=== PATIENT | male | born 1960 | race Caucasian/White ===

== ENCOUNTER 2016-11-26 17:05 | Emergency (ER) | payer OTHER ==
[~2016-11-26] VITALS: Ht 172.7 cm; Wt 71.6 kg
[~2016-11-26 17:05] MED LIST: AMLO-114 PO; CLON2TAB3 PO; FLUO40CA8 PO; LISI40TA PO; ZOLP5TAB PO; [UNRECOGNIZED DRUG - CODE]
[2016-11-26 17:16] VITALS: TEMP 36.7; Ht 172.7 cm; Wt 71.6 kg
[2016-11-26] MEDS ORDERED: LORAZEPAM 1 MG TAB PO STA (17:40)
[2016-11-26] MEDS ORDERED: THIAMINE HCL 100 MG TAB PO STA (17:40)
--- NOTE | 2016-11-26 17:44 | EMERGENCY ROOM VISIT NOTE ---
History Report prepared by Dalton: Lori Vega Under the Supervision of: Dr. Carlos Hitchcock M.D. First contact with patient: 17:21 Chief Complaint: MENTAL HEALTH EVALUATION Stated Complaint: VOLUNTARY ADMISSION History of Present Illness The patient is a 56 year old male who presents to the Emergency Room for a mental health evaluation after an episode of homicidal ideation beginning just COIL PLACER. Per police, the patient is 302 and threatened to hurt his mother today after she got rid of their dog because he was biting people. They report that he stated that he wants his mother to and he does not want to live anymore. The patient states that he is upset that his dog has to be put down as it is the only living creature that he loved. He notes that he drank 3/4 of a pint of Everclear today and he is more drunk than he thought. He notes that he quit drinking 1990 but started drinking again over the last couple of years and has been drinking every day throughout the last week. The patient reports that he is on Prozac, Seroquel, and Clozapine. Source of History: patient Onset: just COIL PLACER Position: other (mental health) Timing: other (episode) Modifying Factors (Worsening): other (dog gone) Note: Pt admits to suicidal and homicidal ideation. Review of Systems See HPI for pertinent positives & negatives. A total of 10 systems reviewed and were otherwise negative. Past Medical & Surgical Medical Problems: (1) Hypertension Family History No pertinent family history stated. Social History Smoking Status: Current Every Day Smoker Marital Status: single Housing Status: lives with family Occupation Status: disabled Current/Historical Medications Scheduled Amlodipine (Norvasc), 10 MG PO DAILY Clonazepam (Klonopin), 2 MG PO BID Fluoxetine (Prozac), 40 MG PO DAILY Lisinopril (Zestril), 40 MG PO DAILY Quetiapine Fumarate (Seroquel), 300 MG PO DAILY Zolpidem Tartrate (Ambien), 5 MG PO HS Miscellaneous Medications Acetaminophen (Bulk) (Acetaminophen) Allergies Coded Allergies: No Known Allergies (Verified , 11/26/16) Physical Exam Vital Signs Date Time Temp Pulse Resp B/P Pulse Ox O2 Delivery O2 Flow Rate FiO2 11/27/16 09:31 82 20 140/103 95 11/27/16 02:57 85 18 139/81 94 Room Air 11/26/16 18:59 88 18 134/76 92 Room Air 11/26/16 17:16 36.7 108 18 108/75 95 Room Air Physical Exam GENERAL: Patient is a healthy-appearing well-nourished, clinically intoxicated, strong odor of alcohol. HEAD: Normocephalic atraumatic EYES: Ocular movements intact pupils equal and react to light OROPHARYNX mucous membranes are moist no exudates present no erythema or edema present NECK: Supple no nuchal rigidity CHEST: Good equal expansion LUNGS: Clear and equal to auscultation CARDIAC: Normal S1 and S2 ABDOMEN: Soft nontender no guarding BACK: No CVA tenderness EXTREMITIES: No pain upon palpation normal muscle strength in all groups no clubbing cyanosis or edema NEURO: Patient is following commands is answering questions appropriately. Alert and oriented x3 Cranial Nerves 2-12 grossly intact Medical Decision & Procedures Laboratory Results 11/26/16 18:01 Red Blood Count 4.64, Mean Corpuscular Volume 87.1, Mean Corpuscular Hemoglobin 30.4, Mean Corpuscular Hemoglobin Concent 34.9, Mean Platelet Volume 8.6, Neutrophils (%) (Auto) 57.9, Lymphocytes (%) (Auto) 30.2, Monocytes (%) (Auto) 5.9, Eosinophils (%) (Auto) 4.5, Basophils (%) (Auto) 1.3, Neutrophils # (Auto) 3.45, Lymphocytes # (Auto) 1.80, Monocytes # (Auto) 0.35, Eosinophils # (Auto) 0.27, Basophils # (Auto) 0.08 11/26/16 18:01 Test 11/26/16 17:40 11/26/16 17:50 11/26/16 18:01 11/26/16 23:30 Urine Color YELLOW Urine Appearance CLEAR (CLEAR) Urine pH 8.0 (4.5-7.5) Urine Specific [place] 1.010 (1.000-1.030) Urine Protein NEG (NEG) Urine Glucose (UA) NEG (NEG) Urine Ketones NEG (NEG) Urine Occult Blood NEG (NEG) Urine Nitrite NEG (NEG) Urine Bilirubin NEG (NEG) Urine Urobilinogen NEG (NEG) Urine Leukocyte Esterase SMALL (NEG) Urine RBC 0-4 /hpf (0-4) Urine WBC 10-30 /hpf (0-5) Urine Epithelial Cells 10-20 /lpf (0-5) Urine Bacteria 1+ (NEG) Urine Hyaline Casts 1-5 /lpf (0-5) Urine Opiates Screen NEG (NEG) Urine Methadone, Qualitative NEG (NEG) Urine Barbiturates NEG (NEG) Urine Phencyclidine (PCP) Level NEG (NEG) Ur Amphetamine/Methamphetamine NEG (NEG) MDMA (Ecstasy) Screen NEG (NEG) Urine Benzodiazepines Screen NEG (NEG) Urine Cocaine Metabolite NEG (NEG) Urine Marijuana (THC) NEG (NEG) Bedside Glucose 105 mg/dl (70-99) White Blood Count 5.96 K/uL (4.8-10.8) Red Blood Count 4.64 M/uL (4.7-6.1) Hemoglobin 14.1 g/dL (14.0-18.0) Hematocrit 40.4 % (42-52) Mean Corpuscular Volume 87.1 fL (80-100) Mean Corpuscular Hemoglobin 30.4 pg (25-34) Mean Corpuscular Hemoglobin Concent 34.9 g/dl (32-36) Platelet Count 336 K/uL (130-400) Mean Platelet Volume 8.6 fL (7.4-10.4) Neutrophils (%) (Auto) 57.9 % Lymphocytes (%) (Auto) 30.2 % Monocytes (%) (Auto) 5.9 % Eosinophils (%) (Auto) 4.5 % Basophils (%) (Auto) 1.3 % Neutrophils # (Auto) 3.45 K/uL (1.4-6.5) Lymphocytes # (Auto) 1.80 K/uL (1.2-3.4) Monocytes # (Auto) 0.35 K/uL (0.11-0.59) Eosinophils # (Auto) 0.27 K/uL (0-0.5) Basophils # (Auto) 0.08 K/uL (0-0.2) RDW Standard Deviation 45.2 fL (36.4-46.3) RDW Coefficient of Variation 14.2 % (11.5-14.5) Immature Granulocyte % (Auto) 0.2 % Immature Granulocyte # (Auto) 0.01 K/uL (0.00-0.02) Anion Gap 9.0 mmol/L (3-11) Est Creatinine Clear Calc Drug Dose 82.2 ml/min Estimated GFR () 100.7 Estimated GFR (Non- 86.9 BUN/Creatinine Ratio 13.0 (10-20) Calcium Level 8.0 mg/dl (8.5-10.1) Total Bilirubin 0.2 mg/dl (0.2-1) Direct Bilirubin < 0.1 mg/dl (0-0.2) Aspartate Amino Transf (AST/SGOT) 25 U/L (15-37) Alanine Aminotransferase (ALT/SGPT) 32 U/L (12-78) Alkaline Phosphatase 55 U/L (45-117) Total Protein 6.9 gm/dl (6.4-8.2) Albumin 3.8 gm/dl (3.4-5.0) Thyroid Stimulating Hormone (TSH) 0.615 uIu/ml (0.300-4.500) Ethyl Alcohol mg/dL 84.0 mg/dl (0-3) Labs reviewed by ED physician. Medications Administered Medications (Trade) Dose Ordered Sig/Hoa Route Start Time Stop Time Status Last Admin Dose Admin Lorazepam (Ativan Tab) 1 mg NOW STAT PO 11/26/16 17:40 11/26/16 17:42 DC 11/26/16 18:21 1 MG Folic Acid (Folvite Tab) 1 mg NOW STAT PO 11/26/16 17:40 11/26/16 17:42 DC 11/26/16 18:21 1 MG Thiamine HCl (Vitamin B-1 Tab) 100 mg NOW STAT PO 11/26/16 17:40 11/26/16 17:42 DC 11/26/16 18:21 100 MG Clonazepam (Klonopin Tab) 2 mg BID PO 11/26/16 21:00 11/27/16 10:20 DC 11/26/16 21:00 2 MG Amlodipine Besylate (Norvasc Tab) 10 mg QAM PO 11/27/16 09:00 11/27/16 10:20 DC 11/27/16 08:51 10 MG Lisinopril (Zestril Tab) 40 mg QAM PO 11/27/16 09:00 11/27/16 10:20 DC 11/27/16 08:51 40 MG Fluoxetine HCl (Prozac Cap) 40 mg NOW ONCE PO 11/26/16 18:45 11/26/16 18:48 DC 11/26/16 18:59 40 MG Ibuprofen (Motrin Tab) 800 mg NOW STAT PO 11/27/16 02:42 11/27/16 02:43 DC 11/27/16 02:42 800 MG Lorazepam (Ativan Tab) 1 mg NOW STAT SL 11/27/16 05:39 11/27/16 05:40 DC 11/27/16 05:45 1 MG Clonazepam (Klonopin Tab) 2 mg STK-MED ONCE .ROUTE 11/27/16 08:47 11/27/16 08:48 DC 11/27/16 08:47 2 MG Quetiapine Fumarate (seroQUEL TAB) 300 mg ONE ONCE PO 11/27/16 09:30 11/27/16 09:31 DC 11/27/16 09:28 300 MG ED Course 172: Past medical records reviewed. The patient was evaluated in room A6. A complete history and physical examination was performed. 1740: Thiamine HCl 100mg PO, Folic Acid 1mg PO, Ativan Tab 1mg PO. 2030: The patient was signed out to Dr. Bennett. Medical Decision Differential diagnosis: Etiologies such as mood disorder, infection, hypoglycemia, electrolyte abnormalities, cardiac sources, intracerebral event, toxicologic, neurologic, as well as others were entertained. This is a 56-year-old male who presents emergency department complaining of arriving to the emergency department under a 302. Because of this laboratory work was obtained. The patient is intoxicated. They will take several hours for his alcohol level to clear. The meantime the patient had his medications ordered he was given thiamine as well as folic acid as well as Ativan. Repeat examination revealed much improvement patient's symptoms. The patient was signed out to Dr. Bennett at change of shift pending alcohol clearance. Impression Primary Impression: Mood disorder Scribe Attestation The scribe's documentation has been prepared under my direction and personally reviewed by me in its entirety. I confirm that the note above accurately reflects all work, treatment, procedures, and medical decision making performed by me. Departure Information Dispostion Still a Patient Referrals No Doctor, Assigned (PCP) Patient Instructions My [facility]
[2016-11-26] MEDS ORDERED: QUET1TAB37 PO (18:16)
[2016-11-26 18:17] LABS: BASO % 1.3 %; BASO ABS # 0.08 K/uL (0-0.2); COMPLETE YES; EOS % 4.5 %; HEMATOCRIT 40.4 % (42-52); IG% 0.2 %; LYMPH % 30.2 %; MEAN CELL VOLUME 87.1 fL (80-100); MEAN CORPUSCULAR HEMOGLOBIN 30.4 pg (25-34); MEAN CORPUSCULAR HGB CONC 34.9 g/dl (32-36); MEAN PLATELET VOLUME 8.6 fL (7.4-10.4); MONO % 5.9 %; NEUT % 57.9 %; PLATELET COUNT 336 K/uL (130-400); RED BLOOD COUNT 4.64 M/uL (4.7-6.1); WHITE BLOOD COUNT 5.96 K/uL (4.8-10.8)
[2016-11-26 18:38] LABS: ALT/SGPT 32 U/L (12-78); AST/SGOT 25 U/L (15-37); BLOOD UREA NITROGEN 13 mg/dl (7-18); CARBON DIOXIDE 27 mmol/L (21-32); CHLORIDE 106 mmol/L (98-107); CREATININE 0.97 mg/dl (0.60-1.40); GLUCOSE 105 mg/dl (70-99); POTASSIUM 4.3 mmol/L (3.5-5.1); SODIUM 142 mmol/L (136-145)
[2016-11-26] MEDS ORDERED: ZOLPIDEM TARTRATE 5 MG TAB PO PRN (18:45)
[2016-11-26] MEDS ORDERED: FLUOXETINE HCL 20 MG CAP PO ONE (18:45)
[2016-11-26 18:48] LABS: ALKALINE PHOSPHATASE 55 U/L (45-117); THYROID STIMULATING HORMONE 0.615 uIu/ml (0.300-4.500)
[2016-11-26 18:58] LABS: URINE APPEARANCE CLEAR (CLEAR); URINE BILIRUBIN NEG (NEG); URINE COLOR YELLOW; URINE NITRITE NEG (NEG); UROBILINOGEN NEG (NEG)
[2016-11-26 19:03] LABS: MANUAL MICROSCOPIC REQUIRED? YES; REVIEW REQ? NO
[2016-11-26 19:17] LABS: URINE RBC 0-4 /hpf (0-4)
[2016-11-26 19:18] LABS: URINE BACTERIA 1+ (NEG)
[2016-11-26 19:33] LABS: BENZODIAZEPINE, URINE NEG (NEG); COCAINE,URINE NEG (NEG); PHENCYCLIDINE, URINE NEG (NEG)
[2016-11-26] MEDS ORDERED: CLONAZEPAM 1 MG TAB PO SCH (21:00)
[2016-11-26] MEDS ORDERED: CLONAZEPAM 0.5 MG TAB ONE (21:40)
--- NOTE | 2016-11-27 01:41 | EMERGENCY ROOM VISIT NOTE ---
ED Visit Note First contact with patient: 17:21 I assumed care at the change of shift, the patient had presented homicidal and suicidal. He was intoxicated with alcohol. He was upset over issues with his dog. The patient has a 302 petition against him, as his alcohol was elevated at nearly 200, a repeat alcohol was to be drawn at around 11:00. The patient's alcohol level returned at under 100, he was felt sober enough to be seen by the psychiatry services. [facility] been [facility] for an evaluation. At this point, the case is being assumed by Dr. Lockwood, please see his notes. The patient's disposition is pending.
[2016-11-27] MEDS ORDERED: IBUPROFEN 800 MG TAB PO STA (02:42)
[2016-11-27] MEDS ORDERED: LORAZEPAM 1 MG TAB SL STA (05:39)
--- NOTE | 2016-11-27 07:28 | EMERGENCY ROOM VISIT NOTE ---
ED Visit Note First contact with patient: 01:42 56 yr old male signed out to me by Dr Bennett awaiting mental health evaluation. Increased life stressors with increased depression. Admits suicidal thoughts. Made homicidal threats earlier while intoxicated. Spiraling at home and at high risk suicide attempt. [facility] evaluated patient and accepted to [facility] for further evaluation/treatment.
[2016-11-27] MEDS ORDERED: CLONAZEPAM 0.5 MG TAB ONE (08:47)
[2016-11-27] MEDS ORDERED: AMLODIPINE BESYLATE 5 MG TAB PO SCH (09:00)
[2016-11-27] MEDS ORDERED: LISINOPRIL 40 MG TAB PO SCH (09:00)
[2016-11-27] MEDS ORDERED: QUETIAPINE FUMARATE 300 MG TAB PO ONE (09:30)
[2016-11-27 09:31] VITALS: BP 140/103; PULSE 82; O2SAT 95
[2017-01-30] MEDS ORDERED: QUET-115 PO (11:20)
[2017-03-24] MEDS ORDERED: AZIT-57 PO (11:18)
[2017-03-24] MEDS ORDERED: PRED20TA PO (11:18)
[2017-03-24] MEDS ORDERED: IPRASOL4 INH (11:18)
[2017-03-24] MEDS ORDERED: AMOX875T PO (11:18)
[2017-03-24] MEDS ORDERED: GFNSR600 PO (11:18)
== END 2016-11-27 09:32 ==
LOC: C.EDB 17:08 → C.EDA 11-27 09:32
DX: F39 Unspecified mood [affective] disorder (principal); I10 Essential (primary) hypertension; F17.200 Nicotine dependence, unspecified, uncomplicated; Z79.899 Other long term (current) drug therapy; F43.9 Reaction to severe stress, unspecified; F32.9 Major depressive disorder, single episode, unspecified; F10.129 Alcohol abuse with intoxication, unspecified; Y90.7 Blood alcohol level of 200-239 mg/100 ml; Y90.5 Blood alcohol level of 100-119 mg/100 ml

== ENCOUNTER 2017-01-22 18:21 | Inpatient (IN) | payer OTHER ==
[~2017-01-22] VITALS: Ht 172.7 cm; Wt 70.0 kg
[~2017-01-22 18:21] MED LIST changes: +QUET1TAB37 PO
[2017-01-22 18:26] VITALS: O2SAT 97
[2017-01-22] MEDS ORDERED: MULTI-VITAMIN INFUSION INJ 10 ML, THIAMINE HCL INJ 100 MG, FoLIC ACID INJ 1 MG in SODIU... IV ONE (18:45)
[2017-01-22 19:04] LABS: BASO % 1.8 %; BASO ABS # 0.11 K/uL (0-0.2); COMPLETE YES; EOS % 6.6 %; HEMATOCRIT 36.5 % (42-52); IG% 0.5 %; LYMPH % 25.5 %; LYMPH ABS # 1.59 K/uL (1.2-3.4); MEAN CELL VOLUME 87.5 fL (80-100); MEAN CORPUSCULAR HGB CONC 34.2 g/dl (32-36); MEAN PLATELET VOLUME 8.1 fL (7.4-10.4); NEUT % 57.6 %; PLATELET COUNT 390 K/uL (130-400); RED BLOOD COUNT 4.17 M/uL (4.7-6.1); WHITE BLOOD COUNT 6.24 K/uL (4.8-10.8)
[2017-01-22 19:05] LABS: URINE APPEARANCE CLOUDY (CLEAR); URINE BILIRUBIN NEG (NEG); URINE COLOR YELLOW; URINE EPITHELIAL CELL AUTO 0-5 /lpf (0-5); URINE NITRITE NEG (NEG); URINE PH 6.5 (4.5-7.5); UROBILINOGEN NEG (NEG)
[2017-01-22] MEDS ORDERED: ATR25 PO (19:05)
[2017-01-22 19:18] LABS: MANUAL MICROSCOPIC REQUIRED? NO; REVIEW REQ? NO
[2017-01-22 19:29] LABS: BLOOD UREA NITROGEN 16 mg/dl (7-18); BUN/CREATININE RATIO 15.6 (10-20); CARBON DIOXIDE 24 mmol/L (21-32); CHLORIDE 108 mmol/L (98-107); GLUCOSE 100 mg/dl (70-99); POTASSIUM 4.2 mmol/L (3.5-5.1); SODIUM 139 mmol/L (136-145)
[2017-01-22 20:17] LABS: PROTHROMBIN TIME (PATIENT) 11.1 SECONDS (9.0-12.0)
[2017-01-22 20:21] LABS: ALKALINE PHOSPHATASE 69 U/L (45-117); ALT/SGPT 21 U/L (12-78); AST/SGOT 15 U/L (15-37)
[2017-01-22] MEDS ORDERED: ALUMINUM/MAGNESIUM SUSP 30 ML UDC PO PRN (21:15)
[2017-01-22] MEDS ORDERED: LORAZEPAM 1 MG TAB PO PRN (21:15)
[2017-01-22] MEDS ORDERED: BISMUTH SUBSALICYLATE PER ML OMNICELL CHARGE PO PRN (21:15)
[2017-01-22] MEDS ORDERED: SODIUM CHLORIDE 0.65% NA SOLN 45 ML (OCEAN) PRN (21:15)
[2017-01-22 21:18] LABS: BENZODIAZEPINE, URINE NEG (NEG); COCAINE,URINE NEG (NEG); PHENCYCLIDINE, URINE NEG (NEG)
[2017-01-22] MEDS ORDERED: THIAMINE HCL 100 MG TAB PO STA (21:21)
[2017-01-22] MEDS: hydrOXYzine HCL 25 MG TAB PO PRN ×2 (21:26→22:26)
[2017-01-22 21:42] VITALS: O2SAT 94
[2017-01-22] MEDS ORDERED: NURSING VERBAL MED ORDER ONE (22:00)
[2017-01-22 22:04] VITALS: BP 106/76; PULSE 70; TEMP 36.9; Ht 172.7 cm; Wt 70.0 kg
[2017-01-22] MEDS: NICOTINE 21 MG/24 HR TDSY TD SCH (22:26)
--- NOTE | 2017-01-23 00:39 | EMERGENCY ROOM VISIT NOTE ---
History Report prepared by Dalton: Ambar Frances Under the Supervision of: Dr. Mendez Bhakta M.D. First contact with patient: 18:38 Chief Complaint: ALCOHOL OVERDOSE Stated Complaint: ETOH Nursing Triage Summary: "pushing up sensation" upper abdomen denies n/v/d History of Present Illness The patient is a 56 year old male who presents to the Emergency Room for mental health evaluation. The patient states that he came by ambulance because [facility] called them. He report he doesn't know why they called, but thinks it might be because his eyes were rolling to the back of his head. The patient states that he can't stop drinking because he is tense. He reports that his head is spinning and he anxious, but doesn't want to talk about why. He states talking about his anxiety will make him feel worse. He reports that he does drink on a regular basis. The patient denies the use of drugs, suicidal ideation , falling, chest pain, abdominal pain, and shortness of breath. He notes that he was just discharged a week ago from a psychiatric hospital. He notes a rash on his side, but denies it being itchy. Source of History: patient Onset: prior to arrival Position: other (global) Quality: other (global) Timing: other (episode) Associated Symptoms: + rash (chronic secondary to eczema), No chest pain, No SOB, No abdominal pain Note: The patient complains of being anxious. The patient denies the use of drugs, suicidal ideation, falling, and his rash being itchy. Review of Systems See HPI for pertinent positives & negatives. A total of 10 systems reviewed and were otherwise negative. Past Medical & Surgical Medical Problems: (1) Depression (2) Hypertension (3) Suicidal ideation Family History No pertinent family history Social History Smoking Status: Unknown if Ever Smoked Alcohol Use: heavy Drug Use: none Marital Status: single Housing Status: lives with family Occupation Status: disabled Current/Historical Medications Scheduled Amlodipine (Norvasc), 10 MG PO DAILY Fluoxetine (Prozac), 40 MG PO DAILY Lisinopril (Zestril), 40 MG PO DAILY Quetiapine Fumarate (Seroquel), 300 MG PO BID Scheduled PRN Hydroxyzine HCl (Hydroxyzine HCl), 25 MG PO TID PRN for Anxiety Allergies Coded Allergies: No Known Allergies (Verified , 01/22/17) Physical Exam Vital Signs Date Time Temp Pulse Resp B/P (MAP) Pulse Ox O2 Delivery O2 Flow Rate FiO2 01/22/17 21:00 36.9 70 12 106/76 97 Room Air 01/22/17 19:26 78 01/22/17 19:09 75 16 97 Room Air 01/22/17 18:26 36.9 86 18 118/68 97 Room Air 01/22/17 18:26 97 Room Air Physical Exam Constitutional: Vital signs reviewed. Eyes: Pupils are equal round reactive to light. Conjunctiva are noninjected. ENT: Pharynx is clear without erythema or exudate. Mucous membranes are moist. Neck supple without meningeal signs. Respiratory: Clear to auscultation bilaterally. Breath sounds are equal bilaterally. Cardiovascular: Regular rate and rhythm. No rubs or gallops. GI: Soft, nondistended and nontender. Bowel sounds are present. Musculoskeletal: No peripheral edema. No lower extremity tenderness. Integumentary: No cyanosis. Coalesced easily blanchable, urticarial type rash to the right flank. Neurological: The patient is awake and alert. No focal deficits. Psychiatric: Anxious affect. Medical Decision & Procedures Laboratory Results 01/22/17 18:53 Red Blood Count 4.17, Mean Corpuscular Volume 87.5, Mean Corpuscular Hemoglobin 30.0, Mean Corpuscular Hemoglobin Concent 34.2, Mean Platelet Volume 8.1, Neutrophils (%) (Auto) 57.6, Lymphocytes (%) (Auto) 25.5, Monocytes (%) (Auto) 8.0, Eosinophils (%) (Auto) 6.6, Basophils (%) (Auto) 1.8, Neutrophils # (Auto) 3.60, Lymphocytes # (Auto) 1.59, Monocytes # (Auto) 0.50, Eosinophils # (Auto) 0.41, Basophils # (Auto) 0.11 01/22/17 18:48 Test 01/22/17 16:50 01/22/17 18:33 01/22/17 18:48 01/22/17 18:53 Urine Color YELLOW Urine Appearance CLOUDY (CLEAR) Urine pH 6.5 (4.5-7.5) Urine Specific [place] 1.020 (1.000-1.030) Urine Protein NEG (NEG) Urine Glucose (UA) NEG (NEG) Urine Ketones NEG (NEG) Urine Occult Blood NEG (NEG) Urine Nitrite NEG (NEG) Urine Bilirubin NEG (NEG) Urine Urobilinogen NEG (NEG) Urine Leukocyte Esterase NEG (NEG) Urine WBC (Auto) 1-5 /hpf (0-5) Urine RBC (Auto) 0-4 /hpf (0-4) Urine Hyaline Casts (Auto) 0 /lpf (0-5) Urine Epithelial Cells (Auto) 0-5 /lpf (0-5) Urine Bacteria (Auto) NEG (NEG) Urine Opiates Screen NEG (NEG) Urine Methadone, Qualitative NEG (NEG) Urine Barbiturates NEG (NEG) Urine Phencyclidine (PCP) Level NEG (NEG) Ur Amphetamine/Methamphetamine NEG (NEG) MDMA (Ecstasy) Screen NEG (NEG) Urine Benzodiazepines Screen NEG (NEG) Urine Cocaine Metabolite NEG (NEG) Urine Marijuana (THC) NEG (NEG) Prothrombin Time 11.1 SECONDS (9.0-12.0) Prothromb Time International Ratio 1.0 (0.9-1.1) Activated Partial Thromboplast Time 27.1 SECONDS (21.0-31.0) Partial Thromboplastin Ratio 1.0 Anion Gap 7.0 mmol/L (3-11) Est Creatinine Clear Calc Drug Dose 79.8 ml/min Estimated GFR () 97.1 Estimated GFR (Non- 83.8 BUN/Creatinine Ratio 15.6 (10-20) Calcium Level 9.0 mg/dl (8.5-10.1) Total Bilirubin 0.1 mg/dl (0.2-1) Direct Bilirubin < 0.1 mg/dl (0-0.2) Aspartate Amino Transf (AST/SGOT) 15 U/L (15-37) Alanine Aminotransferase (ALT/SGPT) 21 U/L (12-78) Alkaline Phosphatase 69 U/L (45-117) Total Protein 7.1 gm/dl (6.4-8.2) Albumin 3.4 gm/dl (3.4-5.0) Thyroid Stimulating Hormone (TSH) 1.520 uIu/ml (0.300-4.500) Free Thyroxine 1.04 ng/dl (0.80-1.60) Ethyl Alcohol mg/dL 65.0 mg/dl (0-3) White Blood Count 6.24 K/uL (4.8-10.8) Red Blood Count 4.17 M/uL (4.7-6.1) Hemoglobin 12.5 g/dL (14.0-18.0) Hematocrit 36.5 % (42-52) Mean Corpuscular Volume 87.5 fL (80-100) Mean Corpuscular Hemoglobin 30.0 pg (25-34) Mean Corpuscular Hemoglobin Concent 34.2 g/dl (32-36) Platelet Count 390 K/uL (130-400) Mean Platelet Volume 8.1 fL (7.4-10.4) Neutrophils (%) (Auto) 57.6 % Lymphocytes (%) (Auto) 25.5 % Monocytes (%) (Auto) 8.0 % Eosinophils (%) (Auto) 6.6 % Basophils (%) (Auto) 1.8 % Neutrophils # (Auto) 3.60 K/uL (1.4-6.5) Lymphocytes # (Auto) 1.59 K/uL (1.2-3.4) Monocytes # (Auto) 0.50 K/uL (0.11-0.59) Eosinophils # (Auto) 0.41 K/uL (0-0.5) Basophils # (Auto) 0.11 K/uL (0-0.2) RDW Standard Deviation 46.9 fL (36.4-46.3) RDW Coefficient of Variation 14.6 % (11.5-14.5) Immature Granulocyte % (Auto) 0.5 % Immature Granulocyte # (Auto) 0.03 K/uL (0.00-0.02) Laboratory results as reviewed by me. Medications Administered Medications (Trade) Dose Ordered Sig/Hoa Route Start Time Stop Time Status Last Admin Dose Admin Multivitamins 10 ml/Thiamine HCl 100 mg/Folic Acid 1 mg/Sodium Chloride 1,011.2 ml @ 500 mls/ hr Q2H2M ONCE IV 01/22/17 18:45 01/22/17 20:46 DC 01/22/17 19:12 500 MLS/HR ECG Indication: other (dizziness) Rate (beats per minute): 81 Rhythm: normal sinus Findings: no acute ischemic change, no ectopy ED Course 1839: The patient was evaluated in room B11. A complete history and physical exam was performed. 1844: ordered Multivitamins 10ml/ Thiamine HCl 100 mg/ folic Acid 1 mg/ Sodium Chloride 1011.2 ml @ 500 mls/hr IV. 2248: The patient admitted to suicidal ideation and is willing to come in voluntarily. Medical Decision This is a 56-year-old male who was sent here for mental health evaluation by [facility]. I did perform a limited focused review of portions of the patient's old chart on the electronic medical record. The patient was in the ED in November and was admitted to the [facility] for suicidal thoughts. Medication Reconciliation: I attest that I have personally reviewed the patient' s current medication list. Blood Pressure Screening: Patient was found to have normal blood pressure on screening and does not require follow-up. I did evaluate the patient as noted above. I did order and personally review the patient's 12-lead EKG as described above. I did order and review the patient's blood work as noted in the electronic medical record. I did medically clear the patient. He was evaluated by the mental health rn field case manager. They spoke to [facility] who stated that he had made suicidal statements. Recommendation was for inpatient psychiatric care which patient agreed to. He was admitted to 3 S. behavioral unit. Impression Primary Impression: Mood disorder Additional Impressions: Suicidal ideation Anxiety Scribe Attestation The scribe's documentation has been prepared under my direct and personally reviewed by me in its entirety. I confirm that the note above accurately reflects all work, treatment, procedures, and medical decision making performed by me. Departure Information Dispostion Being Evaluated By Hospitalist Referrals ,Carlito Machado M.D. (PCP) Forms HOME CARE DOCUMENTATION FORM, IMPORTANT VISIT INFORMATION Patient Instructions My [facility] Problem Qualifiers
[2017-01-23 06:19] VITALS: BP 153/99; PULSE 86; TEMP 36.5
[2017-01-23 08:22] VITALS: BP 135/90; PULSE 75; TEMP 36.7
[2017-01-23] MEDS ORDERED: GABAPENTIN 800 MG TAB PO SCH (08:30)
[2017-01-23] MEDS ORDERED: LORAZEPAM 1 MG TAB PO PRN (08:30)
[2017-01-23] MEDS: AMLODIPINE BESYLATE 5 MG TAB PO SCH (08:39)
[2017-01-23] MEDS: QUETIAPINE FUMARATE 300 MG TAB PO SCH ×2 (08:39→21:13)
[2017-01-23] MEDS: THIAMINE HCL 100 MG TAB PO SCH (08:40)
[2017-01-23] MEDS: NICOTINE 21 MG/24 HR TDSY TD SCH (08:40)
[2017-01-23] MEDS: LISINOPRIL 40 MG TAB PO SCH (08:40)
[2017-01-23] MEDS ORDERED: CLONAZEPAM 1 MG TAB PO SCH (09:00)
[2017-01-23] MEDS ORDERED: FLUOXETINE HCL 20 MG CAP PO SCH (09:00)
[2017-01-23] MEDS ORDERED: GABAPENTIN 800MG LOADING DOSE PO ONE (09:45)
[2017-01-23] MEDS ORDERED: POLYETHYLENE (MIRALAX) 17 GM PACK PO ONE (10:04)
[2017-01-23] MEDS ORDERED: FLUOXETINE HCL 20 MG CAP PO ONE (10:04)
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
[2017-01-23 10:49] VITALS: BP 127/85; PULSE 76; TEMP 36.6
[2017-01-23 12:35] VITALS: BP 146/96; PULSE 73; TEMP 36.6
[2017-01-23 15:48] VITALS: BP 113/76; PULSE 74; TEMP 36.3
[2017-01-23] MEDS: GABAPENTIN 400MG Q6H DOSE PO SCH ×2 (15:51→21:14)
[2017-01-23] MEDS: NICOTINE POLACRILEX 2 MG GUM MT PRN (18:19)
[2017-01-23 20:38] VITALS: BP 131/89; PULSE 66; TEMP 36.3
[2017-01-24] MEDS: hydrOXYzine HCL 25 MG TAB PO PRN (02:31)
[2017-01-24] MEDS ORDERED: GABAPENTIN 400MG Q8H DOSE PO SCH (06:00)
[2017-01-24 06:58] VITALS: BP_SYST 117; BP_SYST 120; BP_DIAS 75; BP_DIAS 80; PULSE 76; TEMP 36.5
[2017-01-24 09:02] VITALS: BP 138/85; PULSE 94; TEMP 36.9
[2017-01-24] MEDS: POLYETHYLENE (MIRALAX) 17 GM PACK PO SCH (09:24)
[2017-01-24] MEDS: QUETIAPINE FUMARATE 300 MG TAB PO SCH ×2 (09:25→21:29)
[2017-01-24] MEDS: LISINOPRIL 40 MG TAB PO SCH (09:25)
[2017-01-24] MEDS: AMLODIPINE BESYLATE 5 MG TAB PO SCH (09:25)
[2017-01-24] MEDS: THIAMINE HCL 100 MG TAB PO SCH (09:26)
[2017-01-24] MEDS: FLUOXETINE HCL 20 MG CAP PO SCH (09:26)
[2017-01-24] MEDS: NICOTINE 21 MG/24 HR TDSY TD SCH (09:26)
[2017-01-24] MEDS: QUETIAPINE FUMARATE 25 MG TAB PO PRN ×2 (10:36→18:21)
[2017-01-24 12:42] VITALS: BP 124/85; PULSE 75; TEMP 36.3
[2017-01-24] MEDS: ACETAMINOPHEN 325 MG TAB PO PRN (12:46)
--- NOTE | 2017-01-24 13:09 | Psychiatric Progress Notes ---
Progress Note Date of Service Jan 24, 2017. Interval History Jorge Luis Barrera is a 56-year-old male currently residing in [facility], who presents to the emergency room with severe anxiety feeling unable to function outside of a structured environment as well as alcohol abuse. Information is gathered from the patient, the electronic medical record, and considered to be reliable. Chief Complaint "I'm anxious but not freaking out". Subjective Patient was seen & assessed interval progress reviewed with Treatment Team. Per staff, patient scored 0 on TANYA S last night but had been scoring previously. Fasting labs had to be postponed this morning as patient was drinking soda. He has complained of constipation that is not a resolved. He reports this is not unusual for him. He denies feeling in any pain or discomfort regarding his abdomen. On interview he states "I can feel anxiety simmering." He does indicate that his anxiety is much improved since he's been on the Neurontin in combination with the Vistaril. He denies feeling in withdrawal presently. He complains that his anxiety has recently been so high that it has caused him "constant torment." Review of Systems Constitutional: + fatigue Cardiovascular: No chest pain Abdomen: + constipation, No pain Sleep Information Total Hours of Sleep: 6.25 Meal Information Percent of Breakfast Consumed: 100 Percent of Lunch Consumed: 100 Percent of Dinner Consumed: 100 Mental Status Exam During interview pt is: alert and oriented, cooperative Appearance: appropriately dressed, appropriately groomed Eye contact is: good Motor behavior is: psychomotor agitation (mild) Speech: normal in rate, rhythm & volume Affect: blunted, anxious Mood is: depressed, anxious Thought process: goal directed Thought content: reality based without delusions Suicidal thought are: denied Homicidal thoughts are: denied Hallucinations: denies auditory, denies visual Cognition: attention grossly intact, language grossly intact Intelligence estimated to be: average Insight: impaired Judgement: impaired Impression 56-year-old gentleman admitted with severe depression, anxiety, and alcohol abuse. He has recently had a string of hospitalizations in rehabilitation and feels no improvement to his conditions. We will continue him on the TANYA S protocol due to drinking several pints of gr alcohol daily. He will likely need rehabilitation but will not be able to tolerate this until anxiety is stabilized. We will increase Prozac to 60 mg daily and likely to 80 mg over time to target his anxiety and we will continue Seroquel 300 mg twice a day but add a when necessary of 50 mg 4 times daily when necessary for anxiety. Although the patient is not clearly psychotic, his anxiety is of psychotic proportions. If a maximum dose of Seroquel is ineffective, consider alternate atypicals. We will request a fasting lipid panel and fasting glucose in view of atypical antipsychotics. We will need to establish aftercare up appointments with therapist and Dr. Espino. His constipation problems that he is accurately portraying that he has not had a bowel movement in 2 weeks. Will encourage walking, hot liquids, prune juice and milk of magnesia as well as ordering Joaquina lacks daily. If this is ineffective, will obtain a plain film of the abdomen before proceeding further. He will be placed on recovery protocol. At this time, the patient requires inpatient mental health treatment due to severe anxiety and depression making it impossible for him to function outside of a structured environment. Plan (1) Major depressive disorder, recurrent severe without psychotic features 01/23 -Increase Prozac to 60 mg daily and titrate as tolerated -Continue Seroquel 300 mg twice a day and add 50 mg 4 times daily when necessary -If no success with maximum doses of Seroquel, consider switching to another atypical -Every 15 minute checks for safety -Encourage participation in group and individual counseling -Coordinate with current providers and refer for therapy -Family meeting if indicated (2) Panic disorder 01/23 -Medications as above -Assist the patient to learn and utilize healthy coping strategies -The patient will be receiving gabapentin as part of the TANYA S protocol which will also benefit his anxiety 01/24 - Patient perceives anxiety is improved with the gabapentin on board. will halt the taper at 400mg TID to maintain benefit (3) Alcohol dependence 01/23 -Recommend abstinence -Recovery protocol - AWSS protocol -Need to stabilize anxiety before making any referrals for ongoing substance use treatment (4) Tobacco use disorder 01/23 -Nicotinic patch 21 mg daily for neck and withdrawal -Will also order Nicorette gum 2 mg every hour when necessary T in withdrawal -Recommend quitting (5) Constipation 01/23 -Encourage physical activity especially walking -Encourage daily use of prune juice, hot liquids and milk of magnesia -Will order Miralax daily but if no results in 2 days, will proceed with a plain film of the abdomen (6) Hypertension 01/23 -Continue home doses of Norvasc -Monitor BP Has been reviewed with Dr. Rima meléndez Discharge / Aftercare Planning Primary Care Physician: Name: Dr Rothman Visit Code E&M Code: 43070 Inventory Assets Strengths: Desire to get well, has a living situation and an outpatient provider Needs: To abstain from alcohol Risk Factors Assessment /single/: Yes Higher / Fall in social status: No Health problems: Yes Mental Health Diagnoses: Yes Substance use disorders: Yes Previous attempt: Yes Family history of suicide: No Previous psychiatric stay: Yes Smoker: Yes Protective Factors Assessment Christian beliefs: No : No Responsible for young children: No Employed: No Stable relationships: No Good rapport with provider: Yes Data Vital Signs Last 24 Hrs: Date Time Temp Pulse Resp B/P (MAP) Pulse Ox O2 Delivery O2 Flow Rate FiO2 01/24/17 12:42 36.3 75 18 124/85 01/24/17 09:02 36.9 94 18 138/85 01/24/17 06:58 36.5 76 16 117/80 76 120/75 01/23/17 20:38 36.3 66 18 131/89 01/23/17 15:48 36.3 74 18 113/76 Meds Administered Last 24 Hrs: Meds Administered (Past 24Hrs) Medications (Trade) Dose Ordered Sig/Hoa Route Start Time Stop Time Status Last Admin Dose Admin Multivitamins 10 ml/Thiamine HCl 100 mg/Folic Acid 1 mg/Sodium Chloride 1,011.2 ml @ 500 mls/ hr Q2H2M ONCE IV 01/22/17 18:45 01/22/17 20:46 DC 01/22/17 19:12 500 MLS/HR Acetaminophen (Tylenol Tab) 650 mg Q4H PRN PO 01/22/17 21:15 02/21/17 21:14 01/24/17 12:46 650 MG Hydroxyzine HCl (Vistaril Tab) 50 mg HSZ PRN PO 01/22/17 21:15 02/21/17 21:14 01/24/17 02:31 50 MG Hydroxyzine HCl (Vistaril Tab) 25 mg Q4H PRN PO 01/22/17 21:15 02/21/17 21:14 01/22/17 21:26 25 MG Thiamine HCl (Vitamin B-1 Tab) 100 mg DAILY PO 01/23/17 09:00 02/22/17 08:59 01/24/17 09:26 100 MG Lorazepam (Ativan Tab) 1 mg ONE PRN PO 01/22/17 21:15 01/23/17 05:56 DC 01/23/17 05:56 1 MG Amlodipine Besylate (Norvasc Tab) 10 mg DAILY PO 01/23/17 09:00 02/22/17 08:59 01/24/17 09:25 10 MG Fluoxetine HCl (Prozac Cap) 40 mg DAILY PO 01/23/17 09:00 01/23/17 10:08 DC 01/23/17 08:39 40 MG Lisinopril (Zestril Tab) 40 mg DAILY PO 01/23/17 09:00 02/22/17 08:59 01/24/17 09:25 40 MG Quetiapine Fumarate (seroQUEL TAB) 300 mg BID PO 01/23/17 09:00 02/22/17 08:59 01/24/17 09:25 300 MG Thiamine HCl (Vitamin B-1 Tab) 100 mg NOW STAT PO 01/22/17 21:21 01/22/17 21:22 DC 01/22/17 22:24 100 MG Nicotine (Nicoderm Cq 21MG Patch) 1 patch QAM TD 01/22/17 22:03 02/21/17 22:02 01/24/17 09:26 1 PATCH Lorazepam (Ativan Tab) PRN Dosing -Active Protocol UD PRN PO 01/23/17 08:30 02/22/17 08:29 01/23/17 09:40 1 MG Gabapentin (Neurontin Cap) 800 mg NOW ONCE PO 01/23/17 09:45 01/23/17 09:46 DC 01/23/17 09:39 800 MG Gabapentin (Neurontin Cap) 400 mg Q6H PO 01/23/17 16:00 01/23/17 22:01 DC 01/23/17 21:14 400 MG Gabapentin (Neurontin Cap) 400 mg Q8H PO 01/24/17 06:00 01/24/17 22:01 01/24/17 06:19 400 MG Fluoxetine HCl (Prozac Cap) 60 mg QAM PO 01/24/17 09:00 02/23/17 08:59 01/24/17 09:26 60 MG Fluoxetine HCl (Prozac Cap) 20 mg 1004 ONCE PO 01/23/17 10:04 01/23/17 10:10 DC 01/23/17 10:45 20 MG Quetiapine Fumarate (seroQUEL TAB) 50 mg QID PRN PO 01/23/17 10:15 02/22/17 10:14 01/24/17 10:36 50 MG Polyethylene (Miralax Powder Packet) 17 gm DAILY PO 01/24/17 09:00 02/23/17 08:59 01/24/17 09:24 17 GM Polyethylene (Miralax Powder Packet) 17 gm 1004 ONCE PO 01/23/17 10:04 01/23/17 10:11 DC 01/23/17 10:44 17 GM Nicotine Polacrilex (Nicorette 2MG Gum) 1 piece Q1H PRN MT 01/23/17 10:15 02/22/17 10:14 01/23/17 18:19 1 PIECE Problem Qualifiers (1) Alcohol dependence: Substance use status: uncomplicated Qualified Codes: F10.20 - Alcohol dependence, uncomplicated (2) Hypertension: Hypertension type: unspecified Qualified Codes: I10 - Essential (primary) hypertension
[2017-01-24] MEDS: GABAPENTIN 400 MG CAP PO SCH ×2 (13:58→21:30)
[2017-01-24 16:16] VITALS: BP 116/76; PULSE 76; TEMP 36.3
[2017-01-24] MEDS: MAGNESIUM HYDROXIDE SUSP 30 ML UDC PO PRN (17:40)
[2017-01-24 20:10] VITALS: BP 112/75; PULSE 68; TEMP 36.8
[2017-01-25 06:45] VITALS: BP_SYST 124; BP_SYST 142; BP_DIAS 103; BP_DIAS 85; PULSE 80; PULSE 89; TEMP 36.4
[2017-01-25 07:35] LABS: CHOLESTEROL/HDL RATIO 3.8
[2017-01-25 09:06] VITALS: BP 111/81; PULSE 74; TEMP 36.6
[2017-01-25] MEDS: POLYETHYLENE (MIRALAX) 17 GM PACK PO SCH (09:21)
[2017-01-25] MEDS: FLUOXETINE HCL 20 MG CAP PO SCH (09:22)
[2017-01-25] MEDS: THIAMINE HCL 100 MG TAB PO SCH (09:22)
[2017-01-25] MEDS: AMLODIPINE BESYLATE 5 MG TAB PO SCH (09:22)
[2017-01-25] MEDS: QUETIAPINE FUMARATE 300 MG TAB PO SCH ×2 (09:22→21:16)
[2017-01-25] MEDS: GABAPENTIN 400 MG CAP PO SCH ×3 (09:22→21:15)
[2017-01-25] MEDS: NICOTINE 21 MG/24 HR TDSY TD SCH (09:23)
[2017-01-25] MEDS: LISINOPRIL 40 MG TAB PO SCH (09:23)
[2017-01-25] MEDS ORDERED: GABAPENTIN 400MG Q12H DOSE PO SCH (10:00)
[2017-01-25] MEDS: QUETIAPINE FUMARATE 25 MG TAB PO PRN ×2 (10:53→15:45)
[2017-01-25] MEDS ORDERED: DOCUSATE SODIUM 100 MG CAP PO ONE (11:02)
--- NOTE | 2017-01-25 11:05 | Psychiatric Progress Notes ---
Progress Note Date of Service Jan 25, 2017. Interval History Jorge Luis Barrera is a 56-year-old male currently residing in [facility], who presents to the emergency room with severe anxiety feeling unable to function outside of a structured environment as well as alcohol abuse. Information is gathered from the patient, the electronic medical record, and considered to be reliable. Chief Complaint "I seem to be having suicidal ideations this morning". Subjective Patient was seen & assessed interval progress reviewed with Treatment Team. Patient continues to demonstrate some mild tremor he scored 1 on AWSS last evening. Fasting labs drawn this a.m. still no bowel movement. Patient seems a little inconsistent in his history today. He he asks for a sedative but later tells me that he is essentially absent of acute anxiety today so far. "I really don't have anxiety anymore, it's more depression." He states that he was having some suicidal thinking this morning which was passive in nature and denies intent or plan for self-harm on the unit and able to contract for safety. He indicates that his suicidal ideation was triggered by thoughts about having nothing to live for in the future. Review of Systems Abdomen: + constipation, No pain, No nausea Psychiatric: + depression symptoms Sleep Information Total Hours of Sleep: 10.00 Meal Information Percent of Breakfast Consumed: 100 Percent of Lunch Consumed: 100 Percent of Dinner Consumed: 100 Mental Status Exam During interview pt is: alert and oriented, cooperative Appearance: appropriately dressed, appropriately groomed Eye contact is: good Motor behavior is: steady gait & station, tremor Speech: normal in rate, rhythm & volume Affect: other (calm) Mood is: depressed Thought process: goal directed Thought content: reality based without delusions Suicidal thought are: present, Plan: denied, Intent: denied Homicidal thoughts are: denied Hallucinations: denies auditory, denies visual Cognition: attention grossly intact, language grossly intact Intelligence estimated to be: average Insight: impaired Judgement: impaired Impression 56-year-old gentleman admitted with severe depression, anxiety, and alcohol abuse. He has recently had a string of hospitalizations in rehabilitation and feels no improvement to his conditions. We will continue him on the TANYA S protocol due to drinking several pints of gr alcohol daily. He will likely need rehabilitation but will not be able to tolerate this until anxiety is stabilized. We will increase Prozac to 60 mg daily and likely to 80 mg over time to target his anxiety and we will continue Seroquel 300 mg twice a day but add a when necessary of 50 mg 4 times daily when necessary for anxiety. Although the patient is not clearly psychotic, his anxiety is of psychotic proportions. If a maximum dose of Seroquel is ineffective, consider alternate atypicals. We will request a fasting lipid panel and fasting glucose in view of atypical antipsychotics. We will need to establish aftercare up appointments with therapist and Dr. Espino. His constipation problems that he is accurately portraying that he has not had a bowel movement in 2 weeks. Will encourage walking, hot liquids, prune juice and milk of magnesia as well as ordering Joaquina lacks daily. If this is ineffective, will obtain a plain film of the abdomen before proceeding further. He will be placed on recovery protocol. At this time, the patient requires inpatient mental health treatment due to severe anxiety and depression making it impossible for him to function outside of a structured environment. Plan (1) Major depressive disorder, recurrent severe without psychotic features 01/23 -Increase Prozac to 60 mg daily and titrate as tolerated -Continue Seroquel 300 mg twice a day and add 50 mg 4 times daily when necessary -If no success with maximum doses of Seroquel, consider switching to another atypical -Every 15 minute checks for safety -Encourage participation in group and individual counseling -Coordinate with current providers and refer for therapy -Family meeting if indicated 01/25 - Mood a little more down and feeling little more hopeless this morning. Passive SI endorse today. (2) Panic disorder 01/23 -Medications as above -Assist the patient to learn and utilize healthy coping strategies -The patient will be receiving gabapentin as part of the [facility] protocol which will also benefit his anxiety 01/24 - Patient perceives anxiety is improved with the gabapentin on board. will halt the taper at 400mg TID to maintain benefit 01/25 - Anxiety appears much improved today. Continue gabapentin as above. - His request for a sedative was denied. Psychoeducation provided regarding relapse risk (3) Alcohol dependence 01/23 -Recommend abstinence -Recovery protocol - AWSS protocol -Need to stabilize anxiety before making any referrals for ongoing substance use treatment (4) Tobacco use disorder 01/23 -Nicotinic patch 21 mg daily for neck and withdrawal -Will also order Nicorette gum 2 mg every hour when necessary T in withdrawal -Recommend quitting (5) Constipation 01/23 -Encourage physical activity especially walking -Encourage daily use of prune juice, hot liquids and milk of magnesia -Will order Miralax daily but if no results in 2 days, will proceed with a plain film of the abdomen 01/25 - denies abd pain - start docusate 100mg bid - dulcolax supp x1 (6) Hypertension 01/23 -Continue home doses of Norvasc -Monitor BP Has been reviewed with Dr. Abarca good Discharge / Aftercare Planning Primary Care Physician: Name: Dr Rothman Visit Code E&M Code: 75299 Inventory Assets Strengths: Desire to get well, has a living situation and an outpatient provider Needs: To abstain from alcohol Risk Factors Assessment /single/: Yes Higher / Fall in social status: No Health problems: Yes Mental Health Diagnoses: Yes Substance use disorders: Yes Previous attempt: Yes Family history of suicide: No Previous psychiatric stay: Yes Smoker: Yes Protective Factors Assessment Restorationist beliefs: No : No Responsible for young children: No Employed: No Stable relationships: No Good rapport with provider: Yes Data Vital Signs Last 24 Hrs: Date Time Temp Pulse Resp B/P (MAP) Pulse Ox O2 Delivery O2 Flow Rate FiO2 01/25/17 09:06 36.6 74 16 111/81 01/25/17 06:45 36.4 80 16 142/103 89 124/85 01/24/17 20:10 36.8 68 14 112/75 01/24/17 16:16 36.3 76 12 116/76 01/24/17 12:42 36.3 75 18 124/85 Meds Administered Last 24 Hrs: Meds Administered (Past 24Hrs) Medications (Trade) Dose Ordered Sig/Hoa Route Start Time Stop Time Status Last Admin Dose Admin Gabapentin (Neurontin Cap) 400 mg Q6H PO 01/23/17 16:00 01/23/17 22:01 DC 01/23/17 21:14 400 MG Gabapentin (Neurontin Cap) 400 mg Q8H PO 01/24/17 06:00 01/24/17 13:13 DC 01/24/17 06:19 400 MG Fluoxetine HCl (Prozac Cap) 60 mg QAM PO 01/24/17 09:00 02/23/17 08:59 01/25/17 09:22 60 MG Polyethylene (Miralax Powder Packet) 17 gm DAILY PO 01/24/17 09:00 02/23/17 08:59 01/25/17 09:21 17 GM Gabapentin (Neurontin Cap) 400 mg TID PO 01/24/17 14:00 02/23/17 13:59 01/25/17 09:22 400 MG Lab Results Last 24 Hrs: Last 24 Hours Test 01/25/17 06:47 Fasting Glucose 98 mg/dl Triglycerides Level 94 mg/dl Cholesterol Level 185 mg/dl HDL Cholesterol 49 mg/dl LDL Cholesterol, Calculated 117 mg/dl VLDL Cholesterol, Calculated 19 mg/dl Cholesterol/HDL Ratio 3.8 Problem Qualifiers (1) Alcohol dependence: Substance use status: uncomplicated Qualified Codes: F10.20 - Alcohol dependence, uncomplicated (2) Hypertension: Hypertension type: unspecified Qualified Codes: I10 - Essential (primary) hypertension
[2017-01-25] MEDS ORDERED: BISACODYL 10 MG SUPP PR STA (11:08)
[2017-01-25 12:40] VITALS: BP 105/74; PULSE 87
[2017-01-25 16:16] VITALS: BP 102/71; PULSE 70; TEMP 36.3
[2017-01-25] MEDS ORDERED: NURSING VERBAL MED ORDER ONE (21:15)
[2017-01-25] MEDS ORDERED: COUGH DROP (SUGAR FREE) LOZ 24 LOZ/1 BOX PO PRN (21:15)
[2017-01-25] MEDS: DOCUSATE SODIUM 100 MG CAP PO SCH (21:15)
[2017-01-25 21:31] VITALS: BP 110/71; PULSE 79; TEMP 36.7
[2017-01-26] MEDS: hydrOXYzine HCL 25 MG TAB PO PRN ×2 (06:45→15:02)
[2017-01-26 07:01] VITALS: BP_SYST 115; BP_SYST 118; BP_DIAS 76; BP_DIAS 77; PULSE 78; PULSE 81; TEMP 36.9
[2017-01-26] MEDS: QUETIAPINE FUMARATE 25 MG TAB PO PRN ×3 (07:07→17:05)
[2017-01-26] MEDS: POLYETHYLENE (MIRALAX) 17 GM PACK PO SCH (08:23)
[2017-01-26] MEDS: DOCUSATE SODIUM 100 MG CAP PO SCH ×2 (08:23→21:24)
[2017-01-26] MEDS: GABAPENTIN 400 MG CAP PO SCH (08:23)
[2017-01-26] MEDS: THIAMINE HCL 100 MG TAB PO SCH (08:24)
[2017-01-26] MEDS: LISINOPRIL 40 MG TAB PO SCH (08:24)
[2017-01-26] MEDS: QUETIAPINE FUMARATE 300 MG TAB PO SCH ×2 (08:24→21:24)
[2017-01-26] MEDS: AMLODIPINE BESYLATE 5 MG TAB PO SCH (08:24)
[2017-01-26] MEDS: FLUOXETINE HCL 20 MG CAP PO SCH (08:24)
[2017-01-26] MEDS: NICOTINE 21 MG/24 HR TDSY TD SCH (08:25)
[2017-01-26] MEDS ORDERED: QUETIAPINE FUMARATE 100 MG TAB PO ONE (12:10)
--- NOTE | 2017-01-26 12:10 | Psychiatric Progress Notes ---
Progress Note Date of Service Jan 26, 2017. Interval History Jorge Luis Barrera is a 56-year-old male currently residing in [facility], who presents to the emergency room with severe anxiety feeling unable to function outside of a structured environment as well as alcohol abuse. Information is gathered from the patient, the electronic medical record, and considered to be reliable. Chief Complaint "Unrelenting anxiety.". Subjective Patient was seen & assessed interval progress reviewed with Treatment Team. The patient continues to report high levels of anxiety. He had a meeting with his brother in law Keron Oh, who told him that there is a possibility that he may not return to his mother's home or condo. During that meeting they called [facility], who currently have an opening. His SARA is focused on Doug's diagnosis as a means of determining how much support to offer , worrying that Doug has been given a schizoaffective disorder diagnosis when at [facility] SARA also told Doug that he would not be allowed access to his mother's car. All of this information was overwhelming to the patient. He says he is having trouble thinking and finding it hard to focus. He says that being without a car, possibly a home and without alcohol was too much to think about. He continues to report passive thoughts of suicide, more as an eventuality, rather than a current choice. He denies plan/intent. Staff report that he did not attend groups yesterday due to his anxiety. When asked what he is doing behaviorally to combat his anxiety he says "Nothing really.". He is worried that the meds aren't enough but can admit that his anxiety is a little bit better since admission. He still demonstrates a mild tremor to outstretched hands, L>R, but denies other alcohol withdrawal symptoms or cravings. He is not triggering the AWSS protocol. Staff report that he was able to move his bowels yesterday. Review of Systems Constitutional: + fatigue ENT: No hearing loss, No unusual epistaxis, No nasal symptoms, No sore throat, No tinnitus, No dental problems, No trouble swallowing, No problem reported Respiratory: No cough, No sputum, No wheezing, No shortness of breath, No dyspnea on exertion, No dyspnea at rest, No hemoptysis, No problem reported Cardiovascular: No chest pain, No orthopnea, No PND, No edema, No claudication , No palpitations, No problem reported Abdomen: No pain, No nausea, No vomiting, No diarrhea, No constipation, No GI bleeding, No problem reported Musculoskeletal: No joint pain, No muscle pain, No swelling, No calf pain, No problem reported Neurologic: No memory loss, No paralysis, No weakness, No numbness/tingling, No vertigo, No balance problems, No problem reported Psychiatric: + anxiety Integumentary: No rash, No itch, No new/changing skin lesions, No color change , No bleeding, No problem reported Sleep Information Total Hours of Sleep: 9.25 Meal Information Percent of Breakfast Consumed: 100 Percent of Lunch Consumed: 100 Percent of Dinner Consumed: 100 Mental Status Exam During interview pt is: alert and oriented, cooperative Appearance: appropriately dressed, appropriately groomed Eye contact is: good Motor behavior is: steady gait & station, tremor Speech: normal in rate, rhythm & volume Affect: other (calm) Mood is: depressed, anxious Thought process: goal directed, other (distractible) Thought content: reality based without delusions Suicidal thought are: present, Plan: denied, Intent: denied Homicidal thoughts are: denied Hallucinations: denies auditory, denies visual Cognition: attention grossly intact, language grossly intact Intelligence estimated to be: average Insight: impaired Judgement: impaired Impression The patient remains anxious and is focused on medications as the solution. He has not been attending groups and cannot independently think of anything to do that might mediate his anxiety. Family meeting held with his brother in law Keron, who initially told Doug that he would not have access to a car and not allowed to return to either of his mother's properties. I joined to meeting to answer Keron's questions about diagnosis, meds and treatment. It appears that few limits have been set with Doug over the years, and he has not been required to to be very functional, with mother providing housing, food, and allowing the patient to take no responsibility for his life. The patient will need some time to process this new information, feeling overwhelmed. I have encouraged him to be more active in his treatment: attend groups, exercise, meditate, and journal about his anxiety to try to identify any patterns. We will continue to titrate neurontin to 600 mg TID and add a midday dose of seroquel 100 mg. Plan (1) Major depressive disorder, recurrent severe without psychotic features 01/23 -Increase Prozac to 60 mg daily and titrate as tolerated -Continue Seroquel 300 mg twice a day and add 50 mg 4 times daily when necessary -If no success with maximum doses of Seroquel, consider switching to another atypical -Every 15 minute checks for safety -Encourage participation in group and individual counseling -Coordinate with current providers and refer for therapy -Family meeting if indicated 01/25 - Mood a little more down and feeling little more hopeless this morning. Passive SI endorse today. 01/26 - FAmily meeting held with brother in law Cabrales, who said Doug would not be allowed access to a car or to live in mother's properties. -Assist the patient to participate more in his own treatment by encouraging group attendance, exercise, relaxation - Increase neurontin to 600 mg. TID - Increase Seroquel to include 100 mg. at noon (2) Panic disorder 01/23 -Medications as above -Assist the patient to learn and utilize healthy coping strategies -The patient will be receiving gabapentin as part of the TANYA S protocol which will also benefit his anxiety 01/24 - Patient perceives anxiety is improved with the gabapentin on board. will halt the taper at 400mg TID to maintain benefit 01/25 - Anxiety appears much improved today. Continue gabapentin as above. - His request for a sedative was denied. Psychoeducation provided regarding relapse risk (3) Alcohol dependence 01/23 -Recommend abstinence -Recovery protocol - AWSS protocol -Need to stabilize anxiety before making any referrals for ongoing substance use treatment 01/26 - Will DC AWSS since not triggering (4) Tobacco use disorder 01/23 -Nicotinic patch 21 mg daily for neck and withdrawal -Will also order Nicorette gum 2 mg every hour when necessary T in withdrawal -Recommend quitting (5) Constipation 01/23 -Encourage physical activity especially walking -Encourage daily use of prune juice, hot liquids and milk of magnesia -Will order Miralax daily but if no results in 2 days, will proceed with a plain film of the abdomen 01/25 - denies abd pain - start docusate 100mg bid - dulcolax supp x1 (6) Hypertension 01/23 -Continue home doses of Norvasc -Monitor BP Has been reviewed with Dr. Rima meléndez Discharge / Aftercare Planning Primary Care Physician: Name: Dr Rothman Visit Code E&M Code: 92212 Inventory Assets Strengths: Desire to get well, has a living situation and an outpatient provider Needs: To abstain from alcohol Risk Factors Assessment /single/: Yes Higher / Fall in social status: No Health problems: Yes Mental Health Diagnoses: Yes Substance use disorders: Yes Previous attempt: Yes Family history of suicide: No Previous psychiatric stay: Yes Smoker: Yes Protective Factors Assessment Yarsanism beliefs: No : No Responsible for young children: No Employed: No Stable relationships: No Good rapport with provider: Yes Data Vital Signs Last 24 Hrs: Date Time Temp Pulse Resp B/P (MAP) Pulse Ox O2 Delivery O2 Flow Rate FiO2 01/26/17 07:01 36.9 78 16 118/76 81 115/77 01/25/17 21:31 36.7 79 16 110/71 01/25/17 16:16 36.3 70 16 102/71 01/25/17 12:40 87 18 105/74 Meds Administered Last 24 Hrs: Meds Administered (Past 24Hrs) Medications (Trade) Dose Ordered Sig/Hoa Route Start Time Stop Time Status Last Admin Dose Admin Gabapentin (Neurontin Cap) 400 mg TID PO 01/24/17 14:00 02/23/17 13:59 01/26/17 08:23 400 MG Bisacodyl (Dulcolax Supp) 10 mg NOW STAT NH 01/25/17 11:08 01/25/17 11:09 DC 01/25/17 15:45 10 MG Docusate Sodium (coLACE CAP) 100 mg BID PO 01/25/17 22:00 02/24/17 21:59 01/26/17 08:23 100 MG Docusate Sodium (coLACE CAP) 100 mg 1102 ONCE PO 01/25/17 11:02 01/25/17 11:09 DC 01/25/17 12:43 100 MG Lab Results Last 24 Hrs: 01/22/17 18:53 Red Blood Count 4.17, Mean Corpuscular Volume 87.5, Mean Corpuscular Hemoglobin 30.0, Mean Corpuscular Hemoglobin Concent 34.2, Mean Platelet Volume 8.1, Neutrophils (%) (Auto) 57.6, Lymphocytes (%) (Auto) 25.5, Monocytes (%) (Auto) 8.0, Eosinophils (%) (Auto) 6.6, Basophils (%) (Auto) 1.8, Neutrophils # (Auto) 3.60, Lymphocytes # (Auto) 1.59, Monocytes # (Auto) 0.50, Eosinophils # (Auto) 0.41, Basophils # (Auto) 0.11 01/22/17 18:48 Test 01/22/17 16:50 01/22/17 18:33 01/22/17 18:48 01/22/17 18:53 Urine Color YELLOW Urine Appearance CLOUDY (CLEAR) Urine pH 6.5 (4.5-7.5) Urine Specific Fletcher 1.020 (1.000-1.030) Urine Protein NEG (NEG) Urine Glucose (UA) NEG (NEG) Urine Ketones NEG (NEG) Urine Occult Blood NEG (NEG) Urine Nitrite NEG (NEG) Urine Bilirubin NEG (NEG) Urine Urobilinogen NEG (NEG) Urine Leukocyte Esterase NEG (NEG) Urine WBC (Auto) 1-5 /hpf (0-5) Urine RBC (Auto) 0-4 /hpf (0-4) Urine Hyaline Casts (Auto) 0 /lpf (0-5) Urine Epithelial Cells (Auto) 0-5 /lpf (0-5) Urine Bacteria (Auto) NEG (NEG) Urine Opiates Screen NEG (NEG) Urine Methadone, Qualitative NEG (NEG) Urine Barbiturates NEG (NEG) Urine Phencyclidine (PCP) Level NEG (NEG) Ur Amphetamine/Methamphetamine NEG (NEG) MDMA (Ecstasy) Screen NEG (NEG) Urine Benzodiazepines Screen NEG (NEG) Urine Cocaine Metabolite NEG (NEG) Urine Marijuana (THC) NEG (NEG) Prothrombin Time 11.1 SECONDS (9.0-12.0) Prothromb Time International Ratio 1.0 (0.9-1.1) Activated Partial Thromboplast Time 27.1 SECONDS (21.0-31.0) Partial Thromboplastin Ratio 1.0 Anion Gap 7.0 mmol/L (3-11) Est Creatinine Clear Calc Drug Dose 79.8 ml/min Estimated GFR () 97.1 Estimated GFR (Non- 83.8 BUN/Creatinine Ratio 15.6 (10-20) Calcium Level 9.0 mg/dl (8.5-10.1) Total Bilirubin 0.1 mg/dl (0.2-1) Direct Bilirubin < 0.1 mg/dl (0-0.2) Aspartate Amino Transf (AST/SGOT) 15 U/L (15-37) Alanine Aminotransferase (ALT/SGPT) 21 U/L (12-78) Alkaline Phosphatase 69 U/L (45-117) Total Protein 7.1 gm/dl (6.4-8.2) Albumin 3.4 gm/dl (3.4-5.0) Thyroid Stimulating Hormone (TSH) 1.520 uIu/ml (0.300-4.500) Free Thyroxine 1.04 ng/dl (0.80-1.60) Ethyl Alcohol mg/dL 65.0 mg/dl (0-3) White Blood Count 6.24 K/uL (4.8-10.8) Red Blood Count 4.17 M/uL (4.7-6.1) Hemoglobin 12.5 g/dL (14.0-18.0) Hematocrit 36.5 % (42-52) Mean Corpuscular Volume 87.5 fL (80-100) Mean Corpuscular Hemoglobin 30.0 pg (25-34) Mean Corpuscular Hemoglobin Concent 34.2 g/dl (32-36) Platelet Count 390 K/uL (130-400) Mean Platelet Volume 8.1 fL (7.4-10.4) Neutrophils (%) (Auto) 57.6 % Lymphocytes (%) (Auto) 25.5 % Monocytes (%) (Auto) 8.0 % Eosinophils (%) (Auto) 6.6 % Basophils (%) (Auto) 1.8 % Neutrophils # (Auto) 3.60 K/uL (1.4-6.5) Lymphocytes # (Auto) 1.59 K/uL (1.2-3.4) Monocytes # (Auto) 0.50 K/uL (0.11-0.59) Eosinophils # (Auto) 0.41 K/uL (0-0.5) Basophils # (Auto) 0.11 K/uL (0-0.2) RDW Standard Deviation 46.9 fL (36.4-46.3) RDW Coefficient of Variation 14.6 % (11.5-14.5) Immature Granulocyte % (Auto) 0.5 % Immature Granulocyte # (Auto) 0.03 K/uL (0.00-0.02) Test 01/22/17 19:09 01/25/17 06:47 Bedside Troponin I < 0.030 ng/ml (0-0.045) Fasting Glucose 98 mg/dl (70-99) Triglycerides Level 94 mg/dl (0-150) Cholesterol Level 185 mg/dl (0-200) HDL Cholesterol 49 mg/dl LDL Cholesterol, Calculated 117 mg/dl VLDL Cholesterol, Calculated 19 mg/dl Cholesterol/HDL Ratio 3.8 Problem Qualifiers (1) Alcohol dependence: Substance use status: uncomplicated Qualified Codes: F10.20 - Alcohol dependence, uncomplicated (2) Constipation: Constipation type: unspecified constipation type Qualified Codes: K59.00 - Constipation, unspecified (3) Hypertension: Hypertension type: unspecified Qualified Codes: I10 - Essential (primary) hypertension
[2017-01-26] MEDS: GABAPENTIN 600 MG TAB PO SCH ×2 (14:01→21:24)
[2017-01-26] MEDS ORDERED: GABAPENTIN 400MG X1 DOSE PO SCH (22:00)
[2017-01-27] MEDS: QUETIAPINE FUMARATE 25 MG TAB PO PRN (06:19)
[2017-01-27 07:05] VITALS: BP_SYST 110; BP_SYST 119; BP_DIAS 75; BP_DIAS 87; PULSE 72; PULSE 78; TEMP 36.6
[2017-01-27] MEDS: DOCUSATE SODIUM 100 MG CAP PO SCH ×2 (08:25→21:15)
[2017-01-27] MEDS: POLYETHYLENE (MIRALAX) 17 GM PACK PO SCH (08:25)
[2017-01-27] MEDS: AMLODIPINE BESYLATE 5 MG TAB PO SCH (08:25)
[2017-01-27] MEDS: GABAPENTIN 600 MG TAB PO SCH ×3 (08:25→21:15)
[2017-01-27] MEDS: FLUOXETINE HCL 20 MG CAP PO SCH (08:25)
[2017-01-27] MEDS: QUETIAPINE FUMARATE 300 MG TAB PO SCH ×2 (08:26→21:16)
[2017-01-27] MEDS: LISINOPRIL 40 MG TAB PO SCH (08:26)
[2017-01-27] MEDS: THIAMINE HCL 100 MG TAB PO SCH (08:26)
[2017-01-27] MEDS: NICOTINE 21 MG/24 HR TDSY TD SCH (08:30)
[2017-01-27] MEDS: NICOTINE POLACRILEX 2 MG GUM MT PRN (08:32)
--- NOTE | 2017-01-27 09:24 | Psychiatric Progress Notes ---
Progress Note Date of Service Jan 27, 2017. Interval History Jorge Luis Barrera is a 56-year-old male currently residing in [facility], who presents to the emergency room with severe anxiety feeling unable to function outside of a structured environment as well as alcohol abuse. Information is gathered from the patient, the electronic medical record, and considered to be reliable. Chief Complaint "Terrible, terrible, terrible". Subjective Patient was seen & assessed interval progress reviewed with Treatment Team. Staff report he refused most groups yesterday, and when he did attend, his participation was negative and abrasive, stating "everything in my life has gone down the garbage disposal," and "nothing helps me now." He requested frequent when necessary medications for anxiety, and last evening was asking staff to give him a shot of medication, but was able to process with staff and work on behavioral techniques for coping. He admits that he typically turns to substances to remove negative emotions, and was willing to try alternative coping skills instead. He had a family meeting with his obzsrfc-ki-pbb yesterday, and both agreed that it had not been working well for him to live in his mother's home in [place], and his gangepm-qe-oue told him he was not able to return there at discharge. His mother is apparently willing to help pay for an apartment, and there was discussion about [facility], which has apartments available. He also discussed the possibility of [facility], or the option of a homeless senior living. Melissa Pavillion joined the meeting to discuss diagnosis and medication options, as the patient and his owwwrkp-kk-jex were focused on him needing more medication to treat anxiety. Today, the patient states he is doing "terrible" and says he "needs something for the anxiety. These meds aren't doing anything, and the things they're telling me to do are for kids or simple people." He is upset that his family is "not letting me drive, my brother said I can't use my parents' car anymore..." He repeatedly asks for more medication to remove the anxiety he is feeling, saying that he is too anxious to use coping skills, and they don't work for him anyway. He says he has tried riding the exercise bike but "it's not doing anything." When asked what other coping skills he has tried, he states he doesn 't know because he is too anxious to think straight. 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 He repeatedly swears and says he'll "probably just go to another psych [facility]" when he is discharged. He says his suicidal thoughts "are increasing, it just seems the inevitable conclusion of this...it's hopeless." He denies a plan, and says "it's probably just passive suicidal plans." Reflected back to him that there appear to be many other options, but he has not yet explored these options. We again reviewed the options discussed that his family meeting, and he had objections to each. Again reviewed recommendations for inpatient rehabilitation, which he initially states he would consider, and then begins to list all the reasons that he doesn't like rehabilitation. He continued to request additional medications for anxiety, and specifically asked about buspirone, which he states he's been on in the past with good response. Sleep Information Total Hours of Sleep: 5.00 Meal Information Percent of Breakfast Consumed: 100 Percent of Lunch Consumed: 100 Percent of Dinner Consumed: 100 Mental Status Exam During interview pt is: alert and oriented, cooperative Appearance: appropriately dressed Eye contact is: good Motor behavior is: steady gait & station, no abnormal motor movements, tremor Speech: normal in rate, rhythm & volume, other (frequent swearing) Affect: irritable, anxious, constricted Mood is: other ("terrible") Thought process: goal directed, other (distractible) Thought content: reality based without delusions, hopelessness, other (negative ) Suicidal thought are: present, Plan: denied, Intent: denied Homicidal thoughts are: denied Hallucinations: denies auditory, denies visual Cognition: attention grossly intact, language grossly intact Intelligence estimated to be: average Insight: impaired Judgement: impaired Impression The patient remains anxious and is focused on medications as the solution, wanting IMs so that he does not have to feel any anxiety. He has has only had minimal group attendance, and participation has been poor. Family meeting held with his brother in law Keron, who initially told Doug that he would not have access to a car and not allowed to return to either of his mother's properties. There are multiple options for housing, but the patient has not followed through on exploring these. It appears that few limits have been set with Doug over the years, and he has not been required to to be very functional, with mother providing housing, food, and allowing the patient to take no responsibility for his life. The patient will need some time to process this new information, feeling overwhelmed. He has been encouraged to be more active in his treatment: attend groups, exercise, try to practice new healthy coping skills, and journal about his anxiety to try to identify any patterns, he is very resistant to this and is dismissive of the suggestions. Multiple medications have been increased; neurontin to 600 mg TID and quetiapine to a total of 700 mg daily plus when necessary's. Today he is requesting a trial of buspirone, which he states was helpful for anxiety in the past. Plan (1) Major depressive disorder, recurrent severe without psychotic features 01/23 -Increase Prozac to 60 mg daily and titrate as tolerated -Continue Seroquel 300 mg twice a day and add 50 mg 4 times daily when necessary -If no success with maximum doses of Seroquel, consider switching to another atypical -Every 15 minute checks for safety -Encourage participation in group and individual counseling -Coordinate with current providers and refer for therapy -Family meeting if indicated 01/25 - Mood a little more down and feeling little more hopeless this morning. Passive SI endorse today. 01/26 - Family meeting held with brother in law Cabrales, who said Doug would not be allowed access to a car or to live in mother's properties. - Assist the patient to participate more in his own treatment by encouraging group attendance, exercise, relaxation - Increase neurontin to 600 mg. TID - Increase Seroquel to 300 mg twice a day and 100 mg. at noon. 01/27 - Patient strongly encouraged to engage in treatment, including attending and participating in groups, working on his discharge planning, and working on healthy coping skills here. - Reviewed his repeated requests for IM medications for anxiety, and that this is inappropriate. Encouraged him to practice coping skills for behavioral management of anxiety. Agreed to a trial of buspirone, which he reports a previous good response to. Reviewed risks, benefits, and side effects, including dizziness and serotonin syndrome. Provided the patient with an up-to- date patient handout on the medication. Start 7.5 mg twice a day, and titrate as tolerated. - Reviewed housing options as discussed in his family meeting yesterday: Hotel, family residence, [address], senior living, inpatient rehabilitation. Strongly encourage the patient to consider inpatient rehabilitation, as he is stating he doesn't feel comfortable leaving the hospital and going into an unstructured setting. He had multiple objections to this, but agreed to consider it. Also advised the patient of the importance of working on his discharge plan now, as he will likely be discharged later this week and it may take several days to get a good plan in place. He remains resistant to engaging in this process, and there appears to be an element of manipulation and attempts to get others to complete tasks for him. (2) Panic disorder 01/23 -Medications as above -Assist the patient to learn and utilize healthy coping strategies -The patient will be receiving gabapentin as part of the TANYA S protocol which will also benefit his anxiety 01/24 - Patient perceives anxiety is improved with the gabapentin on board. will halt the taper at 400mg TID to maintain benefit 01/25 - Anxiety appears much improved today. Continue gabapentin as above. - His request for a sedative was denied. Psychoeducation provided regarding relapse risk (3) Alcohol dependence 01/23 -Recommend abstinence -Recovery protocol - AWSS protocol -Need to stabilize anxiety before making any referrals for ongoing substance use treatment 01/26 - Will DC AWSS since not triggering (4) Tobacco use disorder 01/23 -Nicotinic patch 21 mg daily for neck and withdrawal -Will also order Nicorette gum 2 mg every hour when necessary T in withdrawal -Recommend quitting (5) Constipation 01/23 -Encourage physical activity especially walking -Encourage daily use of prune juice, hot liquids and milk of magnesia -Will order Miralax daily but if no results in 2 days, will proceed with a plain film of the abdomen 01/25 - denies abd pain - start docusate 100mg bid - dulcolax supp x1 (6) Hypertension 01/23 -Continue home doses of Norvasc -Monitor BP Has been reviewed with Dr. Rima meléndez Discharge / Aftercare Planning Primary Care Physician: Name: Dr Rothman Varitype Operator: Name: Sabrina [facility] Unit Date of Appointment: Feb 05, 2017 Time of Appointment: 2:00pm Visit Code E&M Code: 84025 Inventory Assets Strengths: Desire to get well, has a living situation and an outpatient provider Needs: To abstain from alcohol Risk Factors Assessment Male: Yes : Yes /single/: Yes Higher / Fall in social status: No Access to guns: No Health problems: Yes Mental Health Diagnoses: Yes Substance use disorders: Yes Previous attempt: Yes Family history of suicide: No Previous psychiatric stay: Yes Hopelessness: Yes Smoker: Yes Protective Factors Assessment Gnosticist beliefs: No : No Responsible for young children: No Employed: No Stable relationships: No Supportive family: Yes Good rapport with provider: Yes Data Vital Signs Last 24 Hrs: Date Time Temp Pulse Resp B/P (MAP) Pulse Ox O2 Delivery O2 Flow Rate FiO2 01/27/17 07:05 36.6 72 16 119/87 78 110/75 Meds Administered Last 24 Hrs: Meds Administered (Past 24Hrs) Medications (Trade) Dose Ordered Sig/Hao Route Start Time Stop Time Status Last Admin Dose Admin Bisacodyl (Dulcolax Supp) 10 mg NOW STAT NE 01/25/17 11:08 01/25/17 11:09 DC 01/25/17 15:45 10 MG Docusate Sodium (coLACE CAP) 100 mg BID PO 01/25/17 22:00 02/24/17 21:59 01/27/17 08:25 100 MG Docusate Sodium (coLACE CAP) 100 mg 1102 ONCE PO 01/25/17 11:02 01/25/17 11:09 DC 01/25/17 12:43 100 MG Gabapentin (Neurontin Tab) 600 mg TID PO 01/26/17 14:00 02/25/17 13:59 01/27/17 08:25 600 MG Quetiapine Fumarate (seroQUEL TAB) 100 mg 1210 ONCE PO 01/26/17 12:10 01/26/17 12:14 DC 01/26/17 12:27 100 MG Problem Qualifiers (1) Alcohol dependence: Substance use status: uncomplicated Qualified Codes: F10.20 - Alcohol dependence, uncomplicated (2) Constipation: Constipation type: unspecified constipation type Qualified Codes: K59.00 - Constipation, unspecified (3) Hypertension: Hypertension type: unspecified Qualified Codes: I10 - Essential (primary) hypertension
[2017-01-27] MEDS: QUETIAPINE FUMARATE 100 MG TAB PO SCH (11:35)
[2017-01-27] MEDS: ACETAMINOPHEN 325 MG TAB PO PRN (13:27)
[2017-01-27] MEDS: MAGNESIUM HYDROXIDE SUSP 30 ML UDC PO PRN (21:18)
[2017-01-28] MEDS: QUETIAPINE FUMARATE 25 MG TAB PO PRN ×2 (05:35→16:00)
[2017-01-28] MEDS: hydrOXYzine HCL 25 MG TAB PO PRN ×2 (07:02→15:30)
[2017-01-28 07:10] VITALS: BP_SYST 108; BP_SYST 119; BP_DIAS 72; BP_DIAS 80; PULSE 80; PULSE 84; TEMP 36.6
[2017-01-28] MEDS: DOCUSATE SODIUM 100 MG CAP PO SCH ×2 (08:47→21:13)
[2017-01-28] MEDS: AMLODIPINE BESYLATE 5 MG TAB PO SCH (08:47)
[2017-01-28] MEDS: GABAPENTIN 600 MG TAB PO SCH ×3 (08:47→21:14)
[2017-01-28] MEDS: POLYETHYLENE (MIRALAX) 17 GM PACK PO SCH (08:47)
[2017-01-28] MEDS: QUETIAPINE FUMARATE 300 MG TAB PO SCH ×2 (08:47→21:14)
[2017-01-28] MEDS: FLUOXETINE HCL 20 MG CAP PO SCH (08:47)
[2017-01-28] MEDS: THIAMINE HCL 100 MG TAB PO SCH (08:48)
[2017-01-28] MEDS: LISINOPRIL 40 MG TAB PO SCH (08:48)
[2017-01-28] MEDS: NICOTINE 21 MG/24 HR TDSY TD SCH (08:52)
--- NOTE | 2017-01-28 09:07 | Psychiatric Progress Notes ---
Progress Note Date of Service Jan 28, 2017. Interval History Jorge Luis Barrera is a 56-year-old male currently residing in [facility], who presents to the emergency room with severe anxiety feeling unable to function outside of a structured environment as well as alcohol abuse. Information is gathered from the patient, the electronic medical record, and considered to be reliable. Chief Complaint "Horrible". Subjective Patient was seen & assessed interval progress reviewed with Treatment Team. Staff report he is poorly motivated, says he has "no goals," and is med focused , wanting benzodiazepines. His family was contacted about housing after discharge, and they are exploring local apartments, which his mother will pay for. He isolates and walks around the unit with a blanket over his head. He goes to 50% of groups, and participates sometimes, but other times is unengaged. 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 He last did this about a week and a half prior to presentation, and states he has numerous guitars and recording equipment. He states that he is upset after reviewing his treatment plan and estimated length of stay, stating "they're telling me either going to boot me out here, and I don't think I'm ready." He was advised that he still has 3 days to work on his symptoms and discharge plan , and when asked what he is doing to address his concerns about discharge, he says "not much I guess." Reflected all of the positives information that has come in recently, including that his family is going to be pain for apartment for him and are going to allow him to use their car, and encouraged him to engage fully in treatment and make the most of his time here. Sleep Information Total Hours of Sleep: 7.00 Meal Information Percent of Breakfast Consumed: 100 Percent of Lunch Consumed: 100 Percent of Dinner Consumed: 100 Mental Status Exam During interview pt is: alert and oriented, cooperative Appearance: appropriately dressed Eye contact is: good Motor behavior is: steady gait & station, no abnormal motor movements, tremor Speech: normal in rate, rhythm & volume, other (frequent swearing) Affect: irritable, anxious, constricted Mood is: other ("terrible") Thought process: goal directed, other (distractible) Thought content: reality based without delusions, hopelessness, other (negative ) Suicidal thought are: present, Plan: denied, Intent: denied Homicidal thoughts are: denied Hallucinations: denies auditory, denies visual Cognition: attention grossly intact, language grossly intact Intelligence estimated to be: average Insight: impaired Judgement: impaired Impression The patient remains anxious and is focused on medications as the solution, wanting IMs so that he does not have to feel any anxiety. He has has only had minimal group attendance, and participation has been poor. Family meeting held with his brother in law Keron, who initially told Doug that he would not have access to a car and not allowed to return to either of his mother's properties. There are multiple options for housing, but the patient has not followed through on exploring these. It appears that few limits have been set with Doug over the years, and he has not been required to to be very functional, with mother providing housing, food, and allowing the patient to take no responsibility for his life. The patient will need some time to process this new information, feeling overwhelmed. He has been encouraged to be more active in his treatment: attend groups, exercise, try to practice new healthy coping skills, and journal about his anxiety to try to identify any patterns, he is very resistant to this and is dismissive of the suggestions. Multiple medications have been increased; neurontin to 600 mg TID and quetiapine to a total of 700 mg daily plus when necessary's. Today he is requesting a trial of buspirone, which he states was helpful for anxiety in the past. Plan (1) Major depressive disorder, recurrent severe without psychotic features 01/23 -Increase Prozac to 60 mg daily and titrate as tolerated -Continue Seroquel 300 mg twice a day and add 50 mg 4 times daily when necessary -If no success with maximum doses of Seroquel, consider switching to another atypical -Every 15 minute checks for safety -Encourage participation in group and individual counseling -Coordinate with current providers and refer for therapy -Family meeting if indicated 01/25 - Mood a little more down and feeling little more hopeless this morning. Passive SI endorse today. 01/26 - Family meeting held with brother in law Keron, who said Doug would not be allowed access to a car or to live in mother's properties. - Assist the patient to participate more in his own treatment by encouraging group attendance, exercise, relaxation - Increase neurontin to 600 mg. TID - Increase Seroquel to 300 mg twice a day and 100 mg. at noon. 01/27 - Patient strongly encouraged to engage in treatment, including attending and participating in groups, working on his discharge planning, and working on healthy coping skills here. - Reviewed his repeated requests for IM medications for anxiety, and that this is inappropriate. Encouraged him to practice coping skills for behavioral management of anxiety. Agreed to a trial of buspirone, which he reports a previous good response to. Reviewed risks, benefits, and side effects, including dizziness and serotonin syndrome. Provided the patient with an up-to- date patient handout on the medication. Start 7.5 mg twice a day, and titrate as tolerated. - Reviewed housing options as discussed in his family meeting yesterday: Hotel, family residence, [address], jail, inpatient rehabilitation. Strongly encourage the patient to consider inpatient rehabilitation, as he is stating he doesn't feel comfortable leaving the hospital and going into an unstructured setting. He had multiple objections to this, but agreed to consider it. Also advised the patient of the importance of working on his discharge plan now, as he will likely be discharged later this week and it may take several days to get a good plan in place. He remains resistant to engaging in this process, and there appears to be an element of manipulation and attempts to get others to complete tasks for him. 01/28 - Continues to endorse high anxiety and requesting the dose be increased. Increase to 10mg tid. Again reviewed side effects. Continue other meds. - Again encouraged patient to work with staff on discharge planning and coping skills. (2) Panic disorder 01/23 -Medications as above -Assist the patient to learn and utilize healthy coping strategies -The patient will be receiving gabapentin as part of the TANYA S protocol which will also benefit his anxiety 01/24 - Patient perceives anxiety is improved with the gabapentin on board. will halt the taper at 400mg TID to maintain benefit 01/25 - Anxiety appears much improved today. Continue gabapentin as above. - His request for a sedative was denied. Psychoeducation provided regarding relapse risk (3) Alcohol dependence 01/23 -Recommend abstinence -Recovery protocol - AWSS protocol -Need to stabilize anxiety before making any referrals for ongoing substance use treatment 01/26 - Will DC AWSS since not triggering (4) Tobacco use disorder 01/23 -Nicotinic patch 21 mg daily for neck and withdrawal -Will also order Nicorette gum 2 mg every hour when necessary T in withdrawal -Recommend quitting (5) Constipation 01/23 -Encourage physical activity especially walking -Encourage daily use of prune juice, hot liquids and milk of magnesia -Will order Miralax daily but if no results in 2 days, will proceed with a plain film of the abdomen 01/25 - denies abd pain - start docusate 100mg bid - dulcolax supp x1 (6) Hypertension 01/23 -Continue home doses of Norvasc -Monitor BP Discharge / Aftercare Planning Primary Care Physician: Name: Dr Rothman Date of Appointment: Feb 09, 2017 Time of Appointment: 4:00pm Psychiatrist: Name: Dr Bagley Therapist: Name: Pancho Eisenberg Date of Appointment: Feb 13, 2017 Time of Appointment: 10:30am Account Information Clerk: Name: [facility] Date of Appointment: Feb 05, 2017 Time of Appointment: 2:00pm Visit Code E&M Code: 69671 Inventory Assets Strengths: Desire to get well, has a living situation and an outpatient provider Needs: To abstain from alcohol Risk Factors Assessment Male: Yes : Yes /single/: Yes Higher / Fall in social status: No Access to guns: No Health problems: Yes Mental Health Diagnoses: Yes Substance use disorders: Yes Previous attempt: Yes Family history of suicide: No Previous psychiatric stay: Yes Hopelessness: Yes Smoker: Yes Protective Factors Assessment Catholic beliefs: No : No Responsible for young children: No Employed: No Stable relationships: No Supportive family: Yes Good rapport with provider: Yes Data Vital Signs Last 24 Hrs: Date Time Temp Pulse Resp B/P (MAP) Pulse Ox O2 Delivery O2 Flow Rate FiO2 01/28/17 07:10 36.6 80 16 119/80 84 108/72 Meds Administered Last 24 Hrs: Meds Administered (Past 24Hrs) Medications (Trade) Dose Ordered Sig/Hoa Route Start Time Stop Time Status Last Admin Dose Admin Gabapentin (Neurontin Tab) 600 mg TID PO 01/26/17 14:00 02/25/17 13:59 01/28/17 08:47 600 MG Quetiapine Fumarate (seroQUEL TAB) 100 mg DAILY@1200 PO 01/27/17 12:00 02/26/17 11:59 01/27/17 11:35 100 MG Quetiapine Fumarate (seroQUEL TAB) 100 mg 1210 ONCE PO 01/26/17 12:10 01/26/17 12:14 DC 01/26/17 12:27 100 MG Buspirone HCl (Buspar Tab) 7.5 mg BID PO 01/27/17 09:30 02/26/17 09:29 01/28/17 08:46 7.5 MG Problem Qualifiers (1) Alcohol dependence: Substance use status: uncomplicated Qualified Codes: F10.20 - Alcohol dependence, uncomplicated (2) Constipation: Constipation type: unspecified constipation type Qualified Codes: K59.00 - Constipation, unspecified (3) Hypertension: Hypertension type: unspecified Qualified Codes: I10 - Essential (primary) hypertension
[2017-01-28] MEDS: NICOTINE POLACRILEX 2 MG GUM MT PRN (09:28)
[2017-01-28] MEDS: QUETIAPINE FUMARATE 100 MG TAB PO SCH (12:38)
[2017-01-28] MEDS: ACETAMINOPHEN 325 MG TAB PO PRN (14:01)
[2017-01-28] MEDS: MAGNESIUM HYDROXIDE SUSP 30 ML UDC PO PRN (21:17)
[2017-01-29] MEDS: hydrOXYzine HCL 25 MG TAB PO PRN ×4 (00:38→18:29)
[2017-01-29] MEDS: QUETIAPINE FUMARATE 25 MG TAB PO PRN ×2 (04:11→15:10)
[2017-01-29 07:01] VITALS: BP_SYST 115; BP_SYST 116; BP_DIAS 73; BP_DIAS 75; PULSE 85; TEMP 36.9
[2017-01-29] MEDS: DOCUSATE SODIUM 100 MG CAP PO SCH ×2 (08:00→21:12)
[2017-01-29] MEDS: FLUOXETINE HCL 20 MG CAP PO SCH (08:01)
[2017-01-29] MEDS: GABAPENTIN 600 MG TAB PO SCH ×3 (08:01→21:12)
[2017-01-29] MEDS: QUETIAPINE FUMARATE 300 MG TAB PO SCH ×2 (08:01→21:12)
[2017-01-29] MEDS: AMLODIPINE BESYLATE 5 MG TAB PO SCH (08:01)
[2017-01-29] MEDS: POLYETHYLENE (MIRALAX) 17 GM PACK PO SCH (08:01)
[2017-01-29] MEDS: THIAMINE HCL 100 MG TAB PO SCH (08:02)
[2017-01-29] MEDS: LISINOPRIL 40 MG TAB PO SCH (08:02)
[2017-01-29] MEDS: NICOTINE 21 MG/24 HR TDSY TD SCH (08:40)
[2017-01-29] MEDS: NICOTINE POLACRILEX 2 MG GUM MT PRN (10:38)
[2017-01-29] MEDS: QUETIAPINE FUMARATE 100 MG TAB PO SCH (12:10)
[2017-01-29] MEDS: ACETAMINOPHEN 325 MG TAB PO PRN (13:31)
--- NOTE | 2017-01-29 14:23 | Psychiatric Progress Notes ---
Progress Note Date of Service Jan 29, 2017. Interval History Jorge Luis Barrera is a 56-year-old male currently residing in [facility], who presents to the emergency room with severe anxiety feeling unable to function outside of a structured environment as well as alcohol abuse. Information is gathered from the patient, the electronic medical record, and considered to be reliable. Chief Complaint "I don't like this.". Subjective Patient was seen & assessed interval progress reviewed with Treatment Team. The patient is very upset, and yelling today because he does not want to be discharged tomorrow. He is not happy to go live with his sister because there is a roommate that has not yet moved out, who he describes as "an asshole", and does not want to be around him. He describes his sister as controlling as well. He wants to stay in the hospital longer, but when asked what a few more days would do, he says "I don't know". He is still asking for more meds to deal with his feeling, while at the same time, acknowledging that this is an addict behavior, reaching for pills or alcohol to deal with negative emotions. We attempt to discuss coping strategies for his anger and frustration while acknowledging how real and painful they are, but he repeatedly responds with "whatever". he admits that he is not using his recovery workbook, and was not in group when retrieved for the interview. His choice is to lay in his bed in a dark room hoping that a different disposition will appear. His mood is "terrible. I don't know how I'm going to get through the night, let alone tomorrow!". Review of Systems Constitutional: + fatigue ENT: No hearing loss, No unusual epistaxis, No nasal symptoms, No sore throat, No tinnitus, No dental problems, No trouble swallowing, No problem reported Respiratory: No cough, No sputum, No wheezing, No shortness of breath, No dyspnea on exertion, No dyspnea at rest, No hemoptysis, No problem reported Cardiovascular: No chest pain, No orthopnea, No PND, No edema, No claudication , No palpitations, No problem reported Abdomen: No pain, No nausea, No vomiting, No diarrhea, No constipation, No GI bleeding, No problem reported Musculoskeletal: No joint pain, No muscle pain, No swelling, No calf pain, No problem reported Neurologic: No memory loss, No paralysis, No weakness, No numbness/tingling, No vertigo, No balance problems, No problem reported Psychiatric: + depression symptoms, + problem reported (frustration) Integumentary: No rash, No itch, No new/changing skin lesions, No color change , No bleeding, No problem reported Sleep Information Total Hours of Sleep: 7.75 Meal Information Percent of Breakfast Consumed: 100 Percent of Lunch Consumed: 100 Percent of Dinner Consumed: 100 Mental Status Exam During interview pt is: alert and oriented, cooperative (poorly) Appearance: appropriately dressed, disheveled Eye contact is: fair Motor behavior is: steady gait & station, no abnormal motor movements, psychomotor agitation, tremor Speech: normal in rate, rhythm & volume, loud, other (frequent swearing and yelling) Affect: angry, anxious Mood is: angry, other ("terrible") Thought process: goal directed, perseveration (on living with sister), other ( distractible) Thought content: reality based without delusions, hopelessness, other (negative ) Suicidal thought are: present (conditional), Plan: denied, Intent: denied Homicidal thoughts are: denied Hallucinations: denies auditory, denies visual Cognition: attention grossly intact, language grossly intact Intelligence estimated to be: average Insight: limited Judgement: limited Impression The patient remains anxious and is focused on medications as the solution. He is not attending groups and seeking meds to numb his negative feelings. He is feeling frustrated and angry over the lack of control he has in this situation including no place to stay other than with his sister. He admits that when he was sober for 26 years its was because he had low stress and everything was taken care of for him by his mother. he has a lot of fear about what life will look like without that. Unfortunately, he has not been willing to embrace the inpatient program or work toward his sobriety through the recovery workbook and so there is little we have to offer him at this point. We have recommended rehab, which he is unwilling to consider at this point either. There are no further risk factors to be mitigated by a short term inpatient hospitalization. His sister will be coming in for a meeting tomorrow at 1000 and we are hopeful that he can be discharged with her at that time. Plan (1) Major depressive disorder, recurrent severe without psychotic features 01/23 -Increase Prozac to 60 mg daily and titrate as tolerated -Continue Seroquel 300 mg twice a day and add 50 mg 4 times daily when necessary -If no success with maximum doses of Seroquel, consider switching to another atypical -Every 15 minute checks for safety -Encourage participation in group and individual counseling -Coordinate with current providers and refer for therapy -Family meeting if indicated 01/25 - Mood a little more down and feeling little more hopeless this morning. Passive SI endorse today. 01/26 - Family meeting held with brother in law Cabrales, who said Doug would not be allowed access to a car or to live in mother's properties. - Assist the patient to participate more in his own treatment by encouraging group attendance, exercise, relaxation - Increase neurontin to 600 mg. TID - Increase Seroquel to 300 mg twice a day and 100 mg. at noon. 01/27 - Patient strongly encouraged to engage in treatment, including attending and participating in groups, working on his discharge planning, and working on healthy coping skills here. - Reviewed his repeated requests for IM medications for anxiety, and that this is inappropriate. Encouraged him to practice coping skills for behavioral management of anxiety. Agreed to a trial of buspirone, which he reports a previous good response to. Reviewed risks, benefits, and side effects, including dizziness and serotonin syndrome. Provided the patient with an up-to- date patient handout on the medication. Start 7.5 mg twice a day, and titrate as tolerated. - Reviewed housing options as discussed in his family meeting yesterday: Hotel, family residence, [address], [place] [facility], inpatient rehabilitation. Strongly encourage the patient to consider inpatient rehabilitation, as he is stating he doesn't feel comfortable leaving the hospital and going into an unstructured setting. He had multiple objections to this, but agreed to consider it. Also advised the patient of the importance of working on his discharge plan now, as he will likely be discharged later this week and it may take several days to get a good plan in place. He remains resistant to engaging in this process, and there appears to be an element of manipulation and attempts to get others to complete tasks for him. 01/28 - Continues to endorse high anxiety and requesting the dose be increased. Increase to 10mg tid. Again reviewed side effects. Continue other meds. - Again encouraged patient to work with staff on discharge planning and coping skills. 01/29 - Continues to refuse the inpatient program, but wants to numb himself with meds. - Discussed multiple coping strategies available to him at this time - Meeting with sister tomorrow AM (2) Panic disorder 01/23 -Medications as above -Assist the patient to learn and utilize healthy coping strategies -The patient will be receiving gabapentin as part of the TANYA S protocol which will also benefit his anxiety 01/24 - Patient perceives anxiety is improved with the gabapentin on board. will halt the taper at 400mg TID to maintain benefit 01/25 - Anxiety appears much improved today. Continue gabapentin as above. - His request for a sedative was denied. Psychoeducation provided regarding relapse risk (3) Alcohol dependence 01/23 -Recommend abstinence -Recovery protocol - AWSS protocol -Need to stabilize anxiety before making any referrals for ongoing substance use treatment 01/26 - Will DC AWSS since not triggering (4) Tobacco use disorder 01/23 -Nicotinic patch 21 mg daily for neck and withdrawal -Will also order Nicorette gum 2 mg every hour when necessary T in withdrawal -Recommend quitting (5) Constipation 01/23 -Encourage physical activity especially walking -Encourage daily use of prune juice, hot liquids and milk of magnesia -Will order Miralax daily but if no results in 2 days, will proceed with a plain film of the abdomen 01/25 - denies abd pain - start docusate 100mg bid - dulcolax supp x1 (6) Hypertension 01/23 -Continue home doses of Norvasc -Monitor BP Discharge / Aftercare Planning Primary Care Physician: Name: Dr Rothman Date of Appointment: Feb 09, 2017 Time of Appointment: 4:00pm Psychiatrist: Name: Dr Bagley Date of Appointment: Feb 02, 2017 Time of Appointment: 8:45am Therapist: Name: Pancho Eisenberg Date of Appointment: Feb 13, 2017 Time of Appointment: 10:30am Founder Ceo & President: Name: [facility] Date of Appointment: Feb 05, 2017 Time of Appointment: 2:00pm Visit Code E&M Code: 10023 Inventory Assets Strengths: Desire to get well, has a living situation and an outpatient provider Needs: To abstain from alcohol Risk Factors Assessment Male: Yes : Yes /single/: Yes Higher / Fall in social status: No Access to guns: No Health problems: Yes Mental Health Diagnoses: Yes Substance use disorders: Yes Previous attempt: Yes Family history of suicide: No Previous psychiatric stay: Yes Hopelessness: Yes Smoker: Yes Protective Factors Assessment Caodaism beliefs: No : No Responsible for young children: No Employed: No Stable relationships: No Supportive family: Yes Good rapport with provider: Yes Data Vital Signs Last 24 Hrs: Date Time Temp Pulse Resp B/P (MAP) Pulse Ox O2 Delivery O2 Flow Rate FiO2 01/29/17 07:01 36.9 85 16 115/75 85 116/73 Meds Administered Last 24 Hrs: Meds Administered (Past 24Hrs) Medications (Trade) Dose Ordered Sig/Hoa Route Start Time Stop Time Status Last Admin Dose Admin Buspirone HCl (Buspar Tab) 10 mg TID PO 01/28/17 14:00 02/27/17 13:59 01/29/17 13:31 10 MG Lab Results Last 24 Hrs: 01/22/17 18:53 Red Blood Count 4.17, Mean Corpuscular Volume 87.5, Mean Corpuscular Hemoglobin 30.0, Mean Corpuscular Hemoglobin Concent 34.2, Mean Platelet Volume 8.1, Neutrophils (%) (Auto) 57.6, Lymphocytes (%) (Auto) 25.5, Monocytes (%) (Auto) 8.0, Eosinophils (%) (Auto) 6.6, Basophils (%) (Auto) 1.8, Neutrophils # (Auto) 3.60, Lymphocytes # (Auto) 1.59, Monocytes # (Auto) 0.50, Eosinophils # (Auto) 0.41, Basophils # (Auto) 0.11 01/22/17 18:48 Test 01/22/17 16:50 01/22/17 18:33 01/22/17 18:48 01/22/17 18:53 Urine Color YELLOW Urine Appearance CLOUDY (CLEAR) Urine pH 6.5 (4.5-7.5) Urine Specific [place] 1.020 (1.000-1.030) Urine Protein NEG (NEG) Urine Glucose (UA) NEG (NEG) Urine Ketones NEG (NEG) Urine Occult Blood NEG (NEG) Urine Nitrite NEG (NEG) Urine Bilirubin NEG (NEG) Urine Urobilinogen NEG (NEG) Urine Leukocyte Esterase NEG (NEG) Urine WBC (Auto) 1-5 /hpf (0-5) Urine RBC (Auto) 0-4 /hpf (0-4) Urine Hyaline Casts (Auto) 0 /lpf (0-5) Urine Epithelial Cells (Auto) 0-5 /lpf (0-5) Urine Bacteria (Auto) NEG (NEG) Urine Opiates Screen NEG (NEG) Urine Methadone, Qualitative NEG (NEG) Urine Barbiturates NEG (NEG) Urine Phencyclidine (PCP) Level NEG (NEG) Ur Amphetamine/Methamphetamine NEG (NEG) MDMA (Ecstasy) Screen NEG (NEG) Urine Benzodiazepines Screen NEG (NEG) Urine Cocaine Metabolite NEG (NEG) Urine Marijuana (THC) NEG (NEG) Prothrombin Time 11.1 SECONDS (9.0-12.0) Prothromb Time International Ratio 1.0 (0.9-1.1) Activated Partial Thromboplast Time 27.1 SECONDS (21.0-31.0) Partial Thromboplastin Ratio 1.0 Anion Gap 7.0 mmol/L (3-11) Est Creatinine Clear Calc Drug Dose 79.8 ml/min Estimated GFR () 97.1 Estimated GFR (Non- 83.8 BUN/Creatinine Ratio 15.6 (10-20) Calcium Level 9.0 mg/dl (8.5-10.1) Total Bilirubin 0.1 mg/dl (0.2-1) Direct Bilirubin < 0.1 mg/dl (0-0.2) Aspartate Amino Transf (AST/SGOT) 15 U/L (15-37) Alanine Aminotransferase (ALT/SGPT) 21 U/L (12-78) Alkaline Phosphatase 69 U/L (45-117) Total Protein 7.1 gm/dl (6.4-8.2) Albumin 3.4 gm/dl (3.4-5.0) Thyroid Stimulating Hormone (TSH) 1.520 uIu/ml (0.300-4.500) Free Thyroxine 1.04 ng/dl (0.80-1.60) Ethyl Alcohol mg/dL 65.0 mg/dl (0-3) White Blood Count 6.24 K/uL (4.8-10.8) Red Blood Count 4.17 M/uL (4.7-6.1) Hemoglobin 12.5 g/dL (14.0-18.0) Hematocrit 36.5 % (42-52) Mean Corpuscular Volume 87.5 fL (80-100) Mean Corpuscular Hemoglobin 30.0 pg (25-34) Mean Corpuscular Hemoglobin Concent 34.2 g/dl (32-36) Platelet Count 390 K/uL (130-400) Mean Platelet Volume 8.1 fL (7.4-10.4) Neutrophils (%) (Auto) 57.6 % Lymphocytes (%) (Auto) 25.5 % Monocytes (%) (Auto) 8.0 % Eosinophils (%) (Auto) 6.6 % Basophils (%) (Auto) 1.8 % Neutrophils # (Auto) 3.60 K/uL (1.4-6.5) Lymphocytes # (Auto) 1.59 K/uL (1.2-3.4) Monocytes # (Auto) 0.50 K/uL (0.11-0.59) Eosinophils # (Auto) 0.41 K/uL (0-0.5) Basophils # (Auto) 0.11 K/uL (0-0.2) RDW Standard Deviation 46.9 fL (36.4-46.3) RDW Coefficient of Variation 14.6 % (11.5-14.5) Immature Granulocyte % (Auto) 0.5 % Immature Granulocyte # (Auto) 0.03 K/uL (0.00-0.02) Test 01/22/17 19:09 01/25/17 06:47 Bedside Troponin I < 0.030 ng/ml (0-0.045) Fasting Glucose 98 mg/dl (70-99) Triglycerides Level 94 mg/dl (0-150) Cholesterol Level 185 mg/dl (0-200) HDL Cholesterol 49 mg/dl LDL Cholesterol, Calculated 117 mg/dl VLDL Cholesterol, Calculated 19 mg/dl Cholesterol/HDL Ratio 3.8 Problem Qualifiers (1) Alcohol dependence: Substance use status: uncomplicated Qualified Codes: F10.20 - Alcohol dependence, uncomplicated (2) Constipation: Constipation type: unspecified constipation type Qualified Codes: K59.00 - Constipation, unspecified (3) Hypertension: Hypertension type: unspecified Qualified Codes: I10 - Essential (primary) hypertension
[2017-01-30] MEDS: hydrOXYzine HCL 25 MG TAB PO PRN ×2 (06:30→10:47)
[2017-01-30 07:05] VITALS: BP_SYST 117; BP_SYST 123; BP_DIAS 78; BP_DIAS 86; PULSE 84; PULSE 93; TEMP 36.6
[2017-01-30] MEDS: NICOTINE 21 MG/24 HR TDSY TD SCH (09:00)
[2017-01-30] MEDS: POLYETHYLENE (MIRALAX) 17 GM PACK PO SCH (09:03)
[2017-01-30] MEDS: DOCUSATE SODIUM 100 MG CAP PO SCH ×2 (09:03→21:03)
[2017-01-30] MEDS: FLUOXETINE HCL 20 MG CAP PO SCH (09:04)
[2017-01-30] MEDS: GABAPENTIN 600 MG TAB PO SCH ×3 (09:04→21:03)
[2017-01-30] MEDS: QUETIAPINE FUMARATE 300 MG TAB PO SCH ×2 (09:04→21:03)
[2017-01-30] MEDS: AMLODIPINE BESYLATE 5 MG TAB PO SCH (09:04)
[2017-01-30] MEDS: LISINOPRIL 40 MG TAB PO SCH (09:05)
[2017-01-30] MEDS: THIAMINE HCL 100 MG TAB PO SCH (09:05)
[2017-01-30] MEDS: NICOTINE POLACRILEX 2 MG GUM MT PRN (09:11)
[2017-01-30] MEDS: ACETAMINOPHEN 325 MG TAB PO PRN (10:49)
[2017-01-30] MEDS ORDERED: BSP5 PO (11:20)
[2017-01-30] MEDS ORDERED: NRN600 PO (11:20)
[2017-01-30] MEDS ORDERED: SRQ100 PO (11:20)
[2017-01-30] MEDS ORDERED: QUET1TAB37 PO (11:20)
[2017-01-30] MEDS ORDERED: QUET5TAB PO (11:20)
[2017-01-30] MEDS ORDERED: FLUO27.5 PO (11:20)
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
[2017-01-30] MEDS: QUETIAPINE FUMARATE 100 MG TAB PO SCH (12:00)
--- NOTE | 2017-01-30 13:29 | Psychiatric Progress Notes ---
Psychiatric Progress Note Date of Service Jan 30, 2017. Notes Family held with sister. Patient provided Medicare information regarding discharge and he is exercising his option to appeal the discharge. Dr. Castillo aware. Appropriate notification will be made to Medicare. Addendum: MSE and daily progress are outlined in psychiatric discharge summary dated 01/30/17.
[2017-01-30] MEDS: QUETIAPINE FUMARATE 25 MG TAB PO PRN (16:34)
[2017-01-31] MEDS: QUETIAPINE FUMARATE 25 MG TAB PO PRN (03:43)
[2017-01-31] MEDS: hydrOXYzine HCL 25 MG TAB PO PRN ×2 (07:13→14:48)
[2017-01-31] MEDS: DOCUSATE SODIUM 100 MG CAP PO SCH ×2 (08:28→21:36)
[2017-01-31] MEDS: POLYETHYLENE (MIRALAX) 17 GM PACK PO SCH (08:28)
[2017-01-31] MEDS: AMLODIPINE BESYLATE 5 MG TAB PO SCH (08:28)
[2017-01-31] MEDS: GABAPENTIN 600 MG TAB PO SCH ×3 (08:28→21:36)
[2017-01-31] MEDS: THIAMINE HCL 100 MG TAB PO SCH (08:29)
[2017-01-31] MEDS: LISINOPRIL 40 MG TAB PO SCH (08:29)
[2017-01-31] MEDS: FLUOXETINE HCL 20 MG CAP PO SCH (08:29)
[2017-01-31] MEDS: NICOTINE 21 MG/24 HR TDSY TD SCH (08:29)
[2017-01-31] MEDS: QUETIAPINE FUMARATE 300 MG TAB PO SCH ×2 (08:29→21:37)
--- NOTE | 2017-01-31 09:33 | Psychiatric Progress Notes ---
Progress Note Date of Service Jan 31, 2017. Interval History Jorge Luis Barrera is a 56-year-old male currently residing in [facility], who presents to the emergency room with severe anxiety feeling unable to function outside of a structured environment as well as alcohol abuse. Chief Complaint "I'm anxious, depressed and angry". Subjective Patient was seen & assessed interval progress reviewed with Nursing. Received Seroquel and Vistaril prns last afternoon/evening. Some sleep disruption related to roommates snoring. Mr. Barrera states "the only reason I appealed was because I have no where to go" . Reviewed that this is not a reality based statement as family has agreed that he can live with younger sister. He then admitted that he doesn't trust her roommate due to his ethnicity and that he doesn't believe that the roommate will be leaving for 2 more weeks. He doesn't like family stipulations on his use of the car or limiting access to mother's home (alcohol is being removed). He continues to focus on medications as sole focus of treatment but did attend 2 groups last pm with minimal participation. He blames others at the rehab at [place] for making him feel uncomfortable and states he won't go back to rehab. He is not able to describe specific symptoms of anxiety or low mood just stating that when he isn't angry he doesn't feel well. He mentioned a "psychotic break" while at [facility] but then denied any hallucinations or paranoid thinking. Records from previous hospitalizations outline minimal engagement in therapies and main focus on housing. Today he reports anxiety that he will lose disability if his checking account goes over $2000 and was annoyed that I did not know regulations re: this. He swore multiple times throughout our discussion but later apologized. Review of Systems Psych: denies symptoms other than stated above Constitutional: denied Cardiovascular: denied GI: denied Neurologic: denied Remainder of 10 body systems also reviewed and denied other than noted above. Sleep Information Total Hours of Sleep: 5.75 Meal Information Percent of Breakfast Consumed: 100 Percent of Lunch Consumed: 60 Percent of Dinner Consumed: 100 Mental Status Exam During interview pt is: alert and oriented Appearance: disheveled Eye contact is: fair Motor behavior is: steady gait & station (with some psychomotor restlessness), tremor Speech: normal in rate, rhythm & volume, loud, other (frequent swearing and yelling) Affect: irritable Mood is: depressed, angry Thought process: clear, coherent, concrete Thought content: reality based without delusions Suicidal thought are: denied, Plan: denied, Intent: denied Homicidal thoughts are: denied Hallucinations: denies auditory, denies visual Cognition: attention grossly intact, language grossly intact Intelligence estimated to be: average Insight: limited Judgement: limited Impression Mr. Barrera is a 56 yo male with a prior diagnosis of schizoaffective disorder who presents (all be it already on Seroquel) with primarily irritability and ETOH dependence. He has been difficult to engage in treatment due to his underlying personality structure and is refusing most appropriate level of care which is D&A rehab. He admits that he is not actively suicidal but desires to stay in the hospital for social concerns around housing and avoiding family obligations. He remains focussed on medications more than other therapies. Goals of his inpatient hospitalization have been met and he is appropriate for discharge to outpatient level of care. Risk factors that can be mitigated have been addressed with extensive involvement of his family who have agreed to provide for his housing and transportation will be monitored through use of a breathalyzer. He hasn't made use of recovery materials on the unit and has repeatedly declined additional intervention. His residual symptoms are chronic in nature and best addressed with exterminator outpatient psych treatment. Plan (1) Major depressive disorder, recurrent severe without psychotic features 01/23 -Increase Prozac to 60 mg daily and titrate as tolerated -Continue Seroquel 300 mg twice a day and add 50 mg 4 times daily when necessary -If no success with maximum doses of Seroquel, consider switching to another atypical -Every 15 minute checks for safety -Encourage participation in group and individual counseling -Coordinate with current providers and refer for therapy -Family meeting if indicated 01/25 - Mood a little more down and feeling little more hopeless this morning. Passive SI endorse today. 01/26 - Family meeting held with brother in law Keron, who said Duog would not be allowed access to a car or to live in mother's properties. - Assist the patient to participate more in his own treatment by encouraging group attendance, exercise, relaxation - Increase neurontin to 600 mg. TID - Increase Seroquel to 300 mg twice a day and 100 mg. at noon. 01/27 - Patient strongly encouraged to engage in treatment, including attending and participating in groups, working on his discharge planning, and working on healthy coping skills here. - Reviewed his repeated requests for IM medications for anxiety, and that this is inappropriate. Encouraged him to practice coping skills for behavioral management of anxiety. Agreed to a trial of buspirone, which he reports a previous good response to. Reviewed risks, benefits, and side effects, including dizziness and serotonin syndrome. Provided the patient with an up-to- date patient handout on the medication. Start 7.5 mg twice a day, and titrate as tolerated. - Reviewed housing options as discussed in his family meeting yesterday: Hotel, family residence, [address], retirement, inpatient rehabilitation. Strongly encourage the patient to consider inpatient rehabilitation, as he is stating he doesn't feel comfortable leaving the hospital and going into an unstructured setting. He had multiple objections to this, but agreed to consider it. Also advised the patient of the importance of working on his discharge plan now, as he will likely be discharged later this week and it may take several days to get a good plan in place. He remains resistant to engaging in this process, and there appears to be an element of manipulation and attempts to get others to complete tasks for him. 01/28 - Continues to endorse high anxiety and requesting the dose be increased. Increase to 10mg tid. Again reviewed side effects. Continue other meds. - Again encouraged patient to work with staff on discharge planning and coping skills. 01/29 - Continues to refuse the inpatient program, but wants to numb himself with meds. - Discussed multiple coping strategies available to him at this time - Meeting with sister tomorrow AM 01/31 --see above, remains appropriate for discharge, awaiting determination on Medicare appeal. (2) Panic disorder 01/23 -Medications as above -Assist the patient to learn and utilize healthy coping strategies -The patient will be receiving gabapentin as part of the TANYA S protocol which will also benefit his anxiety 01/24 - Patient perceives anxiety is improved with the gabapentin on board. will halt the taper at 400mg TID to maintain benefit 01/25 - Anxiety appears much improved today. Continue gabapentin as above. - His request for a sedative was denied. Psychoeducation provided regarding relapse risk (3) Alcohol dependence 01/23 -Recommend abstinence -Recovery protocol - AWSS protocol -Need to stabilize anxiety before making any referrals for ongoing substance use treatment 01/26 - Will DC AWSS since not triggering (4) Tobacco use disorder 01/23 -Nicotinic patch 21 mg daily for neck and withdrawal -Will also order Nicorette gum 2 mg every hour when necessary T in withdrawal -Recommend quitting (5) Constipation 01/23 -Encourage physical activity especially walking -Encourage daily use of prune juice, hot liquids and milk of magnesia -Will order Miralax daily but if no results in 2 days, will proceed with a plain film of the abdomen 01/25 - denies abd pain - start docusate 100mg bid - dulcolax supp x1 (6) Hypertension 01/23 -Continue home doses of Norvasc -Monitor BP Discharge / Aftercare Planning Primary Care Physician: Name: Dr Rothman Date of Appointment: Feb 09, 2017 Time of Appointment: 4:00pm Psychiatrist: Name: Dr Bagley Date of Appointment: Feb 06, 2017 Time of Appointment: 10:30 Therapist: Name: Pancho Eisenberg Date of Appointment: Feb 13, 2017 Time of Appointment: 10:30am Lining Cementer: Name: [facility], [address] [place] [address], [address] Date of Appointment: Feb 05, 2017 Time of Appointment: 2:00pm Visit Code E&M Code: 78138 Inventory Assets Strengths: Desire to get well, has a living situation and an outpatient provider Needs: To abstain from alcohol Risk Factors Assessment Male: Yes : Yes /single/: Yes Higher / Fall in social status: No Access to guns: No Health problems: Yes Mental Health Diagnoses: Yes Substance use disorders: Yes Previous attempt: Yes Family history of suicide: No Previous psychiatric stay: Yes Hopelessness: Yes Smoker: Yes Protective Factors Assessment Uatsdin beliefs: No : No Responsible for young children: No Employed: No Stable relationships: No Supportive family: Yes Good rapport with provider: Yes Problem Qualifiers (1) Alcohol dependence: Substance use status: uncomplicated Qualified Codes: F10.20 - Alcohol dependence, uncomplicated (2) Constipation: Constipation type: unspecified constipation type Qualified Codes: K59.00 - Constipation, unspecified (3) Hypertension: Hypertension type: unspecified Qualified Codes: I10 - Essential (primary) hypertension
[2017-01-31] MEDS: QUETIAPINE FUMARATE 100 MG TAB PO SCH (12:06)
[2017-01-31] MEDS: BusPIRone 15 MG TAB PO SCH ×2 (14:02→21:36)
[2017-01-31 14:11] VITALS: BP_SYST 116; BP_SYST 122; BP_DIAS 72; BP_DIAS 76; PULSE 83; PULSE 96; TEMP 37.1
[2017-01-31] MEDS: NICOTINE POLACRILEX 2 MG GUM MT PRN (15:34)
[2017-01-31] MEDS: MAGNESIUM HYDROXIDE SUSP 30 ML UDC PO PRN (21:39)
[2017-02-01] MEDS: hydrOXYzine HCL 25 MG TAB PO PRN (05:54)
[2017-02-01 06:07] VITALS: BP_SYST 118; BP_SYST 127; BP_DIAS 84; BP_DIAS 90; PULSE 81; PULSE 94; TEMP 36.8
[2017-02-01] MEDS: THIAMINE HCL 100 MG TAB PO SCH (08:56)
[2017-02-01] MEDS: QUETIAPINE FUMARATE 300 MG TAB PO SCH ×2 (08:56→21:22)
[2017-02-01] MEDS: BusPIRone 15 MG TAB PO SCH ×3 (08:56→21:21)
[2017-02-01] MEDS: LISINOPRIL 40 MG TAB PO SCH (08:56)
[2017-02-01] MEDS: DOCUSATE SODIUM 100 MG CAP PO SCH ×2 (08:56→21:22)
[2017-02-01] MEDS: GABAPENTIN 600 MG TAB PO SCH ×3 (08:56→21:22)
[2017-02-01] MEDS: POLYETHYLENE (MIRALAX) 17 GM PACK PO SCH (08:58)
[2017-02-01] MEDS: FLUOXETINE HCL 20 MG CAP PO SCH (08:58)
[2017-02-01] MEDS: AMLODIPINE BESYLATE 5 MG TAB PO SCH (08:58)
[2017-02-01] MEDS: NICOTINE 21 MG/24 HR TDSY TD SCH (09:07)
[2017-02-01] MEDS: QUETIAPINE FUMARATE 100 MG TAB PO SCH (12:06)
--- NOTE | 2017-02-01 13:37 | Psychiatric Progress Notes ---
Progress Note Date of Service Feb 01, 2017. Interval History Jorge Luis Barrera is a 56-year-old male currently residing in [facility], who presents to the emergency room with severe anxiety feeling unable to function outside of a structured environment as well as alcohol abuse. Chief Complaint "I am anxious and depressed". Subjective Patient was seen & assessed interval progress reviewed with nursing Patient overnight slept in the group room to avoid his roommates snoring, and slept well per observation 5.75+ hours (still sleeping at shift change). He remains irritable with staff when they attempt to engage him. Met with patient who states "I am anxious and depressed....I don't know what I am going to do." He denies overt suicidality at this time, but states he is not certain what he will do if discharged. On further questioning he denies having active SI, intention or plan but rather "I may drink again and that never helps me" When asked if he is willing for resources such as rehab or outpatient D&A he declines. He states he is willing to go to AA meetings but then states but the meetings are so "erratic" when provider points out that the meetings are consistently held all over the area at a variety of times and we could help him consider a schedule to attend he says "no thanks, I can figure it out." He states he is taking his meds stating he is constipated but when asking about his stool he is having soft BM's about 2 times/week which allbeit slower than his pre-medication frequency he is not straining nor having inability to defecate. DIscussed his anxiety and when asked what he is working on today he makes a scoffing sound and states "coping skills don't help" DIscussed the role of medicationand behavioral skills and working on outpatient stressors and supports as our primary tools in behavioral health. SPent time going through breathing and patient seems notably offput by the exercise, as well as attempts to set tid practice schedule. He states "I'll just do it and I'll just remember " DIscussed pairing and the need to practice it when otherwise not panicking for days to weeks then he can use it when panicking to lower his stress level. Discussed his depression and he is not willing to go through an ABC model to discuss his current "negative mood" stating "I know I have all or nothing thinking" but again seems to be off put and discount the role of CBT interventions. FInally discussed his outpatient stressors and options, and he initially says "there are no options." When asked what he talked about with social work he said "nothing" WHen provider reflected on the discussions in the notes and what was passed to provider in report he states "I guess I do have people that care and are trying to help." But still seems to indicate that he has no options. "I just asked to stay here because I did not have a car." Review of Systems ROS: complains of slow bowels, but reports soft movements q3-4days but small amounts with no straining, not hard denies other physical concerns than mentioned above Sleep Information Total Hours of Sleep: 5.75 Meal Information Percent of Breakfast Consumed: 100 Percent of Lunch Consumed: 100 Percent of Dinner Consumed: 100 Mental Status Exam During interview pt is: alert and oriented Appearance: disheveled Eye contact is: fair Motor behavior is: steady gait & station (with some psychomotor restlessness picking up his book when referenced putting it down), tremor Speech: normal in rate, rhythm & volume, loud, other (no swearing, no yelling) Affect: irritable Mood is: depressed, other (seems exasperated by efforts to engage in CBT or problem solving) Thought process: clear, coherent, concrete Thought content: reality based without delusions Suicidal thought are: denied, Plan: denied, Intent: denied Homicidal thoughts are: denied Hallucinations: denies auditory, denies visual Cognition: attention grossly intact, language grossly intact Intelligence estimated to be: average Insight: limited Judgement: limited Impression Mr. Barrera is a 56 yo male with a prior diagnosis of schizoaffective disorder who presents (all be it already on Seroquel) with primarily irritability and ETOH dependence. He has been difficult to engage in treatment due to his underlying personality structure and is refusing most appropriate level of care which is D&A rehab. He admits that he is not actively suicidal but desires to stay in the hospital for social concerns around housing and avoiding family obligations. He remains focussed on medications more than other therapies. Goals of his inpatient hospitalization have been met and he is appropriate for discharge to outpatient level of care. Risk factors that can be mitigated have been addressed with extensive involvement of his family who have agreed to provide for his housing and transportation will be monitored through use of a breathalyzer. He hasn't made use of recovery materials on the unit and has repeatedly declined additional intervention. His residual symptoms are chronic in nature and best addressed with watermaster outpatient psych treatment Furthermore his residual distress seems to be rooted in externalizing nature, e.g. "I don't have options" when in fact he has been given support and options but rather they are not his preferred options, and his unwillingness to take an active role in his treatment eg. "breathing does not work, coping skills don't work" when he demonstrates unwillingness to practice and try. Although we are making efforts to engage patient here, these types of changes/goals will take consistent therapy to establish rapport and accountability and time to begin to help him see the worth and practicality of these efforts. Plan (1) Major depressive disorder, recurrent severe without psychotic features 01/23 -Increase Prozac to 60 mg daily and titrate as tolerated -Continue Seroquel 300 mg twice a day and add 50 mg 4 times daily when necessary -If no success with maximum doses of Seroquel, consider switching to another atypical -Every 15 minute checks for safety -Encourage participation in group and individual counseling -Coordinate with current providers and refer for therapy -Family meeting if indicated 01/25 - Mood a little more down and feeling little more hopeless this morning. Passive SI endorse today. 01/26 - Family meeting held with brother in law Cabrales, who said Doug would not be allowed access to a car or to live in mother's properties. - Assist the patient to participate more in his own treatment by encouraging group attendance, exercise, relaxation - Increase neurontin to 600 mg. TID - Increase Seroquel to 300 mg twice a day and 100 mg. at noon. 01/27 - Patient strongly encouraged to engage in treatment, including attending and participating in groups, working on his discharge planning, and working on healthy coping skills here. - Reviewed his repeated requests for IM medications for anxiety, and that this is inappropriate. Encouraged him to practice coping skills for behavioral management of anxiety. Agreed to a trial of buspirone, which he reports a previous good response to. Reviewed risks, benefits, and side effects, including dizziness and serotonin syndrome. Provided the patient with an up-to- date patient handout on the medication. Start 7.5 mg twice a day, and titrate as tolerated. - Reviewed housing options as discussed in his family meeting yesterday: Hotel, family residence, [address] apartment, long term, inpatient rehabilitation. Strongly encourage the patient to consider inpatient rehabilitation, as he is stating he doesn't feel comfortable leaving the hospital and going into an unstructured setting. He had multiple objections to this, but agreed to consider it. Also advised the patient of the importance of working on his discharge plan now, as he will likely be discharged later this week and it may take several days to get a good plan in place. He remains resistant to engaging in this process, and there appears to be an element of manipulation and attempts to get others to complete tasks for him. 01/28 - Continues to endorse high anxiety and requesting the dose be increased. Increase to 10mg tid. Again reviewed side effects. Continue other meds. - Again encouraged patient to work with staff on discharge planning and coping skills. 01/29 - Continues to refuse the inpatient program, but wants to numb himself with meds. - Discussed multiple coping strategies available to him at this time - Meeting with sister tomorrow AM 01/31 and 02/01 --see above, remains appropriate for discharge, awaiting determination on Medicare appeal. (2) Panic disorder 01/23 -Medications as above -Assist the patient to learn and utilize healthy coping strategies -The patient will be receiving gabapentin as part of the TANYA S protocol which will also benefit his anxiety 01/24 - Patient perceives anxiety is improved with the gabapentin on board. will halt the taper at 400mg TID to maintain benefit 01/25 - Anxiety appears much improved today. Continue gabapentin as above. - His request for a sedative was denied. Psychoeducation provided regarding relapse risk 02/01 -patient complains of anxiety today, encouraged him to practice with this provider and on a schedule for relaxation breathing, he shows exasperation but verbally agrees to do so (3) Alcohol dependence 01/23 -Recommend abstinence -Recovery protocol - AWSS protocol -Need to stabilize anxiety before making any referrals for ongoing substance use treatment 01/26 - Will DC AWSS since not triggering (4) Tobacco use disorder 01/23 -Nicotinic patch 21 mg daily for neck and withdrawal -Will also order Nicorette gum 2 mg every hour when necessary T in withdrawal -Recommend quitting (5) Constipation 01/23 -Encourage physical activity especially walking -Encourage daily use of prune juice, hot liquids and milk of magnesia -Will order Miralax daily but if no results in 2 days, will proceed with a plain film of the abdomen 01/25 - denies abd pain - start docusate 100mg bid - dulcolax supp x1 02/01/17 - having soft small movements about q4days, encouraged increased fiber (6) Hypertension 01/23 -Continue home doses of Norvasc -Monitor BP Discharge / Aftercare Planning Primary Care Physician: Name: Dr Rothman Date of Appointment: Feb 09, 2017 Time of Appointment: 4:00pm Psychiatrist: Name: Dr Bagley Date of Appointment: Feb 06, 2017 Time of Appointment: 10:30 Therapist: Name: Pancho Eisenberg Date of Appointment: Feb 13, 2017 Time of Appointment: 10:30am Society Editor: Name: [facility], [address] [place] [address], [address] Date of Appointment: Feb 05, 2017 Time of Appointment: 2:00pm Visit Code E&M Code: 46205 Inventory Assets Strengths: Desire to get well, has a living situation and an outpatient provider Needs: To abstain from alcohol Risk Factors Assessment Male: Yes : Yes /single/: Yes Higher / Fall in social status: No Access to guns: No Health problems: Yes Mental Health Diagnoses: Yes Substance use disorders: Yes Previous attempt: Yes Family history of suicide: No Previous psychiatric stay: Yes Hopelessness: Yes Smoker: Yes Protective Factors Assessment Mosque beliefs: No : No Responsible for young children: No Employed: No Stable relationships: No Supportive family: Yes Good rapport with provider: Yes Data Vital Signs Last 24 Hrs: Date Time Temp Pulse Resp B/P (MAP) Pulse Ox O2 Delivery O2 Flow Rate FiO2 02/01/17 06:07 36.8 81 18 127/90 94 118/84 01/31/17 14:11 37.1 83 14 122/72 96 116/76 Meds Administered Last 24 Hrs: Meds Administered (Past 24Hrs) Medications (Trade) Dose Ordered Sig/Hoa Route Start Time Stop Time Status Last Admin Dose Admin Buspirone HCl (BusPAR TAB) 15 mg TID PO 01/31/17 14:00 02/27/17 13:59 02/01/17 08:56 15 MG Quetiapine Fumarate (seroQUEL TAB) 200 mg DAILY@1200 PO 01/31/17 12:00 02/26/17 11:59 02/01/17 12:06 200 MG Problem Qualifiers (1) Alcohol dependence: Substance use status: uncomplicated Qualified Codes: F10.20 - Alcohol dependence, uncomplicated (2) Constipation: Constipation type: unspecified constipation type Qualified Codes: K59.00 - Constipation, unspecified (3) Hypertension: Hypertension type: unspecified Qualified Codes: I10 - Essential (primary) hypertension
[2017-02-01] MEDS: NICOTINE POLACRILEX 2 MG GUM MT PRN ×3 (14:58→18:57)
[2017-02-01] MEDS: QUETIAPINE FUMARATE 25 MG TAB PO PRN (16:07)
[2017-02-01] MEDS: MAGNESIUM HYDROXIDE SUSP 30 ML UDC PO PRN (21:24)
[2017-02-02] MEDS: hydrOXYzine HCL 25 MG TAB PO PRN ×2 (05:27→10:49)
[2017-02-02 06:45] VITALS: BP_SYST 123; BP_SYST 126; BP_DIAS 83; BP_DIAS 85; PULSE 88; PULSE 97; TEMP 36.8
[2017-02-02] MEDS: BusPIRone 15 MG TAB PO SCH ×2 (08:18→13:29)
[2017-02-02] MEDS: AMLODIPINE BESYLATE 5 MG TAB PO SCH (08:19)
[2017-02-02] MEDS: GABAPENTIN 600 MG TAB PO SCH ×2 (08:19→13:29)
[2017-02-02] MEDS: DOCUSATE SODIUM 100 MG CAP PO SCH (08:19)
[2017-02-02] MEDS: POLYETHYLENE (MIRALAX) 17 GM PACK PO SCH (08:19)
[2017-02-02] MEDS: LISINOPRIL 40 MG TAB PO SCH (08:20)
[2017-02-02] MEDS: FLUOXETINE HCL 20 MG CAP PO SCH (08:20)
[2017-02-02] MEDS: NICOTINE 21 MG/24 HR TDSY TD SCH (08:20)
[2017-02-02] MEDS: QUETIAPINE FUMARATE 300 MG TAB PO SCH (08:20)
[2017-02-02] MEDS: THIAMINE HCL 100 MG TAB PO SCH (08:20)
[2017-02-02] MEDS: QUETIAPINE FUMARATE 100 MG TAB PO SCH (11:22)
--- NOTE | 2017-02-04 13:26 | Psych Management Progress Note ---
Psychiatry Miscellaneous Date of Service: Feb 04, 2017. Nursing staff advised that patient's discharge prescription of buspirone was written for 5mg tabs, and he takes 10mg tid, with #9 dispensed, so will run out prior to Thursday's outpatient appointment. Advised charge nurse Doug to please call in prescription for buspirone 10mg po tid, #9, to get him through until his appointment.
[2017-03-24] MEDS ORDERED: PRED20TA PO (11:18)
[2017-03-24] MEDS ORDERED: IPRASOL4 INH (11:18)
[2017-03-24] MEDS ORDERED: AMOX875T PO (11:18)
[2017-03-24] MEDS ORDERED: ZTHM250 PO (11:18)
[2017-03-24] MEDS ORDERED: GFNSR600 PO (11:18)
== END 2017-02-02 14:05 | disposition home or self-care (01) | DRG 885 ==
LOC: EDBD 18:21 → C.EDB 18:25 → C.MHU 21:14
PROVIDERS: ADMIT Psychiatry & Neurology Psychiatry; ATTEND Psychiatry & Neurology Psychiatry
DX: F33.2 Major depressive disorder, recurrent severe without psychotic features (principal); R45.851 Suicidal ideations; F10.230 Alcohol dependence with withdrawal, uncomplicated; I10 Essential (primary) hypertension; F17.210 Nicotine dependence, cigarettes, uncomplicated; F41.0 Panic disorder [episodic paroxysmal anxiety]; K59.00 Constipation, unspecified

== ENCOUNTER 2017-03-20 13:28 | Inpatient (IN) | payer OTHER ==
[2017-03-20] VITALS (7 sets, daily range): BP systolic 117–144; BP diastolic 73–79; PULSE 72–87; TEMP 36.6–36.7; O2SAT 92–94; Ht 170.2 cm; Wt 73.8 kg
[~2017-03-20] VITALS: Ht 170.2 cm; Wt 73.8 kg
[~2017-03-20 13:28] MED LIST changes: +BSP5 PO; -CLON2TAB3 PO; +FLUO27.5 PO; -FLUO40CA8 PO; +NRN600 PO; +SRQ100 PO; -ZOLP5TAB PO; -[UNRECOGNIZED DRUG - CODE]
[2017-03-20] MEDS ORDERED: SODIUM CHLORIDE 0.9% 1000ML 1,000 ML IV STA (13:43)
[2017-03-20] MEDS ORDERED: ALBUT/IPRATROP 3MG/0.5MG NEB 3 ML VIAL INH STA (13:43)
[2017-03-20] MEDS ORDERED: PIPERACILLIN/TAZOBACTAM 4.5 GM/100ML D5W IV STA (13:43)
[2017-03-20] MEDS ORDERED: METHYLPREDNISOLONE 125 MG VIAL IV STA (13:43)
[2017-03-20] MEDS ORDERED: SODIUM CHLORIDE 0.9% 1000ML 250 ML IV STA (13:43)
[2017-03-20 14:24] LABS: BASO % 0.2 %; BASO ABS # 0.02 K/uL (0-0.2); COMPLETE YES; HEMATOCRIT 39.9 % (42-52); IG% 0.2 %; LYMPH % 5.1 %; LYMPH ABS # 0.56 K/uL (1.2-3.4); MEAN CELL VOLUME 82.3 fL (80-100); MEAN CORPUSCULAR HEMOGLOBIN 28.9 pg (25-34); MEAN CORPUSCULAR HGB CONC 35.1 g/dl (32-36); MEAN PLATELET VOLUME 9.2 fL (7.4-10.4); MONO % 4.8 %; NEUT % 89.7 %; PLATELET COUNT 224 K/uL (130-400); RED BLOOD COUNT 4.85 M/uL (4.7-6.1)
[2017-03-20 14:30] LABS: VEN BLD GAS O2 SATURATION 97.1 %; VEN BLOOD GAS BASE EXCESS -1.9 mEq/L
--- NOTE | 2017-03-20 14:31 | DIAGNOSTIC IMAGING REPORT ---
CHEST ONE VIEW PORTABLE CLINICAL HISTORY: Respiratory distress. Dyspnea. COMPARISON STUDY: No previous studies for comparison. FINDINGS: Lung volumes are normal. There is no pneumothorax or pleural effusion. Left lower lung consolidation is present. There is mild right lower lung opacity is well. Mild reticulonodular interstitial thickening is present. Cardiac size is normal. There is apparent rightward displacement of the distal trachea. This is likely artifactual although an underlying mediastinal mass would be difficult to exclude. IMPRESSION: 1. Left lower lung consolidation suggestive of pneumonia. In addition, mild right lower lung opacity and reticulonodular interstitial thickening suggest an infectious process. Follow-up PA and lateral chest radiographs in one month to ensure resolution are recommended. 2. Apparent mild rightward displacement of the trachea which is likely artifactual although an underlying mediastinal abnormality cannot be excluded. This can be assessed on subsequent chest radiographs. Electronically signed by: Brandan Carter M.D. 03/20/2017 2:30 PM Dictated Date/Time: 03/20/2017 2:24 PM
[2017-03-20 14:38] LABS: INR 1.2 (0.9-1.1); PARTIAL THROMBOPLASTIN RATIO 1.2; PROTHROMBIN TIME (PATIENT) 13.1 SECONDS (9.0-12.0)
[2017-03-20] MEDS ORDERED: ABL/15 PO (14:38)
[2017-03-20] MEDS ORDERED: CLON0.2T PO (14:38)
[2017-03-20] MEDS ORDERED: MIRT15TA2 PO (14:38)
[2017-03-20] MEDS ORDERED: HYDR25CA PO (14:38)
[2017-03-20] MEDS ORDERED: DIVA500T59 PO (14:38)
[2017-03-20 14:44] LABS: ALT/SGPT 14 U/L (12-78); BLOOD UREA NITROGEN 7 mg/dl (7-18); BUN/CREATININE RATIO 8.5 (10-20); CALCIUM 8.6 mg/dl (8.5-10.1); CARBON DIOXIDE 23 mmol/L (21-32); CHLORIDE 90 mmol/L (98-107); CREATININE 0.84 mg/dl (0.60-1.40); GLUCOSE 126 mg/dl (70-99); POTASSIUM 4.2 mmol/L (3.5-5.1); SODIUM 121 mmol/L (136-145)
[2017-03-20 14:48] LABS: ALB/GLOB RATIO 0.9 (0.9-2); ALKALINE PHOSPHATASE 62 U/L (45-117); AST/SGOT 23 U/L (15-37)
[2017-03-20] MEDS ORDERED: MoRPHine SULFATE 4 MG/ML 1 ML CARP\\VIAL IV STA (14:55)
--- NOTE | 2017-03-20 15:20 | History and Physical ---
History & Physical Date & Time of Service: Mar 20, 2017 at 15:20 Chief Complaint: Congested, Winded When Walking, Sob Primary Care Physician: Carlito Rothman M.D. History of Present Illness Source: patient This is a 56 yo M with PMHx of anxiety, depression, hypertension and chronic tobacco use, who presented to the ER today with worsening cough, shortness of breath and feeling ill times approximately one week. The patient reports his symptoms started prior to his discharge from recent inpatient stay at the [facility] for severe depression, which was last Thursday. He reports he was there for 4 weeks. The patient has been staying at his sister's house since discharge from there. He admits to increased shortness of breath today, having chills and cough with white to yellow mucus production. Denies any fevers but he did not take his temperature at home. Patient felt that he was coughing more therefore came to the ER today. He has not been able to eat much or drink much due to feeling ill. Patient denies any lightheadedness or dizziness, headache, chest pain, palpitation, flutter. His bowels have been regular. He typically uses a cane on occasion as he has trouble with both knees. Patient does admit to increased arthralgias and myalgias over the past few days and has needed to use the cane more often. Of note the patient is a chronic tobacco user, smokes more when he is in stressful situations. He reports he smokes 3 cigarettes this morning in an attempt to clear his breathing, because he states smoking makes him cough and thought this would help. Here in the ER the patient was found to be hypoxic at 78% on room air. He was placed on BiPAP. Patient has received Solu-Medrol 125 mg, IV Zosyn, and nebulizer treatments and he does feel improved at this time. Chest x-ray was reviewed and shows a left lower lobe infiltrate suspicious of pneumonia, also with a right haziness. Past Medical/Surgical History Medical Problems: (1) Constipation Status: Chronic (2) Hypertension Status: Chronic Major depressive disorder, recurrent LAITH Chronic tobacco abuse Family History No pertinent family history Social History Smoking Status: Current Every Day Smoker Drug Use: none Marital Status: single Occupational Status: disabled Immunizations History of Influenza Vaccine: No History of Tetanus Vaccine?: PT STATES WITHIN LAST 5 YEARS History of Pneumococcal: No History of Hepatitis B Vaccine: No Multi-Drug Resistant Organisms History of MDRO: No Allergies Coded Allergies: No Known Allergies (Verified , 03/20/17) Home Medications Scheduled Amlodipine (Norvasc), 10 MG PO DAILY Aripiprazole (Abilify), 1 TAB PO DAILY Buspirone HCl (Buspirone HCl), 10 MG PO TID Clonidine Hcl (Catapres), 1 TAB PO BID Divalproex Sodium (Depakote), 1 TAB PO BID Gabapentin (Gabapentin), 600 MG PO TID Hydroxyzine Pamoate (Vistaril), 1 CAP PO HS Lisinopril (Zestril), 40 MG PO DAILY Miscellaneous Medications Mirtazapine Soltab (Remeron Soltab), 15 MG PO Review of Systems Constitutional: + Chills, No fever or sweats Eyes: No diplopia, no worsening or blurred vision ENT: normal hearing, no trouble swallowing Respiratory: See history of present illness Cardiovascular: No chest pain, tightness or palpitations Abdomen: No pain, nausea, vomiting, diarrhea or constipation Musculoskeletal: + Bilateral knee pain, calf pain, swelling Neurologic: No weakness, numbness/tingling, or balance problems Psychiatric: + Significant anxiety and depression, recently discharge from inpatient stay Skin: No rash or itch Physical Exam Vital Signs Date Time Temp Pulse Resp B/P (MAP) Pulse Ox O2 Delivery O2 Flow Rate FiO2 03/20/17 14:33 89 16 132/86 98 BiPAP 03/20/17 13:59 87 94 03/20/17 13:58 87 18 94 BiPAP/CPAP 50 03/20/17 13:44 90 03/20/17 13:40 86 Nasal Cannula 5.0 03/20/17 13:40 86 Nasal Cannula 5.0 03/20/17 13:32 37.0 101 24 185/82 78 Room Air General: awake, alert, no apparent distress, +receiving nebulizer treatment at the beginning of my interview, +on BiPAP Head: Normocephalic, atraumatic ENT: PERRL, EOMI, no pharyngeal exudate, mucous membranes moist Chest: + Bipap, coarse rhonchorous breath sounds throughout, significant in LLL , + expiratory wheeze, + cough without sputum production., Cardiac: Regular rate and rhythm, no murmur, no JVD, normal peripheral pulses, good capillary refill Abdominal: NABS x 4 quadrants, soft, nontender to palpation, no rebound, guarding or tenderness Extremities: Normal inspection, no peripheral edema or erythema, calfs nontender to palpation Psych: Normal mood and affect Neuro: AAO x 3, strength intact bilaterally and related 5/5, no motor deficits, speech is clear, no peripheral sensory deficits Diagnostics Laboratory Results Results Past 24 Hours Test 03/20/17 14:00 03/20/17 14:07 03/20/17 14:17 Range/Units White Blood Count 11.00 4.8-10.8 K/uL Red Blood Count 4.85 4.7-6.1 M/uL Hemoglobin 14.0 14.0-18.0 g/dL Hematocrit 39.9 42-52 % Mean Corpuscular Volume 82.3 80-100 fL Mean Corpuscular Hemoglobin 28.9 25-34 pg Mean Corpuscular Hemoglobin Concent 35.1 32-36 g/dl Platelet Count 224 130-400 K/uL Mean Platelet Volume 9.2 7.4-10.4 fL Neutrophils (%) (Auto) 89.7 % Lymphocytes (%) (Auto) 5.1 % Monocytes (%) (Auto) 4.8 % Eosinophils (%) (Auto) 0.0 % Basophils (%) (Auto) 0.2 % Neutrophils # (Auto) 9.87 1.4-6.5 K/uL Lymphocytes # (Auto) 0.56 1.2-3.4 K/uL Monocytes # (Auto) 0.53 0.11-0.59 K/uL Eosinophils # (Auto) 0.00 0-0.5 K/uL Basophils # (Auto) 0.02 0-0.2 K/uL RDW Standard Deviation 40.9 36.4-46.3 fL RDW Coefficient of Variation 13.6 11.5-14.5 % Immature Granulocyte % (Auto) 0.2 % Immature Granulocyte # (Auto) 0.02 0.00-0.02 K/uL Prothrombin Time 13.1 9.0-12.0 SECONDS Prothromb Time International Ratio 1.2 0.9-1.1 Activated Partial Thromboplast Time 30.7 21.0-31.0 SECONDS Partial Thromboplastin Ratio 1.2 Sodium Level 121 136-145 mmol/L Potassium Level 4.2 3.5-5.1 mmol/L Chloride Level 90 98-107 mmol/L Carbon Dioxide Level 23 21-32 mmol/L Anion Gap 8.0 3-11 mmol/L Blood Urea Nitrogen 7 7-18 mg/dl Creatinine 0.84 0.60-1.40 mg/dl Est Creatinine Clear Calc Drug Dose 91.8 ml/min Estimated GFR () 113.4 Estimated GFR (Non- 97.9 BUN/Creatinine Ratio 8.5 10-20 Random Glucose 126 70-99 mg/dl Calcium Level 8.6 8.5-10.1 mg/dl Total Bilirubin 0.5 0.2-1 mg/dl Aspartate Amino Transf (AST/SGOT) 23 15-37 U/L Alanine Aminotransferase (ALT/SGPT) 14 12-78 U/L Alkaline Phosphatase 62 45-117 U/L Troponin I < 0.015 0-0.045 ng/ml Total Protein 7.3 6.4-8.2 gm/dl Albumin 3.4 3.4-5.0 gm/dl Globulin 3.9 2.5-4.0 gm/dl Albumin/Globulin Ratio 0.9 0.9-2 Lactic Acid Level 1.1 0.4-2.0 mmol/L Venous Blood pH 7.53 7.36-7.41 Venous Blood Partial Pressure CO2 23 38.0-50.0 mmHg Venous Blood Partial Pressure O2 93 mmHg Venous Blood HCO3 19 mmol/L Venous Blood Oxygen Saturation 97.1 % Venous Blood Base Excess -1.9 mEq/L Microbiology Results 03/20/17 Blood Culture, Received Pending 03/20/17 Blood Culture, Received Pending Diagnostic Radiology CHEST ONE VIEW PORTABLE CLINICAL HISTORY: Respiratory distress. Dyspnea. COMPARISON STUDY: No previous studies for comparison. FINDINGS: Lung volumes are normal. There is no pneumothorax or pleural effusion. Left lower lung consolidation is present. There is mild right lower lung opacity is well. Mild reticulonodular interstitial thickening is present. Cardiac size is normal. There is apparent rightward displacement of the distal trachea. This is likely artifactual although an underlying mediastinal mass would be difficult to exclude. IMPRESSION: 1. Left lower lung consolidation suggestive of pneumonia. In addition, mild right lower lung opacity and reticulonodular interstitial thickening suggest an infectious process. Follow-up PA and lateral chest radiographs in one month to ensure resolution are recommended. 2. Apparent mild rightward displacement of the trachea which is likely artifactual although an underlying mediastinal abnormality cannot be excluded. This can be assessed on subsequent chest radiographs. Electronically signed by: Brandan Carter M.D. 03/20/2017 2:30 PM Dictated Date/Time: 03/20/2017 2:24 PM The status of this report is Signed EKG Vent. rate 87 BPM GA interval 134 ms QRS duration 94 ms QT/QTc 342/411 ms P-R-T axes 77 72 73 Normal sinus rhythm Possible Left atrial enlargement Borderline ECG When compared with ECG of 22-JAN-2017 18:55, No significant change was found Impression Assessment and Plan 56 yo M with PMHx of anxiety, depression, hypertension and chronic tobacco use, who presented to the ER today with worsening cough, shortness of breath and feeling ill times approximately one week. Pneumonia, LLL and possible RLL - Admit to telemetry - Patient received Solu-Medrol 125 mg IV, started on IV Zosyn, DuoNeb's, placed on BiPAP in the ER for hypoxia with O2 sats at 78% on room air. - Check flu swab for influenza - Pulmonary toilet with Mucinex, flutter, DuoNeb treatments Q4H while awake and Q2H prn shortness of breath, continue IV Zosyn - Blood cultures in process, sputum culture requested - ABG obtained in the ER with respiratory alkalosis - if changes in mental status and consider repeat ABG - Patient can be weaned off BiPAP as tolerated, he typically does not require supplemental O2 at baseline - CXR reviewed, repeat in 1-2 days to evaluate if clearance/improvement. - Smoking cessation encouraged Chronic tobacco use - Smoking cessation encouraged - Nicorette gum when necessary Hypertension -Continue lisinopril 40 mg daily, amlodipine 10 mg daily, clonidine 0.2 mg PO BID Hyponatremia -Sodium is 121 at time of admission, will run NSS at 75 mL/hr for 12 hours, encourage oral intake, can continue IVFs after recheck of morning labs if needed - Likely secondary to poor oral intake - Zofran for antiemetic Major depressive disorder, recurrent LAITH - Patient was recently discharged from [facility] on 03/14/17 after 4 week inpatient stay - Continue on Abilify 15 mg daily, Depakote 500 mg BID, gabapentin 600 mg TID - Vistaril 25 mg QHS and Remeron 15 mg QHS for sleep - Continue clonidine for anxiety as well as hypertension. DVT ppx: Teds, SCDs, Lovenox 40 mg subq CODE STATUS: Full code Disposition: Patient from home, living with sister currently, CM to assist with discharge planning Level of Care Telemetry Advanced Directives Existing Advance Directive: No Existing Living Will: No Existing Power of Complex Manager: No Existing Health Care Proxy: No Resuscitation Status FULL RESUSCITATION VTE Prophylaxis VTE Risk Assessment Done? Y/N: Yes Risk Level: Low Given or contraindicated: Enoxaparin (Lovenox)SQ, T.E.D. Stockings, SCD's Reviewed: Pt Seen/Exam by Me History Pt states he is feeling thirsty and tired. His breathing is better. Just feels generally worn down. He states he started feeling really unwell on Thursday. D/C from [place] on Thursday. States he has not had any alcohol since that time. Is having chest pain when he lies down that is mild. Agree with HPI/ROS as noted. General Appearance: WD/WN (but generally unwell appearing), no apparent distress Respiratory: no respiratory distress, crackles, rales Cardiovascular: regular rate, rhythm, no edema Gastrointestinal: non tender, soft Extremities: non-tender, no pedal edema Neurologic/Psychiatric: alert, oriented x 3 Skin Characteristics: normal color, warm/dry Assessment/Plan Agree with plan as outlined above PNA acute respiratory distress and hypoxia requiring BIPAP Monitor on tele Zosyn and IVF Likely pleuritic chest pain, monitor with toradol Trop neg, EKG WNL HypoNa: Monitor, ? related to hx of EtOH use vs nutritional? Needs IVF for PNA, monitor to be sure no further dilution happens Recent EtOH related admission: denies recent use
--- NOTE | 2017-03-20 15:31 | EMERGENCY ROOM VISIT NOTE ---
History Report prepared by Dalton: Darvin Petit Under the Supervision of: Dr. Ki Bennett M.D. First contact with patient: 13:39 Chief Complaint: CARDIAC ASSESSMENT Stated Complaint: CONGESTED, WINDED WHEN WALKING, SOB Nursing Triage Summary: pt reports cough congestion started on , states I cont to cough and feel like I need to cough something up but nothing comes up, reports feeling increased sob with exertion pt reports also started with midsternal cp on Thu that radiates into back " I feel like my chest might explode and I might fall over, pt then states I just got out of the [facility] and I have been in and out of psych hosp all summer long " History of Present Illness The patient is a 56 year old male who presents to the Emergency Room with complaints of persistent dry cough beginning three days ago. He states that he was discharged from the [facility] facility four days ago after being there for four weeks and has been staying with his sister since. He notes that his sister's house has been very damp. The patient also complains of shortness of breath. He does not wear supplemental oxygen at home. He has no known history of cardiac or pulmonary disease. The patient denies any known fevers. He denies any known sick contacts. Source of History: patient Onset: Three days ago Quality: other (dry cough) Timing: other (persistent) Associated Symptoms: + SOB, No fevers (known) Review of Systems See HPI for pertinent positives & negatives. A total of 10 systems reviewed and were otherwise negative. Past Medical & Surgical Medical Problems: (1) Alcohol dependence (2) Constipation (3) Depression (4) Hypertension (5) LLL pneumonia (6) Panic disorder (7) Suicidal ideation (8) Tobacco use disorder Family History No pertinent family history Social History Smoking Status: Never Smoker Alcohol Use: heavy Drug Use: none Marital Status: single Housing Status: lives with family Occupation Status: disabled Current/Historical Medications Scheduled Amlodipine (Norvasc), 10 MG PO DAILY Aripiprazole (Abilify), 1 TAB PO DAILY Buspirone HCl (Buspirone HCl), 10 MG PO TID Clonidine Hcl (Catapres), 1 TAB PO BID Divalproex Sodium (Depakote), 1 TAB PO BID Gabapentin (Gabapentin), 600 MG PO TID Hydroxyzine Pamoate (Vistaril), 1 CAP PO HS Lisinopril (Zestril), 40 MG PO DAILY Miscellaneous Medications Mirtazapine Soltab (Remeron Soltab), 15 MG PO Allergies Coded Allergies: No Known Allergies (Verified , 03/20/17) Physical Exam Vital Signs Date Time Temp Pulse Resp B/P (MAP) Pulse Ox O2 Delivery O2 Flow Rate FiO2 03/20/17 15:28 99 BiPAP 60 03/20/17 15:26 87 21 120/83 99 BiPAP 60 03/20/17 14:33 89 16 132/86 98 BiPAP 03/20/17 13:59 87 94 03/20/17 13:58 87 18 94 BiPAP/CPAP 50 03/20/17 13:44 90 03/20/17 13:40 86 Nasal Cannula 5.0 03/20/17 13:40 86 Nasal Cannula 5.0 03/20/17 13:32 37.0 101 24 185/82 78 Room Air Physical Exam GENERAL: Patient is in no acute distress. HEENT: No acute trauma, normocephalic atraumatic, mucous membranes moist, no nasal congestion, no scleral icterus. NECK: No stridor, no adenopathy, no meningismus, trachea is midline. LUNG: Wheezing through both lung muñiz. Diminished breath sounds bilaterally. Breath sounds are equal. Dry cough noted. HEART: Without murmurs gallops or rubs, regular rate and rhythm. ABDOMEN: Soft, nontender, bowel sounds positive, no hernias, no peritonitis. EXTREMITIES: No cyanosis or edema, full range of motion of all the joints without pain or difficulty, no signs for acute trauma. NEUROLOGIC: Oriented x 3, no acute motor or sensory deficits, no focal weakness. SKIN: No rash, no jaundice, no diaphoresis. Medical Decision & Procedures ER Provider Diagnostic Interpretation: X-ray results as stated below per interpretation by me and the radiologist: CHEST ONE VIEW PORTABLE FINDINGS: Lung volumes are normal. There is no pneumothorax or pleural effusion. Left lower lung consolidation is present. There is mild right lower lung opacity is well. Mild reticulonodular interstitial thickening is present. Cardiac size is normal. There is apparent rightward displacement of the distal trachea. This is likely artifactual although an underlying mediastinal mass would be difficult to exclude. IMPRESSION: 1. Left lower lung consolidation suggestive of pneumonia. In addition, mild right lower lung opacity and reticulonodular interstitial thickening suggest an infectious process. Follow-up PA and lateral chest radiographs in one month to ensure resolution are recommended. 2. Apparent mild rightward displacement of the trachea which is likely artifactual although an underlying mediastinal abnormality cannot be excluded. This can be assessed on subsequent chest radiographs. Electronically signed by: Brandan Carter M.D. Laboratory Results 03/20/17 14:00 Red Blood Count 4.85, Mean Corpuscular Volume 82.3, Mean Corpuscular Hemoglobin 28.9, Mean Corpuscular Hemoglobin Concent 35.1, Mean Platelet Volume 9.2, Neutrophils (%) (Auto) 89.7, Lymphocytes (%) (Auto) 5.1, Monocytes (%) (Auto) 4.8, Eosinophils (%) (Auto) 0.0, Basophils (%) (Auto) 0.2, Neutrophils # (Auto) 9.87, Lymphocytes # (Auto) 0.56, Monocytes # (Auto) 0.53, Eosinophils # (Auto) 0.00, Basophils # (Auto) 0.02 03/20/17 14:00 Test 03/20/17 14:00 03/20/17 14:07 03/20/17 14:17 03/20/17 15:30 White Blood Count 11.00 K/uL (4.8-10.8) Red Blood Count 4.85 M/uL (4.7-6.1) Hemoglobin 14.0 g/dL (14.0-18.0) Hematocrit 39.9 % (42-52) Mean Corpuscular Volume 82.3 fL (80-100) Mean Corpuscular Hemoglobin 28.9 pg (25-34) Mean Corpuscular Hemoglobin Concent 35.1 g/dl (32-36) Platelet Count 224 K/uL (130-400) Mean Platelet Volume 9.2 fL (7.4-10.4) Neutrophils (%) (Auto) 89.7 % Lymphocytes (%) (Auto) 5.1 % Monocytes (%) (Auto) 4.8 % Eosinophils (%) (Auto) 0.0 % Basophils (%) (Auto) 0.2 % Neutrophils # (Auto) 9.87 K/uL (1.4-6.5) Lymphocytes # (Auto) 0.56 K/uL (1.2-3.4) Monocytes # (Auto) 0.53 K/uL (0.11-0.59) Eosinophils # (Auto) 0.00 K/uL (0-0.5) Basophils # (Auto) 0.02 K/uL (0-0.2) RDW Standard Deviation 40.9 fL (36.4-46.3) RDW Coefficient of Variation 13.6 % (11.5-14.5) Immature Granulocyte % (Auto) 0.2 % Immature Granulocyte # (Auto) 0.02 K/uL (0.00-0.02) Prothrombin Time 13.1 SECONDS (9.0-12.0) Prothromb Time International Ratio 1.2 (0.9-1.1) Activated Partial Thromboplast Time 30.7 SECONDS (21.0-31.0) Partial Thromboplastin Ratio 1.2 Anion Gap 8.0 mmol/L (3-11) Est Creatinine Clear Calc Drug Dose 91.8 ml/min Estimated GFR () 113.4 Estimated GFR (Non- 97.9 BUN/Creatinine Ratio 8.5 (10-20) Calcium Level 8.6 mg/dl (8.5-10.1) Total Bilirubin 0.5 mg/dl (0.2-1) Aspartate Amino Transf (AST/SGOT) 23 U/L (15-37) Alanine Aminotransferase (ALT/SGPT) 14 U/L (12-78) Alkaline Phosphatase 62 U/L (45-117) Troponin I < 0.015 ng/ml (0-0.045) Total Protein 7.3 gm/dl (6.4-8.2) Albumin 3.4 gm/dl (3.4-5.0) Globulin 3.9 gm/dl (2.5-4.0) Albumin/Globulin Ratio 0.9 (0.9-2) Lactic Acid Level 1.1 mmol/L (0.4-2.0) Venous Blood pH 7.53 (7.36-7.41) Venous Blood Partial Pressure CO2 23 mmHg (38.0-50.0) Venous Blood Partial Pressure O2 93 mmHg Venous Blood HCO3 19 mmol/L Venous Blood Oxygen Saturation 97.1 % Venous Blood Base Excess -1.9 mEq/L Influenza Type A Antigen Neg for Influ A (NEG) Influenza Type B Antigen Neg for Influ B (NEG) Laboratory results reviewed by me. Medications Administered Medications (Trade) Dose Ordered Sig/Hoa Route Start Time Stop Time Status Last Admin Dose Admin Sodium Chloride 250 ml @ 999 mls/hr Q16M STAT IV 03/20/17 13:43 03/20/17 13:58 DC 03/20/17 14:31 999 MLS/HR Sodium Chloride 1,000 ml @ 200 mls/hr Q5H STAT IV 03/20/17 13:43 03/20/17 18:42 03/20/17 14:31 200 MLS/HR Methylprednisolone Sodium Succinate (Solu-Medrol IV) 125 mg NOW STAT IV 03/20/17 13:43 03/20/17 13:47 DC 03/20/17 14:30 125 MG Albuterol/ Ipratropium (Duoneb) 12 ml NOW STAT INH 03/20/17 13:43 03/20/17 13:47 DC 03/20/17 13:58 12 ML Piperacillin Sod/ Tazobactam Sod (Zosyn Iv) 4.5 gm NOW STAT IV 03/20/17 13:43 03/20/17 13:47 DC 03/20/17 14:31 4.5 GM Morphine Sulfate (MoRPHine SULFATE INJ) 4 mg NOW STAT IV 03/20/17 14:55 03/20/17 14:58 DC 03/20/17 15:24 4 MG ECG Indication: SOB/dyspnea Rate (beats per minute): 87 Rhythm: normal sinus Findings: no acute ischemic change, no ectopy ED Course 1340: The patient was evaluated in room B3B. A complete history and physical exam was performed. 1343: Ordered Zosyn 4.5 gm IV, DuoNeb 12 mL INH, Solu-Medrol 125 mg IV, Sodium Chloride 1000 ml @ 200 mls/hr IV, Sodium Chloride 250 ml @ 999 mls/hr IV. 1455: Ordered Morphine Sulfate 4 mg IV. 1458: Upon reexamination the patient is resting comfortably. I discussed results and treatment plan with the patient. He verbalizes agreement and understanding. The patient will be evaluated for further management. Medical Decision The patient is a 56 year old male who presents to the ED with complaints of a dry cough. Differential diagnoses considered include pneumonia, bronchitis, pneumothorax, heart failure, PE, anemia, electrolyte imbalance, dehydration and influenza. There is a mild leukocytosis, this could be consistent with infection. Sodium is somewhat low. No kidney failure. No hepatitis. Lactic acid level is not elevated making sepsis less likely. EKG shows a normal sinus rhythm, no acute ischemia. Cardiac enzyme testing times one is not consistent with acute cardiac injury. Influenza testing was negative. Chest x-ray shows a bilateral pneumonia, no pneumothorax or heart failure. VBG demonstrates a mild alkalosis , there was no hypoxia. The patient was hypoxic. He was wheezing and he had diminished breath sounds. He was placed on BiPAP with a DuoNeb. He received IV Solu-Medrol, IV Zosyn and IV saline. He was given some IV morphine for pain. The patient has made significant improvement with the above treatment. His O2 saturation is now in the high 90s. He seems markedly improved. Given the hypoxia, given his findings, admission/observation is warranted. I spoke to the patient and case management. The on-call hospitalist was consulted. In short, the patient was aggressively managed. He has done well here in the ED. Further care in the hospital is required. Medication Reconcilliation Current Medication List: was personally reviewed by me Blood Pressure Screening Patient's blood pressure: Elevated blood pressure Blood pressure disposition: Referred to PCP Consults Time Called: 1456 Consulting Physician: Dr. Jovi LEWIS Returned Call: [phone] Discussed the patient's case. The patient will be evaluated for further management. Impression Primary Impression: Hypoxia Additional Impressions: Respiratory distress Pneumonia Critical Care I have personally spent greater than 35 minutes of critical care time in the direct management of this patient. This includes bedside care, interpretation of diagnostic studies, and testing, discussion with consultants, patient, and family members, and other required patient management activities. This 35 minutes is in excess of all separately billable procedures. Scribe Attestation The scribe's documentation has been prepared under my direction and personally reviewed by me in its entirety. I confirm that the note above accurately reflects all work, treatment, procedures, and medical decision making performed by me. Departure Information Dispostion Being Evaluated By Hospitalist Referrals Carlito Rothman M.D. (PCP) Patient Instructions My [facility] Problem Qualifiers
[2017-03-20] MEDS ORDERED: SODIUM CHLORIDE 0.9% 1000ML 1,000 ML IV SCH (15:39)
[2017-03-20] MEDS ORDERED: ONDANSETRON INJ 2 MG/ML 2 ML VIAL IV PRN (15:45)
[2017-03-20] MEDS ORDERED: POLYETHYLENE (MIRALAX) 17 GM PACK PO PRN (15:45)
[2017-03-20] MEDS ORDERED: PIPERACILL/TAZOBAC CONSULT ACTIVE PRN (16:15)
[2017-03-20] MEDS: ALBUT/IPRATROP 3MG/0.5MG NEB 3 ML VIAL INH SCH ×2 (17:48→19:19)
[2017-03-20] MEDS: ENOXAPARIN 40 MG/0.4 ML SYR SC SCH (20:39)
[2017-03-20] MEDS: GABAPENTIN 600 MG TAB PO SCH (20:40)
[2017-03-20] MEDS: hydrOXYzine HCL 25 MG TAB PO SCH (20:40)
[2017-03-20] MEDS: GUAIFENESIN 600 MG TABCR PO SCH (20:40)
[2017-03-20] MEDS: CLONIDINE HCL 0.1 MG TAB PO SCH (20:41)
[2017-03-20] MEDS: DIVALPROEX SODIUM 500 MG DELAY RELEASE TAB PO SCH (20:41)
[2017-03-20] MEDS: PIPERACILL/TAZOBAC IV 3.375 GM in DEXTROSE 5% 100ML 100 ML IV SCH (20:42)
[2017-03-20 22:32] LABS: BUN/CREATININE RATIO 6.7 (10-20); CALCIUM 8.8 mg/dl (8.5-10.1); CREATININE 1.3 mg/dl (0.60-1.40); POTASSIUM 3.8 mmol/L (3.5-5.1)
[2017-03-20] MEDS: KETOROLAC TROMETHAMINE 15 MG/ML VIAL IV PRN (23:47)
[2017-03-21] VITALS (10 sets, daily range): BP systolic 102–141; BP diastolic 66–84; PULSE 65–86; TEMP 36.4–36.8; O2SAT 90–97
[2017-03-21] MEDS: PIPERACILL/TAZOBAC IV 3.375 GM in DEXTROSE 5% 100ML 100 ML IV SCH ×3 (04:41→19:30)
[2017-03-21] MEDS: ACETAMINOPHEN 325 MG TAB PO PRN (04:41)
[2017-03-21] MEDS: KETOROLAC TROMETHAMINE 15 MG/ML VIAL IV PRN ×3 (05:48→19:13)
[2017-03-21 06:30] LABS: COMPLETE YES; HEMATOCRIT 37.1 % (42-52); IG% 0.4 %; LYMPH % 4.8 %; LYMPH ABS # 0.71 K/uL (1.2-3.4); MEAN CELL VOLUME 82.4 fL (80-100); MEAN CORPUSCULAR HEMOGLOBIN 29.1 pg (25-34); MEAN CORPUSCULAR HGB CONC 35.3 g/dl (32-36); MONO % 3.1 %; NEUT % 91.7 %; PLATELET COUNT 207 K/uL (130-400); WHITE BLOOD COUNT 14.82 K/uL (4.8-10.8)
[2017-03-21] MEDS: ALBUT/IPRATROP 3MG/0.5MG NEB 3 ML VIAL INH SCH ×4 (07:10→18:56)
[2017-03-21 07:16] LABS: BUN/CREATININE RATIO 16.5 (10-20); CREATININE 0.93 mg/dl (0.60-1.40); POTASSIUM 4.6 mmol/L (3.5-5.1)
[2017-03-21] MEDS: DIVALPROEX SODIUM 500 MG DELAY RELEASE TAB PO SCH ×2 (08:48→19:35)
[2017-03-21] MEDS: ARIPIprazole TAB 15 MG TAB PO SCH (08:48)
[2017-03-21] MEDS: GABAPENTIN 600 MG TAB PO SCH ×3 (08:48→19:34)
[2017-03-21] MEDS: CLONIDINE HCL 0.1 MG TAB PO SCH ×2 (08:48→19:34)
[2017-03-21] MEDS: GUAIFENESIN 600 MG TABCR PO SCH ×2 (08:49→19:34)
[2017-03-21] MEDS: AMLODIPINE BESYLATE 5 MG TAB PO SCH (08:49)
[2017-03-21] MEDS: LISINOPRIL 40 MG TAB PO SCH (08:49)
[2017-03-21] MEDS: NICOTINE POLACRILEX 2 MG GUM MT PRN ×3 (09:30→21:28)
[2017-03-21] MEDS ORDERED: NURSING VERBAL MED ORDER ONE (11:15)
[2017-03-21] MEDS: HYDROCODONE/HOMATROPINE SYRUP 5MG/1.5MG 5ML UDP PO PRN ×3 (11:30→23:41)
[2017-03-21] MEDS ORDERED: METHYLPREDNISOLONE IV 60 MG in SYRINGE 0 ML IV ONE (17:00)
--- NOTE | 2017-03-21 17:00 | Progress Note ---
Subjective Date of Service: Mar 21, 2017. Subjective Pt evaluation today including: conversation w/ patient, physical exam, chart review, lab review, review of studies Jorge Luis is here for community acquired pneumonia. Patient was an inpatient at the [facility]. Patient reports feeling significantly better today. But continues to feel short of breath. Patient denies any fever, chills, nausea, vomiting. Problem List Medical Problems: (1) Anxiety Status: Acute (2) Hypoxia Status: Acute (3) Mood disorder Status: Acute (4) Pneumonia Status: Acute (5) Respiratory distress Status: Acute Review of Systems Constitutional: No fever, No chills ENT: No hearing loss, No unusual epistaxis Respiratory: + cough, + sputum Cardiac: No chest pain, No orthopnea Abdomen: No pain, No nausea Musculoskeletal: No joint pain Male : No dysuria, No urinary frequency Psychiatric: No depression symptoms, No anhedonism All Other Systems: Reviewed and Negative Medications Current Inpatient Medications Medications (Trade) Dose Ordered Sig/Hoa Route Start Time Stop Time Status Last Admin Dose Admin Enoxaparin Sodium (Lovenox Inj) 40 mg Q24H SC 03/20/17 21:00 04/19/17 20:59 03/20/17 20:39 40 MG Acetaminophen (Tylenol Tab) 650 mg Q4H PRN PO 03/20/17 15:45 04/19/17 15:44 03/21/17 04:41 650 MG Ondansetron HCl (Zofran Inj) 4 mg Q6H PRN IV 03/20/17 15:45 04/19/17 15:44 Polyethylene (Miralax Powder Packet) 17 gm DAILY PRN PO 03/20/17 15:45 04/19/17 15:44 Amlodipine Besylate (Norvasc Tab) 10 mg DAILY PO 03/21/17 09:00 04/20/17 08:59 03/21/17 08:49 10 MG Aripiprazole (Abilify Tab) 15 mg DAILY PO 03/21/17 09:00 04/20/17 08:59 03/21/17 08:48 15 MG Buspirone HCl (Buspar Tab) 10 mg TID PO 03/20/17 21:00 04/19/17 20:59 03/21/17 14:13 10 MG Divalproex Sodium (Depakote Delay Rel Tab) 500 mg BID PO 03/20/17 21:00 04/19/17 20:59 03/21/17 08:48 500 MG Gabapentin (Neurontin Tab) 600 mg TID PO 03/20/17 21:00 04/19/17 20:59 03/21/17 14:13 600 MG Lisinopril (Zestril Tab) 40 mg DAILY PO 03/21/17 09:00 04/20/17 08:59 03/21/17 08:49 40 MG Clonidine HCl (Catapres Tab) 0.2 mg BID PO 03/20/17 21:00 04/19/17 20:59 03/21/17 08:48 0.2 MG Hydroxyzine HCl (Vistaril Tab) 25 mg HS PO 03/20/17 21:00 04/19/17 20:59 03/20/17 20:40 25 MG Albuterol/ Ipratropium (Duoneb) 3 ml QIDR INH 03/20/17 16:00 04/19/17 15:59 03/21/17 15:04 3 ML Guaifenesin (Mucinex Contr Rel Tab) 1,200 mg Q12 PO 03/20/17 21:00 04/19/17 20:59 03/21/17 08:49 1,200 MG Piperacillin Sod/ Tazobactam Sod 3.375 gm/Dextrose 115 ml @ 28.75 mls/ hr Q8H IV 03/20/17 20:00 03/27/17 19:59 03/21/17 12:10 28.75 MLS/HR Nicotine Polacrilex (Nicorette 2MG Gum) 1 piece PRN PRN MT 03/20/17 16:15 04/19/17 16:14 03/21/17 16:08 1 PIECE Piperacillin Sod/ Tazobactam Sod (Consult) 1 ea UD PRN N/A 03/20/17 16:15 04/19/17 16:14 Ketorolac Tromethamine (Toradol Inj) 15 mg Q6H PRN IV 03/20/17 19:15 03/25/17 19:14 03/21/17 13:03 15 MG Hydrocodone Bit/ Homatropine Methylb (Hycodan Syrup) 5 ml Q6H PRN PO 03/21/17 11:30 9/30/17 11:29 03/21/17 11:30 5 ML Objective Vital Signs Date Time Temp Pulse Resp B/P (MAP) Pulse Ox O2 Delivery O2 Flow Rate FiO2 03/21/17 15:06 36.5 75 20 119/73 (88) 94 Nasal Cannula 5.0 03/21/17 15:04 68 18 91 Nasal Cannula 5.0 03/21/17 12:00 Nasal Cannula 5.0 03/21/17 11:35 36.8 74 18 141/84 (103) 97 03/21/17 11:12 68 18 91 Nasal Cannula 5.0 03/21/17 08:19 36.8 86 18 113/78 (90) 95 03/21/17 08:00 Nasal Cannula 5.0 03/21/17 07:10 77 18 94 Nasal Cannula 5.0 03/21/17 04:00 Nasal Cannula 5.0 03/21/17 03:43 36.7 65 20 107/66 (80) 93 Nasal Cannula 5.0 03/20/17 23:59 BiPAP 40 03/20/17 23:55 36.6 72 18 117/73 (88) 94 BiPAP 03/20/17 20:00 BiPAP 40 03/20/17 19:44 77 92 40 03/20/17 19:26 77 18 92 Nasal Cannula 5.0 03/20/17 19:26 77 18 92 Nasal Cannula 5.0 03/20/17 19:18 36.7 77 18 144/79 (100) 92 Nasal Cannula 5.0 03/20/17 17:30 36.6 78 22 124/76 94 Nasal Cannula 5.0 03/20/17 17:05 78 21 122/85 99 Physical Exam General Appearance: WD/WN, no apparent distress Neck: supple, no adenopathy, thyroid normal Respiratory/Chest: chest non-tender, no respiratory distress, + wheezing Cardiovascular: regular rate, rhythm, no edema, no gallop Abdomen: normal bowel sounds, non tender, soft, no organomegaly Extremities: normal range of motion, non-tender Skin: normal color, warm/dry Laboratory Results Last 24 Hours Test 03/20/17 22:02 03/21/17 06:14 Sodium Level 127 mmol/L 129 mmol/L Potassium Level 3.8 mmol/L 4.6 mmol/L Chloride Level 91 mmol/L 96 mmol/L Carbon Dioxide Level 26 mmol/L 27 mmol/L Anion Gap 10.0 mmol/L 6.0 mmol/L Blood Urea Nitrogen 9 mg/dl 15 mg/dl Creatinine 1.30 mg/dl 0.93 mg/dl Est Creatinine Clear Calc Drug Dose 59.3 ml/min 82.9 ml/min Estimated GFR () 70.7 106.0 Estimated GFR (Non- 61.0 91.4 BUN/Creatinine Ratio 6.7 16.5 Random Glucose 158 mg/dl 122 mg/dl Calcium Level 8.8 mg/dl 9.0 mg/dl White Blood Count 14.82 K/uL Red Blood Count 4.50 M/uL Hemoglobin 13.1 g/dL Hematocrit 37.1 % Mean Corpuscular Volume 82.4 fL Mean Corpuscular Hemoglobin 29.1 pg Mean Corpuscular Hemoglobin Concent 35.3 g/dl Platelet Count 207 K/uL Mean Platelet Volume 9.0 fL Neutrophils (%) (Auto) 91.7 % Lymphocytes (%) (Auto) 4.8 % Monocytes (%) (Auto) 3.1 % Eosinophils (%) (Auto) 0.0 % Basophils (%) (Auto) 0.0 % Neutrophils # (Auto) 13.59 K/uL Lymphocytes # (Auto) 0.71 K/uL Monocytes # (Auto) 0.46 K/uL Eosinophils # (Auto) 0.00 K/uL Basophils # (Auto) 0.00 K/uL RDW Standard Deviation 41.2 fL RDW Coefficient of Variation 13.7 % Immature Granulocyte % (Auto) 0.4 % Immature Granulocyte # (Auto) 0.06 K/uL Assessment and Plan 56 yo male with community acquired pneumonia. Patient report moderate improvement from yesterday. Will continue zosyn day 2. will continue Albuterol will downgrade to medical floor General anxiety disorder Major Depression Possible Bipolar Will continue home meds. DVT porph: Lovenox. Continued [facility] stay due to: ambulation difficulties, other (sob, requires iv antibiotics and iv steroids) Discharge planning: home
[2017-03-21] MEDS: hydrOXYzine HCL 25 MG TAB PO SCH (19:34)
[2017-03-21] MEDS: ENOXAPARIN 40 MG/0.4 ML SYR SC SCH (19:35)
[2017-03-22] VITALS (11 sets, daily range): BP systolic 109–137; BP diastolic 76–80; PULSE 54–77; TEMP 36.4–36.6; O2SAT 90–94
[2017-03-22] MEDS: KETOROLAC TROMETHAMINE 15 MG/ML VIAL IV PRN ×4 (03:15→22:08)
[2017-03-22] MEDS ORDERED: NURSING VERBAL MED ORDER ONE (03:45)
[2017-03-22] MEDS ORDERED: ALBUTEROL 0.083% NEBU SOLN 3 ML VIAL INH STA (04:05)
[2017-03-22] MEDS: PIPERACILL/TAZOBAC IV 3.375 GM in DEXTROSE 5% 100ML 100 ML IV SCH ×3 (04:17→20:04)
[2017-03-22 05:59] LABS: COMPLETE YES; HEMATOCRIT 35.8 % (42-52); IG% 0.3 %; LYMPH % 3.8 %; LYMPH ABS # 0.45 K/uL (1.2-3.4); MEAN CELL VOLUME 82.3 fL (80-100); MEAN CORPUSCULAR HEMOGLOBIN 29.2 pg (25-34); MEAN CORPUSCULAR HGB CONC 35.5 g/dl (32-36); MEAN PLATELET VOLUME 9.5 fL (7.4-10.4); MONO % 3.1 %; NEUT % 92.8 %; PLATELET COUNT 202 K/uL (130-400); RED BLOOD COUNT 4.35 M/uL (4.7-6.1); WHITE BLOOD COUNT 11.78 K/uL (4.8-10.8)
[2017-03-22 06:25] LABS: BUN/CREATININE RATIO 18.7 (10-20); CALCIUM 8.6 mg/dl (8.5-10.1); CREATININE 0.83 mg/dl (0.60-1.40); POTASSIUM 4.8 mmol/L (3.5-5.1)
[2017-03-22] MEDS: ALBUT/IPRATROP 3MG/0.5MG NEB 3 ML VIAL INH SCH ×4 (07:05→18:44)
[2017-03-22] MEDS: HYDROCODONE/HOMATROPINE SYRUP 5MG/1.5MG 5ML UDP PO PRN ×3 (07:35→20:04)
[2017-03-22] MEDS: AMLODIPINE BESYLATE 5 MG TAB PO SCH (07:37)
[2017-03-22] MEDS: GABAPENTIN 600 MG TAB PO SCH ×3 (07:37→20:06)
[2017-03-22] MEDS: DIVALPROEX SODIUM 500 MG DELAY RELEASE TAB PO SCH ×2 (07:37→20:07)
[2017-03-22] MEDS: GUAIFENESIN 600 MG TABCR PO SCH ×2 (07:37→20:06)
[2017-03-22] MEDS: ARIPIprazole TAB 15 MG TAB PO SCH (07:38)
[2017-03-22] MEDS: CLONIDINE HCL 0.1 MG TAB PO SCH ×2 (07:38→20:08)
[2017-03-22] MEDS: LISINOPRIL 40 MG TAB PO SCH (07:39)
[2017-03-22] MEDS: METHYLPREDNISOLONE IV 40 MG in SYRINGE 0 ML IV SCH (07:53)
[2017-03-22] MEDS: NICOTINE POLACRILEX 2 MG GUM MT PRN (13:18)
[2017-03-22] MEDS: ACETAMINOPHEN 325 MG TAB PO PRN ×2 (16:46→22:08)
--- NOTE | 2017-03-22 17:31 | Progress Note ---
Subjective Date of Service: Mar 22, 2017. Subjective Patient reports feeling better today. Reports that his SOB has improved. Patient denies fever, chills, productive cough. Patient reports that he has been ambulating without a problem. Problem List Medical Problems: (1) Anxiety Status: Acute (2) Hypoxia Status: Acute (3) Mood disorder Status: Acute (4) Pneumonia Status: Acute (5) Respiratory distress Status: Acute Review of Systems Constitutional: No see HPI, No chills, No sweats, No weight loss, No weakness, No fatigue, No problem reported ENT: No see HPI, No hearing loss, No unusual epistaxis, No nasal symptoms, No sore throat, No tinnitus, No dental problems, No trouble swallowing, No problem reported Respiratory: + wheezing, No see HPI, No cough, No sputum, No shortness of breath, No dyspnea on exertion, No dyspnea at rest, No hemoptysis, No problem reported Cardiac: No see HPI, No chest pain, No orthopnea, No PND, No edema, No claudication, No palpitations, No problem reported Abdomen: No see HPI, No pain, No nausea, No vomiting, No diarrhea, No constipation, No GI bleeding, No problem reported Psychiatric: + anxiety Heme: No see HPI, No abnormal bleeding/bruising, No clotting problems, No swollen lymph nodes, No night sweats, No problem reported Endo: No see HPI, No fatigue, No excessive thirst, No excessive urination, No problem reported Skin: No see HPI, No rash, No itch, No new/changing skin lesions, No color change, No bleeding, No problem reported All Other Systems: Reviewed and Negative Objective Vital Signs Date Time Temp Pulse Resp B/P (MAP) Pulse Ox O2 Delivery O2 Flow Rate FiO2 03/22/17 16:07 36.4 77 18 124/78 (93) 91 Nasal Cannula 3.0 03/22/17 16:00 93 Nasal Cannula 3.0 03/22/17 15:16 73 16 90 Nasal Cannula 3.0 03/22/17 11:27 58 16 93 Nasal Cannula 3.0 03/22/17 08:00 Nasal Cannula 2.0 03/22/17 07:10 36.6 69 20 129/80 (96) 91 Nasal Cannula 4.0 03/22/17 07:06 58 16 93 Nasal Cannula 3.0 03/22/17 04:05 54 16 94 Nasal Cannula 3.0 03/22/17 00:01 36.4 70 20 109/76 (87) 94 Room Air 03/22/17 00:00 Nasal Cannula 3.0 03/21/17 19:30 Nasal Cannula 3.0 03/21/17 18:58 76 16 90 Nasal Cannula 3.0 03/21/17 18:45 36.8 72 20 136/80 (98) 93 Nasal Cannula 2.0 03/21/17 18:30 94 Nasal Cannula 2.0 Physical Exam General Appearance: WD/WN, no apparent distress Neck: supple, no adenopathy Respiratory/Chest: chest non-tender, normal breath sounds, + wheezing Cardiovascular: regular rate, rhythm, no edema, no gallop Abdomen: normal bowel sounds, non tender, soft Extremities: normal range of motion, non-tender, normal inspection Lymphatic: no adenopathy Laboratory Results Last 24 Hours Test 03/22/17 05:31 White Blood Count 11.78 K/uL Red Blood Count 4.35 M/uL Hemoglobin 12.7 g/dL Hematocrit 35.8 % Mean Corpuscular Volume 82.3 fL Mean Corpuscular Hemoglobin 29.2 pg Mean Corpuscular Hemoglobin Concent 35.5 g/dl Platelet Count 202 K/uL Mean Platelet Volume 9.5 fL Neutrophils (%) (Auto) 92.8 % Lymphocytes (%) (Auto) 3.8 % Monocytes (%) (Auto) 3.1 % Eosinophils (%) (Auto) 0.0 % Basophils (%) (Auto) 0.0 % Neutrophils # (Auto) 10.92 K/uL Lymphocytes # (Auto) 0.45 K/uL Monocytes # (Auto) 0.37 K/uL Eosinophils # (Auto) 0.00 K/uL Basophils # (Auto) 0.00 K/uL RDW Standard Deviation 42.5 fL RDW Coefficient of Variation 14.0 % Immature Granulocyte % (Auto) 0.3 % Immature Granulocyte # (Auto) 0.04 K/uL Sodium Level 130 mmol/L Potassium Level 4.8 mmol/L Chloride Level 95 mmol/L Carbon Dioxide Level 30 mmol/L Anion Gap 5.0 mmol/L Blood Urea Nitrogen 16 mg/dl Creatinine 0.83 mg/dl Est Creatinine Clear Calc Drug Dose 92.9 ml/min Estimated GFR () 114.0 Estimated GFR (Non- 98.4 BUN/Creatinine Ratio 18.7 Random Glucose 142 mg/dl Calcium Level 8.6 mg/dl Assessment and Plan 56 yo male with community acquired pneumonia. Patient is feeling slightly better, but continues to be wheezing. Will change to rocephin and azithromycin will initiate incentive spirometry will continue Albuterol Patient received solumedrol 40mg IV BID. General anxiety disorder Major Depression Possible Bipolar Will continue home meds. DVT porph: Lovenox. Continued [facility] stay due to: ambulation difficulties, other (sob, requires iv antibiotics and iv steroids) Discharge planning: home
[2017-03-22] MEDS ORDERED: METHYLPREDNISOLONE IV 40 MG in SYRINGE 0 ML IV ONE (18:30)
[2017-03-22] MEDS: ENOXAPARIN 40 MG/0.4 ML SYR SC SCH (20:05)
[2017-03-22] MEDS: hydrOXYzine HCL 25 MG TAB PO SCH (20:06)
[2017-03-23] VITALS (11 sets, daily range): BP systolic 120–146; BP diastolic 76–91; PULSE 63–108; TEMP 36.5–36.6; O2SAT 79–97
[2017-03-23] MEDS: KETOROLAC TROMETHAMINE 15 MG/ML VIAL IV PRN ×4 (02:09→21:01)
[2017-03-23] MEDS: HYDROCODONE/HOMATROPINE SYRUP 5MG/1.5MG 5ML UDP PO PRN ×3 (02:09→21:01)
[2017-03-23] MEDS: ALBUT/IPRATROP 3MG/0.5MG NEB 3 ML VIAL INH SCH ×5 (02:34→18:53)
[2017-03-23] MEDS: PIPERACILL/TAZOBAC IV 3.375 GM in DEXTROSE 5% 100ML 100 ML IV SCH ×3 (03:53→19:45)
[2017-03-23] MEDS: ACETAMINOPHEN 325 MG TAB PO PRN (03:54)
[2017-03-23] MEDS ORDERED: NURSING VERBAL MED ORDER ONE (06:00)
[2017-03-23 06:14] LABS: COMPLETE YES; HEMATOCRIT 36.7 % (42-52); IG% 0.2 %; LYMPH % 4.4 %; LYMPH ABS # 0.52 K/uL (1.2-3.4); MEAN CELL VOLUME 82.7 fL (80-100); MEAN CORPUSCULAR HEMOGLOBIN 28.8 pg (25-34); MEAN CORPUSCULAR HGB CONC 34.9 g/dl (32-36); MEAN PLATELET VOLUME 9.3 fL (7.4-10.4); MONO % 4.5 %; NEUT % 90.9 %; PLATELET COUNT 264 K/uL (130-400); RED BLOOD COUNT 4.44 M/uL (4.7-6.1); WHITE BLOOD COUNT 11.82 K/uL (4.8-10.8)
[2017-03-23] MEDS ORDERED: SODIUM CHLORIDE 0.65% NA SOLN 45 ML (OCEAN) PRN (06:15)
[2017-03-23 06:47] LABS: ESTIMATED AVERAGE GLUCOSE 131 mg/dl; HA1C FLAG Normal (Normal)
[2017-03-23 06:50] LABS: BUN/CREATININE RATIO 19.1 (10-20); CALCIUM 8.8 mg/dl (8.5-10.1); CREATININE 0.76 mg/dl (0.60-1.40); POTASSIUM 4.6 mmol/L (3.5-5.1)
[2017-03-23] MEDS: ARIPIprazole TAB 15 MG TAB PO SCH (07:46)
[2017-03-23] MEDS: DIVALPROEX SODIUM 500 MG DELAY RELEASE TAB PO SCH ×2 (07:46→19:20)
[2017-03-23] MEDS: METHYLPREDNISOLONE IV 40 MG in SYRINGE 0 ML IV SCH (07:46)
[2017-03-23] MEDS: GUAIFENESIN 600 MG TABCR PO SCH ×2 (07:46→19:20)
[2017-03-23] MEDS: LISINOPRIL 40 MG TAB PO SCH (07:46)
[2017-03-23] MEDS: CLONIDINE HCL 0.1 MG TAB PO SCH ×3 (07:47→19:21)
[2017-03-23] MEDS: GABAPENTIN 600 MG TAB PO SCH ×3 (07:47→19:21)
[2017-03-23] MEDS: NICOTINE POLACRILEX 2 MG GUM MT PRN (07:48)
[2017-03-23] MEDS: AMLODIPINE BESYLATE 5 MG TAB PO SCH (07:48)
--- NOTE | 2017-03-23 14:04 | Hospitalist Progress Note ---
Hospitalist Progress Note Date of Service Mar 23, 2017. Subjective Pt evaluation today including: conversation w/ patient, physical exam, chart review, lab review, review of studies, review of inpatient medication list Patient seen and evaluated. No acute events overnight. Patient appears anxiety is fixating on topics. Jumps to different topics quickly and fixates. Would like to go home and is considering AMA. Had long discussion about treatment plan and reasons why we recommend continued stay. Does express understanding. Feels improved since arriving but still requiring oxygen. Easily get irritated when talking about complications of smoking. Does not think he has been diagnosed with COPD. States that he is not that typical smoker because he would "smoke 2 packs a day while cycling many miles). Nicorette gum helping somewhat with cravings. Constitutional: No fever, No chills Respiratory: + cough, + sputum (intermittent), No shortness of breath Cardiovascular: No chest pain, No palpitations Abdomen: No pain, No nausea, No vomiting, No diarrhea, No constipation Musculoskeletal: No swelling, No calf pain Male : No dysuria Psychiatric: + anxiety Heme: No abnormal bleeding/bruising Medications Current Inpatient Medications Medications (Trade) Dose Ordered Sig/Hoa Route Start Time Stop Time Status Last Admin Dose Admin Enoxaparin Sodium (Lovenox Inj) 40 mg Q24H SC 03/20/17 21:00 04/19/17 20:59 03/22/17 20:05 40 MG Acetaminophen (Tylenol Tab) 650 mg Q4H PRN PO 03/20/17 15:45 04/19/17 15:44 03/23/17 03:54 650 MG Ondansetron HCl (Zofran Inj) 4 mg Q6H PRN IV 03/20/17 15:45 04/19/17 15:44 Polyethylene (Miralax Powder Packet) 17 gm DAILY PRN PO 03/20/17 15:45 04/19/17 15:44 Amlodipine Besylate (Norvasc Tab) 10 mg DAILY PO 03/21/17 09:00 04/20/17 08:59 03/23/17 07:48 10 MG Aripiprazole (Abilify Tab) 15 mg DAILY PO 03/21/17 09:00 04/20/17 08:59 03/23/17 07:46 15 MG Divalproex Sodium (Depakote Delay Rel Tab) 500 mg BID PO 03/20/17 21:00 04/19/17 20:59 03/23/17 07:46 500 MG Gabapentin (Neurontin Tab) 600 mg TID PO 03/20/17 21:00 04/19/17 20:59 03/23/17 07:47 600 MG Lisinopril (Zestril Tab) 40 mg DAILY PO 03/21/17 09:00 04/20/17 08:59 03/23/17 07:46 40 MG Albuterol/ Ipratropium (Duoneb) 3 ml QIDR INH 03/20/17 16:00 04/19/17 15:59 03/23/17 11:08 3 ML Guaifenesin (Mucinex Contr Rel Tab) 1,200 mg Q12 PO 03/20/17 21:00 04/19/17 20:59 03/23/17 07:46 1,200 MG Piperacillin Sod/ Tazobactam Sod 3.375 gm/Dextrose 115 ml @ 28.75 mls/ hr Q8H IV 03/20/17 20:00 03/27/17 19:59 03/23/17 12:09 28.75 MLS/HR Nicotine Polacrilex (Nicorette 2MG Gum) 1 piece PRN PRN MT 03/20/17 16:15 04/19/17 16:14 03/23/17 07:48 1 PIECE Piperacillin Sod/ Tazobactam Sod (Consult) 1 ea UD PRN N/A 03/20/17 16:15 04/19/17 16:14 Ketorolac Tromethamine (Toradol Inj) 15 mg Q6H PRN IV 03/20/17 19:15 03/25/17 19:14 03/23/17 07:53 15 MG Hydrocodone Bit/ Homatropine Methylb (Hycodan Syrup) 5 ml Q6H PRN PO 03/21/17 11:30 04/04/17 11:29 03/23/17 12:50 5 ML Methylprednisolone Sodium Succinate 40 mg/Syringe 0.64 ml @ 1.5 mls/min DAILY IV 03/22/17 08:00 04/21/17 08:59 03/23/17 07:46 1.5 MLS/MIN Clonidine HCl (Catapres Tab) 0.2 mg TID PO 03/22/17 20:00 04/19/17 20:59 03/23/17 07:47 0.2 MG Sodium Chloride (Treasure Nasal [place]) 1 sprays PRN PRN NA 03/23/17 06:15 04/22/17 06:14 Hydroxyzine HCl (Vistaril Tab) 50 mg HS PO 03/23/17 21:00 04/19/17 20:59 Buspirone HCl (Buspar Tab) 10 mg TID PO 03/23/17 14:00 04/22/17 13:59 Mirtazapine (Remeron Tab) 15 mg HS PO 03/23/17 21:00 04/22/17 20:59 Objective Vital Signs Date Time Temp Pulse Resp B/P (MAP) Pulse Ox O2 Delivery O2 Flow Rate FiO2 03/23/17 11:08 78 18 94 Nasal Cannula 3.0 03/23/17 08:30 97 Room Air 03/23/17 07:51 36.5 63 18 146/91 (109) 97 03/23/17 06:59 108 20 79 Room Air 03/23/17 02:34 68 18 94 Nasal Cannula 3.0 03/23/17 00:00 94 Nasal Cannula 3.0 40 03/22/17 23:29 36.6 74 20 137/79 (98) 91 Nasal Cannula 4.0 03/22/17 20:00 94 Nasal Cannula 3.0 40 03/22/17 18:44 77 16 94 Nasal Cannula 3.0 03/22/17 16:07 36.4 77 18 124/78 (93) 91 Nasal Cannula 3.0 03/22/17 16:00 93 Nasal Cannula 3.0 03/22/17 15:16 73 16 90 Nasal Cannula 3.0 Physical Exam General Appearance: no apparent distress, + pertinent finding (ill-appearing) Eyes: sclerae normal ENT: hearing grossly normal Neck: supple, no JVD, trachea midline Respiratory/Chest: no accessory muscle use, + respiratory distress (mild), + crackles (bilat), + wheezing (inspiratory/expiratory) Cardiovascular: regular rate, rhythm, no gallop, no murmur Abdomen: normal bowel sounds, non tender, soft Extremities: no pedal edema, no calf tenderness Neurologic/Psychiatric: alert, oriented x 3 Skin: normal color, warm/dry Laboratory Results Last 24 Hours Test 03/23/17 05:34 White Blood Count 11.82 K/uL Red Blood Count 4.44 M/uL Hemoglobin 12.8 g/dL Hematocrit 36.7 % Mean Corpuscular Volume 82.7 fL Mean Corpuscular Hemoglobin 28.8 pg Mean Corpuscular Hemoglobin Concent 34.9 g/dl Platelet Count 264 K/uL Mean Platelet Volume 9.3 fL Neutrophils (%) (Auto) 90.9 % Lymphocytes (%) (Auto) 4.4 % Monocytes (%) (Auto) 4.5 % Eosinophils (%) (Auto) 0.0 % Basophils (%) (Auto) 0.0 % Neutrophils # (Auto) 10.75 K/uL Lymphocytes # (Auto) 0.52 K/uL Monocytes # (Auto) 0.53 K/uL Eosinophils # (Auto) 0.00 K/uL Basophils # (Auto) 0.00 K/uL RDW Standard Deviation 42.3 fL RDW Coefficient of Variation 13.9 % Immature Granulocyte % (Auto) 0.2 % Immature Granulocyte # (Auto) 0.02 K/uL Sodium Level 129 mmol/L Potassium Level 4.6 mmol/L Chloride Level 94 mmol/L Carbon Dioxide Level 31 mmol/L Anion Gap 4.0 mmol/L Blood Urea Nitrogen 15 mg/dl Creatinine 0.76 mg/dl Est Creatinine Clear Calc Drug Dose 101.5 ml/min Estimated GFR () 118.2 Estimated GFR (Non- 102.0 BUN/Creatinine Ratio 19.1 Random Glucose 121 mg/dl Estimated Average Glucose 131 mg/dl Hemoglobin A1c 6.2 % Calcium Level 8.8 mg/dl Assessment and Plan Mr. Barrera is a 56 y/o male who is admitted for CAP Sepsis from Community Acquired Pneumonia: - Methylprednisolone 40 mg IV daily - Zosyn 3.375 mg Q8H - [facility] Possible COPD Exacerbation: - Smoker x 30 years - up to 2 packs per day - no official testing - Treatment as above Generalized Anxiety/Major Depression - Possible Bipolar - Recent admission to the [facility] - also H/O ETOH abuse - Patient with recent Rx of planned medications and adjustments made - Abilify 15 mg daily, Depakote 500 mg BID, Gabapentin 600 mg TID - Buspar 10 mg TID and Clonidine 0.2 mg TID - Vistaril 50 mg HS and Remeron 15 mg HS HTN: - Norvasc 10 mg daily and Lisinopril 40 mg daily DVT Prophylaxis: Lovenox 40 mg SC daily Disposition: - Goal to wean of O2 as he does not use at baseline - lives with sister currently Continued [facility] stay due to: multiple IV medications needed Discharge planning: home
[2017-03-23] MEDS: ENOXAPARIN 40 MG/0.4 ML SYR SC SCH (19:21)
[2017-03-23] MEDS ORDERED: hydrOXYzine HCL 25 MG TAB PO SCH (21:00)
[2017-03-23] MEDS ORDERED: MIRTAZAPINE TAB 15 MG TAB PO SCH (21:00)
[2017-03-24] VITALS (11 sets, daily range): BP systolic 108–143; BP diastolic 62–92; PULSE 61–87; TEMP 36.3–36.7; O2SAT 90–98
[2017-03-24] MEDS ORDERED: ALBUT/IPRATROP 3MG/0.5MG NEB 3 ML VIAL INH SCH
[2017-03-24] MEDS: PIPERACILL/TAZOBAC IV 3.375 GM in DEXTROSE 5% 100ML 100 ML IV SCH ×2 (03:56→11:52)
[2017-03-24] MEDS: HYDROCODONE/HOMATROPINE SYRUP 5MG/1.5MG 5ML UDP PO PRN (03:56)
[2017-03-24] MEDS: KETOROLAC TROMETHAMINE 15 MG/ML VIAL IV PRN ×2 (03:57→10:55)
[2017-03-24] MEDS: ALBUT/IPRATROP 3MG/0.5MG NEB 3 ML VIAL INH SCH ×3 (06:59→15:17)
[2017-03-24] MEDS: LISINOPRIL 40 MG TAB PO SCH (07:43)
[2017-03-24] MEDS: DIVALPROEX SODIUM 500 MG DELAY RELEASE TAB PO SCH (07:43)
[2017-03-24] MEDS: METHYLPREDNISOLONE IV 40 MG in SYRINGE 0 ML IV SCH (07:43)
[2017-03-24] MEDS: GABAPENTIN 600 MG TAB PO SCH ×2 (07:44→14:42)
[2017-03-24] MEDS: ARIPIprazole TAB 15 MG TAB PO SCH (07:44)
[2017-03-24] MEDS: AMLODIPINE BESYLATE 5 MG TAB PO SCH (07:44)
[2017-03-24] MEDS: CLONIDINE HCL 0.1 MG TAB PO SCH ×2 (07:44→14:43)
[2017-03-24] MEDS: GUAIFENESIN 600 MG TABCR PO SCH (07:45)
--- NOTE | 2017-03-24 08:27 | DIAGNOSTIC IMAGING REPORT ---
CHEST 2 VIEWS ROUTINE CLINICAL HISTORY: Hypoxia, pneumonia COMPARISON STUDY: 03/20/2017 FINDINGS: The cardiac and mediastinal contours remain stable. There is interstitial thickening present. There are progressive left midlung zone airspace opacities. There are no pleural effusions. There is no evidence of failure.[ IMPRESSION: Interstitial thickening, with slight progression in the left midlung zone airspace opacities Electronically signed by: Stef Giles M.D. 03/24/2017 8:25 AM Dictated Date/Time: 03/24/2017 8:23 AM
[2017-03-24] MEDS ORDERED: AZITHROMYCIN IV 500 MG in DEXTROSE 5% 250ML 250 ML IV ONE (11:00)
[2017-03-24] MEDS ORDERED: IPRASOL4 INH (11:18)
[2017-03-24] MEDS ORDERED: ZTHM250 PO (11:18)
[2017-03-24] MEDS ORDERED: AMOX875T PO (11:18)
[2017-03-24] MEDS ORDERED: GFNSR600 PO (11:18)
[2017-03-24] MEDS ORDERED: PRED20TA PO (11:18)
--- NOTE | 2017-03-24 11:26 | Discharge Instructions ---
Discharge Instructions Date of Service Mar 24, 2017. Admission Reason for Admission: Multifocal pneumonia, acute hypoxic respiratory failure Discharge Discharge Diagnosis / Problem: Multifocal pneumonia, asthmatic bronchitis, acute hypoxia Discharge Goals Goal(s): Improve function, Improve disease control Activity Recommendations Activity Limitations: resume your previous activity Lifting Limitations: none Exercise/Sports Limitations: gradually increase as tolerated May Resume Sexual Activity: when tolerated Shower/Bathe: no limitations Driving or Machine Use: no limitations . Instructions / Follow-Up Instructions / Follow-Up Medications: - PREDNISONE: starting tomorrow morning (03/25) take 40mg daily (2 tablets) for 5 days, then decrease to 30mg (1.5 tablets) for 2 days, then 20mg for 2 days then 10mg for 2 days and stop - ZITHROMAX: antibiotic, start tomorrow morning, take 250mg tablet daily for 4 days total - AUGMENTING: antibiotics, start with dose this evening, take one tablet twice a day for 9 more doses (4 days) - MUCINEX: take two tablets twice a day for 7 days - DUONEB: albuterol/ipratropium nebulized treatment, use four times a day scheduled for the next 7 days, you can then use every 4 hours as needed for shortness of breath - OXYGEN: use 3 liters at all times while at home and when leaving the house Pneumonia and asthmatic bronchitis: responding to treatment with steroids, antibiotics and nebulizers chest x-ray today is stable you had respiratory test for oxygen, you NEED to wear the oxygen at home, 3L at all times take the Prednisone, antibiotics, Mucinex and nebulizers as prescribed above please be compliant, do not skip doses, do not stop early if you are non-compliant you will likely have to return to the hospital Hypoxia: use the oxygen as prescribed, you can take off to shower Dr. Rothman can check your pulse oximetry in his office in a week to see if you still need the oxygen suspected COPD: I suspect you have some lung damage from smoking, likely bronchitis or emphysema certainly right now you have findings consistent with acute bronchitis please discuss pulmonary function testing with Dr. Rothman, as you would likely benefit from maintenance inhalers FOLLOW UP - Dr. Rothman in one week - Psychiatry as previously scheduled Current Hospital Diet Patient's current hospital diet: Regular Diet Discharge Diet Recommended Diet: Regular Diet Pending Studies Studies pending at discharge: no Laboratory Results Hemoglobin A1c Test 03/23/17 05:34 Range/Units Estimated Average Glucose 131 mg/dl Hemoglobin A1c 6.2 H 4.5-5.6 % Lipid Panel Test 01/25/17 06:47 Range/Units Triglycerides Level 94 0-150 mg/dl Cholesterol Level 185 0-200 mg/dl HDL Cholesterol 49 mg/dl Cholesterol/HDL Ratio 3.8 LDL Cholesterol, Calculated 117 mg/dl Medical Emergencies . Who to Call and When: Medical Emergencies: If at any time you feel your situation is an emergency, please call 911 immediately. . Non-Emergent Contact Non-Emergency issues call your: Primary Care Provider Call Non-Emergent contact if: you have a fever, you have any medication questions . . "Provider Documentation" section prepared by Wiliam Simms. . VTE Core Measure Inpt VTE Proph given/why not?: Enoxaparin (Lovenox)JAMIE, Radha Livingston, SCD's [place] Drug Monitoring Program Search Results: no issues identified
[2017-03-24] MEDS: NICOTINE POLACRILEX 2 MG GUM MT PRN (13:42)
[2017-03-24] MEDS: ACETAMINOPHEN 325 MG TAB PO PRN (13:45)
--- NOTE | 2017-03-24 15:04 | Discharge Summary ---
Discharge Summary Date of Service Mar 24, 2017. Discharge Summary Admission Date: Mar 20, 2017 at 15:45 Discharge Date: Mar 24, 2017 Discharge Disposition: Home with services Principal Diagnosis: Left lower lobe pneumonia, community acquired Problems/Secondary Diagnoses: Asthmatic bronchitis Acute hypoxic respiratory failure Tobacco abuse Bipolar disorder Immunizations: Have You Had Influenza Vaccine: No History of Tetanus Vaccine?: PT STATES WITHIN LAST 5 YEARS History of Pneumococcal: No History of Hepatitis B Vaccine: No Procedures: none Consultations: none Medication Reconciliation New Medications: Amoxicillin & Pot Clavulanate (Augmentin 875-125 mg) 1 Tab Tab 1 TAB PO BID for 4 Days, #9 TAB Azithromycin (Azithromycin) 250 Mg Tab 250 MG PO DAILY for 4 Days, #4 TABS 0 Refills Prednisone (Prednisone) 20 Mg Tab 1 TAB PO UD for 11 Days, #16 TAB starting 03/25, take 40mg (2 tabs) daily for 5 days then 30mg (1.5 tabs) for 2 days, then 20mg for 2 days then 10mg for 2 days Guaifenesin Ext Rel (Mucinex Ext Rel) 600 Mg Tabcr 1200 MG PO Q12, #28 TABS 0 Refills Ipratropium-Albuterol (Duoneb) 3 Ml Nebu 3 ML INH QIDR for 7 Days, #1 BOX 1 Refill use four times a day scheduled for 7 days, can then use every 4 hours as needed for shortness of breath Continued Medications: Amlodipine (Norvasc) 10 Mg Tab 10 MG PO DAILY, TAB Aripiprazole (Abilify) 15 Mg Tab 1 TAB PO DAILY for 30 Days, #30 TAB Buspirone HCl (Buspirone HCl) 5 Mg Tab 10 MG PO TID, #9 TAB Clonidine Hcl (Catapres) 0.2 Mg Tab 1 TAB PO BID for 30 Days, #60 TAB 5 Refills Divalproex Sodium (Depakote) 500 Mg Tab 1 TAB PO BID for 30 Days, #60 TAB 1 Refill Gabapentin (Gabapentin) 600 Mg Tab 600 MG PO TID, #9 TAB Hydroxyzine Pamoate (Vistaril) 25 Mg Cap 1 CAP PO HS for 30 Days, CAP 1 Refill Lisinopril (Zestril) 40 Mg Tab 40 MG PO DAILY, TAB Mirtazapine Soltab (Remeron Soltab) 15 Mg Soltab 15 MG PO, TAB Discharge Exam Patient feeling well enough to go home today, anxious to get out of the hospital , having a difficult time staying calm. Reviewed CXR today, minimal progression in left infiltrate, overall feel that it is the same. Two step today with recommendations for 3L at rest and 6L on exertion. Discussed his home activity, says that he sits around and plays the guitar. Minimal cough, not much production. Having a real difficult time staying still , needs to go home from psychological standpoint. Review of Systems: Constitutional: No fever, No chills, No sweats, No weight loss, No weakness , No fatigue, No problem reported Eyes: No worsening of vision, No eye pain, No redness, No discharge, No diplopia, No problem reported ENT: No hearing loss, No unusual epistaxis, No nasal symptoms, No sore throat, No tinnitus, No dental problems, No trouble swallowing, No problem reported Respiratory: + cough, + sputum, + dyspnea on exertion, No wheezing, No shortness of breath, No dyspnea at rest, No hemoptysis Cardiovascular: No chest pain, No orthopnea, No PND, No edema, No claudication, No palpitations, No problem reported Abdomen: No pain, No nausea, No vomiting, No diarrhea, No constipation, No GI bleeding, No problem reported Musculoskeletal: No joint pain, No muscle pain, No swelling, No calf pain, No problem reported Genitourinary - Male: No hematuria, No dysuria, No urinary frequency, No urinary urgency Neurologic: No memory loss, No paralysis, No weakness, No numbness/tingling , No vertigo Psychiatric: + anxiety, + insomnia, No depression symptoms, No anhedonism, No substance abuse Endocrine: No fatigue, No excessive thirst, No excessive urination, No problem reported Hematologic / Lymphatic: No abnormal bleeding/bruising, No clotting problems , No swollen lymph nodes, No night sweats, No problem reported Integumentary: No rash, No itch, No new/changing skin lesions, No color change, No bleeding, No problem reported Physical Exam: General Appearance: WD/WN, no apparent distress Eyes: normal inspection, EOMI, sclerae normal ENT: normal ENT inspection, hearing grossly normal, pharynx normal Neck: supple, no adenopathy, no JVD, trachea midline Respiratory/Chest: chest non-tender, no respiratory distress, no accessory muscle use, + wheezing (inspiratory and expiratory, moving lots of air) Cardiovascular: regular rate, rhythm, no edema, no gallop, no JVD, no murmur , normal peripheral pulses Abdomen / GI: normal bowel sounds, non tender, soft, no organomegaly Extremities: normal inspection, no calf tenderness, normal capillary refill , no pedal edema, normal range of motion, pelvis stable Neurologic/Psychiatric: strength 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 Barrera is a 56 y/o male who is admitted for CAP, asthmatic bronchitis, acute hypoxic respiratory failure Sepsis POA from Community Acquired Pneumonia: - sepsis resolved, afebrile, vitals stable, mild leukocytosis attributed to steroids - Methylprednisolone 40 mg IV daily, change to Prednisone with taper, see below - Zosyn 3.375 mg Q8H while admitted, no atypical coverage though and slow to recover Zithromax 500mg IV given today, plan for 250mg PO daily x 4 days complete 4 days of Augmentin BID as well - Duonebs QID, set up for home nebulizer Asthmatic bronchitis, suspect COPD but no PFT in the past, h/o smoking - Smoker x 30 years - up to 2 packs per day - no official testing - Prednisone 40mg daily x 5 days then 30mg x 2 days, 20mg x 2 days and 10mg x 2 days - Duoneb QID scheduled for 7 days, then Q4 PRN Acute hypoxic respiratory failure: suspect a degree of chronic hypoxia - found to need 3L at rest and 6L on exertion - however, on room air he is 87%, no shortness of breath, no distress - he ambulated around the entire RN station without oxygen and was not winded, no distress - set up for home oxygen 3L continuous, not much activity at home, plays his guitar and records most of the time - follow up with Dr. Rothman to see if he can d/c oxygen in a week Generalized Anxiety/Major Depression - Possible Bipolar - Recent admission to the [facility] - also H/O ETOH abuse - Patient with recent Rx of planned medications and adjustments made - Abilify 15 mg daily, Depakote 500 mg BID, Gabapentin 600 mg TID - Buspar 10 mg TID and Clonidine 0.2 mg TID - Vistaril 50 mg HS and Remeron 15 mg HS HTN: - Norvasc 10 mg daily and Lisinopril 40 mg daily DVT Prophylaxis: Lovenox 40 mg SC daily Disposition: - d/c to home on oxygen, complete treatment for pneumonia, bronchitis - follow up with Dr. Rothman in one week Total Time Spent: Greater than 30 minutes This includes examination of the patient, discharge planning, medication reconciliation, and communication with other providers. Discharge Instructions Please refer to the electronic Patient Visit Report (Discharge Instructions) for additional information. Follow-Up Dr. Rothman in one week Additional Copies To ,Carlito Machado M.D.
== END 2017-03-24 18:10 | disposition home health service (06) | DRG 193 ==
LOC: C.EDB 13:29 → C.2T 15:45 → ENRESERV 15:54 → C.4E 03-21 18:20
PROVIDERS: ADMIT Family Medicine; ATTEND Internal Medicine
DX: J18.9 Pneumonia, unspecified organism (principal); J96.01 Acute respiratory failure with hypoxia; F10.20 Alcohol dependence, uncomplicated; I10 Essential (primary) hypertension; F32.9 Major depressive disorder, single episode, unspecified; F41.0 Panic disorder [episodic paroxysmal anxiety]; F17.200 Nicotine dependence, unspecified, uncomplicated

== ENCOUNTER → 2017-10-13 | Outpatient (CLI) | payer OTHER ==
[~2017-10-13] MED LIST changes: +ABL/15 PO; +AZIT-57 PO; +CLON0.2T PO; +DIVA500T59 PO; -FLUO27.5 PO; +GFNSR600 PO; +HYDR25CA PO; +IPRASOL4 INH; +MIRT15TA2 PO; -QUET1TAB37 PO; -SRQ100 PO
[2017-10-13 09:43] LABS: BASO ABS # 0.04 K/uL (0-0.2); EOS % 5.4 %; EOS ABS # 0.21 K/uL (0-0.5); HEMATOCRIT 43.4 % (42-52); LYMPH % 44.3 %; LYMPH ABS # 1.72 K/uL (1.2-3.4); MEAN CELL VOLUME 84.6 fL (80-100); MEAN CORPUSCULAR HEMOGLOBIN 29.2 pg (25-34); MEAN CORPUSCULAR HGB CONC 34.6 g/dl (32-36); MEAN PLATELET VOLUME 10.5 fL (7.4-10.4); MONO % 6.4 %; MONO ABS # 0.25 K/uL (0.11-0.59); NEUT % 42.9 %; NEUT ABS # 1.66 K/uL (1.4-6.5); PLATELET COUNT 301 K/uL (130-400); RED CELL DISTRIBUTION WIDTH CV 15.8 % (11.5-14.5); RED CELL DISTRIBUTION WIDTH SD 48.9 fL (36.4-46.3); WHITE BLOOD COUNT 3.88 K/uL (4.8-10.8)
[2017-10-13 09:51] LABS: HEMOGLOBIN A1C 5.9 % (4.5-5.6)
[2017-10-13 10:10] LABS: ALBUMIN 3.9 gm/dl (3.4-5.0); ALT/SGPT 28 U/L (12-78); AST/SGOT 13 U/L (15-37); BLOOD UREA NITROGEN 15 mg/dl (7-18); CALCIUM 8.8 mg/dl (8.5-10.1); CARBON DIOXIDE 27 mmol/L (21-32); CHOLESTEROL 186 mg/dl (0-200); CREATININE 1.01 mg/dl (0.60-1.40); GLUCOSE 93 mg/dl (70-99); SODIUM 135 mmol/L (136-145)
[2017-10-13 10:13] LABS: ALKALINE PHOSPHATASE 55 U/L (45-117); LDL CHOLESTEROL CALCULATED 110 mg/dl; TOTAL PROTEIN 7.4 gm/dl (6.4-8.2)
== END | disposition home or self-care (01) ==
LOC: C.LAB1850 07:39
PROVIDERS: ATTEND Internal Medicine
DX: D72.819 Decreased white blood cell count, unspecified (principal); I10 Essential (primary) hypertension; R73.9 Hyperglycemia, unspecified

== ENCOUNTER 2017-11-17 12:57 | Emergency (ER) | payer OTHER ==
[~2017-11-17] VITALS: Ht 170.2 cm; Wt 69.0 kg
[~2017-11-17 12:57] MED LIST changes: -ABL/15 PO; -CLON0.2T PO
[2017-11-17 13:02] VITALS: TEMP 36.8; Ht 170.2 cm; Wt 69.0 kg
[2017-11-17] MEDS ORDERED: ALBUT/IPRATROP 3MG/0.5MG NEB 3 ML VIAL INH STA (13:18)
[2017-11-17 13:50] LABS: HEMATOCRIT 41.5 % (42-52); HEMOGLOBIN 15.2 g/dL (14.0-18.0); MEAN CELL VOLUME 81.7 fL (80-100); MEAN CORPUSCULAR HEMOGLOBIN 29.9 pg (25-34); MEAN CORPUSCULAR HGB CONC 36.6 g/dl (32-36); MEAN PLATELET VOLUME 9.5 fL (7.4-10.4); PLATELET COUNT 258 K/uL (130-400); RED CELL DISTRIBUTION WIDTH CV 15.1 % (11.5-14.5); WHITE BLOOD COUNT 6.18 K/uL (4.8-10.8)
--- NOTE | 2017-11-17 14:03 | DIAGNOSTIC IMAGING REPORT ---
CHEST 2 VIEWS ROUTINE HISTORY: wheezing eval for pna COMPARISON: Chest 03/24/2017. FINDINGS: The lungs are clear. Cardiac silhouette is normal in size. No pleural effusions. No pneumothorax. IMPRESSION: No acute process. Electronically signed by: Eduin Edwards M.D. 11/17/2017 2:02 PM Dictated Date/Time: 11/17/2017 1:58 PM
[2017-11-17 14:08] LABS: ALBUMIN 4.5 gm/dl (3.4-5.0); CALCIUM 8.6 mg/dl (8.5-10.1); CREATININE 0.97 mg/dl (0.60-1.40)
[2017-11-17] MEDS ORDERED: LORAZEPAM 1 MG TAB SL STA (14:16)
[2017-11-17] MEDS ORDERED: FLUO40CA8 PO (14:24)
[2017-11-17] MEDS ORDERED: VNTHFA/IN INH (14:24)
[2017-11-17] MEDS ORDERED: AMIT25TA9 PO (14:24)
[2017-11-17] MEDS ORDERED: GABA-113 PO (14:24)
[2017-11-17] MEDS ORDERED: BSP/10 PO (14:24)
[2017-11-17] MEDS ORDERED: ABL/15 PO (14:38)
[2017-11-17] MEDS ORDERED: CLON0.2T PO (14:38)
[2017-11-17 18:10] VITALS: BP 129/87; PULSE 79; O2SAT 97
--- NOTE | 2017-11-17 19:03 | EMERGENCY ROOM VISIT NOTE ---
History Report prepared by Dalton: Jorge Luis Mane Under the Supervision of: Dr. Mendez Bhakta M.D. First contact with patient: 13:12 Chief Complaint: MENTAL HEALTH EVALUATION Stated Complaint: MENTAL HEALTH History of Present Illness The patient is a 56 year old male with a history of depression who presents to the Emergency Room with worsening depression over the past few days. He states that his life was "turned upside down" when he called the police on himself last spring, ending up in the [place]. He says that he has "never bounced back" from that. He notes that he has had intermittent thoughts of killing himself, with a plan to drive into oncoming traffic. He says that his anxiety has been really bad today. The patient states that he wanted to go inpatient, and CAN- help came to evaluate him and they agreed with that. The patient denies any recent illnesses or shortness of breath. The patient notes that he smokes 5 cigarettes per day. He denies any recent recreational drug or alcohol use. Source of History: patient Onset: Over past few days Position: other (global) Symptom Intensity: intermittent suicidal thoughts Quality: other (depression) Timing: worsening Associated Symptoms: No SOB Note: Associated symptoms: Suicidal ideation with plan, anxiety. Denies recent illnesses. Review of Systems See HPI for pertinent positives & negatives. A total of 10 systems reviewed and were otherwise negative. Past Medical & Surgical Medical Problems: (1) Alcohol dependence (2) Constipation (3) Depression (4) Hypertension (5) LLL pneumonia (6) Panic disorder (7) Suicidal ideation (8) Tobacco use disorder Family History No pertinent family history Social History Smoking Status: Current Every Day Smoker Alcohol Use: heavy Drug Use: none Marital Status: single Housing Status: lives with family Occupation Status: disabled Current/Historical Medications Scheduled Albuterol Hfa (Ventolin Hfa), 2-4 PUFFS INH UD Amitriptyline Hcl (Elavil), 25 MG PO DAILY Amlodipine (Norvasc), 10 MG PO DAILY Aripiprazole (Abilify), 15 MG PO DAILY Buspirone HCl (Buspirone HCl), 10 MG PO TID Clonidine Hcl (Catapres), 0.2 MG PO TID Divalproex Sodium (Depakote), 1 TAB PO BID Fluoxetine (Prozac), 40 MG PO DAILY Gabapentin (Neurontin), 300 MG PO TID Lisinopril (Zestril), 40 MG PO DAILY Allergies Coded Allergies: No Known Allergies (Verified , 03/20/17) Physical Exam Vital Signs Date Time Temp Pulse Resp B/P (MAP) Pulse Ox O2 Delivery O2 Flow Rate FiO2 11/17/17 18:10 79 18 129/87 97 11/17/17 16:44 71 16 125/85 98 Room Air 11/17/17 14:08 82 18 139/99 98 Room Air 11/17/17 13:02 36.8 83 18 136/89 94 Room Air Physical Exam Constitutional: Vital signs reviewed. Eyes: Pupils are equal round reactive to light. Conjunctiva are noninjected. ENT: Pharynx is clear without erythema or exudate. Mucous membranes are moist. Neck supple without meningeal signs. Respiratory: Diffuse expiratory wheezing. Breath sounds are equal bilaterally. Cardiovascular: Regular rate and rhythm. No rubs or gallops. GI: Soft, nondistended and nontender. Bowel sounds are present. Musculoskeletal: No peripheral edema. No lower extremity tenderness. Integumentary: No cyanosis. Neurological: The patient is awake and alert. No focal deficits. Psychiatric: Normal affect. Not tearful or manic. Medical Decision & Procedures ER Provider Diagnostic Interpretation: X-ray results as stated below per interpretation by me and the radiologist: CHEST 2 VIEWS ROUTINE HISTORY: wheezing eval for pna COMPARISON: Chest 03/24/2017. FINDINGS: The lungs are clear. Cardiac silhouette is normal in size. No pleural effusions. No pneumothorax. IMPRESSION: No acute process. Electronically signed by: Eduin Edwards M.D. 11/17/2017 2:02 PM Dictated Date/Time: 11/17/2017 1:58 PM Laboratory Results 11/17/17 13:35 11/17/17 13:35 Test 11/17/17 13:10 11/17/17 13:35 Urine Color YELLOW Urine Appearance CLEAR (CLEAR) Urine pH 6.5 (4.5-7.5) Urine Specific [place] 1.012 (1.000-1.030) Urine Protein NEG (NEG) Urine Glucose (UA) NEG (NEG) Urine Ketones 1+ (NEG) Urine Occult Blood NEG (NEG) Urine Nitrite NEG (NEG) Urine Bilirubin NEG (NEG) Urine Urobilinogen NEG (NEG) Urine Leukocyte Esterase NEG (NEG) Urine Opiates Screen NEG (NEG) Urine Methadone, Qualitative NEG (NEG) Urine Barbiturates NEG (NEG) Urine Phencyclidine (PCP) Level NEG (NEG) Ur Amphetamine/Methamphetamine NEG (NEG) MDMA (Ecstasy) Screen NEG (NEG) Urine Benzodiazepines Screen NEG (NEG) Urine Cocaine Metabolite NEG (NEG) Urine Marijuana (THC) NEG (NEG) Red Blood Count 5.08 M/uL (4.7-6.1) Mean Corpuscular Volume 81.7 fL (80-100) Mean Corpuscular Hemoglobin 29.9 pg (25-34) Mean Corpuscular Hemoglobin Concent 36.6 g/dl (32-36) RDW Standard Deviation 45.0 fL (36.4-46.3) RDW Coefficient of Variation 15.1 % (11.5-14.5) Mean Platelet Volume 9.5 fL (7.4-10.4) Anion Gap 8.0 mmol/L (3-11) Est Creatinine Clear Calc Drug Dose 79.5 ml/min Estimated GFR () 100.7 Estimated GFR (Non- 86.9 BUN/Creatinine Ratio 11.8 (10-20) Calcium Level 8.6 mg/dl (8.5-10.1) Total Bilirubin 0.5 mg/dl (0.2-1) Direct Bilirubin 0.1 mg/dl (0-0.2) Aspartate Amino Transf (AST/SGOT) 23 U/L (15-37) Alanine Aminotransferase (ALT/SGPT) 33 U/L (12-78) Alkaline Phosphatase 50 U/L (45-117) Total Protein 8.0 gm/dl (6.4-8.2) Albumin 4.5 gm/dl (3.4-5.0) Thyroid Stimulating Hormone (TSH) 1.230 uIu/ml (0.300-4.500) Salicylates Level < 1.7 mg/dl (2.8-20) Acetaminophen Level < 2 ug/ml (10-30) Ethyl Alcohol mg/dL < 3.0 mg/dl (0-3) Laboratory results as reviewed by me. Medications Administered Medications (Trade) Dose Ordered Sig/Hoa Route Start Time Stop Time Status Last Admin Dose Admin Albuterol/ Ipratropium (Duoneb) 3 ml NOW STAT INH 11/17/17 13:18 11/17/17 13:19 DC 11/17/17 13:37 3 ML Lorazepam (Ativan Tab) 1 mg NOW STAT SL 11/17/17 14:16 11/17/17 14:18 DC 11/17/17 14:20 1 MG ED Course 1314: The patient was evaluated in room A3. A complete history and physical exam was performed. 1318: DuoNeb 3 ml INH. 1414: The patient complains of worsening anxiety. 1416: Ativan Tab 1 mg SL. 1435: I reevaluated the patient and talked to him about his test results, including his chest x-ray and low sodium. I recommended follow-up with his doctor for referral to pulmonology for potential diagnosis of COPD. His wheezing is diminished on reexamination. 1555: I was notified by the psych casey saw operator that the patient was accepted to the [facility] for further mental health evaluation and treatment. The patient is agreeable with this plan. Medical Decision This is a 56-year-old male who presents with suicidal ideation for mental health evaluation. I did perform a limited focused review of portions of the patient's old chart on the electronic medical record. The patient was admitted January of last year for suicidal ideation. I did evaluate the patient as noted above. Patient is presenting with suicidal ideation with a plan. He has no physical complaints but on examination he has bilateral expiratory wheezing. He does smoke. He states he is not short of breath and has had no cough or cold symptoms. I did treat the patient with a DuoNeb. I did order and personally review the patient's chest x-ray as described above. He does appear to have some hyperinflation and flattening of his diaphragm. I did discuss this with the patient. While I did not diagnose him with COPD I did state that there was some concern for given his smoking history, wheezing and x-ray appearance. He was advised to follow-up with his doctor for pulmonology referral. He was also advised to stop smoking. I did order and review the patient's blood work as noted in the electronic medical record. He does have hyponatremia which has been a problem for her in the past. He was advised about increase sodium intake as well as fluid restriction. The patient was evaluated by the mental health casey saw operator. He was accepted to the [facility] for inpatient psychiatric care. He was transferred there securely. Medication Reconcilliation Current Medication List: was personally reviewed by me Blood Pressure Screening Patient's blood pressure: Elevated blood pressure Blood pressure disposition: Referred to PCP Impression Primary Impression: Suicidal ideation Additional Impressions: Mood disorder Hyponatremia Bronchospasm Scribe Attestation The scribe's documentation has been prepared under my direct and personally reviewed by me in its entirety. I confirm that the note above accurately reflects all work, treatment, procedures, and medical decision making performed by me. Departure Information Dispostion [facility] ([facility]) Referrals Pro,Carlito Machado M.D. (PCP) Patient Instructions [facility] Problem Qualifiers
== END 2017-11-17 17:57 ==
LOC: EDBD 12:57 → C.EDA 12:59
DX: F32.9 Major depressive disorder, single episode, unspecified (principal); R45.851 Suicidal ideations; F41.0 Panic disorder [episodic paroxysmal anxiety]; J98.01 Acute bronchospasm; E87.1 Hypo-osmolality and hyponatremia; F17.210 Nicotine dependence, cigarettes, uncomplicated; F10.20 Alcohol dependence, uncomplicated; I10 Essential (primary) hypertension; Z87.01 Personal history of pneumonia (recurrent); Z79.899 Other long term (current) drug therapy

== ENCOUNTER → 2018-01-28 | Outpatient (CLI) | payer OTHER ==
[~2018-01-28] MED LIST changes: +ABL/15 PO; +AMIT25TA9 PO; -AMLO-114 PO; +AMLO10TA3 PO; -AZIT-57 PO; +BSP/10 PO; -BSP5 PO; +CLON0.2T PO; +FLUO40CA8 PO; +GABA-113 PO; -GFNSR600 PO; -HYDR25CA PO; -IPRASOL4 INH; -MIRT15TA2 PO; -NRN600 PO; +VNTHFA/IN INH
--- NOTE | 2018-01-28 11:48 | DIAGNOSTIC IMAGING REPORT ---
CHEST 2 VIEWS ROUTINE CLINICAL HISTORY: Z77.120 Exposure to mold dyspnea COMPARISON STUDY: 11/17/2017 FINDINGS: The bones soft tissues and hemidiaphragms are normal. The cardiomediastinal silhouette is normal. The lungs are clear. The pulmonary vasculature is normal. IMPRESSION: Negative chest. The above report was generated using voice recognition software. It may contain grammatical, syntax or spelling errors. Electronically signed by: Jackson Elmore M.D. 01/28/2018 11:46 AM Dictated Date/Time: 01/28/2018 11:46 AM
== END | disposition home or self-care (01) ==
LOC: C.RAD1850 11:24
PROVIDERS: ATTEND Internal Medicine
DX: Z77.120 Contact with and (suspected) exposure to mold (toxic) (principal)

== ENCOUNTER 2021-07-10 16:23 | Inpatient (IN) ==
[2021-07-10] MEDS ORDERED: ONDANSETRON 4 MG OD TAB PO STA (16:50)
[2021-07-10] MEDS ORDERED: LORazepam 1 MG TAB PO STA (16:50)
--- NOTE | 2021-07-10 16:57 | Emergency Department Note ---
Impression & Plan Anxiety and depression, Suicidal thoughts, Chronic hyponatremia ED Provider Note Provider: Dante Stewart MD DATE OF SERVICE: 07/10/2021 CHIEF COMPLAINT: Anxiety, depression, and medications HISTORY OF PRESENT ILLNESS: Patient is a 60-year-old gentleman history of depression anxiety as well as hyponatremia presenting here today referred from a waist this is counseling and mental health service provider. Patient states he had increased stress and anxiety over the last week or so. For the last 2 to 3 days he reports he has been out of his medication. [facility] reported that he verbalized to them some suicidal thoughts and has been taking increased amounts of his Seroquel and Ativan. Patient states he is out of his Seroquel and Ativan is due for refill for at least a week. Patient is unsure if he has had suicidal thoughts and says he does not want to lie to me about this. Patient denies way to harm anybody else. Patient denies hallucinations at this time but states has not been sleeping particularly last night. Patient states he has been today and has been little bit nauseous. Patient denies drug or alcohol use today. Patient states he feels shaky and very anxious and thinks he may need mental health treatment again. Has a history of inpatient mental health treatment in the past. Patient denies fever or URI symptoms. REVIEW OF SYSTEMS: A total of 10 review of systems was obtained and negative except as stated above in the HPI. PAST MEDICAL HISTORY: As noted above MEDICATIONS: Reviewed medications and discussed with the patient that he has been using increased Ativan and Seroquel. SOCIAL HISTORY: Patient lives with his sister but is not close with her, reports that he has not used drugs or alcohol recently PHYSICAL EXAM: GENERAL: alert and oriented in no acute distress on stretcher Head: normocephalic and atraumatic EYES: No injection, discharge or icterus. NECK: Trachea midline. ENT: Mucous membranes pink and moist. LUNGS: Airway patent. No retractions. Breath sounds clear HEART: Regular rate and rhythm. No chest wall tenderness ABDOMEN: Soft and non-tender, without guarding or rebound. SKIN: Acyanotic, warm, dry, without rashes EXTREMITIES: Without swelling, tenderness or deformity NEUROLOGICAL: No focal deficits. No aphasia. No facial droop or slurred speech. Ambulatory. Psych: Patient reports anxiety and feels very depressed and is unsure if he is had suicidal thoughts or not. Denies trying to harm himself. Somewhat pressured speech at times. Not responding to external stimuli. Patient's laboratory studies reviewed. Differential includes Mood disorder, infection, hypoglycemia, electrolyte abnormalities, cardiac sources, intracerebral event, toxicologic, trauma, neurologic, as well as other pathologies. IMPRESSION/MEDICAL DECISION MAKING: Medical record review. History of hyponatremia. Basic labs obtained here. Patient without focal neurological deficit only reports of anxiety and feeling somewhat anxious. Denies recent drug or alcohol usage. Has been using increased Ativan and Seroquel. Requesting Ativan by name upon initial evaluation. Initially he is unsure if he is had suicidal thoughts or not. [facility] reported prior to arrival that he would did verbalize to them some suicidal thoughts. Patient denies trying to harm self at this point. Patient states she strongly considering inpatient mental health treatment. Basic blood work was obtained. Chronic hyponatremia noted stable. Negative alcohol level. Given a dose of Ativan and Zofran is a bit nauseous. Benign abdomen otherwise. Seen with case management. Patient requesting voluntary inpatient treatment. Referrals made. Patient accepted to [facility] for further inpatient psychiatric care. DIAGNOSIS: Anxiety, depression, suicidal thoughts DISPOSITION: Accepted [facility] for further inpatient psychiatric care on a 201. Patient was agreeable with this plan. Past Med/Surg History Medical History Chronic obstructive pulmonary disease Constipation Hyperlipidemia Hypertension Hyponatremia Leukopenia Major depressive disorder, recurrent severe without psychotic features Mood disorder Surgical History History of colonoscopy History of tooth extraction History of wisdom tooth extraction Family History Grandmother (Maternal) Diabetes Father Myocardial infarction Hypertension Mother Alzheimer disease Other No family history of adverse response to anesthesia Denies family history of Ovarian cancer Prostate cancer Breast cancer Colorectal cancer Social History Smoking Status: Former smoker Tobacco Type: Cigarettes Second Hand Exposure: No; Hx Alcohol Use: No Hx Substance Use: Yes (medical marijuana use intermittently) Preferred Language: Yoruba Communication Ability: Effective Visual Impairment: No Limitations Hearing Ability: Normal Spooler Operator Required: No Beliefs That Will Affect Care: None marital status: Single Current Living Situation: Family Current Living Situation Comment: Lives with sister current occupational status: unemployed Feels Safe at Home: Yes Dental Care, Regularly: Yes Seatbelt Use: always Assistive Devices: Denture - Upper and Glasses Allergies Allergies Allergy/AdvReac Type Severity Reaction Status Date / Time chocolate flavor Allergy Mild eczema Verified 05/10/21 12:42 No Known Drug Allergies Allergy Unknown Verified 05/10/21 12:42 Home Meds Home Medications Medication Instructions Recorded Confirmed clonidine HCl 0.2 mg tablet 0.3 mg PO QAM tab 01/25/21 07/10/21 fluoxetine 40 mg capsule 40 mg PO QAM 01/25/21 07/10/21 gabapentin 400 mg capsule 600 mg PO TID cap 01/25/21 07/10/21 lorazepam 1 mg tablet 1 mg PO BID 02/20/21 07/10/21 quetiapine 400 mg tablet 400 mg PO HS tab 02/20/21 07/10/21 buspirone 15 mg tablet 15 mg PO BID 03/21/21 07/10/21 docusate sodium 100 mg capsule 200 mg PO QAM 03/21/21 07/10/21 (Colace) multivitamin 1 tab PO QAM 03/21/21 07/10/21 quetiapine 50 mg tablet (Seroquel) 50 mg PO HS 03/21/21 07/10/21 fluoxetine 20 mg capsule 20 mg PO DAILY 04/19/21 07/10/21 Previous Rx's Medication Instructions Recorded amlodipine 10 mg tablet 10 mg PO QAM #90 tab 05/07/21 lisinopril 40 mg tablet 40 mg PO QAM #90 tab 05/07/21 budesonide-formoterol HFA 160 2 puff INH BID #10.2 g 06/03/21 mcg-4.5 mcg/actuation aerosol inhaler (Symbicort) Results & Data (ED) Vital Signs Vital Signs - 24 hr 07/10/21 16:30 07/10/21 18:30 Temperature 37.0 C Temperature Source Oral Pulse Rate 75 Pulse Rate [Apical] 91 H Pulse Rhythm Regular Pulse Rhythm [Apical] Regular Pulse Strength Normal Respiratory Rate 20 16 Respiratory Effort / Characteristics Non-Labored Spontaneous Non-Labored Respiratory Depth Normal Normal Respiratory Pattern Regular Blood Pressure 157/93 H Blood Pressure [Left Arm] 160/89 H Blood Pressure Mean 114 Blood Pressure Mean [Left Arm] 112 Blood Pressure Position Sitting Pulse Oximetry 96 96 Oxygen Delivery Method Room Air Room Air Sepsis Recent Fever Within 48 Hours No Sepsis New/Unexplained Change in Mental Status No Sepsis Action Taken by Nursing No Action Required Laboratory Data Result diagrams: 07/10/21 17:15 07/10/21 17:15 Lab Results 07/10/21 07/10/21 07/10/21 Range/Units 17:04 17:15 17:15 WBC 10.76 (4.8-10.8) K/uL RBC 4.50 L (4.7-6.1) M/uL Hgb 13.2 L (14.0-18.0) g/dL Hct 37.4 L (42-52) % MCV 83.1 (80-100) fL MCH 29.3 (25-34) pg MCHC 35.3 (32-36) g/dL RDW Std Deviation 40.8 (36.4-46.3) fL RDW Coeff of Nadia 13.4 (11.5-14.5) % Plt Count 379 (130-400) K/uL MPV 8.6 (7.4-10.4) fL Immature Gran % (Auto) 0.3 % Neut % (Auto) 81.8 % Lymph % (Auto) 10.9 % [place] % (Auto) 6.6 % Eos % (Auto) 0.2 % Baso % (Auto) 0.2 % Neut # (Auto) 8.81 H (1.4-6.5) K/uL Lymph # (Auto) 1.17 L (1.2-3.4) K/uL [place] # (Auto) 0.71 H (0.11-0.59) K/uL Eos # (Auto) 0.02 (0-0.5) K/uL Baso # (Auto) 0.02 (0-0.2) K/uL Immature Gran # (Auto) 0.03 H (0.00-0.02) K/uL Sodium 127 L (136-145) mmol/L Potassium 4.0 (3.5-5.1) mmol/L Chloride 96 L (98-107) mmol/L Carbon Dioxide 21 (21-32) mmol/L Anion Gap 10.0 (3-11) BUN 10 (7-18) mg/dl Creatinine 1.04 (0.6-1.4) mg/dl Est Cr Clr Drug Dosing 70.6 ml/min Est GFR ( Amer) 90.0 ml/min Est GFR (Non-Af Amer) 77.7 ml/min BUN/Creatinine Ratio 9.8 L (10-20) Glucose 106 H (70-99) mg/dl Calcium 9.7 (8.5-10.1) mg/dl Total Bilirubin 0.6 (0.2-1) mg/dl AST 27 (15-37) U/L ALT 36 (12-78) Alkaline Phosphatase 77 (45-117) U/L Total Protein 7.7 (6.4-8.2) gm/dl Albumin 4.2 (3.4-5.0) gm/dl Globulin 3.5 (2.5-4.0) gm/dl Albumin/Globulin Ratio 1.2 (0.9-2) TSH 2.670 (0.300-4.500) uIu/ml Urine Color Urine Appearance (Clear) Urine pH (4.5-7.5) Ur Specific Sinclair (1.000-1.030) Urine Protein (Negative) Urine Glucose (UA) (Negative) Urine Ketones (Negative) Urine Blood (Negative) Urine Nitrite (Negative) Urine Bilirubin (Negative) Urine Urobilinogen (Negative) Ur Leukocyte Esterase (Negative) Salicylates (2.8-20) mg/dl Urine Opiates Screen (Neg) Ur Methadone, Qual (Neg) Acetaminophen (10-30) ug/ml Urine Barbiturates (Neg) Ur Phencyclidine (PCP) (Neg) U Amphetamin/Meth Scrn (Neg) MDMA (Ecstasy) Screen (Neg) U Benzodiazepines Scrn (Neg) Ur Cocaine Metabolite (Neg) U Marijuana (THC) Screen (Neg) Ethyl Alcohol mg/dL (0-3) mg/dl SARS-CoV-2, RNA, NAAT NEGATIVE (NEGATIVE) 07/10/21 07/10/21 07/10/21 Range/Units 17:15 17:15 18:27 WBC (4.8-10.8) K/uL RBC (4.7-6.1) M/uL Hgb (14.0-18.0) g/dL Hct (42-52) % MCV (80-100) fL MCH (25-34) pg MCHC (32-36) g/dL RDW Std Deviation (36.4-46.3) fL RDW Coeff of Nadia (11.5-14.5) % Plt Count (130-400) K/uL MPV (7.4-10.4) fL Immature Gran % (Auto) % Neut % (Auto) % Lymph % (Auto) % [place] % (Auto) % Eos % (Auto) % Baso % (Auto) % Neut # (Auto) (1.4-6.5) K/uL Lymph # (Auto) (1.2-3.4) K/uL [place] # (Auto) (0.11-0.59) K/uL Eos # (Auto) (0-0.5) K/uL Baso # (Auto) (0-0.2) K/uL Immature Gran # (Auto) (0.00-0.02) K/uL Sodium (136-145) mmol/L Potassium (3.5-5.1) mmol/L Chloride (98-107) mmol/L Carbon Dioxide (21-32) mmol/L Anion Gap (3-11) BUN (7-18) mg/dl Creatinine (0.6-1.4) mg/dl Est Cr Clr Drug Dosing ml/min Est GFR ( Amer) ml/min Est GFR (Non-Af Amer) ml/min BUN/Creatinine Ratio (10-20) Glucose (70-99) mg/dl Calcium (8.5-10.1) mg/dl Total Bilirubin (0.2-1) mg/dl AST (15-37) U/L ALT (12-78) Alkaline Phosphatase (45-117) U/L Total Protein (6.4-8.2) gm/dl Albumin (3.4-5.0) gm/dl Globulin (2.5-4.0) gm/dl Albumin/Globulin Ratio (0.9-2) TSH (0.300-4.500) uIu/ml Urine Color Yellow Urine Appearance Clear (Clear) Urine pH 6.5 (4.5-7.5) Ur Specific Sinclair 1.015 (1.000-1.030) Urine Protein Negative (Negative) Urine Glucose (UA) Negative (Negative) Urine Ketones 1+ H (Negative) Urine Blood Negative (Negative) Urine Nitrite Negative (Negative) Urine Bilirubin Negative (Negative) Urine Urobilinogen Negative (Negative) Ur Leukocyte Esterase Negative (Negative) Salicylates < 1.7 L (2.8-20) mg/dl Urine Opiates Screen (Neg) Ur Methadone, Qual (Neg) Acetaminophen < 2 L (10-30) ug/ml Urine Barbiturates (Neg) Ur Phencyclidine (PCP) (Neg) U Amphetamin/Meth Scrn (Neg) MDMA (Ecstasy) Screen (Neg) U Benzodiazepines Scrn (Neg) Ur Cocaine Metabolite (Neg) U Marijuana (THC) Screen (Neg) Ethyl Alcohol mg/dL < 3.0 (0-3) mg/dl SARS-CoV-2, RNA, NAAT (NEGATIVE) 07/10/21 Range/Units 18:27 WBC (4.8-10.8) K/uL RBC (4.7-6.1) M/uL Hgb (14.0-18.0) g/dL Hct (42-52) % MCV (80-100) fL MCH (25-34) pg MCHC (32-36) g/dL RDW Std Deviation (36.4-46.3) fL RDW Coeff of Nadia (11.5-14.5) % Plt Count (130-400) K/uL MPV (7.4-10.4) fL Immature Gran % (Auto) % Neut % (Auto) % Lymph % (Auto) % [place] % (Auto) % Eos % (Auto) % Baso % (Auto) % Neut # (Auto) (1.4-6.5) K/uL Lymph # (Auto) (1.2-3.4) K/uL [place] # (Auto) (0.11-0.59) K/uL Eos # (Auto) (0-0.5) K/uL Baso # (Auto) (0-0.2) K/uL Immature Gran # (Auto) (0.00-0.02) K/uL Sodium (136-145) mmol/L Potassium (3.5-5.1) mmol/L Chloride (98-107) mmol/L Carbon Dioxide (21-32) mmol/L Anion Gap (3-11) BUN (7-18) mg/dl Creatinine (0.6-1.4) mg/dl Est Cr Clr Drug Dosing ml/min Est GFR ( Amer) ml/min Est GFR (Non-Af Amer) ml/min BUN/Creatinine Ratio (10-20) Glucose (70-99) mg/dl Calcium (8.5-10.1) mg/dl Total Bilirubin (0.2-1) mg/dl AST (15-37) U/L ALT (12-78) Alkaline Phosphatase (45-117) U/L Total Protein (6.4-8.2) gm/dl Albumin (3.4-5.0) gm/dl Globulin (2.5-4.0) gm/dl Albumin/Globulin Ratio (0.9-2) TSH (0.300-4.500) uIu/ml Urine Color Urine Appearance (Clear) Urine pH (4.5-7.5) Ur Specific [place] (1.000-1.030) Urine Protein (Negative) Urine Glucose (UA) (Negative) Urine Ketones (Negative) Urine Blood (Negative) Urine Nitrite (Negative) Urine Bilirubin (Negative) Urine Urobilinogen (Negative) Ur Leukocyte Esterase (Negative) Salicylates (2.8-20) mg/dl Urine Opiates Screen Neg (Neg) Ur Methadone, Qual Neg (Neg) Acetaminophen (10-30) ug/ml Urine Barbiturates Neg (Neg) Ur Phencyclidine (PCP) Neg (Neg) U Amphetamin/Meth Scrn Neg (Neg) MDMA (Ecstasy) Screen Neg (Neg) U Benzodiazepines Scrn Neg (Neg) Ur Cocaine Metabolite Neg (Neg) U Marijuana (THC) Screen Pos H (Neg) Ethyl Alcohol mg/dL (0-3) mg/dl SARS-CoV-2, RNA, NAAT (NEGATIVE) Administered Medications Discontinued Medications Lorazepam (Lorazepam 1 Mg Tab) 1 mg PO NOW STA Stop: 07/10/21 16:51 Last Admin: 07/10/21 17:00 Dose: 1 mg Documented by: [id number] Lorazepam (Lorazepam 1 Mg Tab) 1 mg PO NOW ONE Stop: 07/10/21 21:03 Last Admin: 07/10/21 21:48 Dose: 1 mg Documented by: [id number] Ondansetron HCl (Ondansetron 4 Mg Od Tab) 4 mg PO NOW STA Stop: 07/10/21 16:51 Last Admin: 07/10/21 17:01 Dose: 4 mg Documented by: [id number] Quetiapine Fumarate (Quetiapine Fumarate 200 Mg Tab) 300 mg PO NOW STA Stop: 07/10/21 21:04 Last Admin: 07/10/21 21:49 Dose: 300 mg Documented by: [id number] Discharge Plan Visit Data Chief Complaint: Mental Health Evaluation Stated Complaint: RAN OUT OF MEDS, SHAKY, ANXIETY, MENTAL HEALTH ED Provider: Dante Stewart Discharge Problem: Anxiety and depression, Suicidal thoughts, Chronic hyponatremia Patient Disposition: Admitted As Inpatient Discharge Instructions Interventions: ED Discharge Assessment Last Done: 07/10/21 21:14
[2021-07-10 17:27] LABS: Basophils # (auto) 0.02 K/uL (0-0.2); Basophils % (auto) 0.2 %; Eosinophils # (auto) 0.02 K/uL (0-0.5); Eosinophils % (auto) 0.2 %; Hematocrit (blood only) 37.4 % (42-52); Hemoglobin 13.2 g/dL (14.0-18.0); Immature Granulocytes # (auto) 0.03 K/uL (0.00-0.02); Immature Granulocytes % (auto) 0.3 %; Lymphocytes # (auto) 1.17 K/uL (1.2-3.4); Lymphocytes % (auto) 10.9 %; Mean Corpuscular Hemoglobin 29.3 pg (25-34); Mean Corpuscular Hgb Conc 35.3 g/dL (32-36); Mean Corpuscular Volume 83.1 fL (80-100); Mean Platelet Volume 8.6 fL (7.4-10.4); Monocytes # (auto) 0.71 K/uL (0.11-0.59); Monocytes % (auto) 6.6 %; Neutrophils # (auto) 8.81 K/uL (1.4-6.5); Neutrophils % (auto) 81.8 %; Platelet Count 379 K/uL (130-400); RDW Coefficient of Variation 13.4 % (11.5-14.5); RDW Standard Deviation 40.8 fL (36.4-46.3); White Blood Count 10.76 K/uL (4.8-10.8)
[2021-07-10 17:50] LABS: Albumin Level 4.2 gm/dl (3.4-5.0); BUN Creatinine Ratio 9.8 (10-20); Calcium 9.7 mg/dl (8.5-10.1); Creatinine Clr Calc Pharmacy 70.6 ml/min; Est GFR (Non-African American) 77.7 ml/min
[2021-07-10 18:01] LABS: Acetaminophen < 2 ug/ml (10-30); Albumin Globulin Ratio 1.2 (0.9-2); Bilirubin,Total 0.6 mg/dl (0.2-1); Globulin 3.5 gm/dl (2.5-4.0); Salicylate < 1.7 mg/dl (2.8-20); Thyroid Stimulating Hormone 2.67 uIu/ml (0.300-4.500); Total Protein 7.7 gm/dl (6.4-8.2)
[2021-07-10 18:51] LABS: Appearance Urine Clear (Clear); Bilirubin Urine Negative (Negative); Blood Urine Negative (Negative); Color Urine Yellow; Glucose Urine UA Negative (Negative); Ketones Urine 1+ (Negative); Leukocyte Esterase Urine Negative (Negative); Nitrite Urine Negative (Negative); Protein Urine Negative (Negative); Specific Gravity Urine 1.015 (1.000-1.030); Urobilinogen Urine Negative (Negative); pH Urine 6.5 (4.5-7.5)
[2021-07-10 19:23] LABS: Amphetamines+Metham, Urine Neg (Neg); Barbiturates, Urine Neg (Neg); Benzodiazepine, Urine Neg (Neg); Cocaine, Urine Neg (Neg); MDMA (Ecstacy), Urine Neg (Neg); Methadone, Urine Neg (Neg); Opiate, Urine Neg (Neg); Phencyclidine, Urine Neg (Neg)
[2021-07-10] MEDS ORDERED: SODIUM CHLORIDE 0.65% NA SOLN 45 ML (OCEAN) PRN (21:00)
[2021-07-10] MEDS ORDERED: BISMUTH SUBSALICYLATE LIQD 236 ML PO PRN (21:00)
[2021-07-10] MEDS ORDERED: LORazepam 1 MG TAB PO ONE (21:02)
[2021-07-10] MEDS ORDERED: QUEtiapine FUMARATE 200 MG TAB PO STA (21:03)
[2021-07-10] MEDS ORDERED: BUDESONIDE/FORMOTEROL FUMARATE 160/4.5 60 PUFFS/INHALER INH SCH (21:15)
[2021-07-10] MEDS ORDERED: busPIRone 15 MG TAB PO SCH (21:15)
[2021-07-11] MEDS: hydrOXYzine HCl 25 MG TAB PO PRN ×3 (01:41→08:46)
[2021-07-11] MEDS: ACETAMINOPHEN 325 MG TAB PO PRN (01:52)
--- NOTE | 2021-07-11 08:56 | History & Physical ---
Date of Service July 11, 2021 Impression / Recommendations Impression 60 yo male with extensive hx of psychiatric inpatient stays for depression and at times psychotic features, he has a history of an OD on Valium and is currently misusing his prescription medication in addition to some medical marijuana. His symptoms have worsened despite outpatient therapy and medication management and acute inpatient hospitalization is necessary for stabilization and monitoring. (1) Unspecified mood [affective] disorder: (2) Benzodiazepine abuse: (3) Hyponatremia: The patient was admitted to the [facility] ([facility]) on q15 min checks (behavioral with suicide precautions) for safety. The patient will participate in group, recreational, and milieu therapies and will be offered additional individual and family sessions as clinically appropriate. Hyponatremia is in deed chronic and current sodium is same as serial draws over an extended course. Will monitor water intake and consider psychiatric medications that are less likely to affect sodium. Risks/benefits/alternatives reviewed re: his current medications. Discussion included but was not limited to risk of dependence/withdrawal with Ativan and need for metabolic and TD monitoring with Seroquel as well as Prozac and Seroquel impact on sodium. Ativan 1 mg BID and will discuss contract with his outpatient prescriber to determine additional taper here. I cannot exclude some degree of serotonin syndrome given polypharmacy and him taking extra Seroquel, no evidence of NMS, suspect he is underreporting his benzo and/or ETOH use given physical complaints. He is on neurontin which should help prevent withdrawal. I will not officially place on [facility] protocol was would just be agitating for patient as views as accusatory. Decrease Buspar and d/c to limit polypharmacy. He views as ineffective. Will hold Trintellix to limit polypharmacy and is also non formulary and he doesn't want it brought. He reports not wanting to retry it anyway and then discounts benefit from any of his meds except Seroquel and Ativan. Consider hold/decrease Prozac if exhibits additional manic symptoms (irritable, spending). 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 Chief Complaint "I admit I was taking extra medication and then I became very overwhelmed when I ran out". History of Present Illness Mikaela was last on our unit in 2017 for similar symptoms. He has been following with [facility] and was directed to the ED. He has been having a harder time functioning and sleeping at home and admitted to taking extra (double) Seroquel and Ativan for several nights in a row. He is unable to replace the medication until 07/20/20 and didn't know what to do. He is irritable and annoyed with questions, complains of tremor/chills, had some sweats and increase in anxiety overnight for which he took Vistaril prn. Staff felt it appeared helpful, he did not. He was mainly upset about providers who are "holier than thou" attitude toward him being prescribed Ativan given his history of ETOH abuse/dependence. He denied use for 5 years but records from [facility] imply that a relapse or some drinking may have contributed to his hospitalization this summer (reports being at the [facility] in January). He is not in agreement with his diagnosis of schizoaffective disorder bipolar type. "I don't see things", when discussed past psychotic symptoms documented on chart he agreed likely ETOH withdrawal. He reports sleep and appetite not as good as feels anxious "crawling out of my skin" and is c/o N at this time having received Zofran in the ED. Outpatient notes refer to paranoia. He denies a specific thought re: this. Other stressors include spending "4 figures" on guitars and computer items and then not being able to figure out the "latest technology". He and his sister are relating OK to each other. 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 He is not able to focus on the workbooks and is just logging the hours this past week. He is unsure how long he has been doubling up on his medication--would be 900 mg daily Seroquel. Should be noted that recently restarted on Trintellix in addition to Prozac and Buspar. His Ativan was tapered to 0.5 mg daily and that's when "this all fall apart" and the dose was confirmed as 0.5 mg. It's likely he has been taking more than 1 mg BID Ativan and appears in withdrawal though mainly symptoms that could be optiate. BP/P fine even prior to am antihypertensive meds. Past Psychiatric History Previous Psych History: deprssion vs bipolar vs schizoaffective disorder, extensive past med trials. Hallucinations were mainly when using ETOH heavily and/or in the context of withdrawal. He has [facility]) Current Psychiatric Diagnosis: MDD Outpatient Services: [facility]: HUEY Crain for meds and Kenneth for therapy. Need to confirm if active with [facility]. Previous Psych Admissions: [facility] dating back to 1984 ([facility] that year as well), 3 admissions here in 2004, most recent [address] [facility], [facility], and [facility]. 2018 ?[facility] following ED visit Do You Have Access To A Gun?: No History of Previous Suicide Attempt: Yes Describe Attempts in the Past: 2005 - OD on 60 Valium Past Medication Trials: mood stabilizers: Risperdal, [place], Depakote, Abilify, Seroquel, Rexulti antidepressants: Prozac, Elavil, trazodone, Trintellix, bupropion, antianxiety: Buspar, Ativan, Valium, Klonopin *list likely no inclusive Allergies Allergy/AdvReac Type Severity Reaction Status Date / Time chocolate flavor Allergy Mild eczema Verified 05/10/21 12:42 No Known Drug Allergies Allergy Unknown Verified 05/10/21 12:42 Home Medications Medication Instructions Recorded Confirmed Type fluoxetine 40 mg capsule 40 mg PO QAM 01/25/21 07/10/21 History quetiapine 400 mg tablet 400 mg PO HS tab 02/20/21 07/10/21 History buspirone 15 mg tablet 15 mg PO BID 03/21/21 07/10/21 History docusate sodium 100 mg capsule 200 mg PO QAM 03/21/21 07/10/21 History (Colace) multivitamin 1 tab PO QAM 03/21/21 07/10/21 History quetiapine 50 mg tablet (Seroquel) 50 mg PO HS 03/21/21 07/10/21 History amlodipine 10 mg tablet 10 mg PO QAM #90 tab 05/07/21 07/10/21 Rx lisinopril 40 mg tablet 40 mg PO QAM #90 tab 05/07/21 07/10/21 Rx budesonide-formoterol HFA 160 2 puff INH BID #10.2 g 06/03/21 07/10/21 Rx mcg-4.5 mcg/actuation aerosol inhaler (Symbicort) clonidine HCl 0.3 mg tablet 0.3 mg PO DAILY 07/11/21 07/11/21 History gabapentin 600 mg tablet 600 mg PO TID 07/11/21 07/11/21 History lorazepam 0.5 mg tablet 0.5 mg PO DAILY PRN 07/11/21 07/11/21 History vortioxetine 5 mg tablet 5 mg PO QPM 07/11/21 07/11/21 History (Trintellix) Family History Family History of: Doesn't Know Alcohol History Hx of Alcohol Use Over the Past 12 Months: No (history "years ago") AUDIT Total Score: 0 Smoking Use Have You Smoked or Used Tobacco Products in the Last 30 Days: No Smoking Status: Former smoker Substance History Hx of Prescription Med Misuse Over the Past 12 Months: Yes (Seroquel/Ativan overuse double RX dose) Hx of Over the Counter Med Misuse Over the Past 12 Months: No Hx of Inhalent Misuse Over the Past 12 Months: No Hx of Organic Substance Use Over the Past 12 Months: Yes (THC) Hx of Illegal Substances/Street Drug Use Over Past 12 Months: No Problems as a Result of Past Substance Use: Uncontrolled Anger Personal History Living Arrangements: Apartment (with sister) Born In: [place], [place] Highest Grade Completed: College (BA) Employment Status: Disabled Marital Status: Single Number Of Children: 0 Beliefs That Will Affect Care: None Current Legal Problems: No Hx Traumatic Life Events: No Patient History Medical History Chronic obstructive pulmonary disease mild, inhaler daily Constipation Hyperlipidemia Hypertension Hyponatremia Leukopenia Major depressive disorder, recurrent severe without psychotic features Mood disorder Surgical History History of colonoscopy History of tooth extraction History of wisdom tooth extraction Family History Grandmother (Maternal) Diabetes Father Myocardial infarction Hypertension Mother Alzheimer disease Other No family history of adverse response to anesthesia Denies family history of Ovarian cancer Prostate cancer Breast cancer Colorectal cancer Social History Smoking Status: Former smoker Tobacco Type: Cigarettes Second Hand Exposure: No; Hx Alcohol Use: No Hx Substance Use: Yes (medical marijuana use intermittently) Preferred Language: Sri Lankan Communication Ability: Effective Visual Impairment: No Limitations Hearing Ability: Normal [employer] Estate [employer] Administrator Required: No Beliefs That Will Affect Care: None marital status: Single Current Living Situation: Family Current Living Situation Comment: Lives with sister current occupational status: unemployed Feels Safe at Home: Yes Dental Care, Regularly: Yes Seatbelt Use: always Assistive Devices: Denture - Upper and Glasses Review of Systems Review of Systems: All systems reviewed & are unremarkable except as noted in HPI & below Physical Exam Psychiatric: Orientation: alert and oriented x 3 Apperance: appropriately dressed and appropriately groomed Eye Contact: + fair eye contact Motor Behavior: + tremor Speech: normal rate/rhythm/volume of speech Affect: + irritable affect Mood: + irritable mood Thought Process: + concrete thought process Thought Content: reality based without delusions Suicidal Thoughts: denies suicidal thoughts Homicidal Thoughts: denies homicidal thoughts Hallucinations: no auditory hallucinations and no visual hallucinations Cognition: language grossly intact; + attention not intact Estimated Intelligence: consistent with education level Insight: + limited insight Judgement: + limited judgement Vital Signs (Past 24 Hours): Last Vital Signs Temp 36.9 C 07/11/21 06:41 Pulse 71 07/11/21 06:42 Resp 18 07/11/21 06:41 BP 128/83 07/11/21 06:42 Pulse Ox 98 07/10/21 21:14 Exam Statement: A physical exam was performed in the ED by Dr. Stewart for the purposes of medical clearance. I accept that physical as correct and adequate for the purposes of the inpatient physical exam. Results & Data ([facility]) Laboratory Results Laboratory Results - last 24 hr 07/10/21 07/10/21 07/10/21 17:04 17:15 17:15 WBC 10.76 RBC 4.50 L Hgb 13.2 L Hct 37.4 L MCV 83.1 MCH 29.3 MCHC 35.3 RDW Std Deviation 40.8 RDW Coeff of Nadia 13.4 Plt Count 379 MPV 8.6 Immature Gran % (Auto) 0.3 Neut % (Auto) 81.8 Lymph % (Auto) 10.9 [place] % (Auto) 6.6 Eos % (Auto) 0.2 Baso % (Auto) 0.2 Neut # (Auto) 8.81 H Lymph # (Auto) 1.17 L [place] # (Auto) 0.71 H Eos # (Auto) 0.02 Baso # (Auto) 0.02 Immature Gran # (Auto) 0.03 H Sodium 127 L Potassium 4.0 Chloride 96 L Carbon Dioxide 21 Anion Gap 10.0 BUN 10 Creatinine 1.04 Est Cr Clr Drug Dosing 70.6 Est GFR ( Amer) 90.0 Est GFR (Non-Af Amer) 77.7 BUN/Creatinine Ratio 9.8 L Glucose 106 H Calcium 9.7 Total Bilirubin 0.6 AST 27 ALT 36 Alkaline Phosphatase 77 Total Protein 7.7 Albumin 4.2 Globulin 3.5 Albumin/Globulin Ratio 1.2 TSH 2.670 Urine Color Urine Appearance Urine pH Ur Specific Clare Urine Protein Urine Glucose (UA) Urine Ketones Urine Blood Urine Nitrite Urine Bilirubin Urine Urobilinogen Ur Leukocyte Esterase Salicylates Urine Opiates Screen Ur Methadone, Qual Acetaminophen Urine Barbiturates Ur Phencyclidine (PCP) U Amphetamin/Meth Scrn MDMA (Ecstasy) Screen U Benzodiazepines Scrn Ur Cocaine Metabolite U Marijuana (THC) Screen U Marijuana THC Carboxy Drug Screen Comment Ethyl Alcohol mg/dL SARS-CoV-2, RNA, NAAT NEGATIVE 07/10/21 07/10/21 07/10/21 17:15 17:15 18:27 WBC RBC Hgb Hct MCV MCH MCHC RDW Std Deviation RDW Coeff of Nadia Plt Count MPV Immature Gran % (Auto) Neut % (Auto) Lymph % (Auto) [place] % (Auto) Eos % (Auto) Baso % (Auto) Neut # (Auto) Lymph # (Auto) [place] # (Auto) Eos # (Auto) Baso # (Auto) Immature Gran # (Auto) Sodium Potassium Chloride Carbon Dioxide Anion Gap BUN Creatinine Est Cr Clr Drug Dosing Est GFR ( Amer) Est GFR (Non-Af Amer) BUN/Creatinine Ratio Glucose Calcium Total Bilirubin AST ALT Alkaline Phosphatase Total Protein Albumin Globulin Albumin/Globulin Ratio TSH Urine Color Yellow Urine Appearance Clear Urine pH 6.5 Ur Specific [place] 1.015 Urine Protein Negative Urine Glucose (UA) Negative Urine Ketones 1+ H Urine Blood Negative Urine Nitrite Negative Urine Bilirubin Negative Urine Urobilinogen Negative Ur Leukocyte Esterase Negative Salicylates < 1.7 L Urine Opiates Screen Ur Methadone, Qual Acetaminophen < 2 L Urine Barbiturates Ur Phencyclidine (PCP) U Amphetamin/Meth Scrn MDMA (Ecstasy) Screen U Benzodiazepines Scrn Ur Cocaine Metabolite U Marijuana (THC) Screen U Marijuana THC Carboxy Drug Screen Comment Ethyl Alcohol mg/dL < 3.0 SARS-CoV-2, RNA, NAAT 07/10/21 07/10/21 18:27 18:27 WBC RBC Hgb Hct MCV MCH MCHC RDW Std Deviation RDW Coeff of Nadia Plt Count MPV Immature Gran % (Auto) Neut % (Auto) Lymph % (Auto) [place] % (Auto) Eos % (Auto) Baso % (Auto) Neut # (Auto) Lymph # (Auto) [place] # (Auto) Eos # (Auto) Baso # (Auto) Immature Gran # (Auto) Sodium Potassium Chloride Carbon Dioxide Anion Gap BUN Creatinine Est Cr Clr Drug Dosing Est GFR ( Amer) Est GFR (Non-Af Amer) BUN/Creatinine Ratio Glucose Calcium Total Bilirubin AST ALT Alkaline Phosphatase Total Protein Albumin Globulin Albumin/Globulin Ratio TSH Urine Color Urine Appearance Urine pH Ur Specific [place] Urine Protein Urine Glucose (UA) Urine Ketones Urine Blood Urine Nitrite Urine Bilirubin Urine Urobilinogen Ur Leukocyte Esterase Salicylates Urine Opiates Screen Neg Ur Methadone, Qual Neg Acetaminophen Urine Barbiturates Neg Ur Phencyclidine (PCP) Neg U Amphetamin/Meth Scrn Neg MDMA (Ecstasy) Screen Neg U Benzodiazepines Scrn Neg Ur Cocaine Metabolite Neg U Marijuana (THC) Screen Pos H U Marijuana THC Carboxy Pending Drug Screen Comment Pending Ethyl Alcohol mg/dL SARS-CoV-2, RNA, NAAT Current Inpatient Medications Current Inpatient Medications: Current Inpatient Medications Acetaminophen (Acetaminophen 325 Mg Tab) 650 mg PO Q4H PRN PRN Reason: Headache or Minor Fever Stop: 08/09/21 20:59 Last Admin: 07/11/21 01:52 Dose: 650 mg Documented by: Al Hydrox/Mg Hydrox/Simethicone (Aluminum/Magnesium Susp 30 Ml Udc) 30 ml PO Q4H PRN PRN Reason: GI Upset Stop: 08/09/21 20:59 Bismuth Subsalicylate (Bismuth Subsalicylate Liqd 236 Ml) 15 ml PO PRN PRN PRN Reason: Loose Stool Stop: 08/09/21 20:59 Hydroxyzine HCl (Hydroxyzine Hcl 25 Mg Tab) 50 mg PO HSZ PRN PRN Reason: Insomnia Stop: 08/09/21 20:59 Last Admin: 07/11/21 08:46 Dose: 50 mg Documented by: Hydroxyzine HCl (Hydroxyzine Hcl 25 Mg Tab) 25 mg PO Q4H PRN PRN Reason: Anxiety Stop: 08/09/21 20:59 Last Admin: 07/11/21 05:36 Dose: 25 mg Documented by: Magnesium Hydroxide (Magnesium Hydroxide Susp 30 Ml Udc) 30 ml PO DAILY PRN PRN Reason: Constipation Stop: 08/09/21 20:59 Sodium Chloride (Sodium Chloride 0.65% Na Soln 45 Ml ([place])) 1 - 2 sprays NA PRN PRN PRN Reason: Nasal Dryness/Congestion Stop: 08/09/21 20:59
[2021-07-11] MEDS ORDERED: NON-FORMULARY MEDICATION (Clonidine Hcl 0.2 mg tablet) PO SCH (09:00)
[2021-07-11] MEDS ORDERED: amLODIPine BESYLATE 5 MG TAB PO SCH (09:00)
[2021-07-11] MEDS ORDERED: GABAPENTIN 400 MG CAP PO SCH (09:00)
[2021-07-11] MEDS ORDERED: lisinopril 40 MG TAB PO SCH (09:00)
[2021-07-11] MEDS ORDERED: FLUoxetine HCL 20 MG CAP PO SCH (09:00)
[2021-07-11] MEDS: ALUMINUM/MAGNESIUM SUSP 30 ML UDC PO PRN (11:50)
[2021-07-11] MEDS: ONDANSETRON 4 MG OD TAB PO PRN ×2 (12:57→17:16)
[2021-07-11] MEDS: LORazepam 1 MG TAB PO SCH ×2 (12:57→21:09)
[2021-07-11] MEDS: FLUTICASONE/VILANTEROL 100/25MCG 14 PUFFS/INHALER INH SCH (12:59)
[2021-07-11] MEDS: FLUoxetine HCL 20 MG CAP PO SCH (13:00)
[2021-07-11] MEDS: GABAPENTIN 600 MG TAB PO SCH ×2 (13:01→21:09)
[2021-07-11] MEDS: amLODIPine BESYLATE 5 MG TAB PO SCH (13:01)
[2021-07-11] MEDS: MULTIVITAMIN TAB PO SCH (13:02)
[2021-07-11] MEDS: NICOTINE 14 MG/24 HR PATCH TD SCH (13:02)
[2021-07-11] MEDS: DOCUSATE SODIUM 100 MG CAP PO SCH (13:02)
[2021-07-11] MEDS: lisinopril 40 MG TAB PO SCH (13:03)
[2021-07-11] MEDS: MAGNESIUM HYDROXIDE SUSP 30 ML UDC PO PRN (20:44)
[2021-07-11] MEDS ORDERED: QUEtiapine FUMARATE 200 MG TAB PO SCH (21:00)
[2021-07-11] MEDS: busPIRone 5 MG TAB PO SCH (21:09)
[2021-07-11] MEDS: QUEtiapine FUMARATE 25 MG TABLET PO SCH (21:10)
[2021-07-11] MEDS: QUEtiapine FUMARATE 200 MG TAB PO SCH (21:10)
[2021-07-11] MEDS ORDERED: QUEtiapine FUMARATE 25 MG TABLET PO SCH (22:00)
[2021-07-12] MEDS: hydrOXYzine HCl 25 MG TAB PO PRN (04:34)
[2021-07-12] MEDS: amLODIPine BESYLATE 5 MG TAB PO SCH (07:50)
[2021-07-12] MEDS: DOCUSATE SODIUM 100 MG CAP PO SCH ×2 (07:51→20:26)
[2021-07-12] MEDS: FLUoxetine HCL 20 MG CAP PO SCH (07:51)
[2021-07-12] MEDS: busPIRone 5 MG TAB PO SCH (07:51)
[2021-07-12] MEDS: FLUTICASONE/VILANTEROL 100/25MCG 14 PUFFS/INHALER INH SCH (07:51)
[2021-07-12] MEDS: cloNIDine HCL 0.3 MG TAB PO SCH (07:51)
[2021-07-12] MEDS: LORazepam 1 MG TAB PO SCH ×2 (07:52→20:28)
[2021-07-12] MEDS: lisinopril 40 MG TAB PO SCH (07:52)
[2021-07-12] MEDS: MULTIVITAMIN TAB PO SCH (07:52)
[2021-07-12] MEDS: NICOTINE 14 MG/24 HR PATCH TD SCH (07:52)
[2021-07-12] MEDS: GABAPENTIN 600 MG TAB PO SCH ×3 (07:52→20:26)
--- NOTE | 2021-07-12 10:04 | Psychiatric Progress Note ---
Date of Service July 12, 2021 Impression / Recommendations Impression 60 yo male with extensive hx of psychiatric inpatient stays for depression and at times psychotic features, he has a history of an OD on Valium and is currently misusing his prescription medication in addition to some medical marijuana. His symptoms have worsened despite outpatient therapy and medication management and acute inpatient hospitalization is necessary for stabilization and monitoring. 07/12/21: multiple somatic complaints/anxiety combo of withdrawal and possibly mild serotonin syndrome, both from overuse of medication/polypharm. (1) Unspecified mood [affective] disorder: (2) Benzodiazepine abuse: (3) Hyponatremia: 07/12/21: d/c Buspar as ineffective and requiring benzos, clarify outpatient plan for Ativan, he prefers use of Benadryl rather than Vistaril. Offered split dosing of Seroquel vs trial of thorazine (which he asked appropriate questions about given past hospitalization at the [facility]). Will try 25 mg thorazine BID with additional prn with hopes to taper Neurontin and possibly Ativan and Seroquel when further through withdrawal. BP and P have been good. Risks/benefits/alternatives were reviewed re: antipsychotics for mood and/or psychosis. Discussion included but was not limited to metabolic side effects, risks of TD and suicidal thoughts. There were no abnormal motor movements at baseline other than resolving tremor. Fasting glucose and lipid panel ordered for baseline monitoring. Reviewed that thorazine may impact his chronic hyponatremia and will need monitored. will add repeat lytes to the am labs. 07/11/21:The patient was admitted to the [facility] ([facility]) on q15 min checks (behavioral with suicide precautions) for safety. The patient will participate in group, recreational, and milieu therapies and will be offered additional individual and family sessions as clinically appropriate. Hyponatremia is in deed chronic and current sodium is same as serial draws over an extended course. Will monitor water intake and consider psychiatric medications that are less likely to affect sodium. Risks/benefits/alternatives reviewed re: his current medications. Discussion included but was not limited to risk of dependence/withdrawal with Ativan and need for metabolic and TD monitoring with Seroquel as well as Prozac and Seroquel impact on sodium. Ativan 1 mg BID and will discuss contract with his outpatient prescriber to determine additional taper here. I cannot exclude some degree of serotonin syndrome given polypharmacy and him taking extra Seroquel, no evidence of NMS, suspect he is underreporting his benzo and/or ETOH use given physical complaints. He is on neurontin which should help prevent withdrawal. I will not officially place on [facility] protocol was would just be agitating for patient as views as accusatory. Decrease Buspar and d/c to limit polypharmacy. He views as ineffective. Will hold Trintellix to limit polypharmacy and is also non formulary and he doesn't want it brought. He reports not wanting to retry it anyway and then discounts benefit from any of his meds except Seroquel and Ativan. Consider hold/decrease Prozac if exhibits additional manic symptoms (irritable, spending). 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 Chief Complaint "I can't function outside of here, I might as well ". Review of Systems Sleep Information Total Hours of Sleep: 7 Sleep Comments: Patient maintained on 15 minute checks. Meal Information Percent Meal Consumed - Breakfast: 60 Percent Meal Consumed - Lunch: 90 Percent Meal Consumed - Dinner: 75 Nutrition Comment: C/O nausea Subjective Subjective Patient was seen & assessed and interval progress reviewed with treatment team. Remains restless at night, his report vs staff report of sleep are very different. seeks prns for ongoing nausea and withdrawal. Does agree that sleep has improved a bit and not as tremulous today. Focussed on his daytime anxiety and requested TID dose of Ativan, offered to shift pm dose and he declined. Reviewed that I would be speaking with his prescriber to see if willing to continue and/or will be on a contract at discharge in case additional changes are necessary here. Again reviewed that I was concerned that some of his perceived anxiety was polypharmacy. He states he previously took up to 1000 mg of Seroquel. Physical Exam Psychiatric Orientation: alert and oriented x 3 Apperance: appropriately dressed and appropriately groomed Eye Contact: + fair eye contact Motor Behavior: steady gait and station Speech: normal rate/rhythm/volume of speech Affect: + irritable affect Mood: + anxious mood Thought Process: + concrete thought process Thought Content: reality based without delusions Suicidal Thoughts: denies suicidal thoughts Homicidal Thoughts: denies homicidal thoughts Hallucinations: no auditory hallucinations and no visual hallucinations Cognition: attention grossly intact and language grossly intact Estimated Intelligence: consistent with education level Insight: + limited insight Judgement: + limited judgement Vital Signs (Past 24 Hours) Last Vital Signs Temp 36.9 C 07/12/21 07:07 Pulse 95 H 07/12/21 07:07 Resp 20 07/12/21 07:07 BP 113/79 07/12/21 07:07 Pulse Ox 98 07/10/21 21:14 Results & Data ([facility]) Current Inpatient Medications Current Inpatient Medications: Current Inpatient Medications Acetaminophen (Acetaminophen 325 Mg Tab) 650 mg PO Q4H PRN PRN Reason: Headache or Minor Fever Stop: 08/09/21 20:59 Last Admin: 07/11/21 01:52 Dose: 650 mg Documented by: Al Hydrox/Mg Hydrox/Simethicone (Aluminum/Magnesium Susp 30 Ml Udc) 30 ml PO Q4H PRN PRN Reason: GI Upset Stop: 08/09/21 20:59 Last Admin: 07/11/21 11:50 Dose: 30 ml Documented by: Amlodipine Besylate (Amlodipine Besylate 5 Mg Tab) 10 mg PO QAM [facility] Stop: 08/10/21 12:29 Last Admin: 07/12/21 07:50 Dose: 10 mg Documented by: Bismuth Subsalicylate (Bismuth Subsalicylate Liqd 236 Ml) 15 ml PO PRN PRN PRN Reason: Loose Stool Stop: 08/09/21 20:59 Chlorpromazine HCl (Chlorpromazine Hcl 25 Mg Tab) 25 mg PO BIDM MIKE Stop: 08/11/21 09:19 Chlorpromazine HCl (Chlorpromazine Hcl 25 Mg Tab) 25 mg PO Q6 PRN PRN Reason: Anxiety/Agitation Stop: 08/11/21 09:13 Clonidine HCl (Clonidine Hcl 0.3 Mg Tab) 0.3 mg PO DAILY [facility] Stop: 08/11/21 08:59 Last Admin: 07/12/21 07:51 Dose: 0.3 mg Documented by: Diphenhydramine HCl (Diphenhydramine Capsule 25 Mg Cap) 50 mg PO HS PRN PRN Reason: Insomnia Stop: 08/11/21 21:59 Diphenhydramine HCl (Diphenhydramine Capsule 25 Mg Cap) 25 mg PO Q6 PRN PRN Reason: Anxiety Stop: 08/11/21 09:13 Docusate Sodium (Docusate Sodium 100 Mg Cap) 200 mg PO QAM [facility] Stop: 08/10/21 12:14 Last Admin: 07/12/21 07:51 Dose: 200 mg Documented by: Docusate Sodium (Docusate Sodium 100 Mg Cap) 100 mg PO QPM [facility] Stop: 08/11/21 20:59 Fluoxetine HCl (Fluoxetine Hcl 20 Mg Cap) 40 mg PO QAM [facility] Stop: 08/10/21 12:29 Last Admin: 07/12/21 07:51 Dose: 40 mg Documented by: Fluticasone/Vilanterol (Fluticasone/Vilanterol 100/25mcg 14 Puffs/Inhaler) 1 puffs INH DAILY [facility]; Protocol Stop: 08/10/21 12:29 Last Admin: 07/12/21 07:51 Dose: 1 puffs Documented by: Gabapentin (Gabapentin 600 Mg Tab) 600 mg PO TID [facility] Stop: 08/10/21 13:59 Last Admin: 07/12/21 07:52 Dose: 600 mg Documented by: Lisinopril (Lisinopril 40 Mg Tab) 40 mg PO QAM [facility] Stop: 08/10/21 12:29 Last Admin: 07/12/21 07:52 Dose: 40 mg Documented by: Lorazepam (Lorazepam 1 Mg Tab) 1 mg PO BID [facility] Stop: 08/10/21 12:14 Last Admin: 07/12/21 07:52 Dose: 1 mg Documented by: Magnesium Hydroxide (Magnesium Hydroxide Susp 30 Ml Udc) 30 ml PO DAILY PRN PRN Reason: Constipation Stop: 08/09/21 20:59 Last Admin: 07/11/21 20:44 Dose: 30 ml Documented by: Miscellaneous (Remove Nicoderm Patch) 1 ea N/A DAILY@0859 [facility] Stop: 08/11/21 08:58 Last Admin: 07/12/21 07:59 Dose: 1 ea Documented by: Multivitamins (Multivitamin Tab) 1 tab PO QAM [facility] Stop: 08/10/21 12:14 Last Admin: 07/12/21 07:52 Dose: 1 tab Documented by: Nicotine (Nicotine 14 Mg/24 Hr Patch) 14 mg TD QAM [facility] Stop: 08/10/21 12:14 Last Admin: 07/12/21 07:52 Dose: 14 mg Documented by: Ondansetron HCl (Ondansetron 4 Mg Od Tab) 4 mg PO Q6H PRN PRN Reason: Nausea Stop: 08/10/21 11:54 Last Admin: 07/11/21 17:16 Dose: 4 mg Documented by: Quetiapine Fumarate (Quetiapine Fumarate 200 Mg Tab) 400 mg PO [facility] Stop: 08/10/21 21:59 Last Admin: 07/11/21 21:10 Dose: 400 mg Documented by: Quetiapine Fumarate (Quetiapine Fumarate 25 Mg Tablet) 50 mg PO [facility] Stop: 08/10/21 21:59 Last Admin: 07/11/21 21:10 Dose: 50 mg Documented by: Sodium Chloride (Sodium Chloride 0.65% Na Soln 45 Ml ([place])) 1 - 2 sprays NA PRN PRN PRN Reason: Nasal Dryness/Congestion Stop: 08/09/21 20:59 Mental Health & Subst Abuse Tx Psychiatrist Name of Psychiatrist: Khadar Kumar PA-C Psychiatrist's Date of Appointment with Psychiatrist: 07/30/21 Time of Appointment with Psychiatrist: 1:40 p.m. Psychiatric Appointment Comment: [address] [place] [address] Therapist Name of Therapist: Khadar Parra Therapist's Date of Therapist Appointment: 07/16/21 Time of Therapist Appointment: 11:00 a.m. Therapy Appointment Comment: [address] [place] [address] Car Manager Name of Car Manager: None Post Discharge Appointments Primary Care Physician Name Of Family Doctor: BLAS De Jesus Pro Date of Appointment with PCP: 08/22/21 Time of Appointment with PCP: 10:20 a.m. Provider Appointment Comment: [address] [facility] Contact Information Discharge Discharge Address: [address] [place] [address], [place] [address]
[2021-07-12] MEDS: chlorproMAZINE HCL 25 MG TAB PO SCH ×2 (10:12→18:10)
[2021-07-12] MEDS: chlorproMAZINE HCL 25 MG TAB PO PRN (14:11)
[2021-07-12] MEDS: ONDANSETRON 4 MG OD TAB PO PRN (16:04)
[2021-07-12] MEDS: QUEtiapine FUMARATE 25 MG TABLET PO SCH (21:21)
[2021-07-12] MEDS: QUEtiapine FUMARATE 200 MG TAB PO SCH (21:21)
[2021-07-13] MEDS: chlorproMAZINE HCL 25 MG TAB PO PRN ×3 (02:49→22:12)
[2021-07-13] MEDS: diphenhydrAMINE Capsule 25 MG CAP PO PRN ×2 (02:50→22:12)
[2021-07-13] MEDS: amLODIPine BESYLATE 5 MG TAB PO SCH (07:53)
[2021-07-13] MEDS: cloNIDine HCL 0.3 MG TAB PO SCH (07:55)
[2021-07-13] MEDS: DOCUSATE SODIUM 100 MG CAP PO SCH ×2 (07:55→22:06)
[2021-07-13] MEDS: FLUoxetine HCL 20 MG CAP PO SCH (07:56)
[2021-07-13] MEDS: FLUTICASONE/VILANTEROL 100/25MCG 14 PUFFS/INHALER INH SCH (07:56)
[2021-07-13] MEDS: GABAPENTIN 600 MG TAB PO SCH ×3 (07:57→22:07)
[2021-07-13] MEDS: MULTIVITAMIN TAB PO SCH (07:57)
[2021-07-13] MEDS: lisinopril 40 MG TAB PO SCH (07:57)
[2021-07-13] MEDS: LORazepam 1 MG TAB PO SCH ×2 (08:05→22:07)
[2021-07-13] MEDS: NICOTINE 14 MG/24 HR PATCH TD SCH (08:22)
[2021-07-13] MEDS: chlorproMAZINE HCL 25 MG TAB PO SCH ×2 (08:23→15:29)
[2021-07-13 08:53] LABS: Potassium 4.3 mmol/L (3.5-5.1)
[2021-07-13 10:51] LABS: Marijuana Quant, GCMS Urine 630 ng/mL (<5)
--- NOTE | 2021-07-13 12:20 | Psychiatric Progress Note ---
Date of Service July 13, 2021 Impression / Recommendations Impression 60 yo male with extensive hx of psychiatric inpatient stays for depression and at times psychotic features, he has a history of an OD on Valium and is currently misusing his prescription medication in addition to some medical marijuana. His symptoms have worsened despite outpatient therapy and medication management and acute inpatient hospitalization is necessary for stabilization and monitoring. Some withdrawal symptoms concerning for possible opoioid use though UDS was negative. 07/13/21: continues to feel anxious and eager for higher doses of medication to help as he struggles to employ non-pharmacologic coping skills. Reviewed concerns of polypharmacy contributing to current symptoms as well as importance of sleep hygiene. Will get EKG to assess QTc given multiple psychiatric medications and plan to continue with goal of reducing polypharmacy and tapering ativan as tolerated. Reviewed fasting labs which are stable and wnl. Sodium slightly improved even with addition of thorazine which is reassuring. (1) Unspecified mood [affective] disorder: (2) Benzodiazepine abuse: (3) Hyponatremia: 07/13/21: EKG to assess QTc tomorrow morning after another day of thorazine, seroquel and benadryl use. Continue with seroquel, thorazine, prozac, gabapentin, clonidine, benadryl and ativan. Continuing to work on clarifying outpatient plan for ativan so that taper can begin in the inpatient setting. 07/12/21: d/c Buspar as ineffective and requiring benzos, clarify outpatient plan for Ativan, he prefers use of Benadryl rather than Vistaril. Offered split dosin g of Seroquel vs trial of thorazine (which he asked appropriate questions about given past hospitalization at the [facility]). Will try 25 mg thorazine BID with additional prn with hopes to taper Neurontin and possibly Ativan and Seroquel when further through withdrawal. BP and P have been good. Risks/benefits/alternatives were reviewed re: antipsychotics for mood and/or psychosis. Discussion included but was not limited to metabolic side effects, risks of TD and suicidal thoughts. There were no abnormal motor movements at baseline other than resolving tremor. Fasting glucose and lipid panel ordered for baseline monitoring. Reviewed that thorazine may impact his chronic hyponatremia and will need monitored. will add repeat lytes to the am labs. 07/11/21:The patient was admitted to the [facility] ([facility]) on q15 min checks (behavioral with suicide precautions) for safety. The patient will participate in group, recreational, and milieu therapies and will be offered additional individual and family sessions as clinically appropriate. Hyponatremia is in deed chronic and current sodium is same as serial draws over an extended course. Will monitor water intake and consider psychiatric medications that are less likely to affect sodium. Risks/benefits/alternatives reviewed re: his current medications. Discussion included but was not limited to risk of dependence/withdrawal with Ativan and need for metabolic and TD monitoring with Seroquel as well as Prozac and Seroquel impact on sodium. Ativan 1 mg BID and will discuss contract with his outpatient prescriber to determine additional taper here. I cannot exclude some degree of serotonin syndrome given polypharmacy and him taking extra Seroquel, no evidence of NMS, suspect he is underreporting his sergio zo and/or ETOH use given physical complaints. He is on neurontin which should help prevent withdrawal. I will not officially place on [facility] protocol was would just be agitating for patient as views as accusatory. Decrease Buspar and d/c to limit polypharmacy. He views as ineffective. Will hold Trintellix to limit polypharmacy and is also non formulary and he doesn't want it brought. He reports not wanting to retry it anyway and then discounts benefit from any of his meds except Seroquel and Ativan. Consider hold/decrease Prozac if exhibits additional manic symptoms (irritable, spending). 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 Chief Complaint "I'd like to increase the seroquel and thorazine". Review of Systems Sleep Information Total Hours of Sleep: 6.25 Sleep Comments: Patient maintained on 15 minute checks. Meal Information Percent Meal Consumed - Breakfast: 100 Percent Meal Consumed - Lunch: 100 Percent Meal Consumed - Dinner: 100 Nutrition Comment: C/O nausea Subjective Subjective Patient was seen & assessed and interval progress reviewed with treatment team nursing and social work. Doug notes he experienced "rough sleep" last night and woke up a lot. He feels he continues to have intrusive thoughts and that he is "morbidly depressed". Discussed that his mood is "1/2 and 1/2" that he feels a bit better when reading or resting but when he doesn't have something to keep him occupied he feels depressed. He is interested in increasing the seroquel and thorazine. Discussed my concerns about side effects and reviewed his labwork results with him. He is agreeable to keeping medications as they are for now with plan to likely taper ativan and hopefully seroquel and gabapentin in coming days. Physical Exam Psychiatric Orientation: alert and oriented x 3 Apperance: appropriately dressed and appropriately groomed Eye Contact: + fair eye contact Motor Behavior: steady gait and station; n tremor Speech: normal rate/rhythm/volume of speech Affect: + anxious affect Mood: + depressed mood, + anxious mood and + irritable mood Thought Process: + concrete thought process Thought Content: reality based without delusions Suicidal Thoughts: denies suicidal thoughts Homicidal Thoughts: denies homicidal thoughts Hallucinations: no auditory hallucinations and no visual hallucinations Cognition: attention grossly intact and language grossly intact Estimated Intelligence: consistent with education level Insight: + limited insight Judgement: + limited judgement Vital Signs (Past 24 Hours) Last Vital Signs Temp 36.9 C 07/13/21 06:00 Pulse 93 H 07/13/21 06:40 Resp 16 07/13/21 06:00 BP 130/88 07/13/21 06:40 Pulse Ox 98 07/10/21 21:14 Results & Data ([facility]) Laboratory Results Laboratory Results - last 24 hr 07/10/21 07/13/21 18:27 08:09 Sodium 132 L Potassium 4.3 Chloride 101 Carbon Dioxide 25 Anion Gap 6.0 Fasting Glucose 107 H Triglycerides 79 Cholesterol 195 LDL Cholesterol, Calc 118 VLDL Cholesterol, Calc 16 HDL Cholesterol 61 Cholesterol/HDL Ratio 3 U Marijuana THC Carboxy 630 H Drug Screen Comment SEE NOTE Current Inpatient Medications Current Inpatient Medications: Current Inpatient Medications Acetaminophen (Acetaminophen 325 Mg Tab) 650 mg PO Q4H PRN PRN Reason: Headache or Minor Fever Stop: 08/09/21 20:59 Last Admin: 07/11/21 01:52 Dose: 650 mg Documented by: Al Hydrox/Mg Hydrox/Simethicone (Aluminum/Magnesium Susp 30 Ml Udc) 30 ml PO Q4H PRN PRN Reason: GI Upset Stop: 08/09/21 20:59 Last Admin: 07/11/21 11:50 Dose: 30 ml Documented by: Amlodipine Besylate (Amlodipine Besylate 5 Mg Tab) 10 mg PO QAM [facility] Stop: 08/10/21 12:29 Last Admin: 07/13/21 07:53 Dose: 10 mg Documented by: Bismuth Subsalicylate (Bismuth Subsalicylate Liqd 236 Ml) 15 ml PO PRN PRN PRN Reason: Loose Stool Stop: 08/09/21 20:59 Chlorpromazine HCl (Chlorpromazine Hcl 25 Mg Tab) 25 mg PO BIDM MIKE Stop: 08/11/21 09:19 Last Admin: 07/13/21 08:23 Dose: 25 mg Documented by: Chlorpromazine HCl (Chlorpromazine Hcl 25 Mg Tab) 25 mg PO Q6 PRN PRN Reason: Anxiety/Agitation Stop: 08/11/21 09:13 Last Admin: 07/13/21 12:07 Dose: 25 mg Documented by: Clonidine HCl (Clonidine Hcl 0.3 Mg Tab) 0.3 mg PO DAILY [facility] Stop: 08/11/21 08:59 Last Admin: 07/13/21 07:55 Dose: 0.3 mg Documented by: Diphenhydramine HCl (Diphenhydramine Capsule 25 Mg Cap) 50 mg PO HS PRN PRN Reason: Insomnia Stop: 08/11/21 21:59 Last Admin: 07/13/21 02:50 Dose: 50 mg Documented by: Diphenhydramine HCl (Diphenhydramine Capsule 25 Mg Cap) 25 mg PO Q6 PRN PRN Reason: Anxiety Stop: 08/11/21 09:13 Docusate Sodium (Docusate Sodium 100 Mg Cap) 200 mg PO QAM [facility] Stop: 08/10/21 12:14 Last Admin: 07/13/21 07:55 Dose: 200 mg Documented by: Docusate Sodium (Docusate Sodium 100 Mg Cap) 100 mg PO QPM [facility] Stop: 08/11/21 20:59 Last Admin: 07/12/21 20:26 Dose: 100 mg Documented by: Fluoxetine HCl (Fluoxetine Hcl 20 Mg Cap) 40 mg PO QAM [facility] Stop: 08/10/21 12:29 Last Admin: 07/13/21 07:56 Dose: 40 mg Documented by: Fluticasone/Vilanterol (Fluticasone/Vilanterol 100/25mcg 14 Puffs/Inhaler) 1 puffs INH DAILY [facility]; Protocol Stop: 08/10/21 12:29 Last Admin: 07/13/21 07:56 Dose: 1 puffs Documented by: Gabapentin (Gabapentin 600 Mg Tab) 600 mg PO TID [facility] Stop: 08/10/21 13:59 Last Admin: 07/13/21 07:57 Dose: 600 mg Documented by: Lisinopril (Lisinopril 40 Mg Tab) 40 mg PO QAM [facility] Stop: 08/10/21 12:29 Last Admin: 07/13/21 07:57 Dose: 40 mg Documented by: Lorazepam (Lorazepam 1 Mg Tab) 1 mg PO BID [facility] Stop: 08/10/21 12:14 Last Admin: 07/13/21 08:05 Dose: 1 mg Documented by: Magnesium Hydroxide (Magnesium Hydroxide Susp 30 Ml Udc) 30 ml PO DAILY PRN PRN Reason: Constipation Stop: 08/09/21 20:59 Last Admin: 07/11/21 20:44 Dose: 30 ml Documented by: Miscellaneous (Remove Nicoderm Patch) 1 ea N/A DAILY@0859 [facility] Stop: 08/11/21 08:58 Last Admin: 07/13/21 08:26 Dose: 1 ea Documented by: Multivitamins (Multivitamin Tab) 1 tab PO QAM [facility] Stop: 08/10/21 12:14 Last Admin: 07/13/21 07:57 Dose: 1 tab Documented by: Nicotine (Nicotine 14 Mg/24 Hr Patch) [address] Stop: 08/10/21 12:14 Last Admin: 07/13/21 08:22 Dose: 14 mg Documented by: Ondansetron HCl (Ondansetron 4 Mg Od Tab) 4 mg PO Q6H PRN PRN Reason: Nausea Stop: 08/10/21 11:54 Last Admin: 07/12/21 16:04 Dose: 4 mg Documented by: Quetiapine Fumarate (Quetiapine Fumarate 200 Mg Tab) 400 mg PO HS MIKE Stop: 08/10/21 21:59 Last Admin: 07/12/21 21:21 Dose: 400 mg Documented by: Quetiapine Fumarate (Quetiapine Fumarate 25 Mg Tablet) 50 mg PO HS MIKE Stop: 08/10/21 21:59 Last Admin: 07/12/21 21:21 Dose: 50 mg Documented by: Sodium Chloride (Sodium Chloride 0.65% Na Soln 45 Ml ([place])) 1 - 2 sprays NA PRN PRN PRN Reason: Nasal Dryness/Congestion Stop: 08/09/21 20:59 Mental Health & Subst Abuse Tx Psychiatrist Name of Psychiatrist: Khadar Kumar PA-C Psychiatrist's Date of Appointment with Psychiatrist: 07/30/21 Time of Appointment with Psychiatrist: 1:40 p.m. Psychiatric Appointment Comment: [address] [facility] Therapist Name of Therapist: Khadar Parra Therapist's Date of Therapist Appointment: 07/16/21 Time of Therapist Appointment: 11:00 a.m. Therapy Appointment Comment: [address] [facility] [employer] Name of [employer]: [employer] Phone Number for [employer]: [phone] Post Discharge Appointments Primary Care Physician Name Of Family Doctor: BLAS Rothman Primary Care Date of Appointment with PCP: 08/22/21 Time of Appointment with PCP: 10:20 a.m. Provider Appointment Comment: [address] [facility] Contact Information Discharge Discharge Address: [address] [place] [address], [place] [address]
[2021-07-13] MEDS: ONDANSETRON 4 MG OD TAB PO PRN ×2 (13:25→18:25)
[2021-07-13] MEDS: QUEtiapine FUMARATE 25 MG TABLET PO SCH (22:07)
[2021-07-13] MEDS: QUEtiapine FUMARATE 200 MG TAB PO SCH (22:08)
[2021-07-13] MEDS: MAGNESIUM HYDROXIDE SUSP 30 ML UDC PO PRN (22:13)
[2021-07-14] MEDS: diphenhydrAMINE Capsule 25 MG CAP PO PRN (04:01)
[2021-07-14] MEDS: chlorproMAZINE HCL 25 MG TAB PO PRN ×2 (04:01→10:41)
[2021-07-14] MEDS: chlorproMAZINE HCL 25 MG TAB PO SCH ×2 (08:27→17:00)
[2021-07-14] MEDS: FLUoxetine HCL 20 MG CAP PO SCH (08:27)
[2021-07-14] MEDS: amLODIPine BESYLATE 5 MG TAB PO SCH (08:27)
[2021-07-14] MEDS: DOCUSATE SODIUM 100 MG CAP PO SCH ×2 (08:27→21:49)
[2021-07-14] MEDS: cloNIDine HCL 0.3 MG TAB PO SCH (08:27)
[2021-07-14] MEDS: FLUTICASONE/VILANTEROL 100/25MCG 14 PUFFS/INHALER INH SCH (08:28)
[2021-07-14] MEDS: lisinopril 40 MG TAB PO SCH (08:28)
[2021-07-14] MEDS: GABAPENTIN 600 MG TAB PO SCH ×3 (08:28→21:49)
[2021-07-14] MEDS: NICOTINE 14 MG/24 HR PATCH TD SCH (08:29)
[2021-07-14] MEDS: LORazepam 1 MG TAB PO SCH ×2 (08:29→21:50)
[2021-07-14] MEDS: MULTIVITAMIN TAB PO SCH (08:29)
[2021-07-14] MEDS: ONDANSETRON 4 MG OD TAB PO PRN ×2 (09:07→16:10)
[2021-07-14] MEDS: SENNA 8.6 MG TAB PO SCH (12:16)
--- NOTE | 2021-07-14 12:56 | Psychiatric Progress Note ---
Date of Service July 14, 2021 Impression / Recommendations Impression 60 yo male with extensive hx of psychiatric inpatient stays for depression and at times psychotic features, he has a history of an OD on Valium and is currently misusing his prescription medication in addition to some medical marijuana. His symptoms have worsened despite outpatient therapy and medication management and acute inpatient hospitalization is necessary for stabilization and monitoring. Some withdrawal symptoms concerning for possible opoioid use though UDS was negative. 07/14/21: continues to feel anxious and eager for higher doses of medication to help as he struggles to employ non-pharmacologic coping skills. EKG reviewed and showed stable QTc wnl. Reviewed medication options in detail for anxiety. He'd like to try propranolol, reviewed risks including low BP, syncope, mood impact. Plan for benzo taper to discontinuation over many months given long hx of use and high anxiety and dependency once I can reach his outpt provider at [facility]. May consider transition to Klonopin for longer mechanism of action during the day which he is agreeable to if [facility] provider agrees. (1) Unspecified mood [affective] disorder: (2) Benzodiazepine abuse: (3) Hyponatremia: 07/14/21: provided with HIIT workout to try to help with anxiety. Will add propranolol prn to use for anxiety with goal of limiting thorazine prn use. Will reach out to [facility] tomorrow to discuss benzo taper plan. 07/13/21: EKG to assess QTc tomorrow morning after another day of thorazine, seroquel and benadryl use. Continue with seroquel, thorazine, prozac, gabapentin, clonidine, benadryl and ativan. Continuing to work on clarifying outpatient plan for ativan so that taper can begin in the inpatient setting. 07/12/21: d/c Buspar as ineffective and requiring benzos, clarify outpatient plan for Ativan, he prefers use of Benadryl rather than Vistaril. Offered split dosing of Seroquel vs trial of thorazine (which he asked appropriate questions about given past hospitalization at the [facility]). Will try 25 mg thorazine BID with additional prn with hopes to taper Neurontin and possibly Ativan and Seroquel when further through withdrawal. BP and P have been good. Risks/benefits/alternatives were reviewed re: antipsychotics for mood and/or psychosis. Discussion included but was not limited to metabolic side effects, risks of TD and suicidal thoughts. There were no abnormal motor movements at baseline other than resolving tremor. Fasting glucose and lipid panel ordered for baseline monitoring. Reviewed that thorazine may impact his chronic hyponatremia and will need monitored. will add repeat lytes to the am labs. 07/11/21:The patient was admitted to the [facility] ([facility] health unit) on q15 min checks (behavioral with suicide precautions) for safety. The patient will participate in group, recreational, and milieu therapies and will be offered additional individual and family sessions as clinically appropriate. Hyponatremia is in deed chronic and current sodium is same as serial draws over an extended course. Will monitor water intake and consider psychiatric medications that are less likely to affect sodium. Risks/benefits/alternatives reviewed re: his current medications. Discussion included but was not limited to risk of dependence/withdrawal with Ativan and need for metabolic and TD monitoring with Seroquel as well as Prozac and Seroqu el impact on sodium. Ativan 1 mg BID and will discuss contract with his outpatient prescriber to determine additional taper here. I cannot exclude some degree of serotonin syndrome given polypharmacy and him taking extra Seroquel, no evidence of NMS, suspect he is underreporting his benzo and/or ETOH use given physical complaints. He is on neurontin which should help prevent withdrawal. I will not officially place on [facility] protocol was would just be agitating for patient as views as accusatory. Decrease Buspar and d/c to limit polypharmacy. He views as ineffective. Will hold Trintellix to limit polypharmacy and is also non formulary and he doesn't want it brought. He reports not wanting to retry it anyway and then discounts benefit from any of his meds except Seroquel and Ativan. Consider hold/decrease Prozac if exhibits additional manic symptoms (irritable, spending). 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 Chief Complaint "Can we increase the dose of my seroquel and thorazine". Review of Systems Sleep Information Total Hours of Sleep: 5 Sleep Comments: Patient maintained on 15 minute checks. Meal Information Percent Meal Consumed - Breakfast: 75 Percent Meal Consumed - Lunch: 100 Percent Meal Consumed - Dinner: 90 Nutrition Comment: C/O nausea Subjective Subjective Patient was seen & assessed and interval progress reviewed with treatment team nursing and social work. Continues to have difficulty coping without using medications and prns. Struggling to engage in longer discussions about psychological coping skills but attending groups. He feels his night terrors have resolved but continues to feel overwhelmed by periods of high anxiety "morbid anxiety and depression" and he worries that if his medications aren't at the right dosages then he may have a "mental breakdown" after discharge which he describes as "when I don't eat, I don't sleep and I feel really anxious and depressed". Discussed my ongoing concerns about using two antipsychotics and goal of reducing dose of seroquel if he can tolerate this and to only use thorazine prns if absolutely necessary. Discussed other medication options as well as importance of non-pharmacological strategies including exercise which he's willing to try. Discussed plan to gradually taper benzodiazepine once plan can be discussed with his outpatient providers at [facility] tomorrow. Physical Exam Psychiatric Orientation: alert and oriented x 3 Apperance: appropriately dressed and appropriately groomed Eye Contact: + fair eye contact Motor Behavior: steady gait and station; n tremor Speech: normal rate/rhythm/volume of speech Affect: + anxious affect Mood: + depressed mood and + anxious mood Thought Process: + concrete thought process Thought Content: reality based without delusions Suicidal Thoughts: denies suicidal thoughts Homicidal Thoughts: denies homicidal thoughts Hallucinations: no auditory hallucinations and no visual hallucinations Cognition: attention grossly intact and language grossly intact Estimated Intelligence: consistent with education level Insight: + limited insight Judgement: + limited judgement Vital Signs (Past 24 Hours) Last Vital Signs Temp 36.1 C L 07/13/21 20:00 Pulse 92 H 07/14/21 06:33 Resp 16 07/14/21 06:00 BP 118/88 07/14/21 06:33 Pulse Ox 98 07/10/21 21:14 Results & Data ([facility]) Current Inpatient Medications Current Inpatient Medications: Current Inpatient Medications Acetaminophen (Acetaminophen 325 Mg Tab) 650 mg PO Q4H PRN PRN Reason: Headache or Minor Fever Stop: 08/09/21 20:59 Last Admin: 07/11/21 01:52 Dose: 650 mg Documented by: Al Hydrox/Mg Hydrox/Simethicone (Aluminum/Magnesium Susp 30 Ml Udc) 30 ml PO Q4H PRN PRN Reason: GI Upset Stop: 08/09/21 20:59 Last Admin: 07/11/21 11:50 Dose: 30 ml Documented by: Amlodipine Besylate (Amlodipine Besylate 5 Mg Tab) 10 mg PO QAM MIKE Stop: 08/10/21 12:29 Last Admin: 07/14/21 08:27 Dose: 10 mg Documented by: Bismuth Subsalicylate (Bismuth Subsalicylate Liqd 236 Ml) 15 ml PO PRN PRN PRN Reason: Loose Stool Stop: 08/09/21 20:59 Chlorpromazine HCl (Chlorpromazine Hcl 25 Mg Tab) 25 mg PO BIDM [facility] Stop: 08/11/21 09:19 Last Admin: 07/14/21 08:27 Dose: 25 mg Documented by: Chlorpromazine HCl (Chlorpromazine Hcl 25 Mg Tab) 25 mg PO Q6 PRN PRN Reason: Anxiety/Agitation Stop: 08/11/21 09:13 Last Admin: 07/14/21 10:41 Dose: 25 mg Documented by: Clonidine HCl (Clonidine Hcl 0.3 Mg Tab) 0.3 mg PO DAILY MIKE Stop: 08/11/21 08:59 Last Admin: 07/14/21 08:27 Dose: 0.3 mg Documented by: Diphenhydramine HCl (Diphenhydramine Capsule 25 Mg Cap) 50 mg PO HS PRN PRN Reason: Insomnia Stop: 08/11/21 21:59 Last Admin: 07/13/21 22:12 Dose: 50 mg Documented by: Diphenhydramine HCl (Diphenhydramine Capsule 25 Mg Cap) 25 mg PO Q6 PRN PRN Reason: Anxiety Stop: 08/11/21 09:13 Last Admin: 07/14/21 04:01 Dose: 25 mg Documented by: Docusate Sodium (Docusate Sodium 100 Mg Cap) 200 mg PO QAM [facility] Stop: 08/10/21 12:14 Last Admin: 07/14/21 08:27 Dose: 200 mg Documented by: Docusate Sodium (Docusate Sodium 100 Mg Cap) 100 mg PO QPM [facility] Stop: 08/11/21 20:59 Last Admin: 07/13/21 22:06 Dose: 100 mg Documented by: Fluoxetine HCl (Fluoxetine Hcl 20 Mg Cap) 40 mg PO QAM [facility] Stop: 08/10/21 12:29 Last Admin: 07/14/21 08:27 Dose: 40 mg Documented by: Fluticasone/Vilanterol (Fluticasone/Vilanterol 100/25mcg 14 Puffs/Inhaler) 1 puffs INH DAILY [facility]; Protocol Stop: 08/10/21 12:29 Last Admin: 07/14/21 08:28 Dose: 1 puffs Documented by: Gabapentin (Gabapentin 600 Mg Tab) 600 mg PO TID [facility] Stop: 08/10/21 13:59 Last Admin: 07/14/21 08:28 Dose: 600 mg Documented by: Lisinopril (Lisinopril 40 Mg Tab) 40 mg PO QAM [facility] Stop: 08/10/21 12:29 Last Admin: 07/14/21 08:28 Dose: 40 mg Documented by: Lorazepam (Lorazepam 1 Mg Tab) 1 mg PO BID [facility] Stop: 08/10/21 12:14 Last Admin: 07/14/21 08:29 Dose: 1 mg Documented by: Magnesium Hydroxide (Magnesium Hydroxide Susp 30 Ml Udc) 30 ml PO DAILY PRN PRN Reason: Constipation Stop: 08/09/21 20:59 Last Admin: 07/13/21 22:13 Dose: 30 ml Documented by: Miscellaneous (Remove Nicoderm Patch) 1 ea N/A DAILY@[id number] [facility] Stop: 08/11/21 08:58 Last Admin: 07/14/21 08:43 Dose: 1 ea Documented by: Multivitamins (Multivitamin Tab) [facility] Stop: 08/10/21 12:14 Last Admin: 07/14/21 08:29 Dose: 1 tab Documented by: Nicotine (Nicotine 14 Mg/24 Hr Patch) 14 mg TD [facility] Stop: 08/10/21 12:14 Last Admin: 07/14/21 08:29 Dose: 14 mg Documented by: Ondansetron HCl (Ondansetron 4 Mg Od Tab) 4 mg PO Q6H PRN PRN Reason: Nausea Stop: 08/10/21 11:54 Last Admin: 07/14/21 09:07 Dose: 4 mg Documented by: Quetiapine Fumarate (Quetiapine Fumarate 200 Mg Tab) [address] [facility] Stop: 08/10/21 21:59 Last Admin: 07/13/21 22:08 Dose: 400 mg Documented by: Quetiapine Fumarate (Quetiapine Fumarate 25 Mg Tablet) [address] [facility] Stop: 08/10/21 21:59 Last Admin: 07/13/21 22:07 Dose: 50 mg Documented by: Sennosides (Senna 8.6 Mg Tab) 8.6 mg PO [facility] Stop: 08/13/21 11:29 Last Admin: 07/14/21 12:16 Dose: 8.6 mg Documented by: Sodium Chloride (Sodium Chloride 0.65% Na Soln 45 Ml ([place])) 1 - 2 sprays NA PRN PRN PRN Reason: Nasal Dryness/Congestion Stop: 08/09/21 20:59 Mental Health & Subst Abuse Tx Psychiatrist Name of Psychiatrist: Khadar Kumar PA-C Psychiatrist's Date of Appointment with Psychiatrist: 07/30/21 Time of Appointment with Psychiatrist: 1:40 p.m. Psychiatric Appointment Comment: [address] [facility] Therapist Name of Therapist: Khadar Parra Therapist's Date of Therapist Appointment: 07/16/21 Time of Therapist Appointment: 11:00 a.m. Therapy Appointment Comment: [address] [facility] Windows Architect Name of Windows Architect: [employer] Phone Number for Windows Architect: [phone] Post Discharge Appointments Primary Care Physician Name Of Family Doctor: BL[facility] Date of Appointment with PCP: 08/22/21 Time of Appointment with PCP: 10:20 a.m. Provider Appointment Comment: [id number] [facility] Contact Information Discharge Discharge Address: [address] [place] [address], [facility]
[2021-07-14] MEDS: PROPRANOLOL HCL 10 MG TAB PO PRN (14:03)
[2021-07-14] MEDS: ACETAMINOPHEN 325 MG TAB PO PRN (20:30)
[2021-07-14] MEDS: QUEtiapine FUMARATE 25 MG TABLET PO SCH (21:50)
[2021-07-14] MEDS: QUEtiapine FUMARATE 200 MG TAB PO SCH (21:50)
[2021-07-15] MEDS: chlorproMAZINE HCL 25 MG TAB PO PRN ×2 (03:53→14:00)
[2021-07-15] MEDS: MAGNESIUM HYDROXIDE SUSP 30 ML UDC PO PRN (03:55)
--- NOTE | 2021-07-15 06:21 | Electrocardiogram Report ---
Test Reason : Blood Pressure : / mmHG Vent. Rate : 079 BPM Atrial Rate : 079 BPM P-R Int : 132 ms QRS Dur : 082 ms QT Int : 366 ms P-R-T Axes : 067 065 026 degrees QTc Int : 419 ms Normal sinus rhythm Minimal voltage criteria for LVH, may be normal variant Borderline ECG When compared with ECG of 04-FEB-2021 08:40, Questionable change in QRS axis Confirmed by Raul Wilder ([id number]) on 07/15/2021 6:21:16 AM Referred By: REFERRED SELF Confirmed By:Raul Wilder
[2021-07-15] MEDS: chlorproMAZINE HCL 25 MG TAB PO SCH ×2 (08:17→17:04)
[2021-07-15] MEDS: MULTIVITAMIN TAB PO SCH (08:17)
[2021-07-15] MEDS: GABAPENTIN 600 MG TAB PO SCH ×2 (08:17→14:37)
[2021-07-15] MEDS: lisinopril 40 MG TAB PO SCH (08:17)
[2021-07-15] MEDS: FLUoxetine HCL 20 MG CAP PO SCH (08:18)
[2021-07-15] MEDS: amLODIPine BESYLATE 5 MG TAB PO SCH (08:18)
[2021-07-15] MEDS: cloNIDine HCL 0.3 MG TAB PO SCH (08:18)
[2021-07-15] MEDS: SENNA 8.6 MG TAB PO SCH (08:18)
[2021-07-15] MEDS: DOCUSATE SODIUM 100 MG CAP PO SCH (08:18)
[2021-07-15] MEDS: NICOTINE 14 MG/24 HR PATCH TD SCH (08:18)
[2021-07-15] MEDS: FLUTICASONE/VILANTEROL 100/25MCG 14 PUFFS/INHALER INH SCH (08:19)
[2021-07-15] MEDS: LORazepam 1 MG TAB PO SCH ×2 (08:21→21:49)
[2021-07-15] MEDS: PROPRANOLOL HCL 10 MG TAB PO PRN ×2 (11:28→20:19)
[2021-07-15] MEDS ORDERED: DOCUSATE SODIUM/SENNA 50/8.6MG TAB PO SCH (15:45)
[2021-07-15] MEDS ORDERED: DOCUSATE SODIUM/SENNA 50/8.6MG TAB PO ONE (15:45)
[2021-07-15] MEDS ORDERED: POLYETHYLENE (MIRALAX) 17 GM PACK PO PRN (15:47)
--- NOTE | 2021-07-15 15:47 | Psychiatric Progress Note ---
Date of Service July 15, 2021 Impression / Recommendations Impression 60 yo male with extensive hx of psychiatric inpatient stays for depression and at times psychotic features, he has a history of an OD on Valium and is currently misusing his prescription medication in addition to some medical marijuana. His symptoms have worsened despite outpatient therapy and medication management and acute inpatient hospitalization is necessary for stabilization and monitoring. Some withdrawal symptoms concerning for possible opoioid use though UDS was negative. 07/15/21: continues to feel anxious and eager for higher doses of medication to help as he struggles to employ non-pharmacologic coping skills. Discussed with his outpatient provider Kimberley Ledesma via phone. She is in agreement with plan to transition to Klonopin with gradual taper then over the next 6-8 months. Doug consents to switch from ativan to Klonopin, reviewed side effects which are similar to ativan including addictive potential, dependency, falls, cognitive blunting effects. He has never found gabapentin very helpful so decreasing dose to limit polypharmacy. Continues to have constipation so increasing dose of senna/colace and discussed that thorazine and seroquel are likely most significant factors contributing to constipation. (1) Unspecified mood [affective] disorder: (2) Benzodiazepine abuse: (3) Hyponatremia: 07/15/21: Decrease gabapentin from 600mg TID to 400mg TID. Transition from ativan 1mg BID to Klonopin 1 mg qd. Discussed plan for Klonopin taper over the next 6-8 months with his outpatient psychiatric provider Kimberley Ledesma who agrees with this plan with goal of discontinuing all use of benzodiazepines. Senna-s added for constipation. 07/14/21: provided with HIIT workout to try to help with anxiety. Will add propranolol prn to use for anxiety with goal of limiting thorazine prn use. Will reach out to [place] tomorrow to discuss benzo taper plan. 07/13/21: EKG to assess QTc tomorrow morning after another day of thorazine, ser oquel and benadryl use. Continue with seroquel, thorazine, prozac, gabapentin, clonidine, benadryl and ativan. Continuing to work on clarifying outpatient plan for ativan so that taper can begin in the inpatient setting. 07/12/21: d/c Buspar as ineffective and requiring benzos, clarify outpatient plan for Ativan, he prefers use of Benadryl rather than Vistaril. Offered split dosing of Seroquel vs trial of thorazine (which he asked appropriate questions about given past hospitalization at the [facility]). Will try 25 mg thorazine BID with additional prn with hopes to taper Neurontin and possibly Ativan and Seroquel when further through withdrawal. BP and P have been good. Risks/benefits/alternatives were reviewed re: antipsychotics for mood and/or psychosis. Discussion included but was not limited to metabolic side effects, risks of TD and suicidal thoughts. There were no abnormal motor movements at baseline other than resolving tremor. Fasting glucose and lipid panel ordered for baseline monitoring. Reviewed that thorazine may impact his chronic hyponatremia and will need monitored. will add repeat lytes to the am labs. 07/11/21:The patient was admitted to the [facility] ([facility]) on q15 min checks (behavioral with suicide precautions) for safety. The patient will participate in group, recreational, and milieu therapies and will be offered additional individual and family sessions as clinically appropriate. Hyponatremia is in deed chronic and current sodium is same as serial draws over an extended course. Will monitor water intake and consider psychiatric medications that are less likely to affect sodium. Risks/benefits/alternatives reviewed re: his current medications. Discussion included but was not limited to risk of dependence/withdrawal with Ativan and need for metabolic and TD monitoring with Seroquel as well as Prozac and Seroquel impact on sodium. Ativan 1 mg BID and will discuss contract with his outpatient prescriber to determine additional taper here. I cannot exclude some degree of serotonin syndrome given polypharmacy and him taking extra Seroquel, no evidence of NMS, suspect he is underreporting his benzo and/or ETOH use given physical complaints. He is on neurontin which should help prevent withdrawal. I will not officially place on [facility] protocol was would just be agitating for patient as views as accusatory. Decrease Buspar and d/c to limit polypharmacy. He views as ineffective. Will hold Trintellix to limit polypharmacy and is also non formulary and he doesn't want it brought. He reports not wanting to retry it anyway and then discounts benefit from any of his meds except Seroquel and Ativan. Consider hold/decrease Prozac if exhibits additional manic symptoms (irritable, spending). 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 Chief Complaint "It's a hit or miss". Review of Systems Sleep Information Total Hours of Sleep: 6 Sleep Comments: Patient maintained on 15 minute checks. Meal Information Percent Meal Consumed - Breakfast: 100 Percent Meal Consumed - Lunch: 100 Percent Meal Consumed - Dinner: 100 Nutrition Comment: C/O nausea Subjective Subjective Patient was seen & assessed and interval progress reviewed with treatment team nursing and social work. Doug continues to require prn medications to help manage anxiety throughout the day. He has been attending groups and is considering joining the local [facility] and attending tenriism services to increase engagement and exercise. He had intake with case management services today. Reports his mood fluctuates and he continues to have periods of "morbid d epression and anxiety". He did not find the propranolol very helpful but he's willing to have it as an option. Discussed making some medication adjustments which he is agreeable to. Continues to have constipation, had one small but hard bowel movement yesterday. Physical Exam Psychiatric Orientation: alert and oriented x 3 Apperance: appropriately dressed and appropriately groomed Eye Contact: + fair eye contact Motor Behavior: steady gait and station; n tremor Speech: normal rate/rhythm/volume of speech Affect: + anxious affect Mood: + depressed mood and + anxious mood Thought Process: + concrete thought process Thought Content: reality based without delusions Suicidal Thoughts: denies suicidal thoughts Homicidal Thoughts: denies homicidal thoughts Hallucinations: no auditory hallucinations and no visual hallucinations Cognition: attention grossly intact and language grossly intact Estimated Intelligence: consistent with education level Insight: + fair insight Judgement: + limited judgement Vital Signs (Past 24 Hours) Last Vital Signs Temp 36.6 C 07/15/21 06:00 Pulse 76 07/15/21 11:26 Resp 14 07/15/21 06:00 BP 113/75 07/15/21 11:26 Pulse Ox 98 07/10/21 21:14 Results & Data ([facility]) Current Inpatient Medications Current Inpatient Medications: Current Inpatient Medications Acetaminophen (Acetaminophen 325 Mg Tab) 650 mg PO Q4H PRN PRN Reason: Headache or Minor Fever Stop: 08/09/21 20:59 Last Admin: 07/14/21 20:30 Dose: 650 mg Documented by: Al Hydrox/Mg Hydrox/Simethicone (Aluminum/Magnesium Susp 30 Ml Udc) 30 ml PO Q4H PRN PRN Reason: GI Upset Stop: 08/09/21 20:59 Last Admin: 07/11/21 11:50 Dose: 30 ml Documented by: Amlodipine Besylate (Amlodipine Besylate 5 Mg Tab) 10 mg PO QAM [facility] Stop: 08/10/21 12:29 Last Admin: 07/15/21 08:18 Dose: 10 mg Documented by: Bismuth Subsalicylate (Bismuth Subsalicylate Liqd 236 Ml) 15 ml PO PRN PRN PRN Reason: Loose Stool Stop: 08/09/21 20:59 Chlorpromazine HCl (Chlorpromazine Hcl 25 Mg Tab) 25 mg PO BIDM [facility] Stop: 08/11/21 09:19 Last Admin: 07/15/21 08:17 Dose: 25 mg Documented by: Chlorpromazine HCl (Chlorpromazine Hcl 25 Mg Tab) 25 mg PO Q6 PRN PRN Reason: Anxiety/Agitation Stop: 08/11/21 09:13 Last Admin: 07/15/21 14:00 Dose: 25 mg Documented by: Clonazepam (Clonazepam 1 Mg Tab) 1 mg PO QAM [facility] Stop: 08/15/21 08:59 Clonidine HCl (Clonidine Hcl 0.3 Mg Tab) 0.3 mg PO DAILY [facility] Stop: 08/11/21 08:59 Last Admin: 07/15/21 08:18 Dose: 0.3 mg Documented by: Diphenhydramine HCl (Diphenhydramine Capsule 25 Mg Cap) 50 mg PO HS PRN PRN Reason: Insomnia Stop: 08/11/21 21:59 Last Admin: 07/13/21 22:12 Dose: 50 mg Documented by: Diphenhydramine HCl (Diphenhydramine Capsule 25 Mg Cap) 25 mg PO Q6 PRN PRN Reason: Anxiety Stop: 08/11/21 09:13 Last Admin: 07/14/21 04:01 Dose: 25 mg Documented by: Fluoxetine HCl (Fluoxetine Hcl 20 Mg Cap) 40 mg PO QAM [facility] Stop: 08/10/21 12:29 Last Admin: 07/15/21 08:18 Dose: 40 mg Documented by: Fluticasone/Vilanterol (Fluticasone/Vilanterol 100/25mcg 14 Puffs/Inhaler) 1 puffs INH DAILY [facility]; Protocol Stop: 08/10/21 12:29 Last Admin: 07/15/21 08:19 Dose: 1 puffs Documented by: Gabapentin (Gabapentin 400 Mg Cap) 400 mg PO TID [facility] Stop: 08/14/21 20:59 Lisinopril (Lisinopril 40 Mg Tab) [facility] Stop: 08/10/21 12:29 Last Admin: 07/15/21 08:17 Dose: 40 mg Documented by: Lorazepam (Lorazepam 1 Mg Tab) 1 mg PO BID [facility] Stop: 07/15/21 23:00 Last Admin: 07/15/21 08:21 Dose: 1 mg Documented by: Magnesium Hydroxide (Magnesium Hydroxide Susp 30 Ml Udc) 30 ml PO DAILY PRN PRN Reason: Constipation Stop: 08/09/21 20:59 Last Admin: 07/15/21 03:55 Dose: 30 ml Documented by: Miscellaneous (Remove Nicoderm Patch) 1 ea N/A DAILY@[id number] [facility] Stop: 08/11/21 08:58 Last Admin: 07/15/21 08:18 Dose: 1 ea Documented by: Multivitamins (Multivitamin Tab) [facility] Stop: 08/10/21 12:14 Last Admin: 07/15/21 08:17 Dose: 1 tab Documented by: Nicotine (Nicotine 14 Mg/24 Hr Patch) 14 mg TD [facility] Stop: 08/10/21 12:14 Last Admin: 07/15/21 08:18 Dose: 14 mg Documented by: Ondansetron HCl (Ondansetron 4 Mg Od Tab) 4 mg PO Q6H PRN PRN Reason: Nausea Stop: 08/10/21 11:54 Last Admin: 07/14/21 16:10 Dose: 4 mg Documented by: Propranolol HCl (Propranolol Hcl 10 Mg Tab) 10 mg PO BID PRN PRN Reason: Anxiety/Agitation Stop: 08/13/21 12:59 Last Admin: 07/15/21 11:28 Dose: 10 mg Documented by: Quetiapine Fumarate (Quetiapine Fumarate 200 Mg Tab) 400 mg PO [facility] Stop: 08/10/21 21:59 Last Admin: 07/14/21 21:50 Dose: 400 mg Documented by: Quetiapine Fumarate (Quetiapine Fumarate 25 Mg Tablet) 50 mg PO [facility] Stop: 08/10/21 21:59 Last Admin: 07/14/21 21:50 Dose: 50 mg Documented by: Senna/Docusate Sodium (Docusate Sodium/Senna 50/8.6mg Tab) 2 tab PO BID [facility] Stop: 08/14/21 20:59 Sodium Chloride (Sodium Chloride 0.65% Na Soln 45 Ml ([place])) 1 - 2 sprays NA PRN PRN PRN Reason: Nasal Dryness/Congestion Stop: 08/09/21 20:59 Mental Health & Subst Abuse Tx Psychiatrist Name of Psychiatrist: Khadar Kumar PA-C Psychiatrist's Date of Appointment with Psychiatrist: 07/30/21 Time of Appointment with Psychiatrist: 1:40 p.m. Psychiatric Appointment Comment: [address] [facility] Therapist Name of Therapist: Khadar Parra Therapist's Date of Therapist Appointment: 07/23/21 Time of Therapist Appointment: 11:00 a.m. Therapy Appointment Comment: [address] [facility] Delivery Crew Member Name of Delivery Crew Member: [employer] Phone Number for Delivery Crew Member: [phone] Post Discharge Appointments Primary Care Physician Name Of Family Doctor: [facility] Date of Appointment with PCP: 08/22/21 Time of Appointment with PCP: 10:20 a.m. Provider Appointment Comment: [id number] [facility] Contact Information Discharge Discharge Address: [address] [place] [address], [place] [address]
[2021-07-15] MEDS: ACETAMINOPHEN 325 MG TAB PO PRN (16:08)
[2021-07-15] MEDS: ONDANSETRON 4 MG OD TAB PO PRN (20:19)
[2021-07-15] MEDS: QUEtiapine FUMARATE 200 MG TAB PO SCH (21:49)
[2021-07-15] MEDS: QUEtiapine FUMARATE 25 MG TABLET PO SCH (21:49)
[2021-07-15] MEDS: GABAPENTIN 400 MG CAP PO SCH (21:50)
[2021-07-15] MEDS: DOCUSATE SODIUM/SENNA 50/8.6MG TAB PO SCH (21:50)
[2021-07-16] MEDS: chlorproMAZINE HCL 25 MG TAB PO PRN (05:05)
[2021-07-16] MEDS: GABAPENTIN 400 MG CAP PO SCH ×3 (09:34→21:47)
[2021-07-16] MEDS: lisinopril 40 MG TAB PO SCH (09:34)
[2021-07-16] MEDS: NICOTINE 14 MG/24 HR PATCH TD SCH (09:34)
[2021-07-16] MEDS: chlorproMAZINE HCL 25 MG TAB PO SCH ×2 (09:34→17:22)
[2021-07-16] MEDS: clonazePAM 1 MG TAB PO SCH (09:35)
[2021-07-16] MEDS: MULTIVITAMIN TAB PO SCH (09:35)
[2021-07-16] MEDS: amLODIPine BESYLATE 5 MG TAB PO SCH (09:35)
[2021-07-16] MEDS: cloNIDine HCL 0.3 MG TAB PO SCH (09:35)
[2021-07-16] MEDS: FLUTICASONE/VILANTEROL 100/25MCG 14 PUFFS/INHALER INH SCH (09:37)
[2021-07-16] MEDS: FLUoxetine HCL 20 MG CAP PO SCH (09:37)
[2021-07-16] MEDS: DOCUSATE SODIUM/SENNA 50/8.6MG TAB PO SCH ×2 (11:01→21:49)
--- NOTE | 2021-07-16 11:58 | Psychiatric Progress Note ---
Date of Service July 16, 2021 Impression / Recommendations Impression 60 yo male with extensive hx of psychiatric inpatient stays for depression and at times psychotic features, he has a history of an OD on Valium and is currently misusing his prescription medication in addition to some medical marijuana. His symptoms have worsened despite outpatient therapy and medication management and acute inpatient hospitalization is necessary for stabilization and monitoring. Some withdrawal symptoms concerning for possible opoioid use though UDS was negative. 07/16/21: continues to feel anxious and using multiple prns throughout the day but engaging more in employing non-pharmacologic coping skills. He remains hesitant/contemplative to make commitments to increasing physical activity but is willing to start case management services for additional support. Tolerating gabapentin taper. Tolerating Klonopin cross-taper. (1) Unspecified mood [affective] disorder: (2) Benzodiazepine abuse: (3) Hyponatremia: 07/16/21: Continue with Klonopin, thorazine, seroquel, prozac and clonidine. Goal of limiting prn use as much as possible. Taper gabapentin to 200mg TID. Case management meeting today. 07/15/21: Decrease gabapentin from 600mg TID to 400mg TID. Transition from ativan 1mg BID to Klonopin 1 mg qd. Discussed plan for Klonopin taper over the next 6- 8 months with his outpatient psychiatric provider Kimberley Ledesma who agrees with this plan with goal of discontinuing all use of benzodiazepines. Senna-s added for constipation. 07/14/21: provided with HIIT workout to try to help with anxiety. Will add propranolol prn to use for anxiety with goal of limiting thorazine prn use. Will reach out to [place] tomorrow to discuss benzo taper plan. 07/13/21: EKG to assess QTc tomorrow morning after another day of thorazine, seroquel and benadryl use. Continue with seroquel, thorazine, prozac, gabapentin, clonidine, benadryl and ativan. Continuing to work on clarifying outpatient plan for ativan so that taper can begin in the inpatient setting. 07/12/21: d/c Buspar as ineffective and requiring benzos, clarify outpatient plan for Ativan, he prefers use of Benadryl rather than Vistaril. Offered split dosing of Seroquel vs trial of thorazine (which he asked appropriate questions about given past hospitalization at the [facility]). Will try 25 mg thorazine BID with additional prn with hopes to taper Neurontin and possibly Ativan and Seroquel when further through withdrawal. BP and P have been good. Risks/benefits/alternatives were reviewed re: antipsychotics for mood and/or psychosis. Discussion included but was not limited to metabolic side effects, risks of TD and suicidal thoughts. There were no abnormal motor movements at baseline other than resolving tremor. Fasting glucose and lipid panel ordered for baseline monitoring. Reviewed that thorazine may impact his chronic hyponatremia and will need monitored. will add repeat lytes to the am labs. 07/11/21:The patient was admitted to the [facility] ([facility] mental [facility] unit) on q15 min checks (behavioral with suicide precautions) for safety. The patient will participate in group, recreational, and milieu therapies and will be offered additional individual and family sessions as clinically appropriate. Hyponatremia is in deed chronic and current sodium is same as serial draws over an extended course. Will monitor water intake and consider psychiatric medications that are less likely to affect sodium. Risks/benefits/alternatives reviewed re: his current medications. Discussion included but was not limited to risk of dependence/withdrawal with Ativan and need for metabolic and TD monitoring with Seroquel as well as Prozac and Seroquel impact on sodium. Ativan 1 mg BID and will discuss contract with his outpatient prescriber to determine additional taper here. I cannot exclude some degree of serotonin syndrome given polypharmacy and him taking extra Seroquel, no evidence of NMS, suspect he is underreporting his benzo and/or ETOH use given physical complaints. He is on neurontin which should help prevent withdrawal. I will not officially place on [facility] protocol was would just be agitating for patient as views as accusatory. Decrease Buspar and d/c to limit polypharmacy. He views as ineffective. Will hold Trintellix to limit polypharmacy and is also non formulary and he doesn't want it brought. He reports not wanting to retry it anyway and then discounts benefit from any of his meds except Seroquel and Ativan. Consider hold/decrease Prozac if exhibits additional manic symptoms (irritable, spending). 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 Chief Complaint "I'm a bit better, I slept well last night". Review of Systems Sleep Information Total Hours of Sleep: 7.5 Sleep Comments: Patient maintained on 15 minute checks. Meal Information Percent Meal Consumed - Breakfast: 100 Percent Meal Consumed - Lunch: 100 Percent Meal Consumed - Dinner: 100 Nutrition Comment: C/O nausea Subjective Subjective Patient was seen & assessed and interval progress reviewed with treatment team nursing and social work. tiffanie continues to attend groups and will have a meeting with his new case technician this afternoon. He is not interested in having a family meeting with his sister but was encouraged to think about this and let us know if he changes his mind. He tolerated the reduction in gabapentin without any side effects or changes in mood/anxiety. He tolerated the initiation of Klonopin and feels like the cross-taper to Klonopin was a good idea. Reviewed with him the plan for Klonopin taper to discontinuation over the next eight months which he agrees with. He continues to have some constipation with hard bowel movements. He feels like his mood and anxiety are slowly improving and he likes the thorazine as he finds it very helpful. Physical Exam Psychiatric Orientation: alert and oriented x 3 Apperance: appropriately dressed and appropriately groomed Eye Contact: + fair eye contact Motor Behavior: steady gait and station; n tremor Speech: normal rate/rhythm/volume of speech Affect: + anxious affect Mood: + anxious mood Thought Process: + concrete thought process Thought Content: reality based without delusions Suicidal Thoughts: denies suicidal thoughts Homicidal Thoughts: denies homicidal thoughts Hallucinations: no auditory hallucinations and no visual hallucinations Cognition: recent memory grossly intact, remote memory grossly intact, attention grossly intact and language grossly intact Estimated Intelligence: consistent with education level Insight: + fair insight Judgement: + limited judgement Vital Signs (Past 24 Hours) Last Vital Signs Temp 36.4 C L 07/16/21 06:00 Pulse 88 07/16/21 06:03 Resp 18 07/16/21 06:00 BP 119/80 07/16/21 06:03 Pulse Ox 98 07/10/21 21:14 Results & Data ([facility]) Current Inpatient Medications Current Inpatient Medications: Current Inpatient Medications Acetaminophen (Acetaminophen 325 Mg Tab) 650 mg PO Q4H PRN PRN Reason: Headache or Minor Fever Stop: 08/09/21 20:59 Last Admin: 07/15/21 16:08 Dose: 650 mg Documented by: Al Hydrox/Mg Hydrox/Simethicone (Aluminum/Magnesium Susp 30 Ml Udc) 30 ml PO Q4H PRN PRN Reason: GI Upset Stop: 08/09/21 20:59 Last Admin: 07/11/21 11:50 Dose: 30 ml Documented by: Amlodipine Besylate (Amlodipine Besylate 5 Mg Tab) [facility] [facility] [place] Stop: 08/10/21 12:29 Last Admin: 07/16/21 09:35 Dose: 10 mg Documented by: Bismuth Subsalicylate (Bismuth Subsalicylate Liqd 236 Ml) 15 ml PO PRN PRN PRN Reason: Loose Stool Stop: 08/09/21 20:59 Chlorpromazine HCl (Chlorpromazine Hcl 25 Mg Tab) 25 mg PO BIDM [facility] Stop: 08/11/21 09:19 Last Admin: 07/16/21 09:34 Dose: 25 mg Documented by: Chlorpromazine HCl (Chlorpromazine Hcl 25 Mg Tab) 25 mg PO Q6 PRN PRN Reason: Anxiety/Agitation Stop: 08/11/21 09:13 Last Admin: 07/16/21 05:05 Dose: 25 mg Documented by: Clonazepam (Clonazepam 1 Mg Tab) 1 mg PO QAM [facility] Stop: 08/15/21 08:59 Last Admin: 07/16/21 09:35 Dose: 1 mg Documented by: Clonidine HCl (Clonidine Hcl 0.3 Mg Tab) 0.3 mg PO DAILY [facility] Stop: 08/11/21 08:59 Last Admin: 07/16/21 09:35 Dose: 0.3 mg Documented by: Diphenhydramine HCl (Diphenhydramine Capsule 25 Mg Cap) 50 mg PO HS PRN PRN Reason: Insomnia Stop: 08/11/21 21:59 Last Admin: 07/13/21 22:12 Dose: 50 mg Documented by: Diphenhydramine HCl (Diphenhydramine Capsule 25 Mg Cap) 25 mg PO Q6 PRN PRN Reason: Anxiety Stop: 08/11/21 09:13 Last Admin: 07/14/21 04:01 Dose: 25 mg Documented by: Fluoxetine HCl (Fluoxetine Hcl 20 Mg Cap) 40 mg PO QAM [facility] Stop: 08/10/21 12:29 Last Admin: 07/16/21 09:37 Dose: 40 mg Documented by: Fluticasone/Vilanterol (Fluticasone/Vilanterol 100/25mcg 14 Puffs/Inhaler) 1 puffs INH DAILY [facility]; Protocol Stop: 08/10/21 12:29 Last Admin: 07/16/21 09:37 Dose: 1 puffs Documented by: Gabapentin (Gabapentin 400 Mg Cap) 400 mg PO TID [facility] Stop: 08/14/21 20:59 Last Admin: 07/16/21 09:34 Dose: 400 mg Documented by: Lisinopril (Lisinopril 40 Mg Tab) 40 mg PO QAM [facility] Stop: 08/10/21 12:29 Last Admin: 07/16/21 09:34 Dose: 40 mg Documented by: Magnesium Hydroxide (Magnesium Hydroxide Susp 30 Ml Udc) 30 ml PO DAILY PRN PRN Reason: Constipation Stop: 08/09/21 20:59 Last Admin: 07/15/21 03:55 Dose: 30 ml Documented by: Miscellaneous (Remove Nicoderm Patch) 1 ea N/A DAILY@0859 [facility] Stop: 08/11/21 08:58 Last Admin: 07/16/21 09:37 Dose: 1 ea Documented by: Multivitamins (Multivitamin Tab) 1 tab PO [facility] Stop: 08/10/21 12:14 Last Admin: 07/16/21 09:35 Dose: 1 tab Documented by: Nicotine (Nicotine 14 Mg/24 Hr Patch) 14 mg TD [facility] Stop: 08/10/21 12:14 Last Admin: 07/16/21 09:34 Dose: 14 mg Documented by: Ondansetron HCl (Ondansetron 4 Mg Od Tab) 4 mg PO Q6H PRN PRN Reason: Nausea Stop: 08/10/21 11:54 Last Admin: 07/15/21 20:19 Dose: 4 mg Documented by: Polyethylene Glycol (Polyethylene (Miralax) 17 Gm Pack) 17 gm PO DAILY PRN PRN Reason: Constipation Stop: 08/14/21 15:46 Propranolol HCl (Propranolol Hcl 10 Mg Tab) 10 mg PO BID PRN PRN Reason: Anxiety/Agitation Stop: 08/13/21 12:59 Last Admin: 07/15/21 20:19 Dose: 10 mg Documented by: Quetiapine Fumarate (Quetiapine Fumarate 200 Mg Tab) 400 mg PO [facility] Stop: 08/10/21 21:59 Last Admin: 07/15/21 21:49 Dose: 400 mg Documented by: Quetiapine Fumarate (Quetiapine Fumarate 25 Mg Tablet) 50 mg PO HS [facility] Stop: 08/10/21 21:59 Last Admin: 07/15/21 21:49 Dose: 50 mg Documented by: Senna/Docusate Sodium (Docusate Sodium/Senna 50/8.6mg Tab) 2 tab PO BID [facility] Stop: 08/14/21 20:59 Last Admin: 07/16/21 11:01 Dose: 2 tab Documented by: Sodium Chloride (Sodium Chloride 0.65% Na Soln 45 Ml ([place])) 1 - 2 sprays NA PRN PRN PRN Reason: Nasal Dryness/Congestion Stop: 08/09/21 20:59 Mental Health & Subst Abuse Tx Psychiatrist Name of Psychiatrist: Khadar Kumar PA-C Psychiatrist's Date of Appointment with Psychiatrist: 07/30/21 Time of Appointment with Psychiatrist: 1:40 p.m. Psychiatric Appointment Comment: [address] [facility] Therapist Name of Therapist: Khadar Parra Therapist's Date of Therapist Appointment: 07/23/21 Time of Therapist Appointment: 11:00 a.m. Therapy Appointment Comment: [address] [facility] Harbor Department Manager Name of Harbor Department Manager: [employer] Phone Number for Harbor Department Manager: [phone] Post Discharge Appointments Primary Care Physician Name Of Family Doctor: [facility] Date of Appointment with PCP: 08/22/21 Time of Appointment with PCP: 10:20 a.m. Provider Appointment Comment: [id number] [facility] Contact Information Discharge Discharge Address: [address] [place], [place] [id number]
[2021-07-16] MEDS: PROPRANOLOL HCL 10 MG TAB PO PRN ×2 (14:15→19:22)
[2021-07-16] MEDS: QUEtiapine FUMARATE 200 MG TAB PO SCH (21:48)
[2021-07-16] MEDS: QUEtiapine FUMARATE 25 MG TABLET PO SCH (21:49)
[2021-07-17] MEDS: chlorproMAZINE HCL 25 MG TAB PO PRN ×2 (04:54→11:48)
[2021-07-17] MEDS: diphenhydrAMINE Capsule 25 MG CAP PO PRN ×2 (04:54→11:48)
[2021-07-17] MEDS: chlorproMAZINE HCL 25 MG TAB PO SCH ×2 (08:14→17:03)
[2021-07-17] MEDS: amLODIPine BESYLATE 5 MG TAB PO SCH (08:14)
[2021-07-17] MEDS: DOCUSATE SODIUM/SENNA 50/8.6MG TAB PO SCH ×2 (08:15→21:41)
[2021-07-17] MEDS: cloNIDine HCL 0.3 MG TAB PO SCH (08:15)
[2021-07-17] MEDS: lisinopril 40 MG TAB PO SCH (08:15)
[2021-07-17] MEDS: FLUTICASONE/VILANTEROL 100/25MCG 14 PUFFS/INHALER INH SCH (08:15)
[2021-07-17] MEDS: GABAPENTIN 100 MG CAP PO SCH ×3 (08:15→21:41)
[2021-07-17] MEDS: FLUoxetine HCL 20 MG CAP PO SCH (08:15)
[2021-07-17] MEDS: MULTIVITAMIN TAB PO SCH (08:16)
[2021-07-17] MEDS: NICOTINE 14 MG/24 HR PATCH TD SCH (08:16)
[2021-07-17] MEDS: clonazePAM 1 MG TAB PO SCH (08:17)
--- NOTE | 2021-07-17 11:26 | Psychiatric Progress Note ---
Date of Service July 17, 2021 Impression / Recommendations Impression 60 yo male with extensive hx of psychiatric inpatient stays for depression and at times psychotic features, he has a history of an OD on Valium and is currently misusing his prescription medication in addition to some medical marijuana. His symptoms have worsened despite outpatient therapy and medication management and acute inpatient hospitalization is necessary for stabilization and monitoring. Some withdrawal symptoms concerning for possible opoioid use though UDS was negative. 07/17/21:mood symptoms improving without SI and engaging more in employing non- pharmacologic coping skills. Able to reflect on cognitive thinking traps and ways to challenge these thoughts. Tolerating Klonopin transition well. Continue gabapentin discontinuation taper which he consents to, reviewed no history of seizure. (1) Unspecified mood [affective] disorder: (2) Benzodiazepine abuse: (3) Hyponatremia: 07/17/21: Today will be last three doses of gabapentin then discontinued. Continue Klonopin (reviewed taper schedule which he agrees with), thorazine, seroquel, prozac, clonidine and propranolol. Eventual goal of tapering to discontinuation thorazine and/or seroquel as he builds more coping skills and re-engages with meaningful activities like music. 07/16/21: Continue with Klonopin, thorazine, seroquel, prozac and clonidine. Goal of limiting prn use as much as possible. Taper gabapentin to 200mg TID. Case management meeting today. 07/15/21: Decrease gabapentin from 600mg TID to 400mg TID. Transition from ativan 1mg BID to Klonopin 1 mg qd. Discussed plan for Klonopin taper over the next 6- 8 months with his outpatient psychiatric provider Kimberley Ledesma who agrees with this plan with goal of discontinuing all use of benzodiazepines. Senna-s added for constipation. 07/14/21: provided with HIIT workout to try to help with anxiety. Will add propranolol prn to use for anxiety with goal of limiting thorazine prn use. Will reach out to [place] tomorrow to discuss benzo taper plan. 07/13/21: EKG to assess QTc tomorrow morning after another day of thorazine, seroquel and benadryl use. Continue with seroquel, thorazine, prozac, gabapentin, clonidine, benadryl and ativan. Continuing to work on clarifying outpatient plan for ativan so that taper can begin in the inpatient setting. 07/12/21: d/c Buspar as ineffective and requiring benzos, clarify outpatient plan for Ativan, he prefers use of Benadryl rather than Vistaril. Offered split dosing of Seroquel vs trial of thorazine (which he asked appropriate questions about given past hospitalization at the [facility]). Will try 25 mg thorazine BID with additional prn with hopes to taper Neurontin and possibly Ativan and Seroquel when further through withdrawal. BP and P have been good. Risks/benefits/alternatives were reviewed re: antipsychotics for mood and/or psychosis. Discussion included but was not limited to metabolic side effects, risks of TD and suicidal thoughts. There were no abnormal motor movements at baseline other than resolving tremor. Fasting glucose and lipid panel ordered for baseline monitoring. Reviewed that thorazine may impact his chronic hyponatremia and will need monitored. will add repeat lytes to the am labs. 07/11/21:The patient was admitted to the [facility] ([facility] unit) on q15 min checks (behavioral with suicide precautions) for safety. The patient will participate in group, recreational, and milieu therapies and will be offered additional individual and family sessions as clinically appropriate. Hyponatremia is in deed chronic and current sodium is same as serial draws over an extended course. Will monitor water intake and consider psychiatric medications that are less likely to affect sodium. Risks/benefits/alternatives reviewed re: his current medications. Discussion included but was not limited to risk of dependence/withdrawal with Ativan and need for metabolic and TD monitoring with Seroquel as well as Prozac and Seroq uel impact on sodium. Ativan 1 mg BID and will discuss contract with his outpatient prescriber to determine additional taper here. I cannot exclude some degree of serotonin syndrome given polypharmacy and him taking extra Seroquel, no evidence of NMS, suspect he is underreporting his benzo and/or ETOH use given physical complaints. He is on neurontin which should help prevent withdrawal. I will not officially place on [facility] protocol was would just be agitating for patient as views as accusatory. Decrease Buspar and d/c to limit polypharmacy. He views as ineffective. Will hold Trintellix to limit polypharmacy and is also non formulary and he doesn't want it brought. He reports not wanting to retry it anyway and then discounts benefit from any of his meds except Seroquel and Ativan. Consider hold/decrease Prozac if exhibits additional manic symptoms (irritable, spending). 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 Chief Complaint "I'm doing pretty well". Review of Systems Sleep Information Total Hours of Sleep: 7 Sleep Comments: Patient maintained on 15 minute checks. Meal Information Percent Meal Consumed - Breakfast: 100 Percent Meal Consumed - Lunch: 100 Percent Meal Consumed - Dinner: 100 Nutrition Comment: C/O nausea Subjective Subjective Patient was seen & assessed and interval progress reviewed with treatment team nursing and social work. Dogu continues to attend groups and work on coping strategies. Today is working on his safety plan. He continues to utilize prn medications and finds thorazine "very helpful". He denies any medication side effects. Tolerating the taper of gabapentin and hasn't noticed any side effects. Found the Klonopin helpful though did notice that it wore off by bedtime but then he was able to fall asleep with his other scheduled medications. Discussed his tendency of having cognitive distortions associated with his anxiety of catastrophic thinking. He's insightful about this and could come up with alterative best case scenarios as we discussed utilizing this coping skill. He also notes that his default when anxious is that "my previous addict brain always immediately goes to thinking I need more medication" and discussed that he's getting better at using other coping skills like distraction and he finds that this is very helpful when he get into a "flow state" like when he plays music. 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 Physical Exam Psychiatric Orientation: alert Apperance: appropriately dressed and appropriately groomed Eye Contact: good eye contact Motor Behavior: no abnormal motor movements Speech: normal rate/rhythm/volume of speech Affect: + constricted affect Mood: + anxious mood Thought Process: goal directed thought process Thought Content: reality based without delusions Suicidal Thoughts: denies suicidal thoughts Homicidal Thoughts: denies homicidal thoughts Hallucinations: no auditory hallucinations and no visual hallucinations Cognition: recent memory grossly intact, remote memory grossly intact, attention grossly intact and language grossly intact Estimated Intelligence: consistent with education level Insight: good insight Judgement: + fair judgement Vital Signs (Past 24 Hours) Last Vital Signs Temp 36.6 C 07/17/21 06:02 Pulse 76 07/17/21 06:02 Resp 16 07/17/21 06:02 BP 110/74 07/17/21 06:02 Pulse Ox 98 07/10/21 21:14 Results & Data ([facility] [place]) Current Inpatient Medications Current Inpatient Medications: Current Inpatient Medications Acetaminophen (Acetaminophen 325 Mg Tab) 650 mg PO Q4H PRN PRN Reason: Headache or Minor Fever Stop: 08/09/21 20:59 Last Admin: 07/15/21 16:08 Dose: 650 mg Documented by: Al Hydrox/Mg Hydrox/Simethicone (Aluminum/Magnesium Susp 30 Ml Udc) 30 ml PO Q4H PRN PRN Reason: GI Upset Stop: 08/09/21 20:59 Last Admin: 07/11/21 11:50 Dose: 30 ml Documented by: Amlodipine Besylate (Amlodipine Besylate 5 Mg Tab) 10 mg PO QAM [facility] Stop: 08/10/21 12:29 Last Admin: 07/17/21 08:14 Dose: 10 mg Documented by: Bismuth Subsalicylate (Bismuth Subsalicylate Liqd 236 Ml) 15 ml PO PRN PRN PRN Reason: Loose Stool Stop: 08/09/21 20:59 Chlorpromazine HCl (Chlorpromazine Hcl 25 Mg Tab) 25 mg PO BIDM [facility] Stop: 08/11/21 09:19 Last Admin: 07/17/21 08:14 Dose: 25 mg Documented by: Chlorpromazine HCl (Chlorpromazine Hcl 25 Mg Tab) 25 mg PO Q6 PRN PRN Reason: Anxiety/Agitation Stop: 08/11/21 09:13 Last Admin: 07/17/21 04:54 Dose: 25 mg Documented by: Clonazepam (Clonazepam 1 Mg Tab) 1 mg PO QAM [facility] Stop: 08/15/21 08:59 Last Admin: 07/17/21 08:17 Dose: 1 mg Documented by: Clonidine HCl (Clonidine Hcl 0.3 Mg Tab) 0.3 mg PO DAILY [facility] Stop: 08/11/21 08:59 Last Admin: 07/17/21 08:15 Dose: 0.3 mg Documented by: Diphenhydramine HCl (Diphenhydramine Capsule 25 Mg Cap) 50 mg PO HS PRN PRN Reason: Insomnia Stop: 08/11/21 21:59 Last Admin: 07/13/21 22:12 Dose: 50 mg Documented by: Diphenhydramine HCl (Diphenhydramine Capsule 25 Mg Cap) 25 mg PO Q6 PRN PRN Reason: Anxiety Stop: 08/11/21 09:13 Last Admin: 07/17/21 04:54 Dose: 25 mg Documented by: Fluoxetine HCl (Fluoxetine Hcl 20 Mg Cap) 40 mg PO QAM [facility] Stop: 08/10/21 12:29 Last Admin: 07/17/21 08:15 Dose: 40 mg Documented by: Fluticasone/Vilanterol (Fluticasone/Vilanterol 100/25mcg 14 Puffs/Inhaler) 1 puffs INH DAILY [facility]; Protocol Stop: 08/10/21 12:29 Last Admin: 07/17/21 08:15 Dose: 1 puffs Documented by: Gabapentin (Gabapentin 100 Mg Cap) 200 mg PO TID [facility] Stop: 07/17/21 23:30 Last Admin: 07/17/21 08:15 Dose: 200 mg Documented by: Lisinopril (Lisinopril 40 Mg Tab) 40 mg PO QAM [facility] Stop: 08/10/21 12:29 Last Admin: 07/17/21 08:15 Dose: 40 mg Documented by: Magnesium Hydroxide (Magnesium Hydroxide Susp 30 Ml Udc) 30 ml PO DAILY PRN PRN Reason: Constipation Stop: 08/09/21 20:59 Last Admin: 07/15/21 03:55 Dose: 30 ml Documented by: Miscellaneous (Remove Nicoderm Patch) 1 ea N/A DAILY@0859 [facility] Stop: 08/11/21 08:58 Last Admin: 07/17/21 08:17 Dose: 1 ea Documented by: Multivitamins (Multivitamin Tab) 1 tab PO QAM [facility] Stop: 08/10/21 12:14 Last Admin: 07/17/21 08:16 Dose: 1 tab Documented by: Nicotine (Nicotine 14 Mg/24 Hr Patch) 14 [facility] TD [facility] Stop: 08/10/21 12:14 Last Admin: 07/17/21 08:16 Dose: 14 mg Documented by: Ondansetron HCl (Ondansetron 4 Mg Od Tab) 4 mg PO Q6H PRN PRN Reason: Nausea Stop: 08/10/21 11:54 Last Admin: 07/15/21 20:19 Dose: 4 mg Documented by: Polyethylene Glycol (Polyethylene (Miralax) 17 Gm Pack) 17 gm PO DAILY PRN PRN Reason: Constipation Stop: 08/14/21 15:46 Propranolol HCl (Propranolol Hcl 10 Mg Tab) 10 mg PO BID PRN PRN Reason: Anxiety/Agitation Stop: 08/13/21 12:59 Last Admin: 07/16/21 19:22 Dose: 10 mg Documented by: Quetiapine Fumarate (Quetiapine Fumarate 200 Mg Tab) 400 mg PO [facility] Stop: 08/10/21 21:59 Last Admin: 07/16/21 21:48 Dose: 400 mg Documented by: Quetiapine Fumarate (Quetiapine Fumarate 25 Mg Tablet) 50 mg PO [facility] Stop: 08/10/21 21:59 Last Admin: 07/16/21 21:49 Dose: 50 mg Documented by: Senna/Docusate Sodium (Docusate Sodium/Senna 50/8.6mg Tab) 2 tab PO BID [facility] Stop: 08/14/21 20:59 Last Admin: 07/17/21 08:15 Dose: 2 tab Documented by: Sodium Chloride (Sodium Chloride 0.65% Na Soln 45 Ml ([place])) 1 - 2 sprays NA PRN PRN PRN Reason: Nasal Dryness/Congestion Stop: 08/09/21 20:59 Mental Health & Subst Abuse Tx Psychiatrist Name of Psychiatrist: Khadar Kumar PA-C Psychiatrist's Date of Appointment with Psychiatrist: 07/30/21 Time of Appointment with Psychiatrist: 1:40 p.m. Psychiatric Appointment Comment: [address] [facility] Therapist Name of Therapist: Khadar Parra Therapist's Date of Therapist Appointment: 07/23/21 Time of Therapist Appointment: 11:00 a.m. Therapy Appointment Comment: [address] [facility] Guard Captain Name of Guard Captain: [facility] Guillermo Priya Phone Number for Guard Captain: [phone] Date of Appointment with Guard Captain: 07/25/21 Time of Appointment with Guard Captain: 1:30p Case Management Appointment Comment: visit in the home Post Discharge Appointments Primary Care Physician Name Of Family Doctor: [facility] Date of Appointment with PCP: 08/22/21 Time of Appointment with PCP: 10:20 a.m. Provider Appointment Comment: [address] [facility] Contact Information Discharge Discharge Address: [address] [place] [address], [place] [address]
[2021-07-17] MEDS: ALUMINUM/MAGNESIUM SUSP 30 ML UDC PO PRN (14:28)
[2021-07-17] MEDS: QUEtiapine FUMARATE 200 MG TAB PO SCH (21:41)
[2021-07-17] MEDS: QUEtiapine FUMARATE 25 MG TABLET PO SCH (21:42)
[2021-07-18] MEDS: chlorproMAZINE HCL 25 MG TAB PO PRN (05:58)
[2021-07-18] MEDS: amLODIPine BESYLATE 5 MG TAB PO SCH (08:04)
[2021-07-18] MEDS: FLUoxetine HCL 20 MG CAP PO SCH (08:05)
[2021-07-18] MEDS: cloNIDine HCL 0.3 MG TAB PO SCH (08:05)
[2021-07-18] MEDS: DOCUSATE SODIUM/SENNA 50/8.6MG TAB PO SCH (08:05)
[2021-07-18] MEDS: FLUTICASONE/VILANTEROL 100/25MCG 14 PUFFS/INHALER INH SCH (08:05)
[2021-07-18] MEDS: chlorproMAZINE HCL 25 MG TAB PO SCH (08:05)
[2021-07-18] MEDS: MULTIVITAMIN TAB PO SCH (08:06)
[2021-07-18] MEDS: NICOTINE 14 MG/24 HR PATCH TD SCH (08:06)
[2021-07-18] MEDS: lisinopril 40 MG TAB PO SCH (08:06)
[2021-07-18] MEDS: clonazePAM 1 MG TAB PO SCH (08:08)
--- NOTE | 2021-07-18 09:47 | Discharge Summary ---
Date of Service July 18, 2021 History of Present Illness Per admission by Dr. Castillo on 07/11/21: Jorge Luis was last on our unit in 2017 for similar symptoms. He has been following with [facility] and was directed to the ED. He has been having a harder time functioning and sleeping at home and admitted to taking extra (double) Seroquel and Ativan for several nights in a row. He is unable to replace the medication until 07/20/20 and didn't know what to do. He is irritable and annoyed with questions, complains of tremor/chills, had some sweats and increase in anxiety overnight for which he took Vistaril prn. Staff felt it appeared helpful, he did not. He was mainly upset about providers who are "holier than thou" attitude toward him being prescribed Ativan given his history of ETOH abuse/dependence. He denied use for 5 years but records from [facility] imply that a relapse or some drinking may have contributed to his hospitalization this summer (reports being at the [facility] in January). He is not in agreement with his diagnosis of schizoaffective disorder bipolar type. "I don't see things", when discussed past psychotic symptoms documented on chart he agreed likely ETOH withdrawal. He reports sleep and appetite not as good as feels anxious "crawling out of my skin" and is c/o N at this time having received Zofran in the ED. Outpatient notes refer to paranoia. He denies a specific thought re: this. Other stressors include spending "4 figures" on guitars and computer items and then not being able to figure out the "latest technology". He and his sister are relating OK to each other. 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 He is not able to focus on the workbooks and is just logging the hours this past week. He is unsure how long he has been doubling up on his medication--would be 900 mg daily Seroquel. Should be noted that recently restarted on Trintellix in addition to Prozac and Buspar. His Ativan was tapered to 0.5 mg daily and that's when "this all fall apart" and the dose was confirmed as 0.5 mg. It's likely he has been taking more than 1 mg BID Ativan and appears in withdrawal though mainly symptoms that could be optiate. BP/P fine even prior to am antihypertensive meds. Physical Exam Vital Signs (Past 24 Hours) Last Vital Signs Temp 36.7 C 07/18/21 06:10 Pulse 97 H 07/18/21 06:11 Resp 16 07/18/21 06:10 BP 135/103 H 07/18/21 06:11 Pulse Ox 98 07/10/21 21:14 See admission H&P and DOD summary. Principal Diagnosis Major Depressive Disorder with anxious distress Psychiatric Data See daily stay summary. In short, safety was maintained and the patient was coop erative with care. Medication changes included initiation of thorazine and propranolol, discontinuation of gabapentin and buspirone and cross-taper from lorazepam to clonazepam. He tolerated the medication changes well. Given his history of alcohol use and history of benzodiazepine misuse much discussion focused on finding ways to develop alternative coping skills and thorazine was added as an off-label treatment to help manage excessive anxiety, augmentation for depressive symptoms and for helping to reduce benzodiazepine reliance. Over time the goal will be to taper thorazine or cross-taper to thorazine from seroquel so that he is not on dual antipsychotic therapy and to reduce antipsychotic side effects which were reviewed throughout his hospitalization. Baseline labs of fasting glucose, fasting lipid profile, and weight were preformed and within normal limits with the exception of slightly elevated fasting glucose (107). His chronic hyponatremia improved slightly during his admission even with medication additions (127-->132). EKG was preformed and QTc was within normal limits. Recommend repeat weight in one month. Recommend repeat fasting glucose, HbA1c and fasting lipid profile every 12 weeks and then annually. If symptoms arise recommend checking BP, EKG, prolactin level as clinically indicated or relevant. Also discussed plan of clonazepam taper to discontinuation with Doug's outpatient psychiatric provider and reviewed plan with Doug which he consented to. Normally a taper would occur more quickly but given his high anxiety and difficulty tolerating prior tapers recommend very gradual taper such as: Klonopin 1 mg for 1 month then 0.75 for 2 months then 0.5 mg for 2 months, then 0.375 for 1 month, then 0.25mg for 1 month, then 0.125mg for 1 month then discontinue. Schedule could be hastened or slowed down depending on his tolerance to the dose adjustments and mood symptoms. He declined a family session with his sister or other supports but he did actively engage with his discharge planning, met with his new caseworker protective services, made plans to re-engage with music and start exercising at the [facility] and join a local orthodox and safety plan was completed prior to discharge. Day of Discharge Assessment Today the patient voices readiness for discharge. They note improvement in mood and anxiety, though he does have some anxiety this morning related to discharging and transitioning back home but he remains in agreement with discharge plan and wants to leave today. They deny thoughts of harm to self or others. He continues to have periods of chronic intermittent passive SI but no active thoughts of SI, no plan and no intent. Thoughts are organized and they are clinically improved from admission. There is no evidence of psychosis. They improved in the hospital with support and medication adjustments. They agree to take medications as prescribed and keep follow-up appointments. At the time of the discharge they are deemed to be stable and appropriate for outpatient level of care. They are not deemed to be at imminent risk of harm to self or others. They are aware of emergency and crisis services. Knows to call 911 or go to nearest emergency care center if in a crisis which cannot be handled as an outpatient. Transition of Care Transition Of Care Record: was reviewed with the patient Advance Directives Advance Directives Information Provided: Yes Advance Directives: No Mental Health Advance Directive: No Advance Directives on File: No Living Will: No Power of Academic Support Assistant: No Advance Directives Reason:: Declines as Mental Health Visit. 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 Discharge Data Lab Results 07/10/21 07/10/21 07/10/21 17:04 17:15 17:15 WBC 10.76 RBC 4.50 L Hgb 13.2 L Hct 37.4 L MCV 83.1 MCH 29.3 MCHC 35.3 RDW Std Deviation 40.8 RDW Coeff of Nadia 13.4 Plt Count 379 MPV 8.6 Immature Gran % (Auto) 0.3 Neut % (Auto) 81.8 Lymph % (Auto) 10.9 [place] % (Auto) 6.6 Eos % (Auto) 0.2 Baso % (Auto) 0.2 Neut # (Auto) 8.81 H Lymph # (Auto) 1.17 L [place] # (Auto) 0.71 H Eos # (Auto) 0.02 Baso # (Auto) 0.02 Immature Gran # (Auto) 0.03 H Sodium 127 L Potassium 4.0 Chloride 96 L Carbon Dioxide 21 Anion Gap 10.0 BUN 10 Creatinine 1.04 Est Cr Clr Drug Dosing 70.6 Est GFR ( Amer) 90.0 Est GFR (Non-Af Amer) 77.7 BUN/Creatinine Ratio 9.8 L Glucose 106 H Fasting Glucose Calcium 9.7 Total Bilirubin 0.6 AST 27 ALT 36 Alkaline Phosphatase 77 Total Protein 7.7 Albumin 4.2 Globulin 3.5 Albumin/Globulin Ratio 1.2 Triglycerides Cholesterol LDL Cholesterol, Calc VLDL Cholesterol, Calc HDL Cholesterol Cholesterol/HDL Ratio TSH 2.670 Urine Color Urine Appearance Urine pH Ur Specific Ambler Urine Protein Urine Glucose (UA) Urine Ketones Urine Blood Urine Nitrite Urine Bilirubin Urine Urobilinogen Ur Leukocyte Esterase Salicylates Urine Opiates Screen Ur Methadone, Qual Acetaminophen Urine Barbiturates Ur Phencyclidine (PCP) U Amphetamin/Meth Scrn MDMA (Ecstasy) Screen U Benzodiazepines Scrn Ur Cocaine Metabolite U Marijuana (THC) Screen U Marijuana THC Carboxy Drug Screen Comment Ethyl Alcohol mg/dL SARS-CoV-2, RNA, NAAT NEGATIVE 07/10/21 07/10/21 07/10/21 17:15 17:15 18:27 WBC RBC Hgb Hct MCV MCH MCHC RDW Std Deviation RDW Coeff of Nadia Plt Count MPV Immature Gran % (Auto) Neut % (Auto) Lymph % (Auto) [place] % (Auto) Eos % (Auto) Baso % (Auto) Neut # (Auto) Lymph # (Auto) [place] # (Auto) Eos # (Auto) Baso # (Auto) Immature Gran # (Auto) Sodium Potassium Chloride Carbon Dioxide Anion Gap BUN Creatinine Est Cr Clr Drug Dosing Est GFR ( Amer) Est GFR (Non-Af Amer) BUN/Creatinine Ratio Glucose Fasting Glucose Calcium Total Bilirubin AST ALT Alkaline Phosphatase Total Protein Albumin Globulin Albumin/Globulin Ratio Triglycerides Cholesterol LDL Cholesterol, Calc VLDL Cholesterol, Calc HDL Cholesterol Cholesterol/HDL Ratio TSH Urine Color Yellow Urine Appearance Clear Urine pH 6.5 Ur Specific Ambler 1.015 Urine Protein Negative Urine Glucose (UA) Negative Urine Ketones 1+ H Urine Blood Negative Urine Nitrite Negative Urine Bilirubin Negative Urine Urobilinogen Negative Ur Leukocyte Esterase Negative Salicylates < 1.7 L Urine Opiates Screen Ur Methadone, Qual Acetaminophen < 2 L Urine Barbiturates Ur Phencyclidine (PCP) U Amphetamin/Meth Scrn MDMA (Ecstasy) Screen U Benzodiazepines Scrn Ur Cocaine Metabolite U Marijuana (THC) Screen U Marijuana THC Carboxy Drug Screen Comment Ethyl Alcohol mg/dL < 3.0 SARS-CoV-2, RNA, NAAT 07/10/21 07/10/21 07/13/21 18:27 18:27 08:09 WBC RBC Hgb Hct MCV MCH MCHC RDW Std Deviation RDW Coeff of Nadia Plt Count MPV Immature Gran % (Auto) Neut % (Auto) Lymph % (Auto) [place] % (Auto) Eos % (Auto) Baso % (Auto) Neut # (Auto) Lymph # (Auto) [place] # (Auto) Eos # (Auto) Baso # (Auto) Immature Gran # (Auto) Sodium 132 L Potassium 4.3 Chloride 101 Carbon Dioxide 25 Anion Gap 6.0 BUN Creatinine Est Cr Clr Drug Dosing Est GFR ( Amer) Est GFR (Non-Af Amer) BUN/Creatinine Ratio Glucose Fasting Glucose 107 H Calcium Total Bilirubin AST ALT Alkaline Phosphatase Total Protein Albumin Globulin Albumin/Globulin Ratio Triglycerides 79 Cholesterol 195 LDL Cholesterol, Calc 118 VLDL Cholesterol, Calc 16 HDL Cholesterol 61 Cholesterol/HDL Ratio 3 TSH Urine Color Urine Appearance Urine pH Ur Specific Ambler Urine Protein Urine Glucose (UA) Urine Ketones Urine Blood Urine Nitrite Urine Bilirubin Urine Urobilinogen Ur Leukocyte Esterase Salicylates Urine Opiates Screen Neg Ur Methadone, Qual Neg Acetaminophen Urine Barbiturates Neg Ur Phencyclidine (PCP) Neg U Amphetamin/Meth Scrn Neg MDMA (Ecstasy) Screen Neg U Benzodiazepines Scrn Neg Ur Cocaine Metabolite Neg U Marijuana (THC) Screen Pos H U Marijuana THC Carboxy 630 H Drug Screen Comment SEE NOTE Ethyl Alcohol mg/dL SARS-CoV-2, RNA, NAAT Hospital Course (1) Unspecified mood [affective] disorder: (2) Benzodiazepine abuse: (3) Hyponatremia: 07/18/21: he completed his safety plan, remains ready for discharge, feels safe, and is future-oriented. No symptoms emerged with discontinuation of gabapentin. Reviewed that he has follow-up with psychiatry, therapy and case management and with his PCP in August. 07/17/21: Today will be last three doses of gabapentin then discontinued. Continue Klonopin (reviewed taper schedule which he agrees with), thorazine, seroquel, prozac, clonidine and propranolol. Eventual goal of tapering to discontinuation thorazine and/or seroquel as he builds more coping skills and re-engages with meaningful activities like music. 07/16/21: Continue with Klonopin, thorazine, seroquel, prozac and clonidine. Goal of limiting prn use as much as possible. Taper gabapentin to 200mg TID. Case management meeting today. 07/15/21: Decrease gabapentin from 600mg TID to 400mg TID. Transition from ativan 1mg BID to Klonopin 1 mg qd. Discussed plan for Klonopin taper over the next 6- 8 months with his outpatient psychiatric provider Kimberley Ledesma who agrees with this plan with goal of discontinuing all use of benzodiazepines. Senna-s added for constipation. 07/14/21: provided with HIIT workout to try to help with anxiety. Will add propranolol prn to use for anxiety with goal of limiting thorazine prn use. Will reach out to [facility] tomorrow to discuss benzo taper plan. 07/13/21: EKG to assess QTc tomorrow morning after another day of thorazine, seroquel and benadryl use. Continue with seroquel, thorazine, prozac, gabapentin, clonidine, benadryl and ativan. Continuing to work on clarifying outpatient plan for ativan so that taper can begin in the inpatient setting. 07/12/21: d/c Buspar as ineffective and requiring benzos, clarify outpatient plan for Ativan, he prefers use of Benadryl rather than Vistaril. Offered split dosing of Seroquel vs trial of thorazine (which he asked appropriate questions about given past hospitalization at the [facility]). Will try 25 mg thorazine BID with additional prn with hopes to taper Neurontin and possibly Ativan and Seroquel when further through withdrawal. BP and P have been good. Risks/benefits/alternatives were reviewed re: antipsychotics for mood and/or psychosis. Discussion included but was not limited to metabolic side effects, risks of TD and suicidal thoughts. There were no abnormal motor movements at baseline other than resolving tremor. Fasting glucose and lipid panel ordered for baseline monitoring. Reviewed that thorazine may impact his chronic hyponatremia and will need monitored. will add repeat lytes to the am labs. 07/11/21:The patient was admitted to the [facility]) on q15 min checks (behavioral with suicide precautions) for safety. The patient will participate in group, recreational, and milieu therapies and will be offered additional individual and family sessions as clinically appropriate. Hyponatremia is in deed chronic and current sodium is same as serial draws over an extended course. Will monitor water intake and consider psychiatric medications that are less likely to affect sodium. Risks/benefits/alternatives reviewed re: his current medications. Discussion included but was not limited to risk of dependence/withdrawal with Ativan and need for metabolic and TD monitoring with Seroquel as well as Prozac and Seroquel impact on sodium. Ativan 1 mg BID and will discuss contract with his outpatient prescriber to determine additional taper here. I cannot exclude some degree of serotonin syndrome given polypharmacy and him taking extra Seroquel, no evidence of NMS, suspect he is underreporting his benzo and/or ETOH use given physical complaints. He is on neurontin which should help prevent withdrawal. I will not officially place on [facility] protocol was would just be agitating for patient as views as accusatory. Decrease Buspar and d/c to limit polypharmacy. He views as ineffective. Will hold Trintellix to limit polypharmacy and is also non formulary and he doesn't want it brought. He reports not wanting to retry it anyway and then discounts benefit from any of his meds except Seroquel and Ativan. Consider hold/decrease Prozac if exhibits additional manic symptoms (irritable, spending). Mental Health & Subst Abuse Tx Psychiatrist Name of Psychiatrist: Khadar Kumar PA-C Psychiatrist's Date of Appointment with Psychiatrist: 07/30/21 Time of Appointment with Psychiatrist: 1:40 p.m. Psychiatric Appointment Comment: [address] [facility] Therapist Name of Therapist: Khadar Parra Therapist's Date of Therapist Appointment: 07/23/21 Time of Therapist Appointment: 11:00 a.m. Therapy Appointment Comment: [address] [facility] Forest Officer Name of Forest Officer: Sabrina Rose Guillermo Powers Phone Number for Forest Officer: [phone] Date of Appointment with Forest Officer: 07/25/21 Time of Appointment with Forest Officer: 1:30p Case Management Appointment Comment: visit in the home Post Discharge Appointments Primary Care Physician Name Of Family Doctor: BLAS [facility] Date of Appointment with PCP: 08/22/21 Time of Appointment with PCP: 10:20 a.m. Provider Appointment Comment: [address] [facility] Contact Information Discharge Discharge Address: [address] [place] [id number] Discharge Plan Discharge Items Patient Disposition: Home - Self-Care Reason For Visit: RAN OUT OF MEDS, SHAKY, ANXIETY, MENTAL HEALTH Discharge Diagnosis: Major Depressive Disorder with anxious distress Activity: Resume your previous activity Non-emergency contact: Primary Care Provider, Psychiatrist, Therapist and Physical Instructor Call non-emergency contact if: you have any medication questions and your symptoms worsen Follow-up/Referrals: Carlito Rothman MD [Primary Care Provider] - Diet: Regular Addtl Attending Provider Instructions: SPECIAL CARE INSTRUCTIONS: 1. Follow through with your scheduled aftercare appointments. If unable to keep an appointment, please call to reschedule. 2. Take your medication only as prescribed. Medication should not be changed or stopped without the approval of your doctor. In the event of worsening symptoms or concerns about side effects, contact your doctor immediately. 3. Utilize new healthy coping skills, anger management skills, and stress management skills learned during your hospitalization. Journal feelings and process them with a support person. Identify stressors or situations that may result in relapse, deterioration or inappropriate behaviors and develop a plan to deal with those issues. 4. If your coping skills are ineffective and you are in crisis, contact your outpatient providers for direction. If unable to reach your providers, please call the [facility] CRISIS LINE AT , go to the [facility] walk-in center at [address], [address], [place], or go to the closest Emergency Room. 5. Avoid alcohol and un-prescribed drugs. 6. You have been provided with the Mental Health Advance Directives Pamphlet for your review. 7. Your condition is stable for discharge to outpatient level of care, but recovery is an ongoing process. Ifthoughts to harm yourself or others return, follow the safety plan developed during your stay. Planning for a safe return home includes securing weapons. Our treatment team recommends weaponsbe removed from the home until your outpatient provider reassesses your progress. In rare cases where the items themselvescannot be removed, guns and ammunitionshould be secured separatelyand keys stored by a reliable personoutside of the home. If you were admitted on an involuntary commitment, the police or other legal authorities may be involved in this process. AFTERCARE APPOINTMENTS: * Please call your insurance company prior to your scheduled appointment to confirm your aftercare providers are covered. Take your insurance information to your appointments. WHO TO CALL AND WHEN: Medical Emergencies: For questions or emergencies related to your hospital stay, please contact the Inpatient Behavioral Health Unit at [phone]. A psychiatric lpn is on-call 26/01 for the Behavioral Health Unit for emergencies At any time you feel your situation is an emergency, you may also call 911 immediately. Pending Studies at Discharge: No Stand-Alone Forms: [facility] [employer], Smoking Cessation Medications and DC Order Prescriptions: New diphenhydramine HCl [Benadryl] 25 mg Capsule 25 mg PO DAILY PRN (Reason: sleep) 30 Days Qty: 14 RF: 0 propranolol 10 mg Tablet 10 mg PO BID PRN (Reason: anxiety, HTN) 30 Days Qty: 60 RF: 0 sennosides-docusate sodium [Senokot-S] 8.6-50 mg Tablet 2 tab PO BID 30 Days Qty: 120 RF: 0 clonazepam 1 mg Tablet 1 mg PO QAM 30 Days Qty: 30 RF: 0 chlorpromazine 25 mg Tablet 25 mg PO DAILY PRN (Reason: anxiety) 30 Days Qty: 30 RF: 0 chlorpromazine 25 mg Tablet 25 mg PO BIDM 30 Days Qty: 60 RF: 0 Continued lisinopril 40 mg tablet 40 mg PO QAM Qty: 90 RF: 1 amlodipine 10 mg tablet 10 mg PO QAM Qty: 90 RF: 1 Symbicort 160-4.5 mcg/actuation HFA aerosol inhaler 2 puff INH BID Qty: 10.2 RF: 5 multivitamin Tablet 1 tab PO QAM RF: 0 fluoxetine 40 mg capsule 40 mg PO QAM 30 Days Qty: 30 RF: 0 clonidine HCl 0.3 mg tablet 0.3 mg PO DAILY 30 Days Qty: 30 RF: 0 quetiapine [Seroquel] 50 mg Tablet 50 mg PO HS 30 Days Qty: 30 RF: 0 quetiapine 400 mg tablet 400 mg PO HS 30 Days Qty: 30 RF: 0 Discontinued buspirone 15 mg Tablet 15 mg PO BID RF: 0 docusate sodium [Colace] 100 mg Capsule 200 mg PO QAM RF: 0 Trintellix 5 mg tablet 5 mg PO QPM RF: 0 lorazepam 0.5 mg tablet 0.5 mg PO DAILY PRN (Reason: Anxiety) RF: 0 gabapentin 600 mg tablet 600 mg PO TID RF: 0 Discharge Orders: Discharge Order (Routine); Ordered 07/18/21 Ordered By: Amparo Rebolledo Admission Data Admit Date/Time: 07/10/21 20:58 Attending Provider: Amparo Rebolledo Admit Provider: Rima Castillo Primary Care Provider: Carlito Rothman Other Interventions: Discharge Summary Assessment (RN) Last Done: 07/18/21 10:27 PSY Interdisciplinary Discharge Planning Last Done: 07/18/21 10:27 Coding Level of Care Code 25115 D/C day mgmt > 30 min Diagnoses Unspecified mood [affective] disorder F39 Benzodiazepine abuse F13.10 Hyponatremia E87.1 Time Spent (min) 60
[2021-07-18] MEDS: PROPRANOLOL HCL 10 MG TAB PO PRN (10:20)
--- NOTE | 2021-07-23 15:08 | Communication Note ---
Date of Service: July 23, 2021 Jorge Luis called stating that his pharmacy would not fill prn propranolol given drug interaction with inhaler. DIANE Avila contacted and I spoke with jermaine johnson directly as he has taken together without incident, dose of propranolol is very low and prn and overall less risk to his respiratory system than benzodiazepines. He is not in an acute exacerbation of COPD. Reviewed that calling on behalf of Dr. Rebolledo who sent discharge prescriptions.
--- NOTE | 2021-07-25 12:29 | Communication Note ---
Date of Service: July 25, 2021 patient called requesting refill on thorazine as he has been using BID plus the prescribed prn daily and is running out of pills prior to his med check at [facility] which is on 07/30/21. rx for 15 tabs of thorazine 25 mg bid plus 1 daily prn sent to [facility]. Patient is tolerating well and finds helpful. He is having some constipation but does not feel it is related to medication.
== END 2021-07-18 10:58 | disposition home or self-care (01) | DRG 881 ==
LOC: ED 16:23 → SUATTDRO 20:58 → 3S 21:14

== ENCOUNTER 2022-03-14 13:55 | Observation (INO) ==
[2022-03-14] MEDS ORDERED: OPTIRAY 300 500mL IV ONE (14:09)
--- NOTE | 2022-03-14 14:22 | CT Scan Report ---
CT OF THE HEAD WITHOUT CONTRAST CLINICAL HISTORY: Stroke Like Symptoms COMPARISON STUDY: MRI of the brain February 12, 2021. Head CT February 04, 2021. TECHNIQUE: Helical axial images of the head were obtained without IV contrast. Automated exposure con trol was utilized for the study. A dose lowering technique was utilized adhering to the principles o f ALARA. FINDINGS: No acute intracranial hemorrhage, midline shift or mass effect is present. Mild white matte r hypodensities favor small vessel disease. The ventricular system is unremarkable. The basal cistern s are patent. No extra-axial collections are present. There are no findings to suggest acute dural si nus thrombosis or acute territorial infarct. No significant calvarial abnormalities are present. Visu alized portions of the sinuses and mastoid air cells are clear. IMPRESSION: No acute intracranial findings. ACT 112: Negative or not required by law. Electronically signed by: Brandan Carter M.D. 03/14/2022 2:21 PM
[2022-03-14] MEDS ORDERED: ONDANSETRON INJ 2 MG/ML 2 ML VIAL ONE (14:30)
[2022-03-14] MEDS ORDERED: ONDANSETRON INJ 2 MG/ML 2 ML VIAL IV STA ×2 (14:33→15:29)
[2022-03-14 14:35] LABS: Basophils # (auto) 0.08 K/uL (0-0.2); Basophils % (auto) 1.1 %; Eosinophils % (auto) 1.4 %; Hematocrit (blood only) 37.1 % (40.1-51.0); Immature Granulocytes # (auto) 0.03 K/uL (0.00-0.02); Immature Granulocytes % (auto) 0.4 %; Lymphocytes # (auto) 2.21 K/uL (1.2-3.4); Lymphocytes % (auto) 30.2 %; Mean Corpuscular Hemoglobin 29.5 pg (25.0-34.0); Mean Corpuscular Volume 84.3 fL (80.0-100.0); Mean Platelet Volume 9.6 fL (9.4-12.4); Monocytes # (auto) 0.58 K/uL (0.24-0.82); Monocytes % (auto) 7.9 %; Neutrophils # (auto) 4.31 K/uL (1.4-6.5); Platelet Count 310 K/uL (130-400); RDW Coefficient of Variation 12.7 % (11.5-14.5); RDW Standard Deviation 38.9 fL (36.4-46.3); White Blood Count 7.31 K/ul (4.8-10.8)
--- NOTE | 2022-03-14 14:38 | CT Scan Report ---
CT angio head w con, CT angio neck with con CLINICAL HISTORY: Stroke Like Symptoms TECHNIQUE: CT angiography of the head and neck was performed following intravenous administration of iodinated contrast. Coronal and sagittal MIPS were obtained from the axial data set and were submitte d for review. Automated dose lowering techniques and/or adjustment according to patient size were ut ilized for this examination. All measurements were calculated based on NASCET criteria. CT DOSE: 1155.94 mGy.cm Comparison: Comparison is made to CT head 03/14/2022 and MRI brain 02/12/2021 FINDINGS: Lungs and soft tissues are unremarkable. CTA Neck: A 3 vessel aortic arch is shown. There is no significant atherosclerotic plaque in the aor tic arch or the origins of the innominate, left common carotid, and left subclavian arteries. The c ommon carotid, external carotid, cervical segments of the internal carotid arteries, and the cervical segments of the vertebral arteries are patent without hemodynamically significant stenosis. The left vertebral artery is dominant. CTA Head: The anterior and posterior cerebral circulations are patent. No hemodynamically significan t stenosis, aneurysm, dissection, or arteriovenous malformation is shown. Atherosclerotic disease is noted. IMPRESSION: 1. No occlusion, hemodynamically significant stenosis, or dissection in the major cervical arteries. 2. No occlusion, hemodynamically significant stenosis, aneurysm, dissection, or arteriovenous malfor mation in the major intracranial arteries. Assessment of stenosis of the internal carotid arteries is based on NASCET criteria. ACT 112: Negative or not required by law. Electronically signed by: Wiliam Craven M.D. 03/14/2022 2:37 PM
[2022-03-14 14:48] LABS: Partial Thromboplastin Ratio 0.9; Partial Thromboplastin Time 24.9 Seconds (21.0-31.0); Prothrombin Time 10.9 Seconds (9.0-12.0)
[2022-03-14 15:07] LABS: Albumin Level 4.3 gm/dl (3.4-5.0); Bilirubin,Total 0.3 mg/dl (0.2-1.0); Calcium 8.6 mg/dl (8.5-10.1); Creatinine Clr Calc Pharmacy 67.2 ml/min; Est GFR (African American) 85.4 ml/min; Est GFR (Non-African American) 73.7 ml/min; Globulin 2.2 gm/dl (2.5-4.0); Magnesium 1.9 mg/dl (1.7-2.4); Total Protein 6.5 gm/dl (6.0-8.3)
[2022-03-14 15:12] LABS: Troponin I High Sensitivity 3.6 pg/ml (0-20)
[2022-03-14] MEDS ORDERED: LORazepam 0.5 MG TAB PO PRN (16:12)
[2022-03-14] MEDS ORDERED: LORazepam 0.5 MG TAB PO STA (16:16)
--- NOTE | 2022-03-14 16:18 | History & Physical Report ---
Date of Service March 14, 2022 Assessment & Plan (1) Toxic encephalopathy: Plan: Most likely due to polysubstance &caffeine intake (2-3 L of soda and 6 caffeine pills (~1200 mg)), but TIA is also possible. Tele-stroke suggested transient global amnesia, but seems less compatible to me given the acute confusion and aphasia which I have not seen previously. - Monitor for any other signs/symptoms of caffeine overdose - Monitor carefully with home psychiatric meds - Discussed pros/cons of full TIA work-up including MRI, echo, labs. Patient is quite anxious and wishes to pursue: * MRI brain * Echo * A1c, lipids * Telemetry (2) Hyponatremia: Plan: Previously thought to be due to his psychiatric medications and psychogenic polydipsia. Reports he is currently drinking ~12L of soda per day, but that this has not changed recently. - Urine osms ordered - Did not put on official water restriction, but counseled him to drink significantly less for the rest of the day - Monitor I&Os while inpatient (3) Unspecified mood [affective] disorder: Plan: Unclear hx to me even reviewing notes. Seems to have some depression, possible schizophrenia diagnosis, but also in the context of alcohol abuse. - Continue home meds, reviewed them with patient, and he seems to have good knowledge of them. - Low-dose, oral Ativan PRN for anxiety while here. Told him he would not get script on discharge. (4) Hypertension: Plan: BP is 120/100 in the ER. - Continue home amlodipine, lisinopril (5) Hyperlipidemia: Plan: - Check lipids in AM (6) Constipation: Plan: Chronic. - Continue home meds (7) DVT prophylaxis: Plan: SCDs, early ambulation FULL CODE per patient History of Present Illness Primary Care Provider: Carlito Rothman MD 61yo M w/ hx of HTN, unspecified mood disorder, prior alcohol abuse who presents with acute episode of confusion and aphasia. The patient reports that he was completely in his normal state of health last night at bedtime and this morning. He had a normal breakfast and went to work. Prior to work, he did use his medical marijuana as well as his usual psychiatric medications. He reports that he drinks about 12L of soda per day. For lunch, he was not hungry, and he had some more soda as well as 6 caffeine tablets. He was in his in car, but reports it got too hot, so he went to the break room at work. In the break room, he reports he can't really can't remember what happened, but per report, his co-workers found him confused and having trouble speaking. EMS was called. The patient reports the next thing he remembers is paramedics in the break room asking him to come to the hospital. At this time, he reports he feels essentially back to normal. Reports no fevers/chills, chest pain, shortness of breath, abdominal pain, nausea, or vomiting. He has some chronic constipation, but this is not changed recently. Allergies Allergy/AdvReac Type Severity Reaction Status Date / Time No Known Drug Allergies Allergy Unknown Verified 03/14/22 15:56 Home Medications Medication Instructions Recorded Confirmed Type multivitamin 1 tab PO QAM 03/21/21 03/14/22 History polyethylene glycol 3350 17 gram 17 g PO DAILY 11/10/21 03/14/22 History oral powder packet (Miralax) propranolol 10 mg tablet 10 mg PO BID PRN Anxiety 11/10/21 03/14/22 History sennosides 8.6 mg tablet (Senna 8.6 mg PO BID 11/10/21 03/14/22 History Laxative) Medical Marijuana See Rx Instructions .Route .COMPLEX 12/10/21 03/14/22 History clonazepam 0.5 mg tablet 0.25 mg PO QAM 12/10/21 03/14/22 History duloxetine 60 mg capsule,delayed 120 mg PO DAILY 12/10/21 03/14/22 History release (Cymbalta) budesonide-formoterol HFA 160 2 puff inhalation BID #10.2 grams 12/16/21 03/14/22 Rx mcg-4.5 mcg/actuation aerosol inhaler (Symbicort) amlodipine 10 mg tablet 10 mg PO QAM #90 tabs 12/24/21 03/14/22 Rx lisinopril 40 mg tablet 40 mg PO QAM #90 tabs 12/24/21 03/14/22 Rx chlorpromazine 50 mg tablet 50 mg PO TID 03/14/22 03/14/22 History lamotrigine 25 mg tablet 25 mg PO DAILY 03/14/22 03/14/22 History quetiapine 200 mg tablet 600 mg PO HS 03/14/22 03/14/22 History Past Med/Surg History Medical History (Updated 03/14/22 @ 16:30 by Tutu Brooks MD) Chronic obstructive pulmonary disease mild, inhaler daily Constipation Hyperlipidemia Hypertension Hyponatremia Leukopenia Major depressive disorder, recurrent severe without psychotic features Mood disorder Surgical History History of colonoscopy History of tooth extraction History of wisdom tooth extraction Family History Grandmother (Maternal) Diabetes Father Myocardial infarction Hypertension Mother Alzheimer disease Other No family history of adverse response to anesthesia Denies family history of Ovarian cancer Prostate cancer Breast cancer Colorectal cancer Social History Smoking Status: Former smoker Tobacco Type: Cigarettes Second Hand Exposure: No; Hx Alcohol Use: No Hx Substance Use: Yes (medical marijuana use intermittently) Preferred Language: German Communication Ability: Effective Visual Impairment: No Limitations Hearing Ability: Normal Cardiopulmonary Specialist Required: No Beliefs That Will Affect Care: None marital status: Single Current Living Situation: Family Current Living Situation Comment: Lives with sister current occupational status: unemployed Feels Safe at Home: Yes Dental Care, Regularly: Yes Seatbelt Use: always Assistive Devices: Denture - Upper and Glasses Review of Systems Review of Systems: All systems reviewed & are unremarkable except as noted in HPI & below Physical Exam Constitutional: WD/WN, vitals as above Eyes: EOM intact bilaterally; no conjunctival abnormality ENMT: external ear and nose normal, oropharynx normal Neck: trachea midline, no thyromegaly normal visual inspection Respiratory: normal respiratory effort, lungs clear to auscultation no respiratory distress Cardiovascular: RRR, no murmur, no edema Gastrointestinal (Abdomen): Inspection/Auscultation: abdomen normal to inspection; abdomen not distended Musculoskeletal: no cyanosis or clubbing, extremities motor strength 5/5 Skin: no rashes, warm and dry Neurologic: moves all extremities and awake Speech / Cognition: normal speech and normal cognition Motor/Sensory: no tremor, normal movement, no fasciculations and no sensory deficit Coordination: normal [id number]-[id number]-[id number] test and normal [id number] test Psychiatric: Orientation: alert, oriented to person and cooperative Results & Data Results & Data ([facility]) Vital Signs (Past 12 Hours) Vital Signs Temp Pulse Pulse Resp BP BP Pulse Ox 03/14/22 16:00 74 15 97 03/14/22 16:00 121/98 03/14/22 15:45 75 16 97 03/14/22 15:45 140/87 03/14/22 15:30 71 13 96 03/14/22 15:30 136/85 03/14/22 15:17 72 17 96 03/14/22 15:17 125/90 03/14/22 15:00 76 18 96 03/14/22 15:00 124/86 03/14/22 15:01 75 22 124/86 97 03/14/22 14:45 74 13 96 03/14/22 14:45 137/86 03/14/22 14:43 75 18 96 03/14/22 14:37 75 20 132/85 97 03/14/22 14:37 74 22 97 03/14/22 14:30 73 19 97 03/14/22 14:20 75 18 96 03/14/22 14:15 87 18 96 03/14/22 13:43 36.4 C L 78 20 134/81 97 O2 Del Method 03/14/22 16:00 Room Air 03/14/22 16:00 03/14/22 15:45 03/14/22 15:45 03/14/22 15:30 03/14/22 15:30 03/14/22 15:17 03/14/22 15:17 03/14/22 15:00 03/14/22 15:00 03/14/22 15:01 Room Air 03/14/22 14:45 03/14/22 14:45 03/14/22 14:43 03/14/22 14:37 03/14/22 14:37 03/14/22 14:30 03/14/22 14:20 03/14/22 14:15 03/14/22 13:43 Room Air Code Status & VTE Plan VTE Prophylaxis Plan VTE Prophylaxis will be ordered: Yes PG Care Time/CCT Total # of Minutes Spent Total Time Spent with Patient: Total time spent is greater than 50% in coordination of care (as documented) at patient's floor/unit and/or counseling patient: Coding Level of Care Code INT OBSERVATION CARE 70M LVL 3 Diagnoses Toxic encephalopathy G92.9 Hyponatremia E87.1 Unspecified mood [affective] disorder F39 Hypertension I10 Hypertension type: primary hypertension Hyperlipidemia E78.5 Constipation K59.00 DVT prophylaxis Z29.9 (1) Hypertension Hypertension type: primary hypertension Qualified Code(s): I10 - Essential (primary) hypertension
[2022-03-14 16:30] LABS: Amphetamines+Metham, Urine Neg (Neg); Barbiturates, Urine Neg (Neg); Benzodiazepine, Urine Neg (Neg); Cocaine, Urine Neg (Neg); MDMA (Ecstacy), Urine Neg (Neg); Methadone, Urine Neg (Neg); Opiate, Urine Neg (Neg); Phencyclidine, Urine Neg (Neg)
[2022-03-14] MEDS ORDERED: ONDANSETRON INJ 2 MG/ML 2 ML VIAL IV PRN (17:58)
[2022-03-14] MEDS ORDERED: ACETAMINOPHEN 650 MG SUPP PR PRN (20:10)
[2022-03-14] MEDS ORDERED: ACETAMINOPHEN 325 MG TAB PO PRN (20:45)
--- NOTE | 2022-03-14 20:46 | Magnetic Resonance Report ---
MR brain wo con HISTORY: 61 years-old Male Transeint confusion, aphasia chronic fatigue with confusion COMPARISON: Head CT of same day, brain MRI 02/12/2021 TECHNIQUE: Multiplanar multisequence MRI of the brain was obtained without the use of IV contrast. FINDINGS: No restricted diffusion to suggest acute or subacute. The midline structures appear unremarkable. No acute intracranial hemorrhage, midline shift, abnormal extra-axial collection, hydrocephalus or intra cranial mass. The study is mildly motion degraded. Mild scattered T2/FLAIR hyperintense foci again no amarilys within the subcortical and periventricular white matter with stable focus within the left tempora l lobe, image 13 of series 11. Cerebral venous sinuses and major arterial flow voids appear patent. Skull, orbits and soft tissues a re unremarkable. Mastoid air cells and paranasal sinuses are clear. IMPRESSION: 1. No acute intracranial abnormality. No acute or subacute infarct. 2. Mild nonspecific scattered T2/FLAIR hyperintense foci throughout the white matter are redemonstrat ed suggestive of probable chronic microvascular ischemic disease. ACT 112: Negative or not required by law. The above report was generated using voice recognition software. It may contain grammatical, syntax o r spelling errors. Electronically signed by: Cuong Phillip M.D. 03/14/2022 8:44 PM
[2022-03-14] MEDS ORDERED: FLUTICASONE/VILANTEROL 100/25MCG 14 PUFFS/INHALER INH SCH (21:00)
[2022-03-14] MEDS ORDERED: QUEtiapine FUMARATE 300 MG TABLET PO SCH (21:00)
[2022-03-14] MEDS: chlorproMAZINE HCL 25 MG TAB PO SCH (21:07)
[2022-03-14] MEDS: SENNA 8.6 MG TAB PO SCH (21:08)
--- NOTE | 2022-03-14 21:36 | Electrocardiogram Report ---
Test Reason : Blood Pressure : / mmHG Vent. Rate : 076 BPM Atrial Rate : 076 BPM P-R Int : 156 ms QRS Dur : 090 ms QT Int : 394 ms P-R-T Axes : 052 016 045 degrees QTc Int : 443 ms Normal sinus rhythm Normal ECG When compared with ECG of 14-JUL-2021 10:50, No significant change was found Confirmed by Raul Wilder ([id number]) on 03/14/2022 9:36:27 PM Referred By: REFERRED SELF Confirmed By:Raul Wilder
[2022-03-15 06:42] LABS: Hematocrit (blood only) 38.1 % (40.1-51.0); Hemoglobin 13.5 g/dl (14.0-18.0); Mean Corpuscular Hemoglobin 29.3 pg (25.0-34.0); Mean Corpuscular Hgb Conc 35.4 g/dL (32.0-36.0); Mean Corpuscular Volume 82.6 fL (80.0-100.0); Mean Platelet Volume 8.9 fL (9.4-12.4); Platelet Count 293 K/uL (130-400); RDW Coefficient of Variation 12.4 % (11.5-14.5); RDW Standard Deviation 37.8 fL (36.4-46.3); Red Blood Count 4.61 M/uL (4.63-6.08); White Blood Count 6.58 K/ul (4.8-10.8)
[2022-03-15 07:24] LABS: BUN Creatinine Ratio 8.8 (10-20); Calcium 8.5 mg/dl (8.5-10.1); Chol HDL Ratio 3.6 (0-5); Creatinine Clr Calc Pharmacy 64.2 ml/min; Est GFR (African American) 80.9 ml/min; Est GFR (Non-African American) 69.8 ml/min; Magnesium 2.2 mg/dl (1.7-2.4)
[2022-03-15 08:14] LABS: Estimated Average Glucose 123 mg/dl; Hemoglobin A1C 5.9 % (4.5-5.6)
[2022-03-15] MEDS: SENNA 8.6 MG TAB PO SCH (08:45)
[2022-03-15] MEDS: chlorproMAZINE HCL 25 MG TAB PO SCH ×2 (08:46→14:24)
[2022-03-15] MEDS ORDERED: clonazePAM 0.25 MG TAB PO SCH (09:00)
[2022-03-15] MEDS ORDERED: lisinopril 40 MG TAB PO SCH (09:00)
[2022-03-15] MEDS ORDERED: DULoxetine HCL 60 MG CAP PO SCH (09:00)
[2022-03-15] MEDS ORDERED: lamoTRIgine 25 MG TAB PO SCH (09:00)
[2022-03-15] MEDS ORDERED: POLYETHYLENE (MIRALAX) 17 GM PACK PO SCH (09:00)
[2022-03-15] MEDS ORDERED: amLODIPine BESYLATE 5 MG TAB PO SCH (09:00)
[2022-03-15] MEDS ORDERED: MULTIVITAMIN TAB PO SCH (09:00)
--- NOTE | 2022-03-15 11:13 | Emergency Department Note ---
Impression & Plan Acute alteration in mental status, Marijuana use, Stroke-like symptoms ED Provider Note CHIEF COMPLAINT: speech difficulty, confusion HISTORY OF PRESENT ILLNESS: This 61 yo male patient presents to the emergency department complaints of acute memory changes and speech difficulties after lunc h today. The patient was at work at the [employer] when he went to lunch at noon. He states he had a soda and a caffeine tablet. He came back to the facility at 1230 and was apparently confused for coworkers. He was unable to tell them. Been in his speech was not clear. They stated he had difficulty with word finding. And they called the ambulance for fear of a stroke. EMS contacted our facility and a stroke alert was called. The patient had no cranial nerve deficits or extremity weakness. He denies a history of stroke. Patient does have a remote history of alcohol abuse but states he has not had anything to drink in 4 years. He did use medical marijuana this morning. He denies any use of clonazepam which did show up as a prescription for the patient but not recently. Patient denies any recent head injuries or falls. He denies any recent illness with his or headaches. REVIEW OF SYSTEMS: A review of systems was performed with positives and pertinent negatives listed in the history of present illness. 10 systems were reviewed and are otherwise negative. ALLERGIES: see below MEDICATIONS: see below PMH: see below SOCIAL HISTORY: see below DDx: Infection, dehydration, metabolic abnormality, hypo/hyperglycemia, electrolyte disturbance, anemia, hypoxia, cardiac sources, intracerebral event, toxicologic, neurologic, as well as other pathologies. PHYSICAL EXAM: Vital signs reviewed. General: Well appearing 61 yo male, in no significant distress. HEENT: No scleral icterus, PERRLA, neck supple. Atraumatic. Cardiovascular: Regular rate and rhythm, no extra sounds. Pulmonary: Clear to auscultation bilaterally, normal work of breathing. Abdomen: Soft, nontender, nondistended, positive bowel sounds. Musculoskeletal: Atraumatic, no peripheral edema. Neurologic: Patient awake alert and oriented x 3, speech is clear. CN II-XII grossly intact, equal strength in all 4 extremities. Negative pronator drift. Intact [id number]. Skin: Warm, dry, no rash EMERGENCY DEPARTMENT COURSE/MDM: This patient was evaluated and appeared to be in no significant distress. IV access was obtained and laboratory work was drawn. On my initial clinical evaluation, the patient had no focal neurologic deficits and his speech seemed to be intact. He did answer the month incorrectly but quickly changed from February to March. He telestroke attending, Dr. Lara did evaluate the patient. He feels the patient is likely suffering from a transient global amnestic event versus toxicologic effects. CT of the head with CT angios of the head and neck had been performed and are negative for acute process. Patient has a negative alcohol level, he is hyponatremic but is chronically hyponatremic. U tox is positive for THC. Patient's case was discussed with the hospitalist service who will evaluate the patient for admission and further management. Patient is aware of the plan and agrees. MONITORING: An order for cardiac monitoring was placed and the patient is noted to be in a NSR at 89 beats per minute. RADIOLOGY: see below EKG:NSR at 76 bpm, normal QT interval. Normal ST segments. No PVC, no PAC. No significant change from previous dated July 14, 2021. DISPOSITION: admit Past Med/Surg History Medical History Chronic obstructive pulmonary disease mild, inhaler daily Constipation Hyperlipidemia Hypertension Hyponatremia Leukopenia Major depressive disorder, recurrent severe without psychotic features Mood disorder Surgical History History of colonoscopy History of tooth extraction History of wisdom tooth extraction Family History Grandmother (Maternal) Diabetes Father Myocardial infarction Hypertension Mother Alzheimer disease Other No family history of adverse response to anesthesia Denies family history of Ovarian cancer Prostate cancer Breast cancer Colorectal cancer Social History Smoking Status: Former smoker Tobacco Type: Cigarettes Second Hand Exposure: No; Hx Alcohol Use: No Hx Substance Use: Yes Last Used Substance: Just Prior to Arrival Last Used Substance Other:: marijuana & prescribed medications. Preferred Language: Lithuanian Communication Ability: Effective Visual Impairment: No Limitations Hearing Ability: Normal Mold Finisher Required: No Beliefs That Will Affect Care: None marital status: Single Current Living Situation: Family Current Living Situation Comment: at home with sister (younger) current occupational status: unemployed Feels Safe at Home: Yes Dental Care, Regularly: Yes Seatbelt Use: always Assistive Devices: None Allergies Allergies Allergy/AdvReac Type Severity Reaction Status Date / Time No Known Drug Allergies Allergy Unknown Verified 03/14/22 15:56 Home Meds Home Medications Medication Instructions Recorded Confirmed multivitamin 1 tab PO QAM 03/21/21 03/14/22 polyethylene glycol 3350 17 gram 17 g PO DAILY 11/10/21 03/14/22 oral powder packet (Miralax) propranolol 10 mg tablet 10 mg PO BID PRN Anxiety 11/10/21 03/14/22 sennosides 8.6 mg tablet (Senna 8.6 mg PO BID 11/10/21 03/14/22 Laxative) Medical Marijuana See Rx Instructions .Route .COMPLEX 12/10/21 03/14/22 clonazepam 0.5 mg tablet 0.25 mg PO QAM 12/10/21 03/14/22 duloxetine 60 mg capsule,delayed 120 mg PO DAILY 12/10/21 03/14/22 release (Cymbalta) chlorpromazine 50 mg tablet 50 mg PO TID 03/14/22 03/14/22 lamotrigine 25 mg tablet 25 mg PO DAILY 03/14/22 03/14/22 quetiapine 200 mg tablet 600 mg PO HS 03/14/22 03/14/22 Previous Rx's Medication Instructions Recorded budesonide-formoterol HFA 160 2 puff inhalation BID #10.2 grams 12/16/21 mcg-4.5 mcg/actuation aerosol inhaler (Symbicort) amlodipine 10 mg tablet 10 mg PO QAM #90 tabs 12/24/21 lisinopril 40 mg tablet 40 mg PO QAM #90 tabs 12/24/21 aspirin 81 mg tablet,delayed 81 mg PO DAILY #30 tabs 03/15/22 release atorvastatin 20 mg tablet 20 mg PO DAILY #30 tabs 03/15/22 Results & Data (ED) Vital Signs Vital Signs - 24 hr 03/14/22 14:43 03/14/22 14:45 03/14/22 14:45 Pulse Rate 75 74 Pulse Rate [Apical] Pulse Rate from SpO2 Sensor 74 74 Respiratory Rate 18 13 Respiratory Effort / Characteristics Respiratory Depth Blood Pressure 137/86 Blood Pressure [Left Arm] Blood Pressure Mean 103 Blood Pressure Mean [Left Arm] Pulse Oximetry 96 96 Oxygen Delivery Method 03/14/22 15:01 03/14/22 15:00 03/14/22 15:00 Pulse Rate 76 Pulse Rate [Apical] 75 Pulse Rate from SpO2 Sensor Respiratory Rate 22 18 Respiratory Effort / Characteristics Non-Labored Spontaneous Respiratory Depth Normal Blood Pressure 124/86 Blood Pressure [Left Arm] 124/86 Blood Pressure Mean 98 Blood Pressure Mean [Left Arm] 98 Pulse Oximetry 97 96 Oxygen Delivery Method Room Air 03/14/22 15:17 03/14/22 15:17 03/14/22 15:30 Pulse Rate 72 Pulse Rate [Apical] Pulse Rate from SpO2 Sensor Respiratory Rate 17 Respiratory Effort / Characteristics Respiratory Depth Blood Pressure 125/90 136/85 Blood Pressure [Left Arm] Blood Pressure Mean 101 102 Blood Pressure Mean [Left Arm] Pulse Oximetry 96 Oxygen Delivery Method 03/14/22 15:30 03/14/22 15:45 03/14/22 15:45 Pulse Rate 71 75 Pulse Rate [Apical] Pulse Rate from SpO2 Sensor 71 Respiratory Rate 13 16 Respiratory Effort / Characteristics Respiratory Depth Blood Pressure 140/87 Blood Pressure [Left Arm] Blood Pressure Mean 104 Blood Pressure Mean [Left Arm] Pulse Oximetry 96 97 Oxygen Delivery Method 03/14/22 16:00 03/14/22 16:00 Pulse Rate 74 Pulse Rate [Apical] Pulse Rate from SpO2 Sensor Respiratory Rate 15 Respiratory Effort / Characteristics Respiratory Depth Blood Pressure 121/98 Blood Pressure [Left Arm] Blood Pressure Mean 105 Blood Pressure Mean [Left Arm] Pulse Oximetry 97 Oxygen Delivery Method Room Air Home Medications Current Medication List: was personally reviewed by me Laboratory Data Attestation: I reviewed the patient's lab results. Result diagrams: 03/15/22 06:27 03/15/22 06:27 Lab Results 03/14/22 03/14/22 03/14/22 Range/Units 14:13 14:13 14:25 WBC 7.31 (4.8-10.8) K/ul RBC 4.40 L (4.63-6.08) M/uL Hgb 13.0 L (14.0-18.0) g/dl Hct 37.1 L (40.1-51.0) % MCV 84.3 (80.0-100.0) fL MCH 29.5 (25.0-34.0) pg MCHC 35.0 (32.0-36.0) g/dL RDW Std Deviation 38.9 (36.4-46.3) fL RDW Coeff of Nadia 12.7 (11.5-14.5) % Plt Count 310 (130-400) K/uL MPV 9.6 (9.4-12.4) fL Immature Gran % (Auto) 0.4 % Neut % (Auto) 59.0 % Lymph % (Auto) 30.2 % [place] % (Auto) 7.9 % Eos % (Auto) 1.4 % Baso % (Auto) 1.1 % Neut # (Auto) 4.31 (1.4-6.5) K/uL Lymph # (Auto) 2.21 (1.2-3.4) K/uL [place] # (Auto) 0.58 (0.24-0.82) K/uL Eos # (Auto) 0.10 (0-0.50) K/uL Baso # (Auto) 0.08 (0-0.2) K/uL Immature Gran # (Auto) 0.03 H (0.00-0.02) K/uL PT (9.0-12.0) Seconds INR (0.9-1.1) APTT (21.0-31.0) Seconds PTT Ratio Sodium (136-145) mmol/L Potassium (3.5-5.1) mmol/L Chloride (98-107) mmol/L Carbon Dioxide (21-32) mmol/L Anion Gap (3-11) BUN (6-23) mg/dl Creatinine (0.6-1.4) mg/dl Est Cr Clr Drug Dosing ml/min Est GFR ( Amer) ml/min Est GFR (Non-Af Amer) ml/min BUN/Creatinine Ratio (10-20) Glucose (70-99(Fasting)) mg/dl POC Glucose 109 H (70-99) mg/dl Estimat Average Glucose mg/dl Hemoglobin A1c (4.5-5.6) % Calcium (8.5-10.1) mg/dl Magnesium (1.7-2.4) mg/dl Total Bilirubin (0.2-1.0) mg/dl AST (13-39) U/L ALT (7-52) U/L Alkaline Phosphatase (34-104) U/L Troponin I High Sens (0-20) pg/ml Total Protein (6.0-8.3) gm/dl Albumin (3.4-5.0) gm/dl Globulin (2.5-4.0) gm/dl Albumin/Globulin Ratio (0.9-2) Urine Osmolality (500-800) mOsm/kg Urine Opiates Screen (Neg) Ur Methadone, Qual (Neg) Urine Barbiturates (Neg) Ur Phencyclidine (PCP) (Neg) U Amphetamin/Meth Scrn (Neg) MDMA (Ecstasy) Screen (Neg) U Benzodiazepines Scrn (Neg) Ur Cocaine Metabolite (Neg) U Marijuana (THC) Screen (Neg) Ethyl Alcohol mg/dL (<10.0) mg/dl SARS-CoV-2, RNA, NAAT NEGATIVE (NEGATIVE) 03/14/22 03/14/22 03/14/22 Range/Units 14:25 14:25 14:25 WBC (4.8-10.8) K/ul RBC (4.63-6.08) M/uL Hgb (14.0-18.0) g/dl Hct (40.1-51.0) % MCV (80.0-100.0) fL MCH (25.0-34.0) pg MCHC (32.0-36.0) g/dL RDW Std Deviation (36.4-46.3) fL RDW Coeff of Nadia (11.5-14.5) % Plt Count (130-400) K/uL MPV (9.4-12.4) fL Immature Gran % (Auto) % Neut % (Auto) % Lymph % (Auto) % [place] % (Auto) % Eos % (Auto) % Baso % (Auto) % Neut # (Auto) (1.4-6.5) K/uL Lymph # (Auto) (1.2-3.4) K/uL [place] # (Auto) (0.24-0.82) K/uL Eos # (Auto) (0-0.50) K/uL Baso # (Auto) (0-0.2) K/uL Immature Gran # (Auto) (0.00-0.02) K/uL PT 10.9 (9.0-12.0) Seconds INR 1.0 (0.9-1.1) APTT 24.9 (21.0-31.0) Seconds PTT Ratio 0.9 Sodium 124 L (136-145) mmol/L Potassium 4.0 (3.5-5.1) mmol/L Chloride 92 L (98-107) mmol/L Carbon Dioxide 21 (21-32) mmol/L Anion Gap 11 (3-11) BUN 13 (6-23) mg/dl Creatinine 1.08 (0.6-1.4) mg/dl Est Cr Clr Drug Dosing 67.2 ml/min Est GFR ( Amer) 85.4 ml/min Est GFR (Non-Af Amer) 73.7 ml/min BUN/Creatinine Ratio 12.0 (10-20) Glucose 109 H (70-99(Fasting)) mg/dl POC Glucose (70-99) mg/dl Estimat Average Glucose mg/dl Hemoglobin A1c (4.5-5.6) % Calcium 8.6 (8.5-10.1) mg/dl Magnesium 1.9 (1.7-2.4) mg/dl Total Bilirubin 0.3 (0.2-1.0) mg/dl AST 32 (13-39) U/L ALT 20 (7-52) U/L Alkaline Phosphatase 52 (34-104) U/L Troponin I High Sens 3.6 (0-20) pg/ml Total Protein 6.5 (6.0-8.3) gm/dl Albumin 4.3 (3.4-5.0) gm/dl Globulin 2.2 L (2.5-4.0) gm/dl Albumin/Globulin Ratio 2.0 (0.9-2) Urine Osmolality (500-800) mOsm/kg Urine Opiates Screen (Neg) Ur Methadone, Qual (Neg) Urine Barbiturates (Neg) Ur Phencyclidine (PCP) (Neg) U Amphetamin/Meth Scrn (Neg) MDMA (Ecstasy) Screen (Neg) U Benzodiazepines Scrn (Neg) Ur Cocaine Metabolite (Neg) U Marijuana (THC) Screen (Neg) Ethyl Alcohol mg/dL < 10.0 (<10.0) mg/dl SARS-CoV-2, RNA, NAAT (NEGATIVE) 03/14/22 03/14/22 03/14/22 Range/Units 14:25 15:40 15:40 WBC (4.8-10.8) K/ul RBC (4.63-6.08) M/uL Hgb (14.0-18.0) g/dl Hct (40.1-51.0) % MCV (80.0-100.0) fL MCH (25.0-34.0) pg MCHC (32.0-36.0) g/dL RDW Std Deviation (36.4-46.3) fL RDW Coeff of Nadia (11.5-14.5) % Plt Count (130-400) K/uL MPV (9.4-12.4) fL Immature Gran % (Auto) % Neut % (Auto) % Lymph % (Auto) % [place] % (Auto) % Eos % (Auto) % Baso % (Auto) % Neut # (Auto) (1.4-6.5) K/uL Lymph # (Auto) (1.2-3.4) K/uL [place] # (Auto) (0.24-0.82) K/uL Eos # (Auto) (0-0.50) K/uL Baso # (Auto) (0-0.2) K/uL Immature Gran # (Auto) (0.00-0.02) K/uL PT (9.0-12.0) Seconds INR (0.9-1.1) APTT (21.0-31.0) Seconds PTT Ratio Sodium (136-145) mmol/L Potassium (3.5-5.1) mmol/L Chloride (98-107) mmol/L Carbon Dioxide (21-32) mmol/L Anion Gap (3-11) BUN (6-23) mg/dl Creatinine (0.6-1.4) mg/dl Est Cr Clr Drug Dosing ml/min Est GFR ( Amer) ml/min Est GFR (Non-Af Amer) ml/min BUN/Creatinine Ratio (10-20) Glucose (70-99(Fasting)) mg/dl POC Glucose (70-99) mg/dl Estimat Average Glucose 123 mg/dl Hemoglobin A1c 5.9 H (4.5-5.6) % Calcium (8.5-10.1) mg/dl Magnesium (1.7-2.4) mg/dl Total Bilirubin (0.2-1.0) mg/dl AST (13-39) U/L ALT (7-52) U/L Alkaline Phosphatase (34-104) U/L Troponin I High Sens (0-20) pg/ml Total Protein (6.0-8.3) gm/dl Albumin (3.4-5.0) gm/dl Globulin (2.5-4.0) gm/dl Albumin/Globulin Ratio (0.9-2) Urine Osmolality 442 L (500-800) mOsm/kg Urine Opiates Screen Neg (Neg) Ur Methadone, Qual Neg (Neg) Urine Barbiturates Neg (Neg) Ur Phencyclidine (PCP) Neg (Neg) U Amphetamin/Meth Scrn Neg (Neg) MDMA (Ecstasy) Screen Neg (Neg) U Benzodiazepines Scrn Neg (Neg) Ur Cocaine Metabolite Neg (Neg) U Marijuana (THC) Screen Pos H (Neg) Ethyl Alcohol mg/dL (<10.0) mg/dl SARS-CoV-2, RNA, NAAT (NEGATIVE) Administered Medications Acetaminophen (Acetaminophen 325 Mg Tab) 650 mg PO Q4H PRN PRN Reason: pain or fever Stop: 04/13/22 20:44 Last Admin: 03/14/22 21:06 Dose: 650 mg Documented By: AFRICA Amlodipine Besylate (Amlodipine Besylate 5 Mg Tab) 10 mg PO QAM [facility] Stop: 04/14/22 08:59 Last Admin: 03/15/22 08:46 Dose: 10 mg Documented By: [id number] Chlorpromazine HCl (Chlorpromazine Hcl 25 Mg Tab) 50 mg PO TID [facility] Stop: 04/13/22 20:59 Last Admin: 03/15/22 14:24 Dose: 50 mg Documented By: [id number] Admin: 03/15/22 08:46 Dose: 50 mg Documented By: [id number] Admin: 03/14/22 21:07 Dose: 50 mg Documented By: AFRICA Clonazepam (Clonazepam 0.25 Mg Tab) 0.25 mg PO QAM [facility] Stop: 04/14/22 08:59 Last Admin: 03/15/22 08:45 Dose: 0.25 mg Documented By: [id number] Duloxetine HCl (Duloxetine Hcl 60 Mg Cap) 120 mg PO DAILY [facility] Stop: 04/14/22 08:59 Last Admin: 03/15/22 08:46 Dose: 120 mg Documented By: [id number] Fluticasone/Vilanterol (Fluticasone/Vilanterol 100/25mcg 14 Puffs/Inhaler) 1 puffs INH QPM [facility]; Protocol Stop: 04/13/22 20:59 Last Admin: 03/14/22 21:13 Dose: 1 puffs Documented By: AFRICA Lamotrigine (Lamotrigine 25 Mg Tab) 25 mg PO DAILY [facility] Stop: 04/14/22 08:59 Last Admin: 03/14/22 21:08 Dose: 25 mg Documented By: AFRICA Lisinopril (Lisinopril 40 Mg Tab) 40 mg PO QAM [facility] Stop: 04/14/22 08:59 Last Admin: 03/15/22 08:45 Dose: 40 mg Documented By: [id number] Lorazepam (Lorazepam 0.5 Mg Tab) 0.5 mg PO BID PRN PRN Reason: Anxiety Stop: 04/13/22 16:11 Last Admin: 03/15/22 05:27 Dose: 0.5 mg Documented By: AFRICA Multivitamins (Multivitamin Tab) 1 tab PO QAM [facility] Stop: 04/14/22 08:59 Last Admin: 03/15/22 08:45 Dose: 1 tab Documented By: [id number] Polyethylene Glycol (Polyethylene (Miralax) 17 Gm Pack) 17 gm PO DAILY [facility] Stop: 04/14/22 08:59 Last Admin: 03/15/22 08:46 Dose: 17 gm Documented By: [id number] Quetiapine Fumarate (Quetiapine Fumarate 300 Mg Tablet) 600 mg PO HS [facility] Stop: 04/13/22 20:59 Last Admin: 03/14/22 21:08 Dose: 600 mg Documented By: AFRICA Sennosides (Senna 8.6 Mg Tab) 8.6 mg PO BID [facility] Stop: 04/13/22 20:59 Last Admin: 03/15/22 08:45 Dose: 8.6 mg Documented By: [id number] Admin: 03/14/22 21:08 Dose: 8.6 mg Documented By: AFRICA Discontinued Medications Ioversol (Optiray 300 500ml) 110 ml IV ONCE ONE Stop: 03/14/22 14:10 Last Admin: 03/14/22 14:09 Dose: 110 ml Documented By: KSF Lorazepam (Lorazepam 0.5 Mg Tab) 0.5 mg PO NOW STA Stop: 03/14/22 16:17 Last Admin: 03/14/22 16:23 Dose: 0.5 mg Documented By: OACheryl Ondansetron HCl (Ondansetron Inj 2 Mg/Ml 2 Ml Vial) Confirm Administered Dose 4 mg .ROUTE .STK-MED ONE Stop: 03/14/22 14:31 Last Admin: 03/14/22 14:32 Dose: 4 mg Documented By: HS Ondansetron HCl (Ondansetron Inj 2 Mg/Ml 2 Ml Vial) 4 mg IV NOW STA Stop: 03/14/22 14:34 Last Admin: 03/14/22 14:37 Dose: Not Given Documented By: HS Ondansetron HCl (Ondansetron Inj 2 Mg/Ml 2 Ml Vial) 4 mg IV NOW STA Stop: 03/14/22 15:30 Last Admin: 03/14/22 15:32 Dose: 4 mg Documented By: NING Imaging Data Radiologist's Impression: Head CT 03/14/22 13:48 CT OF THE HEAD WITHOUT CONTRAST CLINICAL HISTORY: Stroke Like Symptoms COMPARISON STUDY: MRI of the brain February 12, 2021. Head CT February 04, 2021. TECHNIQUE: Helical axial images of the head were obtained without IV contrast. Automated exposure control was utilized for the study. A dose lowering technique was utilized adhering to the principles of ALARA. FINDINGS: No acute intracranial hemorrhage, midline shift or mass effect is present. Mild white matter hypodensities favor small vessel disease. The ventricular system is unremarkable. The basal cisterns are patent. No extra- axial collections are present. There are no findings to suggest acute dural sinus thrombosis or acute territorial infarct. No significant calvarial abnormalities are present. Visualized portions of the sinuses and mastoid air cells are clear. IMPRESSION: No acute intracranial findings. ACT 112: Negative or not required by law. Electronically signed by: Brandan Carter M.D. 03/14/2022 2:21 PM Head CTA 03/14/22 13:48 CT angio head w con, CT angio neck with con CLINICAL HISTORY: Stroke Like Symptoms TECHNIQUE: CT angiography of the head and neck was performed following intravenous administration of iodinated contrast. Coronal and sagittal MIPS were obtained from the axial data set and were submitted for review. Automated dose lowering techniques and/or adjustment according to patient size were utilized for this examination. All measurements were calculated based on NASCET criteria. CT DOSE: 1155.94 mGy.cm Comparison: Comparison is made to CT head 03/14/2022 and MRI brain 02/12/2021 FINDINGS: Lungs and soft tissues are unremarkable. CTA Neck: A 3 vessel aortic arch is shown. There is no significant atherosclerotic plaque in the aortic arch or the origins of the innominate, left common carotid, and left subclavian arteries. The common carotid, external carotid, cervical segments of the internal carotid arteries, and the cervical segments of the vertebral arteries are patent without hemodynamically significant stenosis. The left vertebral artery is dominant. CTA Head: The anterior and posterior cerebral circulations are patent. No hemodynamically significant stenosis, aneurysm, dissection, or arteriovenous malformation is shown. Atherosclerotic disease is noted. IMPRESSION: 1. No occlusion, hemodynamically significant stenosis, or dissection in the major cervical arteries. 2. No occlusion, hemodynamically significant stenosis, aneurysm, dissection, or arteriovenous malformation in the major intracranial arteries. Assessment of stenosis of the internal carotid arteries is based on NASCET criteria. ACT 112: Negative or not required by law. Electronically signed by: Wiliam Craven M.D. 03/14/2022 2:37 PM Neck CTA 03/14/22 13:48 CT angio head w con, CT angio neck with con CLINICAL HISTORY: Stroke Like Symptoms TECHNIQUE: CT angiography of the head and neck was performed following intravenous administration of iodinated contrast. Coronal and sagittal MIPS were obtained from the axial data set and were submitted for review. Automated dose lowering techniques and/or adjustment according to patient size were utilized for this examination. All measurements were calculated based on NASCET criteria. CT DOSE: 1155.94 mGy.cm Comparison: Comparison is made to CT head 03/14/2022 and MRI brain 02/12/2021 FINDINGS: Lungs and soft tissues are unremarkable. CTA Neck: A 3 vessel aortic arch is shown. There is no significant atherosclerotic plaque in the aortic arch or the origins of the innominate, left common carotid, and left subclavian arteries. The common carotid, external carotid, cervical segments of the internal carotid arteries, and the cervical segments of the vertebral arteries are patent without hemodynamically significant stenosis. The left vertebral artery is dominant. CTA Head: The anterior and posterior cerebral circulations are patent. No hemodynamically significant stenosis, aneurysm, dissection, or arteriovenous malformation is shown. Atherosclerotic disease is noted. IMPRESSION: 1. No occlusion, hemodynamically significant stenosis, or dissection in the major cervical arteries. 2. No occlusion, hemodynamically significant stenosis, aneurysm, dissection, or arteriovenous malformation in the major intracranial arteries. Assessment of stenosis of the internal carotid arteries is based on NASCET criteria. ACT 112: Negative or not required by law. Electronically signed by: Wiliam Craven M.D. 03/14/2022 2:37 PM Blood Pressure Blood Pressure Findings: Normal blood pressure Blood Pressure Disposition: did not require urgent referral Discharge Plan Visit Data Chief Complaint: Stroke Alert Stated Complaint: stroke alert ED Provider: Danii Miller Discharge Problem: Acute alteration in mental status, Marijuana use, Stroke-like symptoms Patient Disposition: Admitted As Inpatient Discharge Instructions Interventions: ED Discharge Assessment Last Done: 03/14/22 17:32
--- NOTE | 2022-03-15 15:29 | Discharge Summary ---
Date of Service March 15, 2022 Admission HPI Per Admitting Provider 61yo M w/ hx of HTN, unspecified mood disorder, prior alcohol abuse who presents with acute episode of confusion and aphasia. The patient reports that he was completely in his normal state of health last night at bedtime and this morning. He had a normal breakfast and went to work. Prior to work, he did use his medical marijuana as well as his usual psychiatric medications. He reports that he drinks about 12L of soda per day. For lunch, he was not hungry, and he had some more soda as well as 6 caffeine tablets. He was in his in car, but reports it got too hot, so he went to the break room at work. In the break room, he reports he can't really can't remember what happened, but per report, his co-workers found him confused and having trouble speaking. EMS was called. The patient reports the next thing he remembers is paramedics in the break room asking him to come to the hospital. At this time, he reports he feels essentially back to normal. Reports no fevers/chills, chest pain, shortness of breath, abdominal pain, nausea, or vomiting. He has some chronic constipation, but this is not changed recently. Principal Diagnosis Toxic encephalopathy secondary to polysubstance Discharge Exam Constitutional WD/WN, vitals as above Respiratory normal respiratory effort, lungs clear to auscultation Cardiovascular RRR, no murmur, no edema Gastrointestinal (Abdomen) normal bowel sounds, soft, nontender, no hepatosplenomegaly Neurologic patellar DTR's 2+ bilat, sensation intact and PERRL, EOMI, accommodation nl, no face palsy, no dysarthria Psychiatric A+Ox3, euthymic affect Discharge Data Allergies Allergy/AdvReac Type Severity Reaction Status Date / Time No Known Drug Allergies Allergy Unknown Verified 03/14/22 15:56 Consultations 03/14/22 15:51 ED Decision to Admit Stat Ordered Studies 03/14/22 13:48 CT angio head w con Stat CT angio neck with con Stat CT head/brain wo con Stat 03/14/22 17:58 MR brain wo con Routine Hospital Course (1) Toxic encephalopathy: 61 y/o M presented with episode of confusion and speech disturbance sec to excessive caffeine/polysubstance Toxic encephalopathy - Mental status back to baseline without intervention. work up neg for stroke, infection. MRI brain with chronic micro-vascular changes. discussed avoiding excessive polysubstance use. Hyponatremia - chronic. na improved from admission of 124 to 128 in am. discussed with patient about limited free water intake and recheck level in one wk HTN - continue same meds. considering microvascular changes on MRI brain - discussed getting outpatient sleep study. HLD - 10% ASCVD risk - added statin. Glucose intolerance - lifestyle changes. Added 81mgs aspirin considering risk factors for ASCVD. (2) Chronic hyponatremia: (3) Hyponatremia: (4) Hypertension: (5) Hyperlipidemia: (6) Unspecified mood [affective] disorder: (7) Depression: (8) Panic disorder: (9) Marijuana use: Total Time Total Time Spent Total Time Spent (In Minutes): 35 min Discharge Plan Discharge Items Patient Disposition: Home - Self-Care Reason For Visit: SPEECH ALTERATION, CONFUSION Discharge Diagnosis: Toxic encephalopathy secondary to Polysubstance and hyponatremia. Glucose intolerance Activity: Resume your previous activity Non-emergency contact: Primary Care Provider Call non-emergency contact if: you have any medication questions Follow-up/Referrals: Carlito Rothman MD [Primary Care Provider] - 03/26/22 11:00 am Diet: Heart Healthy Addtl Attending Provider Instructions: You were admitted to the hospital for episode of confusion and difficulty with speech which is thought to be secondary to excessive caffeine/polysubstance use. Testing while in the hospital showed no acute stroke on the MRI of brain but it did show microvascular changes. Echocardiogram showed no opening in the heart chambers. Your sodium on admission was noted to be 124 and on recheck is 128. --Your hemoglobin A1c is 5.9. Please communicate with your primary care provider to further discuss lifestyle changes. --You are being started on statin medication for elevated cholesterol and high risk of plaque related disease. --You should also take 81mgs aspirin daily considering your risk factor for plaq ue related disease. --You should ask your primary care provider about getting a sleep study. --Your primary care physician will have to recheck on sodium level in 2-3 days to ensure improvement in level Pending Studies at Discharge: No Stand-Alone Forms: My Visys, Smoking Cessation Medications and DC Order Prescriptions: New atorvastatin 20 mg tablet 20 mg PO DAILY Qty: 30 0RF aspirin 81 mg tablet,delayed release (DR/EC) 81 mg PO DAILY Qty: 30 0RF Continued Symbicort 160-4.5 mcg/actuation HFA aerosol inhaler 2 puff INH BID Qty: 10.2 5RF Rx Instructions: brand necessary lisinopril 40 mg tablet 40 mg PO QAM Qty: 90 3RF amlodipine 10 mg tablet 10 mg PO QAM Qty: 90 3RF duloxetine [Cymbalta] 60 mg capsule,delayed release(DR/EC) 120 mg PO DAILY Rx Instructions: 2 capsule dose Medical Marijuana See Rx Instructions .ROUTE .COMPLEX Rx Instructions: as directed multivitamin Tablet 1 tab PO QAM sennosides [Senna Laxative] 8.6 mg Tablet 8.6 mg PO BID polyethylene glycol 3350 [Miralax] 17 gram Powder In Packet 17 g PO DAILY propranolol 10 mg tablet 10 mg PO BID PRN (Reason: Anxiety) clonazepam 0.5 mg tablet 0.25 mg PO QAM lamotrigine 25 mg tablet 25 mg PO DAILY quetiapine 200 mg tablet 600 mg PO HS Rx Instructions: 3 tablet dose chlorpromazine 50 mg tablet 50 mg PO TID Discharge Orders: Discharge Order (Routine); Ordered 03/15/22 Ordered By: Jazmyne Sen/Other Patient Handouts: Diabetes and Heart Disease, Hypertension Stroke Link, Hyponatremia Dc, Eating Heart-Healthy Foods Admission Data Admit Date/Time: 03/14/22 16:12 Attending Provider: Jazmyne Moser Admit Provider: Tutu Brooks Primary Care Provider: Carlito Rothman Other Providers: Tutu Brooks Other Interventions: Discharge Summary Assessment (RN) Last Done: 03/15/22 14:28
[2022-03-17 08:22] LABS: Marijuana Quant, GCMS Urine 439 ng/mL (<5)
== END 2022-03-15 15:24 | disposition home or self-care (01) ==
LOC: 2N 13:55 → ED 13:55 → SUATTDRO 16:12 → 2N 17:32

== ENCOUNTER 2022-03-19 08:31 | Inpatient (IN) ==
--- NOTE | 2022-03-19 08:49 | Emergency Department Note ---
Impression & Plan Depression, Acute hyponatremia, Transaminitis ED Provider Note NAME: MIKAELA PRYOR AGE: 61 SEX: M : 1960 ARRIVES VIA: Walk-In INFORMANT: Patient ED PROVIDER(S): Danny Langford DO CHIEF COMPLAINT: Depression HPI: Patient is a 61-year-old male who presents to the ER for depression. He notes he has a history of marijuana abuse, suicidal ideations, hypertension, hyperlipidemia who presents to the ER for feeling helpless. He notes he feels extremely depressed which has been present for several months and has been worsening over the past 2 weeks. He feels more hopeless. This starts with him getting up in the morning and he feels as though there is nothing to live for. He does note he feels like he is getting to the point where he has to nothing else to live for and will kill himself. He has attempted suicide before back in 2005 with an overdose. He denies any active plan. He called crisis and was referred in. He denies any headache or change in vision. No chest pain or shortness of breath. No belly pain. No other exacerbating or remitting factors. ROS: See above HPI for pertinent positives & negatives. A total of 10 systems reviewed and were otherwise negative. PAST MEDICAL HISTORY:See Below PAST SURGICAL HISTORY:See Below FAMILY HISTORY:See Below SOCIAL HISTORY:See Below HOME MEDICATIONS:See Below ALLERGIES:See Below VITALS:See Below PHYSICAL EXAMINATION: GENERAL: Sitting up in bed, alert, well appearing, well nourished, no distress, non-toxic EYE EXAM: normal conjunctiva. OROPHARYNX: no exudate, no erythema, lips, buccal mucosa, and tongue normal and mucous membranes are moist NECK: supple, no nuchal rigidity, no adenopathy, non-tender LUNGS: Clear to auscultation. Normal chest wall mechanics HEART: no murmurs, S1 normal and S2 normal ABDOMEN: abdomen soft, non-tender, normo-active bowel sounds, no masses, no re bound or guarding. UPPER EXTREMITIES: upper extremities are grossly normal. LOWER EXTREMITIES: No pitting edema. NEURO EXAM: Normal sensorium, cranial nerves II-XII grossly intact, normal speech, no gross weakness of arms, no gross weakness of legs. PSYCH: Denies any active suicidal plan or homicidal ideations. No auditory visual hallucinations but admits to feeling very depressed and feels as though he is getting to the point of wanting to kill himself MEDICAL DECISION MAKING: Patient is a 61-year-old male who presents the ER with above-stated complaint. Labs were obtained and showed no significant leukocytosis or anemia. BMP with mild hyponatremia at 128 consistent with previous. Mild transaminitis with an AST of 185. T bili normal. No belly pain. TSH was unremarkable. UA was clean. Tox was negative with exception of marijuana. Alcohol negative. COVID- negative. He was seen and evaluated admitted to [address] on a 201. Triage Nursing notes reviewed. Limited review of prior medical records performed Vital Signs: reviewed and remarkable for no significant abnormalities Differential diagnosis: Mood disorder, infection, hypoglycemia, electrolyte abnormalities, cardiac sources, intracerebral event, toxicologic, trauma, neurologic, as well as other pathologies. ER treatment provided: See below Diagnostics interpreted by me: ECG: none Laboratory studies: As stated above and show below. Imaging studies: See below Consultation(s): none Procedures: none Critical Care: None Past Med/Surg History Medical History Chronic obstructive pulmonary disease mild, inhaler daily Constipation Hyperlipidemia Hypertension Hyponatremia Leukopenia Major depressive disorder, recurrent severe without psychotic features Mood disorder Surgical History History of colonoscopy History of tooth extraction History of wisdom tooth extraction Family History Grandmother (Maternal) Diabetes Father Myocardial infarction Hypertension Mother Alzheimer disease Other No family history of adverse response to anesthesia Denies family history of Ovarian cancer Prostate cancer Breast cancer Colorectal cancer Social History Smoking Status: Former smoker Tobacco Type: Cigarettes Second Hand Exposure: No; Hx Alcohol Use: No Hx Substance Use: Yes Last Used Substance: Just Prior to Arrival Last Used Substance Other:: marijuana & prescribed medications. Preferred Language: Latvian Communication Ability: Effective Visual Impairment: No Limitations Hearing Ability: Normal Convention Manager Required: No Beliefs That Will Affect Care: None marital status: Single Current Living Situation: Family Current Living Situation Comment: at home with sister (younger) current occupational status: unemployed Feels Safe at Home: Yes Dental Care, Regularly: Yes Seatbelt Use: always Assistive Devices: None Allergies Allergies Allergy/AdvReac Type Severity Reaction Status Date / Time No Known Drug Allergies Allergy Unknown Verified 03/14/22 15:56 Home Meds Home Medications Medication Instructions Recorded Confirmed multivitamin 1 tab PO QAM 03/21/21 03/19/22 polyethylene glycol 3350 17 gram 17 g PO DAILY 11/10/21 03/19/22 oral powder packet (Miralax) propranolol 10 mg tablet 10 mg PO BID PRN Anxiety 11/10/21 03/19/22 sennosides 8.6 mg tablet (Senna 8.6 mg PO BID 11/10/21 03/19/22 Laxative) Medical Marijuana See Rx Instructions .Route .COMPLEX 12/10/21 03/19/22 duloxetine 60 mg capsule,delayed 120 mg PO DAILY 12/10/21 03/19/22 release (Cymbalta) chlorpromazine 50 mg tablet 50 mg PO TID 03/14/22 03/19/22 lamotrigine 25 mg tablet 25 mg PO DAILY 03/14/22 03/19/22 quetiapine 200 mg tablet 600 mg PO HS 03/14/22 03/19/22 Previous Rx's Medication Instructions Recorded budesonide-formoterol HFA 160 2 puff inhalation BID #10.2 grams 12/16/21 mcg-4.5 mcg/actuation aerosol inhaler (Symbicort) amlodipine 10 mg tablet 10 mg PO QAM #90 tabs 12/24/21 lisinopril 40 mg tablet 40 mg PO QAM #90 tabs 12/24/21 aspirin 81 mg tablet,delayed 81 mg PO DAILY #30 tabs 03/15/22 release atorvastatin 20 mg tablet 20 mg PO DAILY #30 tabs 03/15/22 Results & Data (ED) Vital Signs Vital Signs - 24 hr 03/19/22 08:34 03/19/22 08:31 Temperature 36 C L Temperature Source Temporal Artery Scan Pulse Rate 70 Pulse Rhythm Regular Pulse Strength Normal Respiratory Rate 20 16 Respiratory Effort / Characteristics Non-Labored Spontaneous Non-Labored Respiratory Depth Normal Normal Respiratory Pattern Regular Regular Blood Pressure 136/94 Blood Pressure Mean 108 Blood Pressure Position Sitting Pulse Oximetry 99 Oxygen Delivery Method Room Air Sepsis Recent Fever Within 48 Hours No Sepsis New/Unexplained Change in Mental Status No Sepsis Action Taken by Nursing No Action Required Laboratory Data Result diagrams: 03/19/22 09:06 03/19/22 09:06 Lab Results 03/19/22 03/19/22 03/19/22 Range/Units 08:48 08:50 08:50 WBC (4.8-10.8) K/ul RBC (4.63-6.08) M/uL Hgb (14.0-18.0) g/dl Hct (40.1-51.0) % MCV (80.0-100.0) fL MCH (25.0-34.0) pg MCHC (32.0-36.0) g/dL RDW Std Deviation (36.4-46.3) fL RDW Coeff of Nadia (11.5-14.5) % Plt Count (130-400) K/uL MPV (9.4-12.4) fL Immature Gran % (Auto) % Neut % (Auto) % Lymph % (Auto) % [place] % (Auto) % Eos % (Auto) % Baso % (Auto) % Neut # (Auto) (1.4-6.5) K/uL Lymph # (Auto) (1.2-3.4) K/uL [place] # (Auto) (0.24-0.82) K/uL Eos # (Auto) (0-0.50) K/uL Baso # (Auto) (0-0.2) K/uL Immature Gran # (Auto) (0.00-0.02) K/uL Sodium (136-145) mmol/L Potassium (3.5-5.1) mmol/L Chloride (98-107) mmol/L Carbon Dioxide (21-32) mmol/L Anion Gap (3-11) BUN (6-23) mg/dl Creatinine (0.6-1.4) mg/dl Est Cr Clr Drug Dosing ml/min Est GFR ( Amer) ml/min Est GFR (Non-Af Amer) ml/min BUN/Creatinine Ratio (10-20) Glucose (70-99(Fasting)) mg/dl Calcium (8.5-10.1) mg/dl Total Bilirubin (0.2-1.0) mg/dl AST (13-39) U/L ALT (7-52) U/L Alkaline Phosphatase (34-104) U/L Total Protein (6.0-8.3) gm/dl Albumin (3.4-5.0) gm/dl Globulin (2.5-4.0) gm/dl Albumin/Globulin Ratio (0.9-2) TSH (0.300-4.500) uIu/ml Urine Color Yellow Urine Appearance Clear (Clear) Urine pH 6.5 (4.5-7.5) Ur Specific [place] 1.004 (1.000-1.030) Urine Protein Negative (Negative) Urine Glucose (UA) Negative (Negative) Urine Ketones Negative (Negative) Urine Blood Negative (Negative) Urine Nitrite Negative (Negative) Urine Bilirubin Negative (Negative) Urine Urobilinogen Negative (Negative) Ur Leukocyte Esterase Negative (Negative) Salicylates (3.0-30) mg/dl Urine Opiates Screen Neg (Neg) Ur Methadone, Qual Neg (Neg) Acetaminophen (10-30) ug/ml Urine Barbiturates Neg (Neg) Ur Phencyclidine (PCP) Neg (Neg) U Amphetamin/Meth Scrn Neg (Neg) MDMA (Ecstasy) Screen Neg (Neg) U Benzodiazepines Scrn Neg (Neg) Ur Cocaine Metabolite Neg (Neg) U Marijuana (THC) Screen Pos H (Neg) Ethyl Alcohol mg/dL (<10.0) mg/dl SARS-CoV-2, RNA, NAAT NEGATIVE (NEGATIVE) 03/19/22 03/19/22 03/19/22 Range/Units 09:06 09:06 09:06 WBC 6.36 (4.8-10.8) K/ul RBC 4.71 (4.63-6.08) M/uL Hgb 13.6 L (14.0-18.0) g/dl Hct 41.0 (40.1-51.0) % MCV 87.0 (80.0-100.0) fL MCH 28.9 (25.0-34.0) pg MCHC 33.2 (32.0-36.0) g/dL RDW Std Deviation 40.3 (36.4-46.3) fL RDW Coeff of Nadia 12.7 (11.5-14.5) % Plt Count 317 (130-400) K/uL MPV 8.9 L (9.4-12.4) fL Immature Gran % (Auto) 0.5 % Neut % (Auto) 70.4 % Lymph % (Auto) 19.3 % [place] % (Auto) 7.4 % Eos % (Auto) 1.3 % Baso % (Auto) 1.1 % Neut # (Auto) 4.48 (1.4-6.5) K/uL Lymph # (Auto) 1.23 (1.2-3.4) K/uL [place] # (Auto) 0.47 (0.24-0.82) K/uL Eos # (Auto) 0.08 (0-0.50) K/uL Baso # (Auto) 0.07 (0-0.2) K/uL Immature Gran # (Auto) 0.03 H (0.00-0.02) K/uL Sodium 128 L (136-145) mmol/L Potassium 4.7 (3.5-5.1) mmol/L Chloride 95 L (98-107) mmol/L Carbon Dioxide 28 (21-32) mmol/L Anion Gap 5 (3-11) BUN 12 (6-23) mg/dl Creatinine 0.85 (0.6-1.4) mg/dl Est Cr Clr Drug Dosing 92.2 ml/min Est GFR ( Amer) 109.0 ml/min Est GFR (Non-Af Amer) 94.0 ml/min BUN/Creatinine Ratio 14.1 (10-20) Glucose 108 H (70-99(Fasting)) mg/dl Calcium 9.0 (8.5-10.1) mg/dl Total Bilirubin 0.3 (0.2-1.0) mg/dl AST 185 H (13-39) U/L ALT 69 H (7-52) U/L Alkaline Phosphatase 52 (34-104) U/L Total Protein 6.7 (6.0-8.3) gm/dl Albumin 4.2 (3.4-5.0) gm/dl Globulin 2.5 (2.5-4.0) gm/dl Albumin/Globulin Ratio 1.7 (0.9-2) TSH 2.212 (0.300-4.500) uIu/ml Urine Color Urine Appearance (Clear) Urine pH (4.5-7.5) Ur Specific [place] (1.000-1.030) Urine Protein (Negative) Urine Glucose (UA) (Negative) Urine Ketones (Negative) Urine Blood (Negative) Urine Nitrite (Negative) Urine Bilirubin (Negative) Urine Urobilinogen (Negative) Ur Leukocyte Esterase (Negative) Salicylates (3.0-30) mg/dl Urine Opiates Screen (Neg) Ur Methadone, Qual (Neg) Acetaminophen (10-30) ug/ml Urine Barbiturates (Neg) Ur Phencyclidine (PCP) (Neg) U Amphetamin/Meth Scrn (Neg) MDMA (Ecstasy) Screen (Neg) U Benzodiazepines Scrn (Neg) Ur Cocaine Metabolite (Neg) U Marijuana (THC) Screen (Neg) Ethyl Alcohol mg/dL (<10.0) mg/dl SARS-CoV-2, RNA, NAAT (NEGATIVE) 03/19/22 03/19/22 Range/Units 09:06 09:06 WBC (4.8-10.8) K/ul RBC (4.63-6.08) M/uL Hgb (14.0-18.0) g/dl Hct (40.1-51.0) % MCV (80.0-100.0) fL MCH (25.0-34.0) pg MCHC (32.0-36.0) g/dL RDW Std Deviation (36.4-46.3) fL RDW Coeff of Nadia (11.5-14.5) % Plt Count (130-400) K/uL MPV (9.4-12.4) fL Immature Gran % (Auto) % Neut % (Auto) % Lymph % (Auto) % [place] % (Auto) % Eos % (Auto) % Baso % (Auto) % Neut # (Auto) (1.4-6.5) K/uL Lymph # (Auto) (1.2-3.4) K/uL [place] # (Auto) (0.24-0.82) K/uL Eos # (Auto) (0-0.50) K/uL Baso # (Auto) (0-0.2) K/uL Immature Gran # (Auto) (0.00-0.02) K/uL Sodium (136-145) mmol/L Potassium (3.5-5.1) mmol/L Chloride (98-107) mmol/L Carbon Dioxide (21-32) mmol/L Anion Gap (3-11) BUN (6-23) mg/dl Creatinine (0.6-1.4) mg/dl Est Cr Clr Drug Dosing ml/min Est GFR ( Amer) ml/min Est GFR (Non-Af Amer) ml/min BUN/Creatinine Ratio (10-20) Glucose (70-99(Fasting)) mg/dl Calcium (8.5-10.1) mg/dl Total Bilirubin (0.2-1.0) mg/dl AST (13-39) U/L ALT (7-52) U/L Alkaline Phosphatase (34-104) U/L Total Protein (6.0-8.3) gm/dl Albumin (3.4-5.0) gm/dl Globulin (2.5-4.0) gm/dl Albumin/Globulin Ratio (0.9-2) TSH (0.300-4.500) uIu/ml Urine Color Urine Appearance (Clear) Urine pH (4.5-7.5) Ur Specific [place] (1.000-1.030) Urine Protein (Negative) Urine Glucose (UA) (Negative) Urine Ketones (Negative) Urine Blood (Negative) Urine Nitrite (Negative) Urine Bilirubin (Negative) Urine Urobilinogen (Negative) Ur Leukocyte Esterase (Negative) Salicylates < 3.0 L (3.0-30) mg/dl Urine Opiates Screen (Neg) Ur Methadone, Qual (Neg) Acetaminophen 3 L (10-30) ug/ml Urine Barbiturates (Neg) Ur Phencyclidine (PCP) (Neg) U Amphetamin/Meth Scrn (Neg) MDMA (Ecstasy) Screen (Neg) U Benzodiazepines Scrn (Neg) Ur Cocaine Metabolite (Neg) U Marijuana (THC) Screen (Neg) Ethyl Alcohol mg/dL < 10.0 (<10.0) mg/dl SARS-CoV-2, RNA, NAAT (NEGATIVE) Administered Medications Chlorpromazine HCl (Chlorpromazine Hcl 25 Mg Tab) 50 mg PO TID MIKE Stop: 04/18/22 13:59 Last Admin: 03/19/22 13:50 Dose: 50 mg Documented By: MK Discontinued Medications Lorazepam (Lorazepam 1 Mg Tab) 1 mg SL NOW STA Stop: 03/19/22 11:26 Last Admin: 03/19/22 11:30 Dose: 1 mg Documented By: KV Discharge Plan Visit Data Chief Complaint: Mental Health Evaluation Stated Complaint: MENTAL STATE ED Provider: Danny Langford Discharge Problem: Depression, Acute hyponatremia, Transaminitis Patient Disposition: Admitted As Inpatient Discharge Instructions Interventions: ED Discharge Assessment Last Done: 03/19/22 11:15
[2022-03-19 09:05] LABS: Appearance Urine Clear (Clear); Bilirubin Urine Negative (Negative); Blood Urine Negative (Negative); Color Urine Yellow; Glucose Urine UA Negative (Negative); Ketones Urine Negative (Negative); Leukocyte Esterase Urine Negative (Negative); Nitrite Urine Negative (Negative); Protein Urine Negative (Negative); Specific Gravity Urine 1.004 (1.000-1.030); Urobilinogen Urine Negative (Negative); pH Urine 6.5 (4.5-7.5)
[2022-03-19 09:27] LABS: Basophils # (auto) 0.07 K/uL (0-0.2); Basophils % (auto) 1.1 %; Eosinophils # (auto) 0.08 K/uL (0-0.50); Eosinophils % (auto) 1.3 %; Hemoglobin 13.6 g/dl (14.0-18.0); Immature Granulocytes # (auto) 0.03 K/uL (0.00-0.02); Immature Granulocytes % (auto) 0.5 %; Lymphocytes # (auto) 1.23 K/uL (1.2-3.4); Lymphocytes % (auto) 19.3 %; Mean Corpuscular Hemoglobin 28.9 pg (25.0-34.0); Mean Corpuscular Hgb Conc 33.2 g/dL (32.0-36.0); Mean Platelet Volume 8.9 fL (9.4-12.4); Monocytes # (auto) 0.47 K/uL (0.24-0.82); Monocytes % (auto) 7.4 %; Neutrophils # (auto) 4.48 K/uL (1.4-6.5); Neutrophils % (auto) 70.4 %; Platelet Count 317 K/uL (130-400); RDW Coefficient of Variation 12.7 % (11.5-14.5); RDW Standard Deviation 40.3 fL (36.4-46.3); Red Blood Count 4.71 M/uL (4.63-6.08); White Blood Count 6.36 K/ul (4.8-10.8)
[2022-03-19 10:12] LABS: Acetaminophen 3 ug/ml (10-30); Albumin Globulin Ratio 1.7 (0.9-2); Albumin Level 4.2 gm/dl (3.4-5.0); BUN Creatinine Ratio 14.1 (10-20); Bilirubin,Total 0.3 mg/dl (0.2-1.0); Creatinine Clr Calc Pharmacy 92.2 ml/min; Globulin 2.5 gm/dl (2.5-4.0); Potassium 4.7 mmol/L (3.5-5.1); Salicylate < 3.0 mg/dl (3.0-30); Total Protein 6.7 gm/dl (6.0-8.3)
[2022-03-19 10:43] LABS: Amphetamines+Metham, Urine Neg (Neg); Barbiturates, Urine Neg (Neg); Benzodiazepine, Urine Neg (Neg); Cocaine, Urine Neg (Neg); MDMA (Ecstacy), Urine Neg (Neg); Methadone, Urine Neg (Neg); Opiate, Urine Neg (Neg); Phencyclidine, Urine Neg (Neg)
[2022-03-19] MEDS ORDERED: MAGNESIUM HYDROXIDE SUSP 30 ML UDC PO PRN (11:10)
[2022-03-19] MEDS ORDERED: BISMUTH SUBSALICYLATE LIQD 236 ML PO PRN (11:10)
[2022-03-19] MEDS ORDERED: hydrOXYzine HCl 25 MG TAB PO PRN ×2 (11:10)
[2022-03-19] MEDS ORDERED: SODIUM CHLORIDE 0.65% NA SOLN 45 ML (OCEAN) PRN (11:10)
[2022-03-19] MEDS ORDERED: LORazepam 1 MG TAB SL STA (11:25)
[2022-03-19] MEDS ORDERED: chlorproMAZINE HCL 25 MG TAB PO SCH (14:00)
--- NOTE | 2022-03-19 16:09 | History & Physical ---
Date of Service March 19, 2022 Impression / Recommendations Impression 61 yo male with hx of mood/psychotic disorder who reports weakness and depressive symptoms in the context of acute worsening of hyponatremia recently. Staff obtained orthostatic VS which were 148/87 lying, p=64; 147/92 p=71 sitting, and 114/88 p=78 standing. His systolic BP drops significantly with no compensatory increase in pulse and he has significant polypharmacy. I had already reviewed with patient concern that his thorazine dosing schedule may be contributing to daytime fatigue. He c/o muscle stiffness but denies EPS and declines Cogentin prn. His sodium remains low but is at the same level as when discharged from floor. Discussed fluid restriction. (1) Schizoaffective disorder: (2) Hyponatremia: (3) Marijuana use: Plan The patient was admitted to the [facility] ([facility]) on q15 min checks (behavioral with suicide precautions) for safety. The patient will participate in group, recreational, and milieu therapies and will be offered additional individual and family sessions as clinically appropriate. Hold Thorazine. Risks/benefits/alternatives reviewed re: Lamictal for mood stabilization. Discussion included but was not limited to slow titration to decrease risks of Reji's Bradford syndrome. Patient agrees to hold med/notify current prescriber of rash immediately. He was started on 25 mg Lamictal within past week and reviewed that not likely to be the cause of his current symptoms and is a good option for his depression. Inventory Assets Strengths: consistent with services, working Needs: avoid excessive caffeine/supplements, fluid restriction Suicide Risk Level Suicide Risk Level: High-Moderate (q15 min suicide checks) Risk Factors Assessment Male: Yes : Yes Do You Have Access To A Gun?: No Health Problems: Yes Mental Health Diagnoses: Yes Substance Use Disorders: Yes (hx) Previous Attempt: Yes Previous Psychiatric Hospitalization: Yes Hopelessness: Yes Protective Factors Assessment Employed: Yes ([employer]) Supportive Family: Yes (lives with younger sister) Psychiatric History Identifying Data MIKAELA PRYOR is a 61-year-old M who currently lives in [place], he was just discharged from the medical floor for syncopal episode/hyponatremia, and was admitted on 03/19/22 11:11 on a 201 voluntary commitment for suicidal ideation. Chief Complaint "I've been tired and weak and just can't function, I haven't been this hopeless before and want to ." History of Present Illness The patient is known to me from Jul 2021 admission at which time he was more irritable, likely due to withdrawing from benzos and had misused his Seroquel. Currently he reports taking his medication as prescribed. He continues to follow with [facility]. 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 He states when he left his medical stay "I felt great". He had been working in a hot [employer] for [employer] for [employer] (20 hrs/week) and "sort of passed out." He admits that he was using several hundred mg of caffeine a day as he has been fatigued. In the past few days his fatigue and functioning have worsened and in this context he didn't want to live anymore. He confirms history as presented to ED psych CM as: Pt reports that he has been struggling with depression for several years. Recently he has been waking up around 3 am with "crushing depression and despair" and is unable to get back to sleep. He does get about 6 hours of sleep per night. His suicidal thoughts have been increasing and he reports that if he doesn't get help now, he feels that suicide will become the only solution. Pt attempted suicide in 2005 by overdose. He has been inpatient multiple times for psychiatric treatment. Pt reports hopelessness, lack of motivation, and sadness. He works at [employer] a few days a week and reports going to work has been a struggle. He has been taking caffeine pills but reports the pills caused him to have a rapid heart rate so he has stopped taking them. Pt is dx with schizoaffective disorder, depression and anxiety. He sees Kimberley at [facility] for medication management and he has a [facility] RAMIREZ [facility]. Pt denies hallucinations, delusions and paranoia. He denies D&A treatment. Pt is requesting inpatient treatment. He is denying acute SI/plan but states, "If I don't get help, suicide will become my only option". Past Psychiatric History Previous Psych History: Previous Psych History: deprssion vs bipolar vs schizoaffective disorder, extensive past med trials. Hallucinations were mainly when using ETOH heavily and/or in the context of withdrawal. He has been seen by various [facility] providers ([facility] [facility] [place], [facility]) Current Psychiatric Diagnosis: MDD Outpatient Services: [facility]: HUEY Crain for meds and Kenneth baxter female therapist for therapy. Need to confirm if active with CM. Previous Psych Admissions: [facility] dating back to 1984 ([facility] that year as well), 3 admissions here in 2004, most recent 2016 after stays at [facility], [facility], and [facility]. 2018 ?[facility] following ED visit; OTHER THAN jul 2021 ADMISSION [facility] HE WAS ALSO ADMITTED TO [facility] THIS SUMMER. REPORTS HIS THORAZINE WAS INCREASED Do You Have Access To A Gun?: No History of Previous Suicide Attempt: Yes Describe Attempts in the Past: 2004 - OD on 60 Valium Past Medication Trials: mood stabilizers: Risperdal, Long, Depakote, Abilify, Seroquel, Rexulti antidepressants: Prozac, Elavil, trazodone, Trintellix, bupropion, antianxiety: Buspar, Ativan, Valium, Klonopin *list likely no inclusive Current Psychiatric Diagnosis: Schizoaffective disorder, depression, anxiety Do You Have Access To A Gun?: No Allergies Allergy/AdvReac Type Severity Reaction Status Date / Time No Known Drug Allergies Allergy Unknown Verified 03/14/22 15:56 Home Medications Medication Instructions Recorded Confirmed Type multivitamin 1 tab PO QAM 03/21/21 03/19/22 History polyethylene glycol 3350 17 gram 17 g PO DAILY 11/10/21 03/19/22 History oral powder packet (Miralax) propranolol 10 mg tablet 10 mg PO BID PRN Anxiety 11/10/21 03/19/22 History sennosides 8.6 mg tablet (Senna 8.6 mg PO BID 11/10/21 03/19/22 History Laxative) Medical Marijuana See Rx Instructions .Route .COMPLEX 12/10/21 03/19/22 History duloxetine 60 mg capsule,delayed 120 mg PO DAILY 12/10/21 03/19/22 History release (Cymbalta) budesonide-formoterol HFA 160 2 puff inhalation BID #10.2 grams 12/16/21 03/19/22 Rx mcg-4.5 mcg/actuation aerosol inhaler (Symbicort) amlodipine 10 mg tablet 10 mg PO QAM #90 tabs 12/24/21 03/19/22 Rx lisinopril 40 mg tablet 40 mg PO QAM #90 tabs 12/24/21 03/19/22 Rx chlorpromazine 50 mg tablet 50 mg PO TID 03/14/22 03/19/22 History lamotrigine 25 mg tablet 25 mg PO DAILY 03/14/22 03/19/22 History quetiapine 200 mg tablet 600 mg PO HS 03/14/22 03/19/22 History aspirin 81 mg tablet,delayed 81 mg PO DAILY #30 tabs 03/15/22 03/19/22 Rx release atorvastatin 20 mg tablet 20 mg PO DAILY #30 tabs 03/15/22 03/19/22 Rx Family History Family History of: Doesn't Know Alcohol History Hx of Alcohol Use Over the Past 12 Months: No AUDIT Total Score: 1 Smoking Use Have You Smoked or Used Tobacco Products in the Last 30 Days: No tobacco type: cigarettes Smoking Status: Former smoker Substance History Hx of Prescription Med Misuse Over the Past 12 Months: No Hx of Over the Counter Med Misuse Over the Past 12 Months: No Hx of Inhalent Misuse Over the Past 12 Months: No Hx of Organic Substance Use Over the Past 12 Months: Yes (medical marijuana user, daily.) Hx of Illegal Substances/Street Drug Use Over Past 12 Months: No Problems as a Result of Past Substance Use: None Identified Personal History Living Arrangements: Apartment Born In: [place], [place] Highest Grade Completed: College 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 Marital Status: Single Number Of Children: 0 Beliefs That Will Affect Care: None Current Legal Problems: No Hx Traumatic Life Events: No Patient History Medical History Chronic obstructive pulmonary disease mild, inhaler daily Constipation Hyperlipidemia Hypertension Hyponatremia Leukopenia Major depressive disorder, recurrent severe without psychotic features Mood disorder Surgical History History of colonoscopy History of tooth extraction History of wisdom tooth extraction Family History Grandmother (Maternal) Diabetes Father Myocardial infarction Hypertension Mother Alzheimer disease Other No family history of adverse response to anesthesia Denies family history of Ovarian cancer Prostate cancer Breast cancer Colorectal cancer Social History (Updated 03/19/22 @ 16:12 by Rima Castillo MD) Smoking Status: Former smoker Tobacco Type: Cigarettes Second Hand Exposure: No; Hx Alcohol Use: No Hx Substance Use: Yes Last Used Substance: Just Prior to Arrival Last Used Substance Other:: marijuana & prescribed medications. Preferred Language: Icelandic Communication Ability: Effective Visual Impairment: No Limitations Hearing Ability: Normal Implementation Architect Required: No Beliefs That Will Affect Care: None marital status: Single Current Living Situation: Family Current Living Situation Comment: at home with sister (younger) current occupational status: employed Feels Safe at Home: Yes Dental Care, Regularly: Yes Seatbelt Use: always Assistive Devices: None Review of Systems Review of Systems: All systems reviewed & are unremarkable except as noted in HPI & below Physical Exam Psychiatric: Orientation: alert and oriented x 3 Apperance: appropriately dressed and appropriately groomed Eye Contact: good eye contact Motor Behavior: no abnormal motor movements Speech: normal rate/rhythm/volume of speech Affect: + depressed affect Mood: + depressed mood Thought Process: goal directed thought process Thought Content: reality based without delusions Suicidal Thoughts: denies suicidal intent; + reports suicidal thoughts and + reports suicidal plan ("could OD", but not on unit) Homicidal Thoughts: denies homicidal thoughts Hallucinations: no auditory hallucinations and no visual hallucinations Cognition: attention grossly intact and language grossly intact Estimated Intelligence: consistent with education level Insight: + limited insight Judgement: + limited judgement Vital Signs (Past 24 Hours): Last Vital Signs Temp 36.5 C 03/19/22 11:35 Pulse 64 03/19/22 11:35 Resp 16 03/19/22 11:35 BP 154/95 H 03/19/22 11:35 Pulse Ox 99 03/19/22 11:35 O2 Del Method 03/19/22 11:35 Exam Statement: A physical exam was performed in the ED by Dr. Schultz for the purposes of medical clearance. I accept that physical as correct and adequate for the purposes of the inpatient physical exam. Results & Data ([facility]) Laboratory Results Laboratory Results - last 24 hr 03/19/22 03/19/22 03/19/22 08:48 08:50 08:50 WBC RBC Hgb Hct MCV MCH MCHC RDW Std Deviation RDW Coeff of Nadia Plt Count MPV Immature Gran % (Auto) Neut % (Auto) Lymph % (Auto) [place] % (Auto) Eos % (Auto) Baso % (Auto) Neut # (Auto) Lymph # (Auto) [place] # (Auto) Eos # (Auto) Baso # (Auto) Immature Gran # (Auto) Sodium Potassium Chloride Carbon Dioxide Anion Gap BUN Creatinine Est Cr Clr Drug Dosing Est GFR ( Amer) Est GFR (Non-Af Amer) BUN/Creatinine Ratio Glucose Calcium Total Bilirubin AST ALT Alkaline Phosphatase Total Protein Albumin Globulin Albumin/Globulin Ratio TSH Urine Color Yellow Urine Appearance Clear Urine pH 6.5 Ur Specific [place] 1.004 Urine Protein Negative Urine Glucose (UA) Negative Urine Ketones Negative Urine Blood Negative Urine Nitrite Negative Urine Bilirubin Negative Urine Urobilinogen Negative Ur Leukocyte Esterase Negative Salicylates Urine Opiates Screen Neg Ur Methadone, Qual Neg Acetaminophen Urine Barbiturates Neg Ur Phencyclidine (PCP) Neg U Amphetamin/Meth Scrn Neg MDMA (Ecstasy) Screen Neg U Benzodiazepines Scrn Neg Ur Cocaine Metabolite Neg U Marijuana (THC) Screen Pos H U Marijuana THC Carboxy Drug Screen Comment Ethyl Alcohol mg/dL SARS-CoV-2, RNA, NAAT NEGATIVE 03/19/22 03/19/22 03/19/22 08:50 09:06 09:06 WBC 6.36 RBC 4.71 Hgb 13.6 L Hct 41.0 MCV 87.0 MCH 28.9 MCHC 33.2 RDW Std Deviation 40.3 RDW Coeff of Nadia 12.7 Plt Count 317 MPV 8.9 L Immature Gran % (Auto) 0.5 Neut % (Auto) 70.4 Lymph % (Auto) 19.3 [place] % (Auto) 7.4 Eos % (Auto) 1.3 Baso % (Auto) 1.1 Neut # (Auto) 4.48 Lymph # (Auto) 1.23 [place] # (Auto) 0.47 Eos # (Auto) 0.08 Baso # (Auto) 0.07 Immature Gran # (Auto) 0.03 H Sodium 128 L Potassium 4.7 Chloride 95 L Carbon Dioxide 28 Anion Gap 5 BUN 12 Creatinine 0.85 Est Cr Clr Drug Dosing 92.2 Est GFR ( Amer) 109.0 Est GFR (Non-Af Amer) 94.0 BUN/Creatinine Ratio 14.1 Glucose 108 H Calcium 9.0 Total Bilirubin 0.3 AST 185 H ALT 69 H Alkaline Phosphatase 52 Total Protein 6.7 Albumin 4.2 Globulin 2.5 Albumin/Globulin Ratio 1.7 TSH Urine Color Urine Appearance Urine pH Ur Specific [place] Urine Protein Urine Glucose (UA) Urine Ketones Urine Blood Urine Nitrite Urine Bilirubin Urine Urobilinogen Ur Leukocyte Esterase Salicylates Urine Opiates Screen Ur Methadone, Qual Acetaminophen Urine Barbiturates Ur Phencyclidine (PCP) U Amphetamin/Meth Scrn MDMA (Ecstasy) Screen U Benzodiazepines Scrn Ur Cocaine Metabolite U Marijuana (THC) Screen U Marijuana THC Carboxy Pending Drug Screen Comment Pending Ethyl Alcohol mg/dL SARS-CoV-2, RNA, NAAT 03/19/22 03/19/22 03/19/22 09:06 09:06 09:06 WBC RBC Hgb Hct MCV MCH MCHC RDW Std Deviation RDW Coeff of Nadia Plt Count MPV Immature Gran % (Auto) Neut % (Auto) Lymph % (Auto) [place] % (Auto) Eos % (Auto) Baso % (Auto) Neut # (Auto) Lymph # (Auto) [place] # (Auto) Eos # (Auto) Baso # (Auto) Immature Gran # (Auto) Sodium Potassium Chloride Carbon Dioxide Anion Gap BUN Creatinine Est Cr Clr Drug Dosing Est GFR ( Amer) Est GFR (Non-Af Amer) BUN/Creatinine Ratio Glucose Calcium Total Bilirubin AST ALT Alkaline Phosphatase Total Protein Albumin Globulin Albumin/Globulin Ratio TSH 2.212 Urine Color Urine Appearance Urine pH Ur Specific [place] Urine Protein Urine Glucose (UA) Urine Ketones Urine Blood Urine Nitrite Urine Bilirubin Urine Urobilinogen Ur Leukocyte Esterase Salicylates < 3.0 L Urine Opiates Screen Ur Methadone, Qual Acetaminophen 3 L Urine Barbiturates Ur Phencyclidine (PCP) U Amphetamin/Meth Scrn MDMA (Ecstasy) Screen U Benzodiazepines Scrn Ur Cocaine Metabolite U Marijuana (THC) Screen U Marijuana THC Carboxy Drug Screen Comment Ethyl Alcohol mg/dL < 10.0 SARS-CoV-2, RNA, NAAT Current Inpatient Medications Current Inpatient Medications: Current Inpatient Medications Acetaminophen (Acetaminophen 325 Mg Tab) 650 mg PO Q4H PRN PRN Reason: Headache or Minor Fever Stop: 04/18/22 11:09 Al Hydrox/Mg Hydrox/Simethicone (Aluminum/Magnesium Susp 30 Ml Udc) 30 ml PO Q4H PRN PRN Reason: GI Upset Stop: 04/18/22 11:09 Amlodipine Besylate (Amlodipine Besylate 5 Mg Tab) 10 mg PO QAM [facility] Stop: 04/19/22 08:59 Aspirin (Aspirin 81 Mg Ectab) 81 mg PO DAILY [facility] Stop: 04/19/22 08:59 Atorvastatin Calcium (Atorvastatin 20 Mg Tab) 20 mg PO DAILY MIKE Stop: 04/19/22 08:59 Bismuth Subsalicylate (Bismuth Subsalicylate Liqd 236 Ml) 15 ml PO PRN PRN PRN Reason: Loose Stool Stop: 04/18/22 11:09 Chlorpromazine HCl (Chlorpromazine Hcl 25 Mg Tab) 50 mg PO TID MIKE Stop: 04/18/22 13:59 Last Admin: 03/19/22 13:50 Dose: 50 mg Duloxetine HCl (Duloxetine Hcl 60 Mg Cap) 120 mg PO DAILY [facility] Stop: 04/19/22 08:59 Fluticasone/Vilanterol (Fluticasone/Vilanterol 100/25mcg 14 Puffs/Inhaler) 2 puffs INH BID MIKE Stop: 04/18/22 20:59 Hydroxyzine HCl (Hydroxyzine Hcl 25 Mg Tab) 50 mg PO HSZ PRN PRN Reason: Insomnia Stop: 04/18/22 11:09 Hydroxyzine HCl (Hydroxyzine Hcl 25 Mg Tab) 25 mg PO Q4H PRN PRN Reason: Anxiety Stop: 04/18/22 11:09 Lamotrigine (Lamotrigine 25 Mg Tab) 25 mg PO DAILY MIKE Stop: 04/19/22 08:59 Lisinopril (Lisinopril 40 Mg Tab) 40 mg PO QAM [facility] Stop: 04/19/22 08:59 Magnesium Hydroxide (Magnesium Hydroxide Susp 30 Ml Udc) 30 ml PO DAILY PRN PRN Reason: Constipation Stop: 04/18/22 11:09 Multivitamins/Minerals (Cerovite Adv Formula Tab) 1 tab PO QAM [facility] Stop: 04/19/22 08:59 Polyethylene Glycol (Polyethylene (Miralax) 17 Gm Pack) 17 gm PO DAILY [facility] Stop: 04/19/22 08:59 Propranolol HCl (Propranolol Hcl 10 Mg Tab) 10 mg PO BID PRN PRN Reason: Anxiety Stop: 04/18/22 11:13 Quetiapine Fumarate (Quetiapine Fumarate 300 Mg Tablet) 600 mg PO HS MIKE Stop: 04/18/22 20:59 Sennosides (Senna 8.6 Mg Tab) 8.6 mg PO BID MIKE Stop: 04/18/22 20:59 Sodium Chloride (Sodium Chloride 0.65% Na Soln 45 Ml ([place])) 1 - 2 sprays NA PRN PRN PRN Reason: Nasal Dryness/Congestion Stop: 04/18/22 11:09
[2022-03-19] MEDS: PROPRANOLOL HCL 10 MG TAB PO PRN (16:58)
[2022-03-19] MEDS: ACETAMINOPHEN 325 MG TAB PO PRN (21:39)
[2022-03-19] MEDS: FLUTICASONE/VILANTEROL 100/25MCG 14 PUFFS/INHALER INH SCH (22:03)
[2022-03-19] MEDS: QUEtiapine FUMARATE 300 MG TABLET PO SCH (22:03)
[2022-03-19] MEDS: SENNA 8.6 MG TAB PO SCH (22:03)
[2022-03-20] MEDS: chlorproMAZINE HCL 25 MG TAB PO PRN (02:02)
[2022-03-20] MEDS: PROPRANOLOL HCL 10 MG TAB PO PRN (03:35)
[2022-03-20] MEDS: ASPIRIN 81 MG ECTAB PO SCH (07:49)
[2022-03-20] MEDS: amLODIPine BESYLATE 5 MG TAB PO SCH (07:49)
[2022-03-20] MEDS: ATORVASTATIN 20 MG TAB PO SCH (07:50)
[2022-03-20] MEDS: DULoxetine HCL 60 MG CAP PO SCH (07:50)
[2022-03-20] MEDS: SENNA 8.6 MG TAB PO SCH ×2 (07:51→21:21)
[2022-03-20] MEDS: CEROVITE ADV FORMULA TAB PO SCH (07:51)
[2022-03-20] MEDS: lisinopril 40 MG TAB PO SCH (07:51)
[2022-03-20] MEDS: POLYETHYLENE (MIRALAX) 17 GM PACK PO SCH (07:52)
[2022-03-20] MEDS: FLUTICASONE/VILANTEROL 100/25MCG 14 PUFFS/INHALER INH SCH ×2 (07:52→21:21)
[2022-03-20] MEDS ORDERED: lamoTRIgine 25 MG TAB PO SCH (09:00)
[2022-03-20] MEDS ORDERED: clonazePAM 0.5 MG TAB PO STA (12:14)
[2022-03-20] MEDS ORDERED: BENZTROPINE MESYLATE 1 MG TAB PO PRN (12:17)
--- NOTE | 2022-03-20 13:41 | Psychiatric Progress Note ---
Date of Service March 20, 2022 Impression / Recommendations Impression 61 yo male with hx of mood/psychotic disorder who reports weakness and depressive symptoms in the context of acute worsening of hyponatremia recently. 03/20/22: more irritable, disrupted sleep, consider MNPR as poor tolerance of peers/staff (1) Schizoaffective disorder: (2) Hyponatremia: (3) Marijuana use: Plan 03/20/22: risks/benefits/alternatives reviewed re: shifting thorazine dosing due to daytime fatigue/orthostasis and will use temporary prn klonopin (made clear unlikely to receive on discharge as [place] has tapered/discontinued). Patient prefers to d/c lamictal as "that's when things really went downhill" and no longer willing to continue trial. 03/19/22: The patient was admitted to the [facility] ([facility] mental health unit) on q15 min checks (behavioral with suicide precautions) for safety. The patient will participate in group, recreational, and milieu therapies and will be offered additional individual and family sessions as clinically appropriate. Hold Thorazine. Risks/benefits/alternatives reviewed re: Lamictal for mood stabilization. Discussion included but was not limited to slow titration to decrease risks of Reji's Bradford syndrome. Patient agrees to hold med/notify current prescriber of rash immediately. He was started on 25 mg Lamictal within past week and reviewed that not likely to be the cause of his current symptoms and is a good option for his depression. Inventory Assets Strengths: consistent with services, working Needs: avoid excessive caffeine/supplements, fluid restriction Suicide Risk Level Suicide Risk Level: High-Moderate (q15 min suicide checks) Risk Factors Assessment Male: Yes : Yes Do You Have Access To A Gun?: No Health Problems: Yes Mental Health Diagnoses: Yes Substance Use Disorders: Yes (hx) Previous Attempt: Yes Previous Psychiatric Hospitalization: Yes Hopelessness: Yes Protective Factors Assessment Employed: Yes ([employer]) Supportive Family: Yes (lives with younger sister) Interval History Identifying Information MIKAELA PRYOR is a 61-year-old M who currently lives in [place], he was just discharged from the medical floor for syncopal episode/hyponatremia, and was admitted on 03/19/22 11:11 on a 201 voluntary commitment for suicidal ideation. Chief Complaint "I'm irritable and told staff that I felt like blowing my brains out", referring to his request for thorazine prn. Review of Systems Sleep Information Total Hours of Sleep: 4 Sleep Comments: Patient requested and received Thorazine. Meal Information Percent Meal Consumed - Breakfast: 100 Percent Meal Consumed - Lunch: 100 Percent Meal Consumed - Dinner: 100 Subjective Subjective Patient was seen & assessed and interval progress reviewed with nursing and social work. Reviewed records from [place] as he is clearly seeking more prns. He was last prescribed 8 tabs of Klonopin 0.5 mg in December. He relates a variety of physical complaints which he attributes to his anxiety and state fuel his depression. He doesn't view himself returning to his current job but "I can't wrap my head around that when I dont' want to be alive". He has no intent or plan to harm himself here and hx of med seeking. He reports muscle stiffness in his legs/abdomen and is now willing to try Cogentin though also asked for a muscle relaxant. Physical Exam Psychiatric Orientation: alert and oriented x 3 Apperance: appropriately dressed and appropriately groomed Eye Contact: good eye contact Motor Behavior: no abnormal motor movements Speech: normal rate/rhythm/volume of speech Affect: + depressed affect and + irritable affect Mood: + depressed mood and + irritable mood Thought Process: + perseveration Thought Content: reality based without delusions Suicidal Thoughts: denies suicidal intent; + reports suicidal thoughts and + reports suicidal plan ("could OD", but not on unit) Homicidal Thoughts: denies homicidal thoughts Hallucinations: no auditory hallucinations and no visual hallucinations Cognition: attention grossly intact and language grossly intact Estimated Intelligence: consistent with education level Insight: + limited insight Judgement: + limited judgement Vital Signs (Past 24 Hours) Last Vital Signs Temp 36.9 C 03/20/22 06:36 Pulse 83 03/20/22 06:37 Resp 16 03/20/22 06:36 BP 128/92 03/20/22 06:37 Pulse Ox 99 03/19/22 11:35 O2 Del Method 03/19/22 11:35 Results & Data (U) Current Inpatient Medications Current Inpatient Medications: Current Inpatient Medications Acetaminophen (Acetaminophen 325 Mg Tab) 650 mg PO Q4H PRN PRN Reason: Headache or Minor Fever Stop: 04/18/22 11:09 Last Admin: 03/19/22 21:39 Dose: 650 mg Al Hydrox/Mg Hydrox/Simethicone (Aluminum/Magnesium Susp 30 Ml Udc) 30 ml PO Q4H PRN PRN Reason: GI Upset Stop: 04/18/22 11:09 Amlodipine Besylate (Amlodipine Besylate 5 Mg Tab) 10 mg PO QAM MIKE Stop: 04/19/22 08:59 Last Admin: 03/20/22 07:49 Dose: 10 mg Aspirin (Aspirin 81 Mg Ectab) 81 mg PO DAILY MIKE Stop: 04/19/22 08:59 Last Admin: 03/20/22 07:49 Dose: 81 mg Atorvastatin Calcium (Atorvastatin 20 Mg Tab) 20 mg PO DAILY MIKE Stop: 04/19/22 08:59 Last Admin: 03/20/22 07:50 Dose: 20 mg Benztropine Mesylate (Benztropine Mesylate 1 Mg Tab) 1 mg PO Q6 PRN PRN Reason: Muscle Spasm Stop: 04/19/22 12:16 Bismuth Subsalicylate (Bismuth Subsalicylate Liqd 236 Ml) 15 ml PO PRN PRN PRN Reason: Loose Stool Stop: 04/18/22 11:09 Chlorpromazine HCl (Chlorpromazine Hcl 25 Mg Tab) 50 mg PO HS PRN PRN Reason: Insomnia Stop: 04/18/22 21:59 Last Admin: 03/20/22 02:02 Dose: 50 mg Chlorpromazine HCl (Chlorpromazine Hcl 25 Mg Tab) 25 mg PO [id number] MIKE Stop: 04/19/22 13:59 Chlorpromazine HCl (Chlorpromazine Hcl 25 Mg Tab) 50 mg PO HS MIKE Stop: 04/19/22 21:59 Clonazepam (Clonazepam 0.5 Mg Tab) 0.5 mg PO Q8 PRN PRN Reason: Anxiety/Agitation Stop: 04/19/22 12:13 Duloxetine HCl (Duloxetine Hcl 60 Mg Cap) 120 mg PO DAILY MIKE Stop: 04/19/22 08:59 Last Admin: 03/20/22 07:50 Dose: 120 mg Fluticasone/Vilanterol (Fluticasone/Vilanterol 100/25mcg 14 Puffs/Inhaler) 2 puffs INH BID MIKE Stop: 04/18/22 20:59 Last Admin: 03/20/22 07:52 Dose: 2 puffs Lisinopril (Lisinopril 40 Mg Tab) 40 mg PO QAM MIKE Stop: 04/19/22 08:59 Last Admin: 03/20/22 07:51 Dose: 40 mg Magnesium Hydroxide (Magnesium Hydroxide Susp 30 Ml Udc) 30 ml PO DAILY PRN PRN Reason: Constipation Stop: 04/18/22 11:09 Multivitamins/Minerals (Cerovite Adv Formula Tab) 1 tab PO QAM MIKE Stop: 04/19/22 08:59 Last Admin: 03/20/22 07:51 Dose: 1 tab Polyethylene Glycol (Polyethylene (Miralax) 17 Gm Pack) 17 gm PO DAILY MIKE Stop: 04/19/22 08:59 Last Admin: 03/20/22 07:52 Dose: 17 gm Quetiapine Fumarate (Quetiapine Fumarate 300 Mg Tablet) 600 mg PO HS MIKE Stop: 04/18/22 20:59 Last Admin: 03/19/22 22:03 Dose: 600 mg Sennosides (Senna 8.6 Mg Tab) 8.6 mg PO BID MIKE Stop: 04/18/22 20:59 Last Admin: 03/20/22 07:51 Dose: 8.6 mg Sodium Chloride (Sodium Chloride 0.65% Na Soln 45 Ml ([place])) 1 - 2 sprays NA PRN PRN PRN Reason: Nasal Dryness/Congestion Stop: 04/18/22 11:09 Mental Health & Subst Abuse Tx Therapist Name of Therapist: Khadar [facility]att [facility] Wire Coating Machine Operator Name of Wire Coating Machine Operator: Nancy Post Discharge Appointments Primary Care Physician Name Of Family Doctor: Dr. De Jesus Pro
[2022-03-20] MEDS: chlorproMAZINE HCL 25 MG TAB PO SCH ×2 (14:07→21:22)
[2022-03-20] MEDS: ACETAMINOPHEN 325 MG TAB PO PRN (14:12)
[2022-03-20] MEDS: ALUMINUM/MAGNESIUM SUSP 30 ML UDC PO PRN (20:42)
[2022-03-20] MEDS: QUEtiapine FUMARATE 300 MG TABLET PO SCH (21:21)
[2022-03-21] MEDS: chlorproMAZINE HCL 25 MG TAB PO PRN (01:19)
[2022-03-21] MEDS: clonazePAM 0.5 MG TAB PO PRN ×2 (03:00→15:22)
[2022-03-21] MEDS: chlorproMAZINE HCL 25 MG TAB PO SCH ×3 (07:57→21:08)
[2022-03-21] MEDS: DULoxetine HCL 60 MG CAP PO SCH (07:57)
[2022-03-21] MEDS: CEROVITE ADV FORMULA TAB PO SCH (07:57)
[2022-03-21] MEDS: amLODIPine BESYLATE 5 MG TAB PO SCH (07:58)
[2022-03-21] MEDS: ASPIRIN 81 MG ECTAB PO SCH (07:58)
[2022-03-21] MEDS: ATORVASTATIN 20 MG TAB PO SCH (07:58)
[2022-03-21] MEDS: SENNA 8.6 MG TAB PO SCH ×2 (07:59→21:10)
[2022-03-21] MEDS: FLUTICASONE/VILANTEROL 100/25MCG 14 PUFFS/INHALER INH SCH ×2 (07:59→21:06)
[2022-03-21] MEDS: POLYETHYLENE (MIRALAX) 17 GM PACK PO SCH (07:59)
[2022-03-21] MEDS: lisinopril 40 MG TAB PO SCH (07:59)
[2022-03-21 09:17] LABS: Marijuana Quant, GCMS Urine 118 ng/mL (<5)
[2022-03-21] MEDS: BENZTROPINE MESYLATE 1 MG TAB PO SCH ×2 (12:42→21:10)
--- NOTE | 2022-03-21 14:54 | Psychiatric Progress Note ---
Date of Service March 21, 2022 Impression / Recommendations Impression 61 yo male with hx of mood/psychotic disorder who reports weakness and depressive symptoms in the context of acute worsening of hyponatremia recently. 03/21/22: MNPR due to disrupted sleep, schizoid. Ongoing anxiety but less depressed than yesterday (1) Schizoaffective disorder: (2) Hyponatremia: (3) Marijuana use: Plan 03/21/22: standing Cogentin for at least 3 days. reviewed past medication trials, believes he did take Remeron briefly but is willing to retry given can be added to Cymbalta and his sleep is disrupted. Will start 7.5 mg Remeron this hs. Reviewed that Klonopin is for short term prn use while hospitalized during medication changes. 03/20/22: risks/benefits/alternatives reviewed re: shifting thorazine dosing due to daytime fatigue/orthostasis and will use temporary prn klonopin (made clear unlikely to receive on discharge as [place] has tapered/discontinued). Patient prefers to d/c lamictal as "that's when things really went downhill" and no longer willing to continue trial. 03/19/22: The patient was admitted to the [facility] ([facility] mental health unit) on q15 min checks (behavioral with suicide precautions) for safety. The patient will participate in group, recreational, and milieu therapies and will be offered additional individual and family sessions as clinically appropriate. Hold Thorazine. Risks/benefits/alternatives reviewed re: Lamictal for mood stabilization. Discussion included but was not limited to slow titration to decrease risks of Reji's Bradford syndrome. Patient agrees to hold med/notify current prescriber of rash immediately. He was started on 25 mg Lamictal within past week and reviewed that not likely to be the cause of his current symptoms and is a good option for his depression. Inventory Assets Strengths: consistent with services, working Needs: avoid excessive caffeine/supplements, fluid restriction Suicide Risk Level Suicide Risk Level: Moderate (q15 min suicide checks) Risk Factors Assessment Male: Yes : Yes Do You Have Access To A Gun?: No Health Problems: Yes Mental Health Diagnoses: Yes Substance Use Disorders: Yes (hx) Previous Attempt: Yes Previous Psychiatric Hospitalization: Yes Hopelessness: Yes Protective Factors Assessment Employed: Yes ([employer]) Supportive Family: Yes (lives with younger sister) Interval History Identifying Information MIKAELA PRYOR is a 61-year-old M who currently lives in [place], he was just discharged from the medical floor for syncopal episode/hyponatremia, and was admitted on 03/19/22 11:11 on a 201 voluntary commitment for suicidal ideation. Chief Complaint "I'm at a little better place than yesterday." Review of Systems Sleep Information Total Hours of Sleep: 5 Sleep Comments: Patient requested and received Thorazine. Meal Information Percent Meal Consumed - Breakfast: 100 Percent Meal Consumed - Lunch: 100 Percent Meal Consumed - Dinner: 100 Subjective Subjective Patient was seen & assessed and interval progress reviewed with treatment team. patient reports that prn Cogentin seemed beneficial, rated mood as 5 and "still sore." He received prn thorazine for sleep as well as Klonopin. Ongoing med focus. Physical Exam Psychiatric Orientation: alert and oriented x 3 Apperance: appropriately dressed and appropriately groomed Eye Contact: good eye contact Motor Behavior: no abnormal motor movements Speech: normal rate/rhythm/volume of speech Affect: + depressed affect Mood: + depressed mood Thought Process: goal directed thought process Thought Content: reality based without delusions Suicidal Thoughts: denies suicidal thoughts Homicidal Thoughts: denies homicidal thoughts Hallucinations: no auditory hallucinations and no visual hallucinations Cognition: attention grossly intact and language grossly intact Estimated Intelligence: consistent with education level Insight: + limited insight Judgement: + limited judgement Vital Signs (Past 24 Hours) Last Vital Signs Temp 36.7 C 03/21/22 06:39 Pulse 123 H 03/21/22 06:40 Resp 16 03/21/22 06:39 BP 132/96 03/21/22 06:40 Pulse Ox 99 03/19/22 11:35 O2 Del Method 03/19/22 11:35 Results & Data ([facility]) Laboratory Results Laboratory Results - last 24 hr 03/19/22 08:50 U Marijuana THC Carboxy 118 H Drug Screen Comment SEE NOTE Current Inpatient Medications Current Inpatient Medications: Current Inpatient Medications Acetaminophen (Acetaminophen 325 Mg Tab) 650 mg PO Q4H PRN PRN Reason: Headache or Minor Fever Stop: 04/18/22 11:09 Last Admin: 03/20/22 14:12 Dose: 650 mg Al Hydrox/Mg Hydrox/Simethicone (Aluminum/Magnesium Susp 30 Ml Udc) 30 ml PO Q4H PRN PRN Reason: GI Upset Stop: 10/14/22 11:09 Last Admin: 03/20/22 20:42 Dose: 30 ml Amlodipine Besylate (Amlodipine Besylate 5 Mg Tab) 10 mg PO QAM MIKE Stop: 04/19/22 08:59 Last Admin: 03/21/22 07:58 Dose: 10 mg Aspirin (Aspirin 81 Mg Ectab) 81 mg PO DAILY MIKE Stop: 04/19/22 08:59 Last Admin: 03/21/22 07:58 Dose: 81 mg Atorvastatin Calcium (Atorvastatin 20 Mg Tab) 20 mg PO DAILY MIKE Stop: 04/19/22 08:59 Last Admin: 03/21/22 07:58 Dose: 20 mg Benztropine Mesylate (Benztropine Mesylate 1 Mg Tab) 1 mg PO Q6 PRN PRN Reason: Muscle Spasm Stop: 04/19/22 12:16 Last Admin: 03/20/22 15:05 Dose: 1 mg Benztropine Mesylate (Benztropine Mesylate 1 Mg Tab) 1 mg PO BID [facility] Stop: 04/20/22 12:59 Last Admin: 03/21/22 12:42 Dose: 1 mg Bismuth Subsalicylate (Bismuth Subsalicylate Liqd 236 Ml) 15 ml PO PRN PRN PRN Reason: Loose Stool Stop: 04/18/22 11:09 Chlorpromazine HCl (Chlorpromazine Hcl 25 Mg Tab) 50 mg PO HS PRN PRN Reason: Insomnia Stop: 04/18/22 21:59 Last Admin: 03/21/22 01:19 Dose: 50 mg Chlorpromazine HCl (Chlorpromazine Hcl 25 Mg Tab) 25 mg PO [id number] [facility] Stop: 04/19/22 13:59 Last Admin: 03/21/22 13:23 Dose: 25 mg Chlorpromazine HCl (Chlorpromazine Hcl 25 Mg Tab) 50 mg PO HS MIKE Stop: 04/19/22 21:59 Last Admin: 03/20/22 21:22 Dose: 50 mg Clonazepam (Clonazepam 0.5 Mg Tab) 0.5 mg PO Q8 PRN PRN Reason: Anxiety/Agitation Stop: 04/19/22 12:13 Last Admin: 03/21/22 03:00 Dose: 0.5 mg Duloxetine HCl (Duloxetine Hcl 60 Mg Cap) 120 mg PO DAILY MIKE Stop: 04/19/22 08:59 Last Admin: 03/21/22 07:57 Dose: 120 mg Fluticasone/Vilanterol (Fluticasone/Vilanterol 100/25mcg 14 Puffs/Inhaler) 2 puffs INH BID MIKE Stop: 04/18/22 20:59 Last Admin: 03/21/22 07:59 Dose: 2 puffs Lisinopril (Lisinopril 40 Mg Tab) 40 mg PO QAM MIKE Stop: 04/19/22 08:59 Last Admin: 03/21/22 07:59 Dose: 40 mg Magnesium Hydroxide (Magnesium Hydroxide Susp 30 Ml Udc) 30 ml PO DAILY PRN PRN Reason: Constipation Stop: 04/18/22 11:09 Mirtazapine (Mirtazapine Tab 15 Mg Tab) 7.5 mg PO HS MIKE Stop: 04/20/22 21:59 Multivitamins/Minerals (Cerovite Adv Formula Tab) 1 tab PO QAM MIKE Stop: 04/19/22 08:59 Last Admin: 03/21/22 07:57 Dose: 1 tab Polyethylene Glycol (Polyethylene (Miralax) 17 Gm Pack) 17 gm PO DAILY MIKE Stop: 04/19/22 08:59 Last Admin: 03/21/22 07:59 Dose: 17 gm Quetiapine Fumarate (Quetiapine Fumarate 300 Mg Tablet) 600 mg PO HS MIKE Stop: 04/18/22 20:59 Last Admin: 03/20/22 21:21 Dose: 600 mg Sennosides (Senna 8.6 Mg Tab) 8.6 mg PO BID MIKE Stop: 04/18/22 20:59 Last Admin: 03/21/22 07:59 Dose: 8.6 mg Sodium Chloride (Sodium Chloride 0.65% Na Soln 45 Ml ([place])) 1 - 2 sprays NA PRN PRN PRN Reason: Nasal Dryness/Congestion Stop: 04/18/22 11:09 Mental Health & Subst Abuse Tx Therapist Name of Therapist: Khadar Hyatt [facility] Dining Room Attendant Cafeteria Name of Dining Room Attendant Cafeteria: Nancy Post Discharge Appointments Primary Care Physician Name Of Family Doctor: Dr. De Jesus Pro
[2022-03-21] MEDS: QUEtiapine FUMARATE 300 MG TABLET PO SCH (21:06)
[2022-03-21] MEDS ORDERED: MIRTAZAPINE TAB 15 MG TAB PO SCH (22:00)
[2022-03-22] MEDS: chlorproMAZINE HCL 25 MG TAB PO PRN (02:07)
[2022-03-22] MEDS: clonazePAM 0.5 MG TAB PO PRN ×2 (04:09→12:04)
[2022-03-22] MEDS: chlorproMAZINE HCL 25 MG TAB PO SCH ×3 (08:36→21:08)
[2022-03-22] MEDS: ASPIRIN 81 MG ECTAB PO SCH (08:36)
[2022-03-22] MEDS: BENZTROPINE MESYLATE 1 MG TAB PO SCH ×2 (08:37→21:09)
[2022-03-22] MEDS: DULoxetine HCL 60 MG CAP PO SCH (08:37)
[2022-03-22] MEDS: amLODIPine BESYLATE 5 MG TAB PO SCH (08:37)
[2022-03-22] MEDS: CEROVITE ADV FORMULA TAB PO SCH (08:37)
[2022-03-22] MEDS: lisinopril 40 MG TAB PO SCH (08:37)
[2022-03-22] MEDS: ATORVASTATIN 20 MG TAB PO SCH (08:37)
[2022-03-22] MEDS: POLYETHYLENE (MIRALAX) 17 GM PACK PO SCH (08:37)
[2022-03-22] MEDS: SENNA 8.6 MG TAB PO SCH ×2 (08:38→21:08)
[2022-03-22] MEDS: FLUTICASONE/VILANTEROL 100/25MCG 14 PUFFS/INHALER INH SCH ×2 (08:38→21:09)
[2022-03-22 09:27] LABS: Albumin Level 4.2 gm/dl (3.4-5.0); Bilirubin Direct 0.1 mg/dl (0-0.2); Bilirubin,Total 0.4 mg/dl (0.2-1.0); Potassium 5.3 mmol/L (3.5-5.1); Total Protein 6.5 gm/dl (6.0-8.3)
--- NOTE | 2022-03-22 09:27 | Psychiatric Progress Note ---
Date of Service March 22, 2022 Impression / Recommendations Impression 61 yo male with hx of mood/psychotic disorder who reports weakness and depressive symptoms in the context of acute worsening of hyponatremia recently. 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 03/22/22: Ongoing anxiety and depression with SI but lessening a bit. Still with significant insomnia. Reviewed labs-Na+ improving but elevated K+. EKG ordered and reviewed, normal sinus rhythm. Decrease Klonopin. Increase mirtazapine to further target insomnia. He declines reducing thorazine dose, or moving to seroquel monotherapy as he feels current combination works well for anxiety. (1) Schizoaffective disorder: (2) Hyponatremia: (3) Marijuana use: Plan 03/22/22: Decrease Klonopin to daily prn for anxiety. Increase mirtazapine to 15mg qhs. 03/21/22: standing Cogentin for at least 3 days. reviewed past medication trials, believes he did take Remeron briefly but is willing to retry given can be added to Cymbalta and his sleep is disrupted. Will start 7.5 mg Remeron this hs. Reviewed that Klonopin is for short term prn use while hospitalized during medication changes. 03/20/22: risks/benefits/alternatives reviewed re: shifting thorazine dosing due to daytime fatigue/orthostasis and will use temporary prn klonopin (made clear unlikely to receive on discharge as [place] has tapered/discontinued). Patient prefers to d/c lamictal as "that's when things really went downhill" and no longer willing to continue trial. 03/19/22: The patient was admitted to the [facility] ([facility] mental health unit) on q15 min checks (behavioral with suicide precautions) for safety. The patient will participate in group, recreational, and milieu therapies and will be offered additional individual and family sessions as clinically appropriate. Hold Thorazine. Risks/benefits/alternatives reviewed re: Lamictal for mood stabilization. Discussion included but was not limited to slow titration to decrease risks of Reji's Bradford syndrome. Patient agrees to hold med/notify current prescriber of rash immediately. He was started on 25 mg Lamictal within past week and reviewed that not likely to be the cause of his current symptoms and is a good option for his depression. Inventory Assets Strengths: consistent with services, working Needs: avoid excessive caffeine/supplements, fluid restriction Suicide Risk Level Suicide Risk Level: Moderate (q15 min suicide checks) Suicide Risk Level Comments: Continues to have intermittent SI and depression but able to safety contract and feels safe on the unit. Risk Factors Assessment Male: Yes : Yes Do You Have Access To A Gun?: No Health Problems: Yes Mental Health Diagnoses: Yes Substance Use Disorders: Yes (hx) Previous Attempt: Yes Previous Psychiatric Hospitalization: Yes Hopelessness: Yes Protective Factors Assessment Employed: Yes ([employer]) Supportive Family: Yes (lives with younger sister) Interval History Identifying Information MIKAELA PRYOR is a 61-year-old M who currently lives in [place], he was just discharged from the medical floor for syncopal episode/hyponatremia, and was admitted on 03/19/22 11:11 on a 201 voluntary commitment for suicidal ideation. Chief Complaint "I wake up in the night and it feels like the world is crashing down". Review of Systems Sleep Information Total Hours of Sleep: 6.5 Sleep Comments: Patient requested and received Thorazine. Meal Information Percent Meal Consumed - Breakfast: 100 Percent Meal Consumed - Lunch: 100 Percent Meal Consumed - Dinner: 100 Subjective Subjective Patient was seen & assessed and interval progress reviewed with treatment team nursing and social work. Poor sleep with prn thorazine and Klonopin due to difficult sleep. Notes he can fall asleep but wakes up with high levels of anxiety. Continues to feel depressed. Had SI "a little bit this morning", states he feels he will always have SI and will eventually "likely by suicide one day" but then notes that he tries to not get caught in these negative thought loops/predicting the future. Physical Exam Psychiatric Orientation: alert and oriented x 3 Apperance: appropriately dressed and appropriately groomed Eye Contact: good eye contact Motor Behavior: no abnormal motor movements Speech: normal rate/rhythm/volume of speech Affect: + depressed affect Mood: + depressed mood Thought Process: goal directed thought process and + perseveration Thought Content: reality based without delusions Suicidal Thoughts: denies suicidal plan and denies suicidal intent; + reports suicidal thoughts Homicidal Thoughts: denies homicidal thoughts Hallucinations: no auditory hallucinations and no visual hallucinations Cognition: attention grossly intact and language grossly intact Estimated Intelligence: consistent with education level Insight: + limited insight Judgement: + limited judgement Vital Signs (Past 24 Hours) Last Vital Signs Temp 36.7 C 03/22/22 06:00 Pulse 114 H 03/22/22 06:15 Resp 16 03/22/22 06:00 BP 117/83 03/22/22 06:15 Pulse Ox 98 03/22/22 06:00 O2 Del Method 03/22/22 06:00 Results & Data ([facility]) Laboratory Results Laboratory Results - last 24 hr 03/22/22 08:16 Sodium Pending Potassium Pending Chloride Pending Carbon Dioxide Pending Anion Gap Pending Total Bilirubin Pending Direct Bilirubin Pending AST Pending ALT Pending Alkaline Phosphatase Pending Total Creatine Kinase Pending Total Protein Pending Albumin Pending Current Inpatient Medications Current Inpatient Medications: Current Inpatient Medications Acetaminophen (Acetaminophen 325 Mg Tab) 650 mg PO Q4H PRN PRN Reason: Headache or Minor Fever Stop: 04/18/22 11:09 Last Admin: 03/20/22 14:12 Dose: 650 mg Al Hydrox/Mg Hydrox/Simethicone (Aluminum/Magnesium Susp 30 Ml Udc) 30 ml PO Q4H PRN PRN Reason: GI Upset Stop: 04/18/22 11:09 Last Admin: 03/20/22 20:42 Dose: 30 ml Amlodipine Besylate (Amlodipine Besylate 5 Mg Tab) 10 mg PO QAM [facility] Stop: 04/19/22 08:59 Last Admin: 03/22/22 08:37 Dose: 10 mg Aspirin (Aspirin 81 Mg Ectab) 81 mg PO DAILY MIKE Stop: 04/19/22 08:59 Last Admin: 03/22/22 08:36 Dose: 81 mg Atorvastatin Calcium (Atorvastatin 20 Mg Tab) 20 mg PO DAILY MIKE Stop: 04/19/22 08:59 Last Admin: 03/22/22 08:37 Dose: 20 mg Benztropine Mesylate (Benztropine Mesylate 1 Mg Tab) 1 mg PO Q6 PRN PRN Reason: Muscle Spasm Stop: 04/19/22 12:16 Last Admin: 03/20/22 15:05 Dose: 1 mg Benztropine Mesylate (Benztropine Mesylate 1 Mg Tab) 1 mg PO BID [facility] Stop: 04/20/22 12:59 Last Admin: 03/22/22 08:37 Dose: 1 mg Bismuth Subsalicylate (Bismuth Subsalicylate Liqd 236 Ml) 15 ml PO PRN PRN PRN Reason: Loose Stool Stop: 04/18/22 11:09 Chlorpromazine HCl (Chlorpromazine Hcl 25 Mg Tab) 50 mg PO HS PRN PRN Reason: Insomnia Stop: 04/18/22 21:59 Last Admin: 03/22/22 02:07 Dose: 50 mg Chlorpromazine HCl (Chlorpromazine Hcl 25 Mg Tab) 25 mg PO [id number] MIKE Stop: 04/19/22 13:59 Last Admin: 03/22/22 08:36 Dose: 25 mg Chlorpromazine HCl (Chlorpromazine Hcl 25 Mg Tab) 50 mg PO HS MIKE Stop: 04/19/22 21:59 Last Admin: 03/21/22 21:08 Dose: 50 mg Clonazepam (Clonazepam 0.5 Mg Tab) 0.5 mg PO Q8 PRN PRN Reason: Anxiety/Agitation Stop: 04/19/22 12:13 Last Admin: 03/22/22 04:09 Dose: 0.5 mg Duloxetine HCl (Duloxetine Hcl 60 Mg Cap) 120 mg PO DAILY MIKE Stop: 04/19/22 08:59 Last Admin: 03/22/22 08:37 Dose: 120 mg Fluticasone/Vilanterol (Fluticasone/Vilanterol 100/25mcg 14 Puffs/Inhaler) 2 puffs INH BID MIKE Stop: 04/18/22 20:59 Last Admin: 03/22/22 08:38 Dose: 2 puffs Lisinopril (Lisinopril 40 Mg Tab) 40 mg PO QAM MIKE Stop: 04/19/22 08:59 Last Admin: 03/22/22 08:37 Dose: 40 mg Magnesium Hydroxide (Magnesium Hydroxide Susp 30 Ml Udc) 30 ml PO DAILY PRN PRN Reason: Constipation Stop: 04/18/22 11:09 Last Admin: 03/22/22 08:36 Dose: 30 ml Mirtazapine (Mirtazapine Tab 15 Mg Tab) 7.5 mg PO HS MIKE Stop: 04/20/22 21:59 Last Admin: 03/21/22 21:08 Dose: 7.5 mg Multivitamins/Minerals (Cerovite Adv Formula Tab) 1 tab PO QAM MIKE Stop: 04/19/22 08:59 Last Admin: 03/22/22 08:37 Dose: 1 tab Polyethylene Glycol (Polyethylene (Miralax) 17 Gm Pack) 17 gm PO DAILY MIKE Stop: 04/19/22 08:59 Last Admin: 03/22/22 08:37 Dose: 17 gm Quetiapine Fumarate (Quetiapine Fumarate 300 Mg Tablet) 600 mg PO HS MIKE Stop: 04/18/22 20:59 Last Admin: 03/21/22 21:06 Dose: 600 mg Sennosides (Senna 8.6 Mg Tab) 8.6 mg PO BID MIKE Stop: 04/18/22 20:59 Last Admin: 03/22/22 08:38 Dose: 8.6 mg Sodium Chloride (Sodium Chloride 0.65% Na Soln 45 Ml ([place])) 1 - 2 sprays NA PRN PRN PRN Reason: Nasal Dryness/Congestion Stop: 04/18/22 11:09 Mental Health & Subst Abuse Tx Therapist Name of Therapist: Khadar Hyatt [facility] Body Trimmer Name of Body Trimmer: Nancy Post Discharge Appointments Primary Care Physician Name Of Family Doctor: Dr. De Jesus Pro
[2022-03-22] MEDS: ALUMINUM/MAGNESIUM SUSP 30 ML UDC PO PRN (16:01)
[2022-03-22] MEDS: QUEtiapine FUMARATE 300 MG TABLET PO SCH (21:07)
[2022-03-22] MEDS: MIRTAZAPINE TAB 15 MG TAB PO SCH (21:08)
[2022-03-23] MEDS: chlorproMAZINE HCL 25 MG TAB PO PRN (02:58)
[2022-03-23] MEDS: chlorproMAZINE HCL 25 MG TAB PO SCH ×3 (07:09→21:25)
[2022-03-23] MEDS: lisinopril 40 MG TAB PO SCH (08:14)
[2022-03-23] MEDS: DULoxetine HCL 60 MG CAP PO SCH (08:15)
[2022-03-23] MEDS: POLYETHYLENE (MIRALAX) 17 GM PACK PO SCH (08:15)
[2022-03-23] MEDS: CEROVITE ADV FORMULA TAB PO SCH (08:15)
[2022-03-23] MEDS: BENZTROPINE MESYLATE 1 MG TAB PO SCH ×2 (08:15→21:25)
[2022-03-23] MEDS: FLUTICASONE/VILANTEROL 100/25MCG 14 PUFFS/INHALER INH SCH ×2 (08:15→21:26)
[2022-03-23] MEDS: amLODIPine BESYLATE 5 MG TAB PO SCH (08:15)
[2022-03-23] MEDS: ATORVASTATIN 20 MG TAB PO SCH (08:15)
[2022-03-23] MEDS: SENNA 8.6 MG TAB PO SCH (08:15)
[2022-03-23] MEDS: ASPIRIN 81 MG ECTAB PO SCH (08:15)
[2022-03-23 11:12] LABS: Albumin Globulin Ratio 1.8 (0.9-2); Albumin Level 4.3 gm/dl (3.4-5.0); BUN Creatinine Ratio 11.5 (10-20); Bilirubin,Total 0.4 mg/dl (0.2-1.0); Creatinine Clr Calc Pharmacy 59.4 ml/min; Est GFR (African American) 73.7 ml/min; Est GFR (Non-African American) 63.6 ml/min; Globulin 2.4 gm/dl (2.5-4.0); Potassium 4.7 mmol/L (3.5-5.1); Total Protein 6.7 gm/dl (6.0-8.3)
--- NOTE | 2022-03-23 12:29 | Electrocardiogram Report ---
Test Reason : Blood Pressure : / mmHG Vent. Rate : 074 BPM Atrial Rate : 074 BPM P-R Int : 142 ms QRS Dur : 082 ms QT Int : 372 ms P-R-T Axes : 061 013 042 degrees QTc Int : 412 ms Normal sinus rhythm Normal ECG When compared with ECG of 14-MAR-2022 14:11, No significant change was found Confirmed by Carlito Anderson ([id number]) on 03/23/2022 12:29:03 PM Referred By: REFERRED SELF Confirmed By:Carlito Anderson
[2022-03-23] MEDS: clonazePAM 0.5 MG TAB PO PRN (15:15)
--- NOTE | 2022-03-23 15:53 | Psychiatric Progress Note ---
Date of Service March 23, 2022 Impression / Recommendations Impression 61 yo male with hx of mood/psychotic disorder who reports weakness and depressive symptoms in the context of acute worsening of hyponatremia recently. 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 03/23/22: Ongoing anxiety and depression with SI and still with significant insomnia. Reviewed elevated CK with hospitalist who recommended trending CK and CMP for the next few days and discontinuing recently started lipitor for at least 2 weeks as this can sometimes lead to elevated CK. Reviewed repeat CK and CMP and reviewed with Mikaela with improvement in K+ and downtrending CK which is reassuring. Reviewed goal of antipsychotic monotherapy and reducing psychiatric medications which can contribute to hyponatremia/potential for SIADH. He consents to tapering seroquel as he wishes to continue with thorazine. Reviewed risks including but not limited to potential for psychosis (though he denies any hx of this outside alcohol-induced) or mood distruption. Consents to gabapentin, reviewed risks/benefits/alternatives and side effects including but not limited to abuse potential, risk for fatal respiratory depression in combination with benzos or alcohol or opioids. (1) Schizoaffective disorder: (2) Hyponatremia: (3) Marijuana use: Plan 03/23/22: Decrease seroquel to 300mg qhs and start gabapentin 300mg qhs. Continue with other medications. 03/22/22: Decrease Klonopin to daily prn for anxiety. Increase mirtazapine to 15mg qhs. 03/21/22: standing Cogentin for at least 3 days. reviewed past medication trials, believes he did take Remeron briefly but is willing to retry given can be added to Cymbalta and his sleep is disrupted. Will start 7.5 mg Remeron this hs. Reviewed that Klonopin is for short term prn use while hospitalized during medication changes. 03/20/22: risks/benefits/alternatives reviewed re: shifting thorazine dosing due to daytime fatigue/orthostasis and will use temporary prn klonopin (made clear unlikely to receive on discharge as [facility] has tapered/discontinued). Patient prefers to d/c lamictal as "that's when things really went downhill" and no longer willing to continue trial. 03/19/22: The patient was admitted to the [facility] ([facility] mental [facility] unit) on q15 min checks (behavioral with suicide precautions) for safety. The patient will participate in group, recreational, and milieu therapies and will be offered additional individual and family sessions as clinically appropriate. Hold Thorazine. Risks/benefits/alternatives reviewed re: Lamictal for mood stabilization. Discussion included but was not limited to slow titration to decrease risks of Reji's Bradford syndrome. Patient agrees to hold med/notify current prescriber of rash immediately. He was started on 25 mg Lamictal within past week and reviewed that not likely to be the cause of his current symptoms and is a good option for his depression. Inventory Assets Strengths: consistent with services, working Needs: avoid excessive caffeine/supplements, fluid restriction Suicide Risk Level Suicide Risk Level: Moderate (q15 min suicide checks) Suicide Risk Level Comments: Continues to have intermittent SI and depression but able to safety contract and feels safe on the unit. Risk Factors Assessment Male: Yes : Yes Do You Have Access To A Gun?: No Health Problems: Yes Mental Health Diagnoses: Yes Substance Use Disorders: Yes (hx) Previous Attempt: Yes Previous Psychiatric Hospitalization: Yes Hopelessness: Yes Protective Factors Assessment Employed: Yes ([employer]) Supportive Family: Yes (lives with younger sister) Interval History Identifying Information MIKAELA PRYOR is a 61-year-old M who currently lives in [place], he was just discharged from the medical floor for syncopal episode/hyponatremia, and was admitted on 03/19/22 11:11 on a 201 voluntary commitment for suicidal ideation. Chief Complaint "I just feel really agitated and restless". Review of Systems Sleep Information Total Hours of Sleep: 5 Sleep Comments: Patient requested and received Thorazine. Meal Information Percent Meal Consumed - Breakfast: 100 Percent Meal Consumed - Lunch: 100 Percent Meal Consumed - Dinner: 100 Subjective Subjective Patient was seen & assessed and interval progress reviewed with treatment team nursing and social work. Slept 5 hours last night and needed prn thorazine. Continues to struggle with depression and anxiety and endorses SI. Reviewed labwork and Na+ concerns and side effects with dual antipsychotic use, he agrees to tapering seroquel and wants to try gabapentin. Feels his sleep was a bit better in that it was not "as agonizing as before" in terms of severe depression thoughts/hopeless when he woke in the middle of the night. Denies any muscle pain or tenderness or potential LOC/being down on the ground for a period of time prior to admission. Physical Exam Psychiatric Orientation: alert and oriented x 3 Apperance: appropriately dressed and appropriately groomed Eye Contact: good eye contact Motor Behavior: no abnormal motor movements Speech: normal rate/rhythm/volume of speech Affect: + depressed affect Mood: + depressed mood Thought Process: goal directed thought process Thought Content: reality based without delusions Suicidal Thoughts: denies suicidal plan and denies suicidal intent; + reports suicidal thoughts Homicidal Thoughts: denies homicidal thoughts Hallucinations: no auditory hallucinations and no visual hallucinations Cognition: attention grossly intact and language grossly intact Estimated Intelligence: consistent with education level Insight: + limited insight Judgement: + limited judgement Vital Signs (Past 24 Hours) Last Vital Signs Temp 36.6 C 03/23/22 06:00 Pulse 108 H 03/23/22 06:20 Resp 18 03/23/22 06:00 BP 119/77 03/23/22 06:20 Pulse Ox 95 03/23/22 06:00 O2 Del Method 03/23/22 06:00 Results & Data ([facility]) Laboratory Results Laboratory Results - last 24 hr 03/23/22 03/23/22 03/23/22 10:30 10:30 10:30 Sodium 130 L Potassium 4.7 Chloride 99 Carbon Dioxide 24 Anion Gap 7 BUN 14 Creatinine 1.22 Est Cr Clr Drug Dosing 59.4 Est GFR ( Amer) 73.7 Est GFR (Non-Af Amer) 63.6 BUN/Creatinine Ratio 11.5 Glucose 68 L Osmolality 272 L Calcium 9.0 Total Bilirubin 0.4 AST 50 H ALT 41 Alkaline Phosphatase 71 Total Creatine Kinase 877 H Total Protein 6.7 Albumin 4.3 Globulin 2.4 L Albumin/Globulin Ratio 1.8 Urine Osmolality 212 L Ur Random Sodium 03/23/22 10:30 Sodium Potassium Chloride Carbon Dioxide Anion Gap BUN Creatinine Est Cr Clr Drug Dosing Est GFR ( Amer) Est GFR (Non-Af Amer) BUN/Creatinine Ratio Glucose Osmolality Calcium Total Bilirubin AST ALT Alkaline Phosphatase Total Creatine Kinase Total Protein Albumin Globulin Albumin/Globulin Ratio Urine Osmolality Ur Random Sodium 28 Current Inpatient Medications Current Inpatient Medications: Current Inpatient Medications Acetaminophen (Acetaminophen 325 Mg Tab) 650 mg PO Q4H PRN PRN Reason: Headache or Minor Fever Stop: 04/18/22 11:09 Last Admin: 03/20/22 14:12 Dose: 650 mg Al Hydrox/Mg Hydrox/Simethicone (Aluminum/Magnesium Susp 30 Ml Udc) 30 ml PO Q4H PRN PRN Reason: GI Upset Stop: 04/18/22 11:09 Last Admin: 03/22/22 16:01 Dose: 30 ml Amlodipine Besylate (Amlodipine Besylate 5 Mg Tab) 10 mg PO QAM MIKE Stop: 04/19/22 08:59 Last Admin: 03/23/22 08:15 Dose: 10 mg Aspirin (Aspirin 81 Mg Ectab) 81 mg PO DAILY MIKE Stop: 04/19/22 08:59 Last Admin: 03/23/22 08:15 Dose: 81 mg Benztropine Mesylate (Benztropine Mesylate 1 Mg Tab) 1 mg PO Q6 PRN PRN Reason: Muscle Spasm Stop: 04/19/22 12:16 Last Admin: 03/20/22 15:05 Dose: 1 mg Benztropine Mesylate (Benztropine Mesylate 1 Mg Tab) 1 mg PO BID MIKE Stop: 04/20/22 12:59 Last Admin: 03/23/22 08:15 Dose: 1 mg Bismuth Subsalicylate (Bismuth Subsalicylate Liqd 236 Ml) 15 ml PO PRN PRN PRN Reason: Loose Stool Stop: 04/18/22 11:09 Chlorpromazine HCl (Chlorpromazine Hcl 25 Mg Tab) 50 mg PO HS PRN PRN Reason: Insomnia Stop: 04/18/22 21:59 Last Admin: 03/23/22 02:58 Dose: 50 mg Chlorpromazine HCl (Chlorpromazine Hcl 25 Mg Tab) 25 mg PO [id number] MIKE Stop: 04/19/22 13:59 Last Admin: 03/23/22 13:55 Dose: 25 mg Chlorpromazine HCl (Chlorpromazine Hcl 25 Mg Tab) 50 mg PO HS MIKE Stop: 04/19/22 21:59 Last Admin: 03/22/22 21:08 Dose: 50 mg Clonazepam (Clonazepam 0.5 Mg Tab) 0.5 mg PO DAILY PRN PRN Reason: Anxiety/Agitation Stop: 04/19/22 12:13 Last Admin: 03/23/22 15:15 Dose: 0.5 mg Duloxetine HCl (Duloxetine Hcl 60 Mg Cap) 120 mg PO DAILY MIKE Stop: 04/19/22 08:59 Last Admin: 03/23/22 08:15 Dose: 120 mg Fluticasone/Vilanterol (Fluticasone/Vilanterol 100/25mcg 14 Puffs/Inhaler) 2 puffs INH BID MIKE Stop: 04/18/22 20:59 Last Admin: 03/23/22 08:15 Dose: 2 puffs Lisinopril (Lisinopril 40 Mg Tab) 40 mg PO QAM MIKE Stop: 04/19/22 08:59 Last Admin: 03/23/22 08:14 Dose: 40 mg Magnesium Hydroxide (Magnesium Hydroxide Susp 30 Ml Udc) 30 ml PO DAILY PRN PRN Reason: Constipation Stop: 04/18/22 11:09 Last Admin: 03/22/22 08:36 Dose: 30 ml Mirtazapine (Mirtazapine Tab 15 Mg Tab) 15 mg PO HS MIKE Stop: 04/21/22 21:59 Last Admin: 03/22/22 21:08 Dose: 15 mg Multivitamins/Minerals (Cerovite Adv Formula Tab) 1 tab PO QAM MIKE Stop: 04/19/22 08:59 Last Admin: 03/23/22 08:15 Dose: 1 tab Polyethylene Glycol (Polyethylene (Miralax) 17 Gm Pack) 17 gm PO DAILY MIKE Stop: 04/19/22 08:59 Last Admin: 03/23/22 08:15 Dose: 17 gm Quetiapine Fumarate (Quetiapine Fumarate 300 Mg Tablet) 600 mg PO HS MIKE Stop: 04/18/22 20:59 Last Admin: 03/22/22 21:07 Dose: 600 mg Sennosides (Senna 8.6 Mg Tab) 8.6 mg PO BID MIKE Stop: 04/18/22 20:59 Last Admin: 03/23/22 08:15 Dose: 8.6 mg Sodium Chloride (Sodium Chloride 0.65% Na Soln 45 Ml ([place])) 1 - 2 sprays NA PRN PRN PRN Reason: Nasal Dryness/Congestion Stop: 04/18/22 11:09 Mental Health & Subst Abuse Tx Psychiatrist Name of Psychiatrist: Khadar Kumar Psychiatrist's Psychiatric Appointment Comment: [address], [place] Therapist Name of Therapist: Khadar Garcia Therapist's Therapy Appointment Comment: [address], [place] [employer] [place] Name of Shop [employer]: Jackeline Post Discharge Appointments Primary Care Physician Name Of Family Doctor: Maru Rothman Primary Care Provider Appointment Comment: Jailene Bean. Contact Information Discharge Discharge Address: [address] [place], [place] [address] [place]
[2022-03-23] MEDS: DOCUSATE SODIUM/SENNA 50/8.6MG TAB PO SCH ×2 (17:08→21:25)
[2022-03-23] MEDS: MIRTAZAPINE TAB 15 MG TAB PO SCH (21:25)
[2022-03-23] MEDS ORDERED: GABAPENTIN 300 MG CAP PO SCH (22:00)
[2022-03-23] MEDS ORDERED: QUEtiapine FUMARATE 300 MG TABLET PO SCH (22:00)
[2022-03-24] MEDS: chlorproMAZINE HCL 25 MG TAB PO PRN (01:51)
[2022-03-24] MEDS: BENZTROPINE MESYLATE 1 MG TAB PO SCH ×2 (08:39→22:07)
[2022-03-24] MEDS: DOCUSATE SODIUM/SENNA 50/8.6MG TAB PO SCH ×2 (08:39→22:06)
[2022-03-24] MEDS: DULoxetine HCL 60 MG CAP PO SCH (08:40)
[2022-03-24] MEDS: lisinopril 40 MG TAB PO SCH (08:40)
[2022-03-24] MEDS: CEROVITE ADV FORMULA TAB PO SCH (08:40)
[2022-03-24] MEDS: chlorproMAZINE HCL 25 MG TAB PO SCH ×3 (08:40→22:07)
[2022-03-24] MEDS: amLODIPine BESYLATE 5 MG TAB PO SCH (08:40)
[2022-03-24] MEDS: POLYETHYLENE (MIRALAX) 17 GM PACK PO SCH (08:41)
[2022-03-24] MEDS: FLUTICASONE/VILANTEROL 100/25MCG 14 PUFFS/INHALER INH SCH ×2 (08:41→22:07)
[2022-03-24] MEDS: ASPIRIN 81 MG ECTAB PO SCH (08:41)
[2022-03-24] MEDS ORDERED: DOCUSATE SODIUM/SENNA 50/8.6MG TAB PO SCH (09:00)
[2022-03-24 11:07] LABS: Albumin Globulin Ratio 1.8 (0.9-2); Albumin Level 4.2 gm/dl (3.4-5.0); BUN Creatinine Ratio 15.9 (10-20); Bilirubin,Total 0.4 mg/dl (0.2-1.0); Creatinine Clr Calc Pharmacy 67.8 ml/min; Est GFR (African American) 86.4 ml/min; Est GFR (Non-African American) 74.5 ml/min; Globulin 2.3 gm/dl (2.5-4.0); Potassium 4.7 mmol/L (3.5-5.1); Total Protein 6.5 gm/dl (6.0-8.3)
[2022-03-24] MEDS: clonazePAM 0.5 MG TAB PO PRN (11:36)
--- NOTE | 2022-03-24 15:04 | Psychiatric Progress Note ---
Date of Service March 24, 2022 Impression / Recommendations Impression 61 yo male with hx of mood/psychotic disorder who reports weakness and depressive symptoms in the context of acute worsening of hyponatremia recently. 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 03/24/22: Ongoing anxiety and depression but improving and SI lessening, only passive thoughts today. Insomnia improving, still has frequent nighttime awakenings. Reviewed labwork. Muscle pain improving with holding statin and CK continues to downtrend and K+ remains normal. He consents to discontinuation of seroquel and increase of gabapentin. (1) Schizoaffective disorder: (2) Hyponatremia: (3) Marijuana use: Plan 03/24/22: Discontinue seroquel. Increase gabapentin to 400mg qhs. Continue with scheduled mirtazapine and Cymbalta; continue with Klonopin and thorazine as needed 03/23/22: Decrease seroquel to 300mg qhs and start gabapentin 300mg qhs. Continue with other medications. 03/22/22: Decrease Klonopin to daily prn for anxiety. Increase mirtazapine to 15mg qhs. 03/21/22: standing Cogentin for at least 3 days. reviewed past medication trials, believes he did take Remeron briefly but is willing to retry given can be added to Cymbalta and his sleep is disrupted. Will start 7.5 mg Remeron this hs. Reviewed that Klonopin is for short term prn use while hospitalized during medication changes. 03/20/22: risks/benefits/alternatives reviewed re: shifting thorazine dosing due to daytime fatigue/orthostasis and will use temporary prn klonopin (made clear unlikely to receive on discharge as [facility] has tapered/discontinued). Patient prefers to d/c lamictal as "that's when things really went downhill" and no longer willing to continue trial. 03/19/22: [facility] unit) on q15 min checks (behavioral with suicide precautions) for safety. The patient will participate in group, recreational, and milieu therapies and will be offered additional individual and family sessions as clinically appropriate. Hold Thorazine. Risks/benefits/alternatives reviewed re: Lamictal for mood stabilization. Discussion included but was not limited to slow titration to decrease risks of Reji's Bradford syndrome. Patient agrees to hold med/notify current prescriber of rash immediately. He was started on 25 mg Lamictal within past week and reviewed that not likely to be the cause of his current symptoms and is a good option for his depression. Inventory Assets Strengths: consistent with services, working Needs: avoid excessive caffeine/supplements, fluid restriction Suicide Risk Level Suicide Risk Level: Moderate (q15 min suicide checks) Suicide Risk Level Comments: Continues to have intermittent SI and depression but able to safety contract and feels safe on the unit. Risk Factors Assessment Male: Yes : Yes Do You Have Access To A Gun?: No Health Problems: Yes Mental Health Diagnoses: Yes Substance Use Disorders: Yes (hx) Previous Attempt: Yes Previous Psychiatric Hospitalization: Yes Hopelessness: Yes Protective Factors Assessment Employed: Yes ([employer]) Supportive Family: Yes (lives with younger sister) Interval History Identifying Information MIKAELA PRYOR is a 61-year-old M who currently lives in [place], he was just discharged from the medical floor for syncopal episode/hyponatremia, and was admitted on 03/19/22 11:11 on a 201 voluntary commitment for suicidal ideation. Chief Complaint "I slept very well". Review of Systems Sleep Information Total Hours of Sleep: 605 Sleep Comments: Patient requested and received Thorazine. Meal Information Percent Meal Consumed - Breakfast: 100 Percent Meal Consumed - Lunch: 100 Percent Meal Consumed - Dinner: 100 Subjective Subjective Patient was seen & assessed and interval progress reviewed with treatment team nursing and social work. Slept better last night, still had awakenings and required prn thorazine but feels more rested. No side effects from gabapentin. Still with periods of anxiety and depression, especially this morning, but he feels this improved as the day as gone on. Had "a touch of passive suicide" today. Muscle stiffness/pain is improving. Reviewed labwork results. Denies any medication side effects. Physical Exam Psychiatric Orientation: alert and oriented x 3 Apperance: appropriately dressed and appropriately groomed Eye Contact: good eye contact Motor Behavior: no abnormal motor movements Speech: normal rate/rhythm/volume of speech Affect: + constricted affect Mood: + depressed mood and + anxious mood Thought Process: goal directed thought process Thought Content: reality based without delusions Suicidal Thoughts: denies suicidal plan and denies suicidal intent; + reports suicidal thoughts (passive) Homicidal Thoughts: denies homicidal thoughts Hallucinations: no auditory hallucinations and no visual hallucinations Cognition: recent memory grossly intact, remote memory grossly intact, attention grossly intact and language grossly intact Estimated Intelligence: consistent with education level Insight: + limited insight Judgement: + limited judgement Vital Signs (Past 24 Hours) Last Vital Signs Temp 36.5 C 03/24/22 06:00 Pulse 94 H 03/24/22 06:38 Resp 18 03/24/22 06:00 BP 134/78 03/24/22 06:38 Pulse Ox 95 03/23/22 06:00 O2 Del Method 03/23/22 06:00 Results & Data ([facility]) Laboratory Results Laboratory Results - last 24 hr 03/24/22 10:27 Sodium 128 L Potassium 4.7 Chloride 97 L Carbon Dioxide 24 Anion Gap 7 BUN 17 Creatinine 1.07 Est Cr Clr Drug Dosing 67.8 Est GFR ( Amer) 86.4 Est GFR (Non-Af Amer) 74.5 BUN/Creatinine Ratio 15.9 Glucose 108 H Calcium 9.0 Total Bilirubin 0.4 AST 40 H ALT 36 Alkaline Phosphatase 74 Total Creatine Kinase 568 H Total Protein 6.5 Albumin 4.2 Globulin 2.3 L Albumin/Globulin Ratio 1.8 Current Inpatient Medications Current Inpatient Medications: Current Inpatient Medications Acetaminophen (Acetaminophen 325 Mg Tab) 650 mg PO Q4H PRN PRN Reason: Headache or Minor Fever Stop: 04/18/22 11:09 Last Admin: 03/20/22 14:12 Dose: 650 mg Al Hydrox/Mg Hydrox/Simethicone (Aluminum/Magnesium Susp 30 Ml Udc) 30 ml PO Q4H PRN PRN Reason: GI Upset Stop: 04/18/22 11:09 Last Admin: 03/22/22 16:01 Dose: 30 ml Amlodipine Besylate (Amlodipine Besylate 5 Mg Tab) 10 mg PO QAM MIKE Stop: 04/19/22 08:59 Last Admin: 03/24/22 08:40 Dose: 10 mg Aspirin (Aspirin 81 Mg Ectab) 81 mg PO DAILY MIKE Stop: 04/19/22 08:59 Last Admin: 03/24/22 08:41 Dose: 81 mg Benztropine Mesylate (Benztropine Mesylate 1 Mg Tab) 1 mg PO Q6 PRN PRN Reason: Muscle Spasm Stop: 04/19/22 12:16 Last Admin: 03/20/22 15:05 Dose: 1 mg Benztropine Mesylate (Benztropine Mesylate 1 Mg Tab) 1 mg PO BID MIKE Stop: 04/20/22 12:59 Last Admin: 03/24/22 08:39 Dose: 1 mg Bismuth Subsalicylate (Bismuth Subsalicylate Liqd 236 Ml) 15 ml PO PRN PRN PRN Reason: Loose Stool Stop: 04/18/22 11:09 Chlorpromazine HCl (Chlorpromazine Hcl 25 Mg Tab) 50 mg PO HS PRN PRN Reason: Insomnia Stop: 04/18/22 21:59 Last Admin: 03/24/22 01:51 Dose: 50 mg Chlorpromazine HCl (Chlorpromazine Hcl 25 Mg Tab) 25 mg PO [id number] MIKE Stop: 04/19/22 13:59 Last Admin: 03/24/22 14:31 Dose: 25 mg Chlorpromazine HCl (Chlorpromazine Hcl 25 Mg Tab) 50 mg PO HS MIKE Stop: 04/19/22 21:59 Last Admin: 03/23/22 21:25 Dose: 50 mg Clonazepam (Clonazepam 0.5 Mg Tab) 0.5 mg PO DAILY PRN PRN Reason: Anxiety/Agitation Stop: 04/19/22 12:13 Last Admin: 03/24/22 11:36 Dose: 0.5 mg Duloxetine HCl (Duloxetine Hcl 60 Mg Cap) 120 mg PO DAILY MIKE Stop: 04/19/22 08:59 Last Admin: 03/24/22 08:40 Dose: 120 mg Fluticasone/Vilanterol (Fluticasone/Vilanterol 100/25mcg 14 Puffs/Inhaler) 2 puffs INH BID MIKE Stop: 04/18/22 20:59 Last Admin: 03/24/22 08:41 Dose: 2 puffs Gabapentin (Gabapentin 400 Mg Cap) 400 mg PO HS MIKE Stop: 04/23/22 21:59 Lisinopril (Lisinopril 40 Mg Tab) 40 mg PO QAM MIKE Stop: 04/19/22 08:59 Last Admin: 03/24/22 08:40 Dose: 40 mg Magnesium Hydroxide (Magnesium Hydroxide Susp 30 Ml Udc) 30 ml PO DAILY PRN PRN Reason: Constipation Stop: 04/18/22 11:09 Last Admin: 03/22/22 08:36 Dose: 30 ml Mirtazapine (Mirtazapine Tab 15 Mg Tab) 15 mg PO HS MIKE Stop: 04/21/22 21:59 Last Admin: 03/23/22 21:25 Dose: 15 mg Multivitamins/Minerals (Cerovite Adv Formula Tab) 1 tab PO QAM MIKE Stop: 04/19/22 08:59 Last Admin: 03/24/22 08:40 Dose: 1 tab Polyethylene Glycol (Polyethylene (Miralax) 17 Gm Pack) 17 gm PO DAILY MIKE Stop: 04/19/22 08:59 Last Admin: 03/24/22 08:41 Dose: 17 gm Senna/Docusate Sodium (Docusate Sodium/Senna 50/8.6mg Tab) 1 tab PO BID MIKE Stop: 04/22/22 15:59 Last Admin: 03/24/22 08:39 Dose: 1 tab Sodium Chloride (Sodium Chloride 0.65% Na Soln 45 Ml ([place])) 1 - 2 sprays NA PRN PRN PRN Reason: Nasal Dryness/Congestion Stop: 04/18/22 11:09 Mental Health & Subst Abuse Tx Psychiatrist Name of Psychiatrist: Khadar Kumar Psychiatrist's Date of Appointment with Psychiatrist: 03/31/22 Time of Appointment with Psychiatrist: 11am Psychiatric Appointment Comment: [address] [place], [place] Therapist Name of Therapist: Khadar Garcia Therapist's Date of Therapist Appointment: 03/27/22 Time of Therapist Appointment: 8am Therapy Appointment Comment: [address] [place], [place] Electronic Tech Name of Electronic Tech: Jackeline Post Discharge Appointments Primary Care Physician Name Of Family Doctor: Maru Rothman Primary Care Provider Appointment Comment: Jailene Bean. Contact Information Discharge Discharge Address: [facility] [address] [place], [place]
[2022-03-24] MEDS ORDERED: GABAPENTIN 400 MG CAP PO SCH (22:00)
[2022-03-24] MEDS: MIRTAZAPINE TAB 15 MG TAB PO SCH (22:07)
[2022-03-25] MEDS: chlorproMAZINE HCL 25 MG TAB PO PRN (01:30)
[2022-03-25] MEDS: chlorproMAZINE HCL 25 MG TAB PO SCH (06:57)
[2022-03-25] MEDS: FLUTICASONE/VILANTEROL 100/25MCG 14 PUFFS/INHALER INH SCH (08:13)
[2022-03-25] MEDS: amLODIPine BESYLATE 5 MG TAB PO SCH (08:14)
[2022-03-25] MEDS: ASPIRIN 81 MG ECTAB PO SCH (08:14)
[2022-03-25] MEDS: BENZTROPINE MESYLATE 1 MG TAB PO SCH (08:15)
[2022-03-25] MEDS: DOCUSATE SODIUM/SENNA 50/8.6MG TAB PO SCH (08:16)
[2022-03-25] MEDS: DULoxetine HCL 60 MG CAP PO SCH (08:16)
[2022-03-25] MEDS: lisinopril 40 MG TAB PO SCH (08:18)
[2022-03-25] MEDS: POLYETHYLENE (MIRALAX) 17 GM PACK PO SCH (08:20)
[2022-03-25] MEDS: CEROVITE ADV FORMULA TAB PO SCH (08:20)
[2022-03-25 11:01] LABS: Albumin Globulin Ratio 1.5 (0.9-2); Albumin Level 4.5 gm/dl (3.4-5.0); BUN Creatinine Ratio 17.4 (10-20); Bilirubin,Total 0.4 mg/dl (0.2-1.0); Calcium 9.2 mg/dl (8.5-10.1); Creatinine Clr Calc Pharmacy 66.5 ml/min; Est GFR (African American) 84.5 ml/min; Est GFR (Non-African American) 72.9 ml/min; Potassium 4.8 mmol/L (3.5-5.1); Total Protein 7.5 gm/dl (6.0-8.3)
--- NOTE | 2022-03-25 11:58 | Discharge Summary ---
Date of Service March 25, 2022 History of Present Illness The patient is known to me from Jul 2021 admission at which time he was more irritable, likely due to withdrawing from benzos and had misused his Seroquel. Currently he reports taking his medication as prescribed. He continues to follow with [facility]. 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 He states when he left his medical stay "I felt great". He had been working in a hot [employer] for [employer] (20 hrs/week) and "sort of passed out." He admits that he was using several hundred mg of caffeine a day as he has been fatigued. In the past few days his fatigue and functioning have worsened and in this context he didn't want to live anymore. He confirms history as presented to ED psych CM as: Pt reports that he has been struggling with depression for several years. Recently he has been waking up around 3 am with "crushing depression and despair" and is unable to get back to sleep. He does get about 6 hours of sleep per night. His suicidal thoughts have been increasing and he reports that if he doesn't get help now, he feels that suicide will become the only solution. Pt attempted suicide in 2005 by overdose. He has been inpatient multiple times for psychiatric treatment. Pt reports hopelessness, lack of motivation, and sadness. He works at [employer] a few days a week and reports going to work has been a struggle. He has been taking caffeine pills but reports the pills caused him to have a rapid heart rate so he has stopped taking them. Pt is dx with schizoaffective disorder, depression and anxiety. He sees Kimberley at [facility] for medication management and he has a Nancy RAMIREZ through [facility]. Pt denies hallucinations, delusions and paranoia. He denies D&A treatment. Pt is requesting inpatient treatment. He is denying acute SI/plan but states, "If I don't get help, suicide will become my only option". Physical Exam Vital Signs (Past 24 Hours) Last Vital Signs Temp 36.6 C 03/25/22 08:22 Pulse 73 03/25/22 08:22 Resp 18 03/25/22 08:22 BP 129/93 03/25/22 08:22 Pulse Ox 95 03/25/22 08:22 O2 Del Method 03/23/22 06:00 See admission H&P and DOD summary. Principal Diagnosis Major depressive disorder with anxious distress Psychiatric Data See daily stay summary. In short, patient was engaged with the socia l/therapeutic milieu of the unit, safety was maintained and the patient was cooperative with care. Medication changes included discontinuation of Seroquel, change in dose timing of thorazine with lower doses during the day, initiation of mirtazapine, initiation of gabapentin and discontinuation of lamictal and they tolerated this well. Presentation consistent with depression with significant insomnia and anxiety. He was provided with 8 tabs of Klonopin to use for severe panic attacks, recommend taper to discontinuation or goal of continuing to limit tabs per month as he has been doing with his outpatient psychiatric provider. Given history of chronic hyponatremia a goal during admission was to reduce psychiatric polypharmacy and ideally this can continue in the outpatient setting over time as sleep and mood improve. He was able to tolerate discontinuation taper of Seroquel. During admission he experienced muscle stiffness and CK was found to be elevated. Discussion with hospitalist service recommended discontinuation of his recently started Lipitor and CK was followed and this downtrended over the course of hospitalization. Reviewed recommendation per hospitalist service to avoid restarting Lipitor for at least two weeks and until he reviews risks/benefits with his primary care physician. Recommend consideration for a sleep study or outpatient therapy focus on CBT-I if insomnia remains problematic even with multiple sedating psychotropic medications. A safety plan was completed prior to discharge. He actively and insightfully participated in safety planning and in discussions about ways to seek support and recognizing warning signs and utilizing coping skills. Reviewed mobile apps that could be used for additional ways to have their safety plan and contacts easily available should thoughts of SI re-emerge in the future. Reviewed importance of seeking emergency care should SI intensify, worsen or should they feel unsafe in the future which they agree to do. 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 Day of Discharge Assessment Today the patient voices readiness for discharge. They note improvement in mood and anxiety. They deny thoughts of harm to self or others. Thoughts are organized and they are clinically improved from admission. There is no evidence of psychosis. They improved in the hospital with support and medication adjustments. They agree to take medications as prescribed and keep follow-up appointments. At the time of the discharge they are deemed to be stable and appropriate for outpatient level of care. They are not deemed to be at imminent risk of harm to self or others. They are aware of emergency and crisis services. Knows to call 911 or go to nearest emergency care center if in a crisis which cannot be handled as an outpatient. Transition of Care Transition Of Care Record: was reviewed with the patient Advance Directives Advance Directives Information Provided: Yes Advance Directives: No Mental Health Advance Directive: No Advance Directives on File: No Living Will: No Power of Word Processing Specialist: No Advance Directives Reason:: Declines as Mental Health Visit. Suicide Risk Level Suicide Risk Level Comments: Acute risk is low given improvement in mood and denial of SI, lack of access to lethal means, plan to avoid substance use, improvement in sleep, hopefulness. Chronic risk is moderate given psychiatric co-morbid diagnoses, prior attempt, chronic illness, prior psychiatric hospitalizations, limited social support, mood disorder but also with protective factors. Counseled on ways to reduce acute and chronic risk including engaging with outpatient providers, using safety plan if needed, utilizing supports, taking medication, and using coping skills. Modifiable risk factors of SI, sleep and depression were addressed during hospitalization through development of new coping skills, family meeting, safety planning, and medication adjustments. Risk Factors Assessment Male: Yes : Yes Do You Have Access To A Gun?: No Health Problems: Yes Mental Health Diagnoses: Yes Substance Use Disorders: Yes (hx) Previous Attempt: Yes Previous Psychiatric Hospitalization: Yes Hopelessness: No Protective Factors Assessment Employed: Yes ([employer]) Supportive Family: Yes (lives with younger sister) Discharge Data Lab Results 03/19/22 03/19/22 03/19/22 08:48 08:50 08:50 WBC RBC Hgb Hct MCV MCH MCHC RDW Std Deviation RDW Coeff of Nadia Plt Count MPV Immature Gran % (Auto) Neut % (Auto) Lymph % (Auto) [place] % (Auto) Eos % (Auto) Baso % (Auto) Neut # (Auto) Lymph # (Auto) [place] # (Auto) Eos # (Auto) Baso # (Auto) Immature Gran # (Auto) Sodium Potassium Chloride Carbon Dioxide Anion Gap BUN Creatinine Est Cr Clr Drug Dosing Est GFR ( Amer) Est GFR (Non-Af Amer) BUN/Creatinine Ratio Glucose Osmolality Calcium Total Bilirubin Direct Bilirubin AST ALT Alkaline Phosphatase Total Creatine Kinase Total Protein Albumin Globulin Albumin/Globulin Ratio TSH Urine Color Yellow Urine Appearance Clear Urine pH 6.5 Ur Specific [place] 1.004 Urine Protein Negative Urine Glucose (UA) Negative Urine Ketones Negative Urine Blood Negative Urine Nitrite Negative Urine Bilirubin Negative Urine Urobilinogen Negative Ur Leukocyte Esterase Negative Urine Osmolality Ur Random Sodium Salicylates Urine Opiates Screen Neg Ur Methadone, Qual Neg Acetaminophen Urine Barbiturates Neg Ur Phencyclidine (PCP) Neg U Amphetamin/Meth Scrn Neg MDMA (Ecstasy) Screen Neg U Benzodiazepines Scrn Neg Ur Cocaine Metabolite Neg U Marijuana (THC) Screen Pos H U Marijuana THC Carboxy Drug Screen Comment Ethyl Alcohol mg/dL SARS-CoV-2, RNA, NAAT NEGATIVE 03/19/22 03/19/22 03/19/22 08:50 09:06 09:06 WBC 6.36 RBC 4.71 Hgb 13.6 L Hct 41.0 MCV 87.0 MCH 28.9 MCHC 33.2 RDW Std Deviation 40.3 RDW Coeff of Nadia 12.7 Plt Count 317 MPV 8.9 L Immature Gran % (Auto) 0.5 Neut % (Auto) 70.4 Lymph % (Auto) 19.3 [place] % (Auto) 7.4 Eos % (Auto) 1.3 Baso % (Auto) 1.1 Neut # (Auto) 4.48 Lymph # (Auto) 1.23 [place] # (Auto) 0.47 Eos # (Auto) 0.08 Baso # (Auto) 0.07 Immature Gran # (Auto) 0.03 H Sodium 128 L Potassium 4.7 Chloride 95 L Carbon Dioxide 28 Anion Gap 5 BUN 12 Creatinine 0.85 Est Cr Clr Drug Dosing 92.2 Est GFR ( Amer) 109.0 Est GFR (Non-Af Amer) 94.0 BUN/Creatinine Ratio 14.1 Glucose 108 H Osmolality Calcium 9.0 Total Bilirubin 0.3 Direct Bilirubin AST 185 H ALT 69 H Alkaline Phosphatase 52 Total Creatine Kinase Total Protein 6.7 Albumin 4.2 Globulin 2.5 Albumin/Globulin Ratio 1.7 TSH Urine Color Urine Appearance Urine pH Ur Specific [place] Urine Protein Urine Glucose (UA) Urine Ketones Urine Blood Urine Nitrite Urine Bilirubin Urine Urobilinogen Ur Leukocyte Esterase Urine Osmolality Ur Random Sodium Salicylates Urine Opiates Screen Ur Methadone, Qual Acetaminophen Urine Barbiturates Ur Phencyclidine (PCP) U Amphetamin/Meth Scrn MDMA (Ecstasy) Screen U Benzodiazepines Scrn Ur Cocaine Metabolite U Marijuana (THC) Screen U Marijuana THC Carboxy 118 H Drug Screen Comment SEE NOTE Ethyl Alcohol mg/dL SARS-CoV-2, RNA, NAAT 03/19/22 03/19/22 03/19/22 09:06 09:06 09:06 WBC RBC Hgb Hct MCV MCH MCHC RDW Std Deviation RDW Coeff of Nadia Plt Count MPV Immature Gran % (Auto) Neut % (Auto) Lymph % (Auto) [place] % (Auto) Eos % (Auto) Baso % (Auto) Neut # (Auto) Lymph # (Auto) [place] # (Auto) Eos # (Auto) Baso # (Auto) Immature Gran # (Auto) Sodium Potassium Chloride Carbon Dioxide Anion Gap BUN Creatinine Est Cr Clr Drug Dosing Est GFR ( Amer) Est GFR (Non-Af Amer) BUN/Creatinine Ratio Glucose Osmolality Calcium Total Bilirubin Direct Bilirubin AST ALT Alkaline Phosphatase Total Creatine Kinase Total Protein Albumin Globulin Albumin/Globulin Ratio TSH 2.212 Urine Color Urine Appearance Urine pH Ur Specific [place] Urine Protein Urine Glucose (UA) Urine Ketones Urine Blood Urine Nitrite Urine Bilirubin Urine Urobilinogen Ur Leukocyte Esterase Urine Osmolality Ur Random Sodium Salicylates < 3.0 L Urine Opiates Screen Ur Methadone, Qual Acetaminophen 3 L Urine Barbiturates Ur Phencyclidine (PCP) U Amphetamin/Meth Scrn MDMA (Ecstasy) Screen U Benzodiazepines Scrn Ur Cocaine Metabolite U Marijuana (THC) Screen U Marijuana THC Carboxy Drug Screen Comment Ethyl Alcohol mg/dL < 10.0 SARS-CoV-2, RNA, NAAT 03/22/22 03/23/22 03/23/22 08:16 10:30 10:30 WBC RBC Hgb Hct MCV MCH MCHC RDW Std Deviation RDW Coeff of Nadia Plt Count MPV Immature Gran % (Auto) Neut % (Auto) Lymph % (Auto) [place] % (Auto) Eos % (Auto) Baso % (Auto) Neut # (Auto) Lymph # (Auto) [place] # (Auto) Eos # (Auto) Baso # (Auto) Immature Gran # (Auto) Sodium 131 L 130 L Potassium 5.3 H 4.7 Chloride 99 99 Carbon Dioxide 28 24 Anion Gap 4 7 BUN 14 Creatinine 1.22 Est Cr Clr Drug Dosing 59.4 Est GFR ( Amer) 73.7 Est GFR (Non-Af Amer) 63.6 BUN/Creatinine Ratio 11.5 Glucose 68 L Osmolality 272 L Calcium 9.0 Total Bilirubin 0.4 0.4 Direct Bilirubin 0.1 AST 62 H 50 H ALT 47 41 Alkaline Phosphatase 65 71 Total Creatine Kinase 1195 H 877 H Total Protein 6.5 6.7 Albumin 4.2 4.3 Globulin 2.4 L Albumin/Globulin Ratio 1.8 TSH Urine Color Urine Appearance Urine pH Ur Specific [place] Urine Protein Urine Glucose (UA) Urine Ketones Urine Blood Urine Nitrite Urine Bilirubin Urine Urobilinogen Ur Leukocyte Esterase Urine Osmolality Ur Random Sodium Salicylates Urine Opiates Screen Ur Methadone, Qual Acetaminophen Urine Barbiturates Ur Phencyclidine (PCP) U Amphetamin/Meth Scrn MDMA (Ecstasy) Screen U Benzodiazepines Scrn Ur Cocaine Metabolite U Marijuana (THC) Screen U Marijuana THC Carboxy Drug Screen Comment Ethyl Alcohol mg/dL SARS-CoV-2, RNA, NAAT 03/23/22 03/23/22 03/24/22 10:30 10:30 10:27 WBC RBC Hgb Hct MCV MCH MCHC RDW Std Deviation RDW Coeff of Nadia Plt Count MPV Immature Gran % (Auto) Neut % (Auto) Lymph % (Auto) [place] % (Auto) Eos % (Auto) Baso % (Auto) Neut # (Auto) Lymph # (Auto) [place] # (Auto) Eos # (Auto) Baso # (Auto) Immature Gran # (Auto) Sodium 128 L Potassium 4.7 Chloride 97 L Carbon Dioxide 24 Anion Gap 7 BUN 17 Creatinine 1.07 Est Cr Clr Drug Dosing 67.8 Est GFR ( Amer) 86.4 Est GFR (Non-Af Amer) 74.5 BUN/Creatinine Ratio 15.9 Glucose 108 H Osmolality Calcium 9.0 Total Bilirubin 0.4 Direct Bilirubin AST 40 H ALT 36 Alkaline Phosphatase 74 Total Creatine Kinase 568 H Total Protein 6.5 Albumin 4.2 Globulin 2.3 L Albumin/Globulin Ratio 1.8 TSH Urine Color Urine Appearance Urine pH Ur Specific [place] Urine Protein Urine Glucose (UA) Urine Ketones Urine Blood Urine Nitrite Urine Bilirubin Urine Urobilinogen Ur Leukocyte Esterase Urine Osmolality 212 L Ur Random Sodium 28 Salicylates Urine Opiates Screen Ur Methadone, Qual Acetaminophen Urine Barbiturates Ur Phencyclidine (PCP) U Amphetamin/Meth Scrn MDMA (Ecstasy) Screen U Benzodiazepines Scrn Ur Cocaine Metabolite U Marijuana (THC) Screen U Marijuana THC Carboxy Drug Screen Comment Ethyl Alcohol mg/dL SARS-CoV-2, RNA, NAAT 03/25/22 10:04 WBC RBC Hgb Hct MCV MCH MCHC RDW Std Deviation RDW Coeff of Nadia Plt Count MPV Immature Gran % (Auto) Neut % (Auto) Lymph % (Auto) [place] % (Auto) Eos % (Auto) Baso % (Auto) Neut # (Auto) Lymph # (Auto) [place] # (Auto) Eos # (Auto) Baso # (Auto) Immature Gran # (Auto) Sodium 129 L Potassium 4.8 Chloride 96 L Carbon Dioxide 27 Anion Gap 6 BUN 19 Creatinine 1.09 Est Cr Clr Drug Dosing 66.5 Est GFR ( Amer) 84.5 Est GFR (Non-Af Amer) 72.9 BUN/Creatinine Ratio 17.4 Glucose 86 Osmolality Calcium 9.2 Total Bilirubin 0.4 Direct Bilirubin AST 36 ALT 34 Alkaline Phosphatase 82 Total Creatine Kinase 417 H Total Protein 7.5 Albumin 4.5 Globulin 3.0 Albumin/Globulin Ratio 1.5 TSH Urine Color Urine Appearance Urine pH Ur Specific [place] Urine Protein Urine Glucose (UA) Urine Ketones Urine Blood Urine Nitrite Urine Bilirubin Urine Urobilinogen Ur Leukocyte Esterase Urine Osmolality Ur Random Sodium Salicylates Urine Opiates Screen Ur Methadone, Qual Acetaminophen Urine Barbiturates Ur Phencyclidine (PCP) U Amphetamin/Meth Scrn MDMA (Ecstasy) Screen U Benzodiazepines Scrn Ur Cocaine Metabolite U Marijuana (THC) Screen U Marijuana THC Carboxy Drug Screen Comment Ethyl Alcohol mg/dL SARS-CoV-2, RNA, NAAT Hospital Course (1) Major depressive disorder, recurrent episode: (2) Generalized anxiety disorder with panic attacks: (3) Insomnia: (4) Schizoaffective disorder: (5) Marijuana use: (6) Chronic hyponatremia: Plan 03/24/22: Discontinue seroquel. Increase gabapentin to 400mg qhs. Continue with scheduled mirtazapine and Cymbalta; continue with Klonopin and thorazine as needed 9/18/22: Decrease seroquel to 300mg qhs and start gabapentin 300mg qhs. Continue with other medications. 03/22/22: Decrease Klonopin to daily prn for anxiety. Increase mirtazapine to 15mg qhs. 03/21/22: standing Cogentin for at least 3 days. reviewed past medication trials, believes he did take Remeron briefly but is willing to retry given can be added to Cymbalta and his sleep is disrupted. Will start 7.5 mg Remeron this hs. Reviewed that Klonopin is for short term prn use while hospitalized during medication changes. 03/20/22: risks/benefits/alternatives reviewed re: shifting thorazine dosing due to daytime fatigue/orthostasis and will use temporary prn klonopin (made clear unlikely to receive on discharge as [facility] has tapered/discontinued). Patient prefers to d/c lamictal as "that's when things really went downhill" and no longer willing to continue trial. 03/19/22: The patient was admitted to the [facility] ([facility] unit) on q15 min checks (behavioral with suicide precautions) for safety. The patient will participate in group, recreational, and milieu therapies and will be offered additional individual and family sessions as clinically appropriate. Hold Thorazine. Risks/benefits/alternatives reviewed re: Lamictal for mood stabilization. Discussion included but was not limited to slow titration to decrease risks of Reji's Bradford syndrome. Patient agrees to hold med/notify current prescriber of rash immediately. He was started on 25 mg Lamictal within past week and reviewed that not likely to be the cause of his current symptoms and is a good option for his depression. Mental Health & Subst Abuse Tx Psychiatrist Name of Psychiatrist: Khadar Kumar Psychiatrist's Date of Appointment with Psychiatrist: 03/31/22 Time of Appointment with Psychiatrist: 11am Psychiatric Appointment Comment: [address] [place], [place] Therapist Name of Therapist: Khadar Hyatt Therapist's Date of Therapist Appointment: 03/27/22 Time of Therapist Appointment: 8am Therapy Appointment Comment: [address], [place] Washer Blanket Name of Washer Blanket: Jackeline Phone Number for Washer Blanket: [phone] Post Discharge Appointments Primary Care Physician Name Of Family Doctor: [facility] Date of Appointment with PCP: 04/01/22 Time of Appointment with PCP: 2:30pm Provider Appointment Comment: [phone] Contact Information Discharge Discharge Address: [facility] [address] Discharge Plan Discharge Items Patient Disposition: Home - Self-Care Reason For Visit: MOOD DISORDER Discharge Diagnosis: Major Depressive Disorder Activity: Resume your previous activity Non-emergency contact: Primary Care Provider, Psychiatrist, Therapist and Telephone Operator Call non-emergency contact if: you have any medication questions and your symptoms worsen Follow-up/Referrals: Carlito Rothman MD [Primary Care Provider] - Diet: Regular Addtl Attending Provider Instructions: Optional mobile apps we discussed: -Suicide safety plan -Virtual Hope Box SPECIAL CARE INSTRUCTIONS: 1. Follow through with your scheduled aftercare appointments. If unable to keep an appointment, please call to reschedule. 2. Take your medication only as prescribed. Medication should not be changed or stopped without the approval of your doctor. In the event of worsening symptoms or concerns about side effects, contact your doctor immediately. 3. Utilize new healthy coping skills, anger management skills, and stress management skills learned during your hospitalization. Journal feelings and process them with a support person. Identify stressors or situations that may result in relapse, deterioration or inappropriate behaviors and develop a plan to deal with those issues. 4. If your coping skills are ineffective and you are in crisis, contact your outpatient providers for direction. If unable to reach your providers, please call the [facility] CRISIS LINE AT , go to the [facility] walk-in center at [address], [address], [place], or go to the closest Emergency Room. 5. Avoid alcohol and un-prescribed drugs. 6. You have been provided with the Mental Health Advance Directives Pamphlet for your review. 7. Your condition is stable for discharge to outpatient level of care, but recovery is an ongoing process. Ifthoughts to harm yourself or others return, follow the safety plan developed during your stay. Planning for a safe return home includes securing weapons. Our treatment team recommends weaponsbe removed from the home until your outpatient provider reassesses your progress. In rare cases where the items themselvescannot be removed, guns and ammunitionshould be secured separatelyand keys stored by a reliable personoutside of the home. If you were admitted on an involuntary commitment, the police or other legal authorities may be involved in this process. AFTERCARE APPOINTMENTS: * Please call your insurance company prior to your scheduled appointment to confirm your aftercare providers are covered. Take your insurance information to your appointments. WHO TO CALL AND WHEN: Medical Emergencies: For questions or emergencies related to your hospital stay, please contact the Inpatient Behavioral Health Unit at [phone]. A pre billing clinician is on-call 26/01 for the Behavioral Health Unit for emergencies At any time you feel your situation is an emergency, you may also call 911 immediately. Pending Studies at Discharge: No Stand-Alone Forms: My [facility] Medications and DC Order Prescriptions: New clonazepam 0.5 mg Tablet 0.5 mg PO DAILY PRN (Reason: panic attacks) 30 Days Qty: 8 0RF gabapentin 400 mg Capsule 400 mg PO HS 30 Days Qty: 30 0RF chlorpromazine 25 mg Tablet 25 mg PO [id number] 30 Days Qty: 60 0RF benztropine 1 mg Tablet 1 mg PO DAILY PRN (Reason: muscle stiffness/EPS) 30 Days Qty: 30 0RF mirtazapine 15 mg Tablet 15 mg PO HS 30 Days Qty: 30 0RF chlorpromazine 50 mg tablet 50 mg PO HS PRN (Reason: insomnia/mood disorder ) 30 Days Qty: 30 0RF chlorpromazine 50 mg tablet 50 mg PO HS 30 Days Qty: 30 0RF Continued Symbicort 160-4.5 mcg/actuation HFA aerosol inhaler 2 puff INH BID Qty: 10.2 5RF Rx Instructions: brand necessary lisinopril 40 mg tablet 40 mg PO QAM Qty: 90 3RF amlodipine 10 mg tablet 10 mg PO QAM Qty: 90 3RF duloxetine [Cymbalta] 60 mg capsule,delayed release(DR/EC) 120 mg PO DAILY Rx Instructions: 2 capsule dose multivitamin Tablet 1 tab PO QAM sennosides [Senna Laxative] 8.6 mg Tablet 8.6 mg PO BID polyethylene glycol 3350 [Miralax] 17 gram Powder In Packet 17 g PO DAILY aspirin 81 mg tablet,delayed release (DR/EC) 81 mg PO DAILY Qty: 30 0RF propranolol 10 mg tablet 10 mg PO BID PRN (Reason: Anxiety) 30 Days Qty: 60 0RF Discontinued lamotrigine 25 mg tablet 25 mg PO DAILY quetiapine 200 mg tablet 600 mg PO HS Rx Instructions: 3 tablet dose chlorpromazine 50 mg tablet 50 mg PO TID atorvastatin 20 mg tablet 20 mg PO DAILY Qty: 30 0RF Discharge Orders: Discharge Order (Routine); Ordered 03/25/22 Ordered By: Amparo Rebolledo Admission Data Admit Date/Time: 03/19/22 11:11 Attending Provider: Amparo Rebolledo Admit Provider: Rima Castillo Primary Care Provider: Carlito Rothman Other Interventions: Discharge Summary Assessment (RN) Last Done: 03/25/22 08:22 PSY Interdisciplinary Discharge Planning Last Done: 03/25/22 12:04 Coding Level of Care Code 55162 D/C day mgmt > 30 min Diagnoses Major depressive disorder, recurrent episode F33.9 Generalized anxiety disorder with panic attacks F41.1; F41.0 Insomnia G47.00 Schizoaffective disorder F25.9 Marijuana use F12.90 Chronic hyponatremia E87.1 Time Spent (min) 45
== END 2022-03-25 13:03 | disposition home or self-care (01) | DRG 885 ==
LOC: ED 08:31 → 3S 11:11 → SUATTDRO 11:11 → 3S 11:15